=== PATIENT | male | born 1945 | race Caucasian/White ===

== ENCOUNTER 2017-08-26 17:26 | Inpatient (IN) | payer OTHER, MEDICAID ==
[2017-08-26] MEDS ORDERED: NS 1,000 ML IV ONE (18:09)
--- NOTE | 2017-08-26 18:13 | EDPHY ---
H & P Time Seen by Provider: 08/26/17 17:31 HPI/ROS: HPI M1, gravely disabled. 71-year-old male with [place] police on an M1 hold. Police responded to a welfare check to this patient's residence. They found him out plane on the street. He was talking nonsensically and mumbling incoherently. Neighbors report that he has not been taking care of himself. 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 He was sane he was in "waiting on the [place] her of the [employer] for Smartphones and" and he was in "born 2000 years ago" filthy living environment according to officer with hoarding. Spoke with behavioral health provider from [facility]. She spoke with the patient's home health care nurse. The patient is in a chronic hypo manic state. He is usually on Paxil 40 mg daily lorazepam 1 mg 3 times daily. She reports that the patient has lost a lot of weight recently. She reports primary care is through [facility] Dr. Whittaker. ROS: Unable to obtain. Past medical history: Unknown. Social history: As above. He lives alone. Unknown if he has any relatives nearby. Physical Exam: General Appearance: Alert, no distress. Disheveled in appearance. Intermittently mumbles. Answers questions nonsensically. This patient generally appears well-hydrated and well-nourished. Eyes: Pupils equal and round no pallor or injection. No lid edema, erythema or injection. ENT, Mouth: Poor dentition. Mucous membranes are moist. The pharyngeal tissues are unremarkable. No edema or swelling. No asymmetry suggestive of abscess. No erythema or exudates. Respiratory: There are no retractions, lungs are clear to auscultation with good air movement bilaterally. Cardiovascular: Regular rate and rhythm. No murmur appreciated. Gastrointestinal: Abdomen is soft and nontender, no masses, bowel sounds normal. No focal tenderness at McBurney's point. No Bear sign. Rectal exam: No gross blood. Brown stool. Normal tone. Neurological: Motor sensory function is grossly intact. Cranial nerves are normal. Skin: Warm and dry, no rashes. Musculoskeletal: Neck is supple and nontender. Extremities are symmetrical. All joints range without pain or impingement. Psychiatric: No agitation. No depression. Database: EKG: EKG time is 6:25 p.m.; EKG shows a narrow complex normal sinus rhythm with a ventricular rate of 91. Multiple premature complexes noted. Nonspecific intraventricular conduction delay. The TX, QRS, QT intervals are within normal limits. There are no ST-T wave changes indicative of ischemic or injury pattern. No evidence of right heart strain. Interpreted by me. Imaging: Chest x-ray AP portable; cardiomegaly with tortuous aorta. No evidence of infiltrate or pneumothorax. No acute cardiopulmonary disease process noted. Interpreted by me. CT scan of head without contrast: Procedures: Emergency department course: 6:20 p.m., the patient is on an M1 hold. Standard behavioral health workup ordered. I will also obtain CT imaging of the patient's brain. [facility] notified. 6:45 p.m., initial blood work reviewed. Patient noted to be severely anemic with a hemoglobin of 7.3. He has been typed and screened. MCV of 73.8 noted. He has 2 IVs. 7:35 p.m., spoke with on-call hospitalist Dr. John Matamoros. Discussed concern about being able to place this patient at a psychiatric institution given his significant anemia. Anemia likely chronic secondary to iron deficiency. I then spoke with [facility] provider Analia. She will see if admission to [facility] is an option in of the feel comfortable addressing the patient's anemia. [facility] has spoken with on-call psychiatrist Dr. Wylie. The patient will not be accepted to [facility]. He requests the patient be admitted to our hospitalist service. [facility] will not be able to find an outside psychiatric facility to accept this patient given his anemia. 8:50 p.m., I spoke with Dr. Jane Matamoros. Case reviewed again with her. She accepts the patient for admission under these unusual circumstances. I have canceled the patient's M1 hold. The patient will be placed on a detainer so he can be admitted to a medical floor instead of the ICU. The patient's remaining emergency department course under my care has been uneventful. Patient was admitted to the hospitalist service in stable condition. Differential Diagnosis: The differential diagnosis on this patient includes but is not limited to advanced dementia, toxic metabolic problem, acute psychosis. This represents a partial list of diagnoses considered. These considerations are based on history , physical exam, past history, reassessment and diagnostic testing. Smoking Status: Unknown if ever smoked Constitutional: Initial Vital Signs Temperature (C) 36.6 C 08/26/17 17:50 Heart Rate 94 08/26/17 17:50 Respiratory Rate 16 08/26/17 17:50 Blood Pressure 184/98 H 08/26/17 17:50 O2 Sat (%) 97 08/26/17 17:50 O2 Delivery Mode Room Air Allergies/Adverse Reactions: Unable to Assess Allergy (Unverified 08/26/17 17:50) Home Medications: Medication Instructions Recorded LORazepam [Ativan (*)] 1 mg PO TID 08/26/17 PARoxetine HCL [Paxil 20mg (*)] 20 mg PO DAILY 08/26/17 Ferrous Sulfate [Iron] 325 mg PO TID #30 tablet 08/27/17 Medical Decision Making - Data Points Laboratory Results: Laboratory Results 08/26/17 18:04 08/26/17 17:27 Medications Given: Discontinued Medications Haloperidol Lactate (Haldol Injection) 1 - 2 mg IVP Q4H PRN; Protocol PRN Reason: Agitation or psychosis Stop: 02/22/18 22:06 Last Admin: 08/27/17 00:11 Dose: 1 mg Sodium Chloride (Ns) 1,000 mls @ 0 mls/hr IV ONCE ONE; Wide Open PRN Reason: Protocol Stop: 08/26/17 18:10 Last Admin: 08/26/17 18:31 Dose: 1,000 mls Ferric Sodium Gluconate Complex 125 mg/ Sodium Chloride 110 mls @ 110 mls/hr IV DAILY EULOGIO Stop: 08/27/17 21:59 Last Admin: 08/27/17 08:21 Dose: 110 mls Departure - Departure Disposition: [facility] Inpatient Acute Clinical Impression: Altered mental status, Anemia, Psychosis, Gravely disabled
[2017-08-26 18:14] LABS: PLATELET COUNT 264 10^3/uL (150-400)
--- NOTE | 2017-08-26 18:27 | CPEKG ---
Heart Rate: 91 RR Interval: 659 P-R Interval: 212 QRSD Interval: 178 QT Interval: 384 QTC Interval: 473 P Tony: 81 QRS Tony: -88 T Wave Tony: 91 EKG Severity - ABNORMAL ECG - EKG Impression: SINUS RHYTHM EKG Impression: NONSPECIFIC IVCD WITH LAD EKG Impression: LVH WITH SECONDARY REPOLARIZATION ABNORMALITY Electronically Signed By: Kevyn Arias 26-Aug-2017 19:58:42
[2017-08-26 18:52] LABS: INR 1.11 (0.83-1.16); PROTIME(PATIENT) 14.5 SEC (12.0-15.0)
[2017-08-26] MEDS ORDERED: ACETAMINOPHEN 325 MG TAB PO PRN (21:54)
[2017-08-26] MEDS ORDERED: ONDANSETRON 4 MG/2 ML VIAL IVP PRN (21:54)
[2017-08-26] MEDS ORDERED: ONDANSETRON DISINTEGRATING 4 MG TAB PO PRN (21:54)
[2017-08-26] MEDS ORDERED: HALOPERIDOL LACT 5 MG/ML INJ IVP PRN (22:07)
--- NOTE | 2017-08-26 22:16 | PDGENHP ---
History and Physical - Chief Complaint found in a confused state by neighbors - History of Present Illness 71 yo male with unknown past medical history was brought to the ED by police on a M1 hold after being found by his neighbor wandering around on the [place] in a confused manner. He speech was tangential, confabulatory and non-sensical. Per his PCP records, he has a history of hypomanic state and has been treated with Paxil and Lorazepam. It's unclear if he has been taking these medications. He is delusional in the ED. Consideration was given to inpatient psychiatric hospitalization, but due to a low hemoglobin of 7.3, no inpatient psych unit will take him and he is admitted for further evaluation. He is unable to provide an accurate history. In the ED, a hemoccult was negative. There is not obvious evidence of active GI bleeding. He is hypertensive, a bit tachycardic. Review of outpatient records notes a history of weight loss. He is admitted for further evaluation. History Information - Allergies/Home Medication List Allergies/Adverse Reactions: Unable to Assess Allergy (Unverified 08/26/17 17:50) Home Medications: LORazepam [Ativan (*)] 1 mg PO TID 08/26/17 [Last Taken Unknown] PARoxetine HCL [Paxil 20mg (*)] 20 mg PO DAILY 08/26/17 [Last Taken Unknown] I have personally reviewed and updated: family history, medical history, social history, surgical history - Past Medical History Additional medical history: Unobtainable - Surgical History Reports: no pertinent surgical hx - Family History Positive for: non-pertinent - Social History Smoking Status: Unknown if ever smoked Additional social history: Lives independently. Apparently he is a hoarder. Review of Systems Review of Systems: ROS: 10pt was reviewed & negative except for what was stated in HPI & below Physical Exam Physical Exam: Temp Pulse Resp BP Pulse Ox 37.4 C 100 18 159/83 H 95 08/26/17 22:03 08/26/17 22:03 08/26/17 22:03 08/26/17 22:03 08/26/17 22:03 Constitutional: chronically ill appearing Eyes: PERRL Ears, Nose, Mouth, Throat: moist mucous membranes Cardiovascular: regular rate and rhythym Respiratory: no respiratory distress, clear to auscultation Gastrointestinal: normoactive bowel sounds, soft, non-tender abdomen Skin: warm Musculoskeletal: full muscle strength Psychiatric: poor insight, other (delusional, confabulatory, manic) Lab Data & Imaging Review 08/26/17 18:04 08/26/17 17:27 WBC 5.82 10^3/uL (3.80-9.50) 08/26/17 18:04 RBC 3.44 10^6/uL (4.40-6.38) L 08/26/17 18:04 Hgb 7.3 g/dL (13.7-17.5) L 08/26/17 18:04 Hct 25.4 % (40.0-51.0) L 08/26/17 18:04 MCV 73.8 fL (81.5-99.8) L 08/26/17 18:04 MCH 21.2 pg (27.9-34.1) L 08/26/17 18:04 MCHC 28.7 g/dL (32.4-36.7) L 08/26/17 18:04 RDW 16.9 % (11.5-15.2) H 08/26/17 18:04 Plt Count 264 10^3/uL (150-400) 08/26/17 18:04 MPV 8.3 fL (8.7-11.7) L 08/26/17 18:04 Neut % (Auto) 82.3 % (39.3-74.2) H 08/26/17 18:04 Lymph % (Auto) 8.6 % (15.0-45.0) L 08/26/17 18:04 [place] % (Auto) 8.6 % (4.5-13.0) 08/26/17 18:04 Eos % (Auto) 0.0 % (0.6-7.6) L 08/26/17 18:04 Baso % (Auto) 0.2 % (0.3-1.7) L 08/26/17 18:04 Nucleat RBC Rel Count 0.0 % (0.0-0.2) 08/26/17 18:04 Absolute Neuts (auto) 4.79 10^3/uL (1.70-6.50) 08/26/17 18:04 Absolute Lymphs (auto) 0.50 10^3/uL (1.00-3.00) L 08/26/17 18:04 Absolute Monos (auto) 0.50 10^3/uL (0.30-0.80) 08/26/17 18:04 Absolute Eos (auto) 0.00 10^3/uL (0.03-0.40) L 08/26/17 18:04 Absolute Basos (auto) 0.01 10^3/uL (0.02-0.10) L 08/26/17 18:04 Absolute Nucleated RBC 0.00 10^3/uL (0-0.01) 08/26/17 18:04 Immature Gran % 0.3 % (0.0-1.1) 08/26/17 18:04 Immature Gran # 0.02 10^3/uL (0.00-0.10) 08/26/17 18:04 RBC/WBC/PLT Morphology TNP 08/26/17 18:04 Platelet Estimate ADEQUATE (ADEQ) 08/26/17 18:04 Microcytic Cells 2+ H 08/26/17 18:04 PT 14.5 SEC (12.0-15.0) 08/26/17 17:27 INR 1.11 (0.83-1.16) 08/26/17 17:27 APTT 26.3 SEC (23.0-38.0) 08/26/17 17:27 Sodium 144 mEq/L (135-145) 08/26/17 17:27 Potassium 3.7 mEq/L (3.3-5.0) 08/26/17 17:27 Chloride 104 mEq/L (97-110) 08/26/17 17:27 Carbon Dioxide 24 mEq/l (22-31) 08/26/17 17:27 Anion Gap 16 mEq/L (8-16) 08/26/17 17:27 BUN 32 mg/dL (7-23) H 08/26/17 17:27 Creatinine 1.0 mg/dL (0.7-1.3) 08/26/17 17:27 Estimated GFR > 60 08/26/17 17:27 Glucose 111 mg/dL (70-100) H 08/26/17 17:27 Calcium 9.4 mg/dL (8.5-10.4) 08/26/17 17:27 Iron 18.0 mcg/dL (49.0-199.0) L 08/26/17 17:27 TIBC 461 ug/dL (260-490) 08/26/17 17:27 Iron Saturation 4 % (20-55) L 08/26/17 17:27 Ferritin 7.3 ng/mL (17.9-464.0) L 08/26/17 17:27 Total Bilirubin 0.6 mg/dL (0.1-1.4) 08/26/17 17:27 Conjugated Bilirubin 0.5 mg/dL (0.0-0.5) 08/26/17 17:27 Unconjugated Bilirubin 0.1 mg/dL (0.0-1.1) 08/26/17 17:27 AST 22 IU/L (17-59) 08/26/17 17:27 ALT 28 IU/L (21-72) 08/26/17 17:27 Alkaline Phosphatase 69 IU/L (38-126) 08/26/17 17:27 Ammonia 12.0 uMOL/L (9.0-30.0) 08/26/17 20:05 Total Protein 6.9 g/dL (6.3-8.2) 08/26/17 17:27 Albumin 4.2 g/dL (3.5-5.0) 08/26/17 17:27 Lipase 87 IU/L (23-300) 08/26/17 17:27 Urine Color YELLOW 08/26/17 08:00 Urine Appearance CLEAR 08/26/17 08:00 Urine pH 7.0 (5.0-7.5) 08/26/17 08:00 Ur Specific [place] 1.021 (1.002-1.030) 08/26/17 08:00 Urine Protein NEGATIVE (NEGATIVE) 08/26/17 08:00 Urine Ketones 1+ (NEGATIVE) H 08/26/17 08:00 Urine Blood NEGATIVE (NEGATIVE) 08/26/17 08:00 Urine Nitrate NEGATIVE (NEGATIVE) 08/26/17 08:00 Urine Bilirubin NEGATIVE (NEGATIVE) 08/26/17 08:00 Urine Urobilinogen 4.0 EU (0.2-1.0) H 08/26/17 08:00 Ur Leukocyte Esterase NEGATIVE (NEGATIVE) 08/26/17 08:00 Urine RBC 5-10 /hpf (0-3) H 08/26/17 08:00 Urine WBC 1-3 /hpf (0-3) 08/26/17 08:00 Ur Epithelial Cells TRACE /lpf (NONE-1+) 08/26/17 08:00 Urine Mucus TRACE /lpf (NONE-1+) 08/26/17 08:00 Urine Glucose NEGATIVE (NEGATIVE) 08/26/17 08:00 Stool Occult Bld Scrn NEGATIVE (NEGATIVE) 08/26/17 19:00 Salicylates < 1.0 mg/dL (2.0-20.0) L 08/26/17 17:27 Urine Opiates Screen NEGATIVE (NEGATIVE) 08/26/17 08:00 Acetaminophen < 10 mcg/mL (10-30) L 08/26/17 17:27 Urine Barbiturates NEGATIVE (NEGATIVE) 08/26/17 08:00 Ur Phencyclidine Scrn NEGATIVE (NEGATIVE) 08/26/17 08:00 Ur Amphetamine Screen NEGATIVE (NEGATIVE) 08/26/17 08:00 U Benzodiazepines Scrn NEGATIVE (NEGATIVE) 08/26/17 08:00 Urine Cocaine Screen NEGATIVE (NEGATIVE) 08/26/17 08:00 U Marijuana (THC) Screen NEGATIVE (NEGATIVE) 08/26/17 08:00 Ethyl Alcohol < 10 mg/dL (0-10) 08/26/17 17:27 Patient ABO/Rh O POSITIVE 08/26/17 18:45 Antibody Screen NEGATIVE 08/26/17 18:45 Crossmatch IS Only See Detail 08/26/17 18:45 Visualized and Interpreted Chest x-ray results: Yes Chest X-Ray results: no infiltrate Visualized and Interpreted EKG results: Yes EKG Interpretation: Positive for: normal sinsus rhythm Assessment & Plan 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 CT head negative. Has h/o hypomanic state, recently started on Paxil and Lorazepam. It's possible the SSRI hastened his julienne. Would avoid Lorazepam as could also contribute to increased confusion. -admit to med/surg -recommend inpt psychiatry eval if he is not transferred to inpt psych tomorrow -stop paxil and ativan as it sounds like he hasn't been taking them anyway and these may not be optimal choice for his current condition -prn haldol for agitation or psychosis tonight Iron deficiency anemia - suspect this is chronic as pt is hemodynamically stable without evidence of active GI bleeding. No h&h prior data to compare. Wt loss hx concerning. -will transfuse 1 u prbc's -IV iron planned -should have outpatient GI evaluation, but this is better pursued when he is not in a decompensated mental health state -repeat h&h in am, if improved, would medically clear for inpt psych transfer Azotemia - query pre-renal with low hgb. No e/o active GI bleeding -recheck in am after volume repletion with 1 u prbcs Full code by default. Pt unable to make medical decisions. DVT PPLX - defer lovenox with low hgb Dispo - obs. If hgb improved in am, can be medically cleared for inpt psych transfer and will need outpt f/u for GI evaluation
[2017-08-27] MEDS: SODIUM FERRIC GLUCONAT/SUCROSE 125 MG in NS 100 ML IV SCH ×2 (00:12→08:21)
--- NOTE | 2017-08-27 15:33 | HOSPPROG ---
Hospitalist Progress Note Assessment/Plan: 71y male with confusion. First encounter, chart reviewed. #Psychosis - -suspect julienne induced. -CT head negative. -Has h/o hypomanic state, recently started on Paxil and Lorazepam. -It's possible the SSRI hastened his julienne. -Would avoid Lorazepam as could also contribute to increased confusion. -admit to med/surg -recommend inpt psychiatry eval if he is not transferred to inpt psych tomorrow -stop paxil and ativan as it sounds like he hasn't been taking them anyway and these may not be optimal choice for his current condition -prn haldol for agitation or psychosis tonight #Iron deficiency anemia - -chronic as pt is hemodynamically stable -without evidence of active GI bleeding. No h&h prior data to compare. Wt loss hx concerning. -IV iron planned -should have outpatient GI evaluation, but this is better pursued when he is not in a decompensated mental health state -h&h stable, medically clear for inpt psych transfer #Azotemia - query pre-renal with low hgb. No e/o active GI bleeding Full code by default. Pt unable to make medical decisions. DVT PPLX - defer lovenox with low hgb Dispo - obs. medically cleared for inpt psych transfer and will need outpt f/u for GI evaluation D/W CM and RN Subjective: Confused. Tired. No pain. Objective: Vital Signs Temp Pulse Resp BP Pulse Ox 36.7 C 84 16 132/90 H 90 L 08/27/17 12:00 08/27/17 12:00 08/27/17 12:00 08/27/17 12:00 08/27/17 12:00 Laboratory Results 08/27/17 04:15 08/27/17 04:15 08/26/17 08/27/17 08/28/17 05:59 05:59 05:59 Intake Total 1498 Output Total 450 Balance 1048 PT 14.5 SEC (12.0-15.0) 08/26/17 17:27 INR 1.11 (0.83-1.16) 08/26/17 17:27 - Physical Exam Constitutional: no apparent distress, appears nourished, not in pain Eyes: PERRL, anicteric sclera, EOMI Ears, Nose, Mouth, Throat: moist mucous membranes, hearing normal, ears appear normal Cardiovascular: No JVD, No tachycardia, No edema Respiratory: no respiratory distress, no rales or rhonchi, clear to auscultation Gastrointestinal: normoactive bowel sounds, No tenderness, No ascites Skin: warm, normal color, No mottled Musculoskeletal: no joint effusions, generalized weakness Neurologic: No AAOx3 Psychiatric: not anxious, poor insight, poor judgement, poor memory, No thought process linear ICD10 Worksheet Patient Problems: Problems Problem Status Onset Altered mental status Acute Anemia Acute Psychosis Acute
--- NOTE | 2017-08-27 16:44 | ASMTCMCOM ---
CM Note CM Note Notes: Pt came to [facility] on M1 hold after neighbors called a welfare check, M1 hold since canceled. Pt was under consideration for inpatient psych admit but was deemed medically unstable due to anemia. Pt anemia is chronic and Hospitalist Lupe'fermin today determines pt would be medically stable for inpatient psych transfer. Analia Bueno with [facility] assessing pt today. Two attempts made to reach pt girlfriend Shayy: the number in demo [phone] is no good, [facility] note indicates her number is [phone]. Chart review indicates Pt PCP is Anna Whittaker at [facility] and pt not open with [facility]. No therapies ordered. CM to follow. Date Signed: 08/27/2017 04:44 PM Electronically Signed By:MARLY Toro
[2017-08-27 20:34] VITALS: BP 142/84
--- NOTE | 2017-08-28 10:05 | PDMN ---
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
== END 2017-08-27 22:21 | DRG 812 ==
LOC: EDBD → EDUNIT# → UNDOADMOB 20:54 → F3N 22:00 → INTOOBSV 22:11 → OBSVTOIN 22:11 → F3N 08-27 15:40 → UNDODISOB 08-27 22:21
PROVIDERS: ADMIT Hospitalist; ATTEND Family Medicine
DX: D50.9 Iron deficiency anemia, unspecified (principal); F30.8 Other manic episodes; R63.4 Abnormal weight loss
CPT/HCPCS: 80305; G0378; G0480; J1630; J2916

== ENCOUNTER 2018-01-31 01:58 | Inpatient (IN) | payer OTHER ==
[2018-01-31] MEDS ORDERED: OLANZapine DISINTEGR 5 MG TAB PO ONE (02:14)
--- NOTE | 2018-01-31 02:16 | EDPHY ---
H & P Stated Complaint: ALOC, DRIVING ON NO WHEEL ON CAR Source: Patient, EMS - Personal History Current Tetanus/Diphtheria Vaccine: No Current Tetanus Diphtheria and Acellular Pertussis (TDAP): No - Medical/Surgical History Hx Asthma: No Hx Chronic Respiratory Disease: No Hx Diabetes: No Hx Cardiac Disease: No Hx Renal Disease: No Hx Cirrhosis: No Hx Alcoholism: No Hx HIV/AIDS: No Hx Splenectomy or Spleen Trauma: No Other PMH: unknown - Social History Smoking Status: Never smoked Time Seen by Provider: 01/31/18 02:15 HPI/ROS: HPI CHIEF COMPLAINT: Acute psychosis. HISTORY OF PRESENT ILLNESS: 72-year-old male, presents emergency room by EMS after he was driving his car around town for the past 4 hrs with no tire on one of the wheels. The rim of the wheel was on the pavement. The patient was going excessively slow in a [address] Cars were Honking at him and yelling at him. This was causing a disturbance. Police got involved and called EMS as the patient appeared tangental, rapid speech, and appeared psychotic. The patient arrives to the emergency room he has tangental, he has pressured speech, rapid speech, and really does not make much sense. Appears to be acutely psychotic. Past Medical History: History of psychosis. Patient's history of anemia. Dehydration. Past Surgical History: Denies recent surgery Social History: Lives in [place]. Denies drugs alcohol tobacco. Family History: Nontoxic ROS REVIEW OF SYSTEMS: 10 Systems were reviewed and negative with the exception of the elements mentioned in the history of present illness. Exam Constitutional triage nursing summary reviewed, vital signs reviewed, awake/ alert. Eyes normal conjunctivae and sclera, EOMI, PERRLA. HENT normal inspection, atraumatic, moist mucus membranes, no epistaxis, neck supple/ no meningismus, no raccoon eyes. Respiratory clear to auscultation bilaterally, normal breath sounds, no respiratory distress, no wheezing. Cardiovascular rate normal, regular rhythm, no murmur, no edema, distal pulses normal. Gastrointestinal soft, non-tender, no rebound, no guarding, normal bowel sounds, no distension, no pulsatile mass. Genitourinary no CVA tenderness. Musculoskeletal no midline vertebral tenderness, full range of motion, no calf swelling, no tenderness of extremities, no meningismus, good pulses, neurovascularly intact. Skin pink, warm, & dry, no rash, skin atraumatic. Neurologic awake, alert and oriented x 3, AAOx3, moves all 4 extremities equally, motor intact, sensory intact, CN II-XII intact, normal cerebellar, normal vision, normal speech. Psychiatric acutely psychotic. Pressured speech. Tangiental Heme/Lymph/Immune no lymphadenopathy. Differential Diagnosis: Includes but is not limited to in a particular order acute psychosis underlying mental illness, schizophrenia, mood disorder, bipolar disorder with julienne, drug intoxication. Medical Decision Making: Plan for this patient IV establishment with blood draw , obtain blood work, placed on M1 hold for acute psychosis. Zyprexa for acute psychosis. Re-evaluation: 0219AM: Patient placed on M1 hold. 0557AM: Signed over to Dr. Wadsworth at 7am. No events overnight. Patient given zyprexa, needs MH eval. (Glenn eBar) Constitutional: Initial Vital Signs Temperature (C) 36.7 C 01/31/18 02:02 Heart Rate 74 01/31/18 02:02 Respiratory Rate 16 01/31/18 02:02 Blood Pressure 123/91 H 01/31/18 02:02 O2 Sat (%) 100 01/31/18 02:02 O2 Delivery Mode Room Air Allergies/Adverse Reactions: No Known Allergies Allergy (Unverified 01/31/18 02:05) Home Medications: Medication Instructions Recorded LORazepam [Ativan (*)] 1 mg PO TID 08/26/17 PARoxetine HCL [Paxil 20mg (*)] 20 mg PO DAILY 08/26/17 Ferrous Sulfate [Iron] 325 mg PO TID #30 tablet 08/27/17 Medical Decision Making Other Provider: I assumed care of the patient care 07. 11:30 a.m.: The patient has been accepted for involuntary psychiatric hospitalization at [facility]'s inpatient unit. I have filled out the EMTALA transfer form. (Daniel Wadsworth) - Data Points Laboratory Results: Laboratory Results 01/31/18 02:40 01/31/18 02:40 01/31/18 01/31/18 01/31/18 03:20 02:40 02:40 WBC 6.76 10^3/uL 10^3/uL (3.80-9.50) RBC 3.94 10^6/uL L 10^6/uL (4.40-6.38) Hgb 12.1 g/dL L g/dL (13.7-17.5) Hct 34.1 % L % (40.0-51.0) MCV 86.5 fL fL (81.5-99.8) MCH 30.7 pg pg (27.9-34.1) MCHC 35.5 g/dL g/dL (32.4-36.7) RDW 17.8 % H % (11.5-15.2) Plt Count 360 10^3/uL 10^3/uL (150-400) MPV 7.9 fL L fL (8.7-11.7) Neut % (Auto) 74.4 % H % (39.3-74.2) Lymph % (Auto) 14.3 % L % (15.0-45.0) [place] % (Auto) 9.0 % % (4.5-13.0) Eos % (Auto) 1.6 % % (0.6-7.6) Baso % (Auto) 0.4 % % (0.3-1.7) Nucleat RBC Rel Count 0.0 % % (0.0-0.2) Absolute Neuts (auto) 5.02 10^3/uL 10^3/uL (1.70-6.50) Absolute Lymphs (auto) 0.97 10^3/uL L 10^3/uL (1.00-3.00) Absolute Monos (auto) 0.61 10^3/uL 10^3/uL (0.30-0.80) Absolute Eos (auto) 0.11 10^3/uL 10^3/uL (0.03-0.40) Absolute Basos (auto) 0.03 10^3/uL 10^3/uL (0.02-0.10) Absolute Nucleated RBC 0.00 10^3/uL 10^3/uL (0-0.01) Immature Gran % 0.3 % % (0.0-1.1) Immature Gran # 0.02 10^3/uL 10^3/uL (0.00-0.10) Sodium 131 mEq/L L mEq/L (135-145) Potassium 3.3 mEq/L mEq/L (3.3-5.0) Chloride 93 mEq/L L mEq/L (97-110) Carbon Dioxide 27 mEq/l mEq/l (22-31) Anion Gap 11 mEq/L mEq/L (6-14) BUN 13 mg/dL mg/dL (7-23) Creatinine 0.7 mg/dL mg/dL (0.7-1.3) Estimated GFR > 60 Glucose 80 mg/dL mg/dL (70-100) Calcium 9.7 mg/dL mg/dL (8.5-10.4) Urine Opiates Screen NEGATIVE (NEGATIVE) Urine Barbiturates NEGATIVE (NEGATIVE) Ur Phencyclidine Scrn NEGATIVE (NEGATIVE) Ur Amphetamine Screen NEGATIVE (NEGATIVE) U Benzodiazepines Scrn NEGATIVE (NEGATIVE) Urine Cocaine Screen NEGATIVE (NEGATIVE) U Marijuana (THC) Screen NEGATIVE (NEGATIVE) Ethyl Alcohol < 10 mg/dL mg/dL (0-10) Medications Given: Discontinued Medications Olanzapine (Zyprexa Zydis) 5 mg PO EDNOW ONE Stop: 01/31/18 02:15 Last Admin: 01/31/18 02:48 Dose: 5 mg Departure - Departure Disposition: [facility] IP Clinical Impression: Psychosis Qualifiers: Psychosis type: other Qualified Code(s): F28 - Other psychotic disorder not due to a substance or known physiological condition Condition: Fair Referrals: Patient,NotPresent [Primary Care Provider] - As per Instructions
[2018-01-31 02:56] LABS: PLATELET COUNT 360 10^3/uL (150-400)
--- NOTE | 2018-01-31 11:22 | ASMTTCLDSP ---
TLC Discharge Disposition Disposition: Answers: Admit Disposition Notes: Notes: In consultation with [facility] ED Physician, Kp Wadsworth and on-call [employer], Abner Redman both concurred that pt appears to meet 27-65 criteria requiring psychiatric hospitalization as pt appears to be at risk of harm to gravely disability due to a mental illness condition. Pt was given the 3N prohibited belongings list while in the ED. Discharge Concerns/Recommendations: Notes: Pt admitted to for inpt. mental health treatment. Was patient given the Answers: Yes Inpatient Behavioral Health Prohibited Belongings List while in the ED? For inpatient Abner Redman APN admission, the following psychiatrist agreed to accept patient for admission to Behavioral Health ([facility]): Type of Hold: Answers: M1/72-hour Hold Hold initiated by: Answers: Police Date Signed: 01/31/2018 11:21 AM Electronically Signed By:Stephania Valencia
--- NOTE | 2018-01-31 12:18 | ASMTTLCEVL ---
TLC Evaluation - Basic Information Evaluation Start Date and 01/31/2018 09:50 AM Time Hospital Status Answers: M1 Hold 72-hr M1 Hold Start Date 01/31/2018 02:20 AM and Time Patient statement Notes: I had a flat tire on my car. I went to buy something. Pt appeared to have no sense of inappropriateness of driving around with a flat tire with no intention of stopping. Narrative Notes: Pt is a 72 year old, single, brought in on a M1 hold with symptoms of acute psychosis with tangential and pressured speech. Pt was observed driving his car around town for the past 4 hours with no tire on one of the wheels. The rim of the wheel was on the pavement. Pt patient was noted to be going excessively slow about 45 miles per hour. Cars were honking and yelling at him. Due to the disturbance this was causing police were notified. Due to pt.s noted presentation of appearance, tangential, rapid speech pt was placed on a M1 hold due to grave disability and brought to the [facility] ED on a M1 hold. Per ED report pt when arriving to the ED presented as tangential, pressured and rapid speech, and incoherent. Pt presented as acutely psychotic. Pts utox was negative for all substances. TLC called local [facility] and was informed pt is not an open client of [facility]. Per records reviewed pt is followed by [facility] and prescribed psychotropic medications. Pts utox was negative for all substances. Pt was given 5 mg of Zyprexa upon presenting to the ED. He was calm and attempted to cooperate for TLC report but extremely fatigued Per pt.s TLC evaluation when he was on the medical floor 08/27/17: Pt is a 71 year old male who had presented to [facility] ED on 08/27/17 on a M1 hold written by police after they had responded to a welfare check to the patients residence. When police had arrived to pt.s residence they found him sitting in the middle of the street, talking nonsensically and mumbling incoherently. Neighbors had reported that he has not been talking care of himself. Police officers noted that pt was dirty and disheveled. According to police officers it was noted pt was living in a filthy environment. During his TLC evaluation on 08/27/17 it was noted pt had denied SI or HI, plan or intent. Pt had presented as rambling and tangential but as calm and cooperative. Pts utox was negative for all substances. Diagnosis History Notes: Per pt.s concreter pt has a hx of hypomania. It was reported in past evaluation that pt.s baseline is hypomanic and pt has a hx of noncompliance with mood stabilizers. Pt has a hx of focusing on the past and will derail a lot but can be redirected. Pt previously was taking 40 mg of Paxil but had tapered to 20 mg of Paxil. Pt has been followed by [facility], Yoselin Ziegler for the past 6 years. In previous evaluation pt was described by his neighbors as a person who was always eccentric Prior suicide attempts Notes: In past pt had denied any past suicide attempts. Prior hospitalizations Notes: Pt was admitted to [facility] under the care of Dr. Cory Robins on 08/27/17 Treatment Responses Notes: Unknown, information is not available. History of violence Notes: Pt has no known hx of violence towards others or a victim of violence. Psychiatrist: Yoselin Ziegler NP at [facility]. Medications (name, dosage, route, freq uency) Notes: Pts home medications were Ativan 1 mg PO TID, Paxil 20 mg and Iron tablet 325 mg PO TID. Allergies/Reaction Notes: No known allergies. Sleep Notes: Pt described his sleep as good. Appetite Notes: Pt reported his appetite as good. Medical/Surgical history Notes: Per hx pt has a hx of chronic anemia. Substance use history (frequency, intensity, his tory, duration) Notes: Pt had reported in previous evaluation that he stopped using everything when he turned 50 which includes alcohol and coffee. 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 Family composition Notes: Pt had reported in past that his parents but time frame is unknown. Pt is the oldest of 7. He does not speak to a few of his siblings. Pts parents are both . Need for family Answers: No participation in patient's care Family psychiatric/substance abuse history Notes: Pt denied any family hx of family mental health or substance abuse problems however pt does not appear to be a reliable informant. Developmental history Notes: Pt per hx grew up in [place], [place]. Pt had reported in past that he spent most of his life traveling around the world. Pt had denied any past dx of ADD/ADHD diagnosis. Pt also previously had denied any past hx of childhood abuse. Abuse concerns Answers: None Marital status/children Notes: Per previous records pt never . Living situation Notes: Pt per previous reports lived all over the [place] during his adult life. Pt lives in [place] where he has apparently resided for many years. Sexual history/orientation Notes: Unknown Peer support/family strengths Notes: Pt previously had reported he has a lot of friends in [place]. It appears per previous records pt has concerned neighbors. Education level/history Notes: Pt has an apparent history of attending some college but never finished. 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 Notes: Pt did state he was not in the and he had avoided the draft. Legal Notes: Pt not known to have any legal problems. Cheondoism/Spiritual Notes: Pt has reported he is Church. Leisure Notes: In the past pt had reported he enjoys fishing and reading. Collateral Notes: Collateral inform was provided from previous reports. Patient's strengths Answers: Intelligent (Please select at least TWO strengths): TLC Evaluation - Mental Status Exam Appearance: Answers: Unkempt Disheveled Eye Contact: Answers: Absent Mood: Answers: Irritable Affect: Answers: Agitated Angry Anxious Apathetic Guarded Indifferent Irritable Suspicious Behavior: Answers: Uncooperative Belligerent Erratic Fatigued Fearful Guarded Impulsive Restless Shouting Speech: Answers: Mumbling Nonsensical Threatening Thought Process: Answers: Disorganized Distracted Insight: Answers: Poor Judgement: Answers: Poor Manic Signs/Symptoms Answers: Distractibility Grandiosity Impulsivity Irritability Depression Answers: Psychomotor Agitation Signs/Symptoms: Anxiety Signs/Symptoms Answers: Generalized Anxiety Delusions: Answers: Paranoid Ideation Current Stage of Change Answers: Relapse Pt reported to have Answers: No suicidal/self-injuring ideation/behavior? Pt reported to be making Answers: No suicidal/self-injuring threats? Pt reported to have Answers: No aggression/assault ideation/behavior? Pt reported to be making Answers: No aggression/assault threats? Pt exhibits inability to Answers: Yes care for self/grave disability? TLC Evaluation - Suicide/Homicide Risk Suicide Risk Factors: Answers: Agitation Bipolar Disorder Impulsivity Psychotic Disorder None Current Suicidal Answers: No Ideation? Suicide Internal Answers: Other Notes: Pt denying SI Protective Factors: Suicide External Answers: Other Notes: Pt denying SI Protective Factors: Ranking of patient's Answers: Low suicidal risk: Ranking of patient's Answers: Low homicidal risk: TLC Evaluation - Wrap-up AXIS I Diagnosis (include DSM-V and ICD-10 codes), must also be entered in [employer], which is the source of truth. Notes: R/O Bipolar I Disorder, with Psychotic Features 296.44 (F31.2) Evaluation End Date and 01/31/2018 12:15 PM Time (HH:MM): Date Signed: 01/31/2018 12:17 PM Electronically Signed By:Stephania Valencia
--- NOTE | 2018-01-31 12:22 | ASMTLCPROG ---
Notes Note: Notes: Following consultation with treatment team TLC met with pt to read him rights and inform of decision to admit to [facility]. Pt became beligerant and refused to sign rights, 3[facility] belongings restrictions and complete BDI and BSS. Date Signed: 01/31/2018 12:21 PM Electronically Signed By:Stephania Valencia
[2018-01-31] MEDS ORDERED: ACETAMINOPHEN 325 MG TAB PO PRN (19:12)
[2018-01-31] MEDS ORDERED: OLANZapine DISINTEGR 10 MG TAB PO PRN (19:12)
[2018-01-31] MEDS ORDERED: MAGNESIUM HYDROXIDE 30 ML UDCUP PO PRN (19:12)
[2018-01-31] MEDS ORDERED: NICOTINE POLACRILEX 2 MG GUM B PRN (19:12)
--- NOTE | 2018-02-01 08:25 | PDGENHP ---
History and Physical - Chief Complaint driving with no wheel on car - History of Present Illness 72yo M with a history of acute psychosis was brought to the ED by police after driving his car around town for roughly 4 hours with no tire on one of his wheels. The rim was on the pavement. He was apparently going excessively slow in a 45mph road and cars were yelling at him. Police were alerted and when they confronted him he appeared tangential, had rapid speech, and appeared psychotic. He was acutely psychotic in the ED so is being admitted to [address] [place] [address]. On my interview with the patient, he is frustrated that he hasn 't gotten his lisinopril. Otherwise he feels well without chest pain, sob, cough , fevers/chills, abdominal pain, n/v/d, urinary symptoms, leg swelling. History Information - Allergies/Home Medication List Allergies/Adverse Reactions: No Known Allergies Allergy (Unverified 01/31/18 02:05) Home Medications: PARoxetine HCL [Paxil 20mg (*)] 20 mg PO DAILY 08/26/17 [Last Taken Unknown] Divalproex ER [Depakote ER 500 MG (*)] 500 mg PO BID 01/31/18 [Last Taken Unknown] Doxazosin Mesylate [Cardura 4 MG (*)] 4 mg PO DAILY 01/31/18 [Last Taken Unknown ] Finasteride [Proscar 5 MG (*)] 5 mg PO DAILY 01/31/18 [Last Taken Unknown] Lisinopril 30 mg PO DAILY 01/31/18 [Last Taken Unknown] I have personally reviewed and updated: family history, medical history, social history, surgical history - Past Medical History Additional medical history: acute psychosis/julienne, iron deficiency anemia - Surgical History Reports: no pertinent surgical hx - Family History Positive for: non-pertinent - Social History Smoking Status: Never smoked Alcohol Use: None Drug Use: None Additional social history: Lives independently. Apparently he is a hoarder. Review of Systems Review of Systems: ROS: 10pt was reviewed & negative except for what was stated in HPI & below Physical Exam Physical Exam: Temp Pulse Resp BP Pulse Ox 37.3 C 88 14 119/66 94 02/01/18 06:00 02/01/18 06:00 02/01/18 06:00 02/01/18 06:00 02/01/18 06:00 Constitutional: no apparent distress, appears nourished, not in pain, other ( disheveled, thin) Eyes: PERRL, anicteric sclera, EOMI Ears, Nose, Mouth, Throat: moist mucous membranes, hearing normal, ears appear normal, no oral mucosal ulcers, other (poor dentition) Cardiovascular: regular rate and rhythym, no murmur, rub, or gallop, No edema Respiratory: no respiratory distress, no rales or rhonchi, clear to auscultation Gastrointestinal: normoactive bowel sounds, soft, non-tender abdomen, no palpable masses Genitourinary: no bladder fullness, no bladder tenderness Skin: warm, normal color, no fluctuance, no induration, other (numerous abrasions), No mottled Musculoskeletal: full muscle strength, no muscle tenderness, normal joint ROM, no joint effusions Neurologic: AAOx3 Psychiatric: interacting appropriately, not anxious, not encephalopathic Lab Data & Imaging Review 01/31/18 02:40 01/31/18 02:40 WBC 6.76 10^3/uL (3.80-9.50) 01/31/18 02:40 RBC 3.94 10^6/uL (4.40-6.38) L 01/31/18 02:40 Hgb 12.1 g/dL (13.7-17.5) L 01/31/18 02:40 Hct 34.1 % (40.0-51.0) L 01/31/18 02:40 MCV 86.5 fL (81.5-99.8) 01/31/18 02:40 MCH 30.7 pg (27.9-34.1) 01/31/18 02:40 MCHC 35.5 g/dL (32.4-36.7) 01/31/18 02:40 RDW 17.8 % (11.5-15.2) H 01/31/18 02:40 Plt Count 360 10^3/uL (150-400) 01/31/18 02:40 MPV 7.9 fL (8.7-11.7) L 01/31/18 02:40 Neut % (Auto) 74.4 % (39.3-74.2) H 01/31/18 02:40 Lymph % (Auto) 14.3 % (15.0-45.0) L 01/31/18 02:40 [place] % (Auto) 9.0 % (4.5-13.0) 01/31/18 02:40 Eos % (Auto) 1.6 % (0.6-7.6) 01/31/18 02:40 Baso % (Auto) 0.4 % (0.3-1.7) 01/31/18 02:40 Nucleat RBC Rel Count 0.0 % (0.0-0.2) 01/31/18 02:40 Absolute Neuts (auto) 5.02 10^3/uL (1.70-6.50) 01/31/18 02:40 Absolute Lymphs (auto) 0.97 10^3/uL (1.00-3.00) L 01/31/18 02:40 Absolute Monos (auto) 0.61 10^3/uL (0.30-0.80) 01/31/18 02:40 Absolute Eos (auto) 0.11 10^3/uL (0.03-0.40) 01/31/18 02:40 Absolute Basos (auto) 0.03 10^3/uL (0.02-0.10) 01/31/18 02:40 Absolute Nucleated RBC 0.00 10^3/uL (0-0.01) 01/31/18 02:40 Immature Gran % 0.3 % (0.0-1.1) 01/31/18 02:40 Immature Gran # 0.02 10^3/uL (0.00-0.10) 01/31/18 02:40 Sodium 131 mEq/L (135-145) L 01/31/18 02:40 Potassium 3.3 mEq/L (3.3-5.0) 01/31/18 02:40 Chloride 93 mEq/L (97-110) L 01/31/18 02:40 Carbon Dioxide 27 mEq/l (22-31) 01/31/18 02:40 Anion Gap 11 mEq/L (6-14) 01/31/18 02:40 BUN 13 mg/dL (7-23) 01/31/18 02:40 Creatinine 0.7 mg/dL (0.7-1.3) 01/31/18 02:40 Estimated GFR > 60 01/31/18 02:40 Glucose 80 mg/dL (70-100) 01/31/18 02:40 Hemoglobin A1c 5.0 % (4.0-6.0) 01/31/18 02:40 Estim Average Glucose 97 mg/dL (68-126) 01/31/18 02:40 Calcium 9.7 mg/dL (8.5-10.4) 01/31/18 02:40 Total Bilirubin 0.9 mg/dL (0.1-1.4) 01/31/18 02:40 Conjugated Bilirubin 0.4 mg/dL (0.0-0.5) 01/31/18 02:40 Unconjugated Bilirubin 0.5 mg/dL (0.0-1.1) 01/31/18 02:40 AST 97 IU/L (17-59) H 01/31/18 02:40 ALT 67 IU/L (21-72) 01/31/18 02:40 Alkaline Phosphatase 67 IU/L (38-126) 01/31/18 02:40 Total Protein 6.8 g/dL (6.3-8.2) 01/31/18 02:40 Albumin 4.0 g/dL (3.5-5.0) 01/31/18 02:40 Triglycerides 64 mg/dL (40-150) 01/31/18 02:40 Cholesterol 163 mg/dL (140-220) 01/31/18 02:40 Cholesterol Risk Factr 0.4 (0.2-1.0) 01/31/18 02:40 LDL Cholesterol, Calc 82 mg/dL (80-100) 01/31/18 02:40 LDL Risk Factor 0.6 (0.2-1.0) 01/31/18 02:40 VLDL Cholesterol 13 mg/dL (8-25) 01/31/18 02:40 Non-HDL Cholesterol 95 mg/dL (90-129) 01/31/18 02:40 HDL Cholesterol 68 mg/dL (40-65) H 01/31/18 02:40 LDL/HDL Ratio 1.21 RATIO (1.00-3.64) 01/31/18 02:40 Cholesterol/HDL Ratio 2.40 RATIO (1.00-4.97) 11/02/18 02:40 Urine Opiates Screen NEGATIVE (NEGATIVE) 01/31/18 03:20 Urine Barbiturates NEGATIVE (NEGATIVE) 01/31/18 03:20 Ur Phencyclidine Scrn NEGATIVE (NEGATIVE) 01/31/18 03:20 Ur Amphetamine Screen NEGATIVE (NEGATIVE) 01/31/18 03:20 U Benzodiazepines Scrn NEGATIVE (NEGATIVE) 01/31/18 03:20 Urine Cocaine Screen NEGATIVE (NEGATIVE) 01/31/18 03:20 U Marijuana (THC) Screen NEGATIVE (NEGATIVE) 01/31/18 03:20 Ethyl Alcohol < 10 mg/dL (0-10) 01/31/18 02:40 Assessment & Plan Assessment: 72yo M with a history of acute psychosis was brought to the ED by police after driving his car around town for roughly 4 hours with no tire on one of his wheels. He was noted to be acutely psychotic in the ED. Plan: #Acute psychosis - has a history of this in the past, previously on depakote and paxil - M1 hold, admitted to at [facility] #Anemia - he carries a history of iron deficiency but actually his h/h is much better than in the past and he no longer has a microcytosis. - recommend rechecking iron studies and cbc as an outpatient #Hyponatremia - I suspect this is hypovolemic in nature related to poor PO in setting of psychosis. - recommend monitoring his PO intake, if poor would consider 1L normal saline infusion - if not improving with above, would strongly consider SIADH as alternate etiology and consider fluid restriction/salt tablets #Hypokalemia - mild - encourage PO intake #Isolated elevated AST - unclear etiology - he has never been screened for hep B/C in our system, recommend doing this as an outpatient VTE ppx: ambulation
[2018-02-01] MEDS: LORazepam 0.5 MG TAB PO PRN (09:07)
--- NOTE | 2018-02-01 11:12 | PDMN ---
Medical Necessity Medical necessity: Pt meets IP criteria per RUG HOOKER & MCG B-004-IP; est los >2 mn for eval/tx of bipolar 1 disorder w/psychotic features; pt gravely disabled & on M1 hold; admit for further monitoring, safety, crisis stabilization & med management; per CM assessment & order 01/31/18
--- NOTE | 2018-02-01 16:20 | BAPA ---
DATE OF SERVICE: 02/01/2018 CHIEF COMPLAINT: "I had a flat tire on my car. I went to buy something." HISTORY OF PRESENT ILLNESS: The patient is a 72-year-old single man brought in on an M1 ho ld with symptoms of acute psychosis. The patient was observed driving his car [facility] hours with a flat tire on one of the wheels. The rim of the wheel was on the pavement. The pat ient was going slower than the speed limit. Cars were honking and yelling at him. Due to this distu rbance, the police were called. When the motorcycle police officer interacted with the patient, they reported t hat he was disheveled, unkempt, that he was talking rapidly and not making a whole lot of sense. He was brought to the [facility] Department on an M1 hold. When patient arrived in the ED, he presented as acutely psychotic, disorganized, loose, pressured and rapid speech, incoh erent at times. The patient's U-tox was negative for all substances. He was given 5 mg of Zyprexa i n the ED which seemed to help calm him down. When this MD met with the patient on the inpatient [facility] Unit, he was just getti ng up after sleeping through lunch. He had previously been very irritable and belligerent, refusing to do anything that was requested of him by the staff. He became angry this morning according to the staff and knocked his juice off his tray and spilled it on the floor. He demanded that the RN place the pills in his mouth rather than having him swallow them himself, even though he was perfectly cap able of swallowing. He had calmed down somewhat by the time this MD saw him, but he was still very i rritable and complaining and making demands. The patient denied experiencing auditory or visual gray ucinations. He denied ideas of reference, any bizarre thoughts, or delusions. He denied any thought s, plans, or intents to hurt himself or anyone else. PAST PSYCHIATRIC HISTORY: The patient is not a very reliable historian. He is not able to give an a ccurate timeline of events. However, according to the information obtained by the [facility] metal technician who saw the patient in the emergency department, the patient has previously been followed by a nurse Marita christianson Xochilt, who sees the patient at the [facility]. Marita has been prescribing Paxi l, Depakote, Cardura, Proscar, and lisinopril for the patient, but it is unclear when the last time t he patient took any of his medications was or when the last time he saw his nurse practitioner was. Records indicate that the patient has a history of noncompliance with medications in the past. He robles s denied ever having a suicide attempt. He has never been admitted to [address] in the past, [facility] the patient was admitted to [facility] o n August 27, 2017, from the [facility] from [facility]. He was seen o n 08/27/2017, brought in by police on an M1 hold for grave disability after they responded to a welfa re check at the patient's residence. They found him sitting in the middle of the street, "talking no nsensically and mumbling incoherently." Supposedly neighbors had reported to the police that he had not been taking care of himself. The police found that he was dirty and disheveled. They also found that he had been hoarding things and not cleaning his apartment. They stated that he was living in "a filthy environment." At that time, the patient denied any SI or HI. He had no plan or intent to hurt himself or anyone else. He was calm and cooperative with the police and with the staff in the e mergency department, although he continued to exhibit disorganized thought process, rambling in nonse nsical speech. It is unclear what treatment he received at [facility] or what medications he was ult imately placed on. After his discharge, he was supposed to follow up with Marita Lemon at the [facility], but it is not clear when the most recent time was that he was seen. ALLERGIES: The patient has no known drug allergies. MEDICATIONS: Current medications are unknown. In the past, the patient has been on Depakote ER 500 mg p.o. twice daily, Cardura 4 mg p.o. daily, Proscar 5 mg p.o. daily, lisinopril 30 mg p.o. daily, a nd Paxil 20 mg p.o. daily. Last dose taken is unknown for all those medications. PAST MEDICAL HISTORY: The patient's medical history was reviewed by Cory Dobbins, the hospitalist, who stated that the patient has a prior medical history significant for iron-deficiency anemia. Dr. Dobbins noted that the patient's hemoglobin and hematocrit is "much better than in the past and he no longer has microcytosis." Dr. Dobbins's recommended "rechecking iron studies with the next blood draw. This can be done as an outpatient if he has followup." Upon admission, the patient also had hyponatremia. Dr. Dobbins said that he suspected this was due to hypovolemia related to poor p.o. i ntake. The patient was also noted to have hypokalemia which was mild and Dr. Dobbins recommended re pleting with 40 mEq of KCl. The patient also had an isolated elevated AST; it was 95 on admission. The patient has never been tested for hepatitis B or C. Dr. Dobbins noted that the elevated AST is of unclear etiology, but can follow up with a repeat CBC and LFT at the [facility] where he gets his primary care. SOCIAL HISTORY: According to records, the patient grew up in [place]. He states that he spent most of his life traveling around the world. He said that his parents got , but he does not dona mber when. He is the oldest of 7 children. He says that he does not know where all of his family me mbers are living. He does not speak to all of his siblings. Parents are both . The patient says he has lived in many places all over the world, but has been residing in [place] for "many year s." He has never been , has no children. He says that he has lots of friends in [place]; how ever, medical records indicate that the patient's neighbors are the ones who called the police in July 2017 because they felt like the patient was not taking care of himself and appeared to be acting biz arrely. The patient states that he attended some college, but never finished. 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 He has never been in the . FAMILY HISTORY: The patient denies any family history of substance abuse or mental illness. LEGAL HISTORY: The patient denies any current legal issues. MENTAL STATUS EXAMINATION: The patient is a tall, thin, disheveled, unkempt, man sitting o n a chair, eating his lunch on a tray, wearing a hospital gown. He is alert and oriented x3. His af fect is irritable. His demeanor is argumentative. He does make good eye contact. His speech rate i s rapid and his volume is loud. His intellectual function appears to be average based upon his vocab ulary, fund of knowledge, and educational history. He denies feeling sad, helpless, hopeless, worthl ess, or anxious. He denies experiencing auditory or visual hallucinations. He denies paranoid delus ions or bizarre thoughts. There are no signs or symptoms of julienne. He does not complain of increase in goal-directed activity or decreased need for sleep. He slept 8 hours last night, ate 100% of his meals. He has pressured speech, but it is mostly due to irritability and arguing with the staff. Surjit dean does not endorse grandiose delusions or racing thoughts. His thought process is goal-directed, botello gential. His insight and judgment are both impaired as evidenced by his assumed nonadherence and non compliance with medications and with outpatient treatment, and also the level of disarray of his home and the level of dishevelment that he exhibits. IMPRESSION: 1. Psychotic disorder, not otherwise specified. 2. Rule out schizoaffective versus bipolar with psychotic features. The patient does not endorse sy mptoms of julienne. There is some report that his outpatient nurse practitioner says that he is "hypoma natali at baseline." There are no acute symptoms of julienne at the current time. 3. Hoarding disorder by history. 4. Lack of social support, difficulty in interpersonal relationships, nonadherence, noncompliance wi outpatient treatment, unemployed, not sure what the patient's current financial situation is, if surjit dean is getting some type of supplemental support either through Social Security and/or Disability. PLAN: 1. We will admit to the inpatient Behavioral Health Services Unit on [address] on an M1 hold. We will continue to monitor closely for safety. The patient is currently not exhibiting any unsafe behavior s. He denies any thoughts, plans, or intents to hurt himself or anyone else. 2. We will continue to monitor and observe him. The patient still does show some symptoms of disorg anized thought process and some mood instability, although no tyler symptoms of psychosis or julienne. He is not currently endorsing paranoid delusions, does not have grandiose delusions. He is denying a uditory and visual hallucinations. He does have increased irritability and at times appears to be co vering up for some possible confusion or limited awareness of his current situation. He has not been very forthcoming with details about what circumstances led up to the incident with driving his car w ith a flat tire, so he is somewhat guarded and defensive about talking about specific details of his recent behavior. It is possible that there is more psychotic thought process going on than the patie nt is willing to disclose. It is not immediately obvious from observation of the patient, but we warner l continue to gather information as we monitor him during the duration of his mental health hold. 3. The patient has been explained the risks, benefits, and side effects of taking atypical antipsych otic medications. He has Zyprexa ordered, but has so far not agreed to take any olanzapine. The MD did talk to him about the benefits for mood lability and for thought process. The patient has been o n Paxil and Depakote in the past. At the current time, MD is holding those medications because he is not exhibiting any symptoms of depression and he is experiencing increased mood lability and some im paired thinking, but no tyler symptoms of julienne and he does not endorse any symptoms of depression. It is likely that taking an SSRI at this point would complicate the ability to differentiate between bipolar, julienne, and possible schizoaffective disorder, and so we will reserve prescribing those medic ations until the patient's clinical diagnosis is confirmed. 4. Estimated length of stay is 3-5 days. The patient is currently on a mental health hold. 5. Records indicate that the patient is not currently an open client with [facility], th at he [facility]. We will attempt to obtain records, any collateral information from the [facility] and from his outpatient prescriber, Marita Lemon, in order to understand better the patient's symptomatology and his response to past trials of medications, try to understand whether or not Depakote or other m ood stabilizers have been effective for the patient in the past, and if the patient has ever been on a trial of any type of antipsychotic medications. Based upon the description of the patient's behavi or, both when the police did a welfare check on him in July 2017 and then the most recent time that [facility] police had contact with the patient, he clearly seems to be presenting in those interactions as hav ing lost touch with reality and having some psychotic thought processes, as well as difficulty soundi ng coherent and making sense. These symptoms seem much more consistent with a psychotic disorder leroy n with a mood disorder. Hopefully, more collateral information and medical records will help differe ntiate these diagnoses. /[id number]/MODL
[2018-02-01] MEDS ORDERED: PNEUMOC 13-VAL CONJ-DIP CRM/PF 0.5 ML SYR (PREVNAR 13) IM ONE (17:55)
[2018-02-01] MEDS: OLANZapine DISINTEGR 5 MG TAB PO SCH (20:02)
[2018-02-02] MEDS: LORazepam 0.5 MG TAB PO PRN ×2 (00:30→22:12)
[2018-02-02] MEDS: LISINOPRIL 20 MG TAB PO SCH (09:09)
[2018-02-02] MEDS: FINASTERIDE 5 MG TAB PO SCH (09:09)
[2018-02-02] MEDS: DOXAZOSIN MESYLATE 4 MG TAB PO SCH (09:09)
--- NOTE | 2018-02-02 11:27 | ASMTBHMTP ---
Master Treatment Plan Master Treatment Plan Answers: Impaired Reality for: Date: 02/02/2018 Diagnosis on Admission: R/O Bipolar I Disorder, with Psychotic Features 296.44 Expected length of stay: 3-5 Days Reason for admission: Notes: Per [facility] Evaluation - Pt. is a 72 year old, single, brought in on a M1 hold with symptoms of acute psychosis with tangential and pressured speech. Pt. was observed driving his car around town for the past 4 hours with no tire on one of the wheels. The rim of the wheel was on the pavement. Pt. was noted to be going excessively slow, about 45 miles per hour. Care were honking and yelling at him. Due to the disturbance this was causing, police were notified. Due to pt's noted presentation of appearance, tangential, rapid speech pt was placed on a M1 hold due to grave disability and brought to the [facility] ED on a M1 hold. Per ED report pt when arriving to the ED presented as tangential, pressure and rapid speech and incoherent. Pt. presented as acutely psychotic. Pt's utox was negative for all substances. Patient's stated presenting problems: Notes: Was driving around on a flat tire when going to the store. Patient's goals for treatment: Notes: "Like to be aware", "tell me the truth". 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 Initial disposition plan/considerations: Notes: Return home Master Treatment Plan Required Signatures Psychiatrist signature: Answers: Gustabo López MD: RN on-shift signature: Answers: RN: Patient signature: Answers: Patient: Date Signed: 02/02/2018 11:26 AM Electronically Signed By:Roberta Moore
[2018-02-02] MEDS ORDERED: PNEUMOC 13-VAL CONJ-DIP CRM/PF 0.5 ML SYR (PREVNAR 13) IM ONE (16:15)
--- NOTE | 2018-02-02 17:18 | SOAPPROG ---
SOAP Progress Note Assessment/Plan: Assessment: 72 yo single man placed on M1 by police who found him driving care with flat tire for 4 hrs. He presented confused, disorganized, nonsensical and with impaired judgment. Plan: 02/02/18 17:18 1. Patient is less hostile, but still irritable with staff and demanding. 2. Patient refuses to shower or wash clothes. He has Band-aids on fingers he says d/t "rug yoon" but won't allow RN to treat and replace dressings. 3. Patient is compliant with medications. 4. Change legal status to [facility] Subjective: Staff attempted to change Band-aids on patient's fingers this AM. He says he got "rug yoon" from bending down to lemon picker items at homes and scraping his fingertips against the carpet. Patient refused to let RN evaluate and treat. Patient talks almost non-stop about traveling the world and meeting famous people. MD doesn't know if any of patient's stories are true or not. Patient was in hospital at [place] in 06/2017 under similar circumstances. Haven't obtained records yet from [facility] to determine whether he has received any treatment since his last IP admission. Objective: Vital Signs Temp Pulse Resp BP Pulse Ox 36.4 C 88 15 140/80 H 99 02/02/18 06:00 02/02/18 06:00 02/02/18 06:00 02/02/18 09:09 02/02/18 06:00 MSE: Affect: Elevated Mood: "Great" TP: Rambling, tangential, loose TC: Denies SI/HI Insight/Judgment: Impaired - Time Spent With Patient Time Spent With Patient: 15" - Pending Discharge Pending Discharge Within 24 Hours: No Pending Discharge Within 48 Hours: No ICD10 Worksheet Patient Problems: Problems Problem Status Onset Psychosis Acute Altered mental status Acute Anemia Acute
[2018-02-02] MEDS: OLANZapine DISINTEGR 5 MG TAB PO SCH (20:47)
[2018-02-02] MEDS: OLANZapine DISINTEGR 5 MG TAB PO PRN (23:48)
[2018-02-03] MEDS: FINASTERIDE 5 MG TAB PO SCH (08:35)
[2018-02-03] MEDS: DOXAZOSIN MESYLATE 4 MG TAB PO SCH (08:35)
[2018-02-03] MEDS: LISINOPRIL 20 MG TAB PO SCH (08:35)
[2018-02-03] MEDS: DIVALPROEX NA 500 MG TAB PO SCH ×2 (13:37→20:52)
--- NOTE | 2018-02-03 15:11 | SOAPPROG ---
SOAP Progress Note Assessment/Plan: Assessment: Plan: 02/03/18 15:13 Mood: Pt appears manic to me. Will restart VPA, monitor. Continue Zyprexa. Hold Paxil. Subjective: Pt seen, discussed with staff, chart reviewed. He is a 72 y/o CM who was BIB PD due to erratic behaviors in the community and appearing manic. There is a mixed hx of previous juleinne vs. "always being a hypomanic tanvir." He himself states, "I"m not Bipolar, I'm just a colorful character." He gives me the names of his outpatient therapist, Marita Lemon, and PCP, Anna Whittaker. He gives me the number of his SO Shayy Remy, but it is not a valid number. We talked for >35" and he voices some rather grandiose thoughts. 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 None of this is too fantastical, but could represent grandiosity. Pt has had no further behavioral outbursts. His mood is more stable and his is less impulse and irritable. I discussed the meds with him and he states he was taking VPA recently. Agreeable to restarting this. On STC. Objective: Vital Signs Temp Pulse Resp BP Pulse Ox 36.6 C 89 15 125/67 H 96 02/03/18 06:00 02/03/18 06:00 02/03/18 06:00 02/03/18 06:00 02/03/18 06:00 MSE: Poorly groomed, animated, interactive, friendly. Speech is moderately pressured. Affect is elevated. Mood is "really good, normal." TP is linear at times, but tangential at others. TC reveals some possible grandiosity. Denies SI/HI/. - Time Spent With Patient Time Spent With Patient: 35" ICD10 Worksheet Patient Problems: Problems Problem Status Onset Psychosis Acute Altered mental status Acute Anemia Acute
--- NOTE | 2018-02-03 15:41 | ASMTCMCOM ---
CM Note CM Note Notes: Brief check in with patient as he was enroute to lunch and did no want to talk no complaints, had altercation per staff last night with another patient in lunch observed pt today interacting appropriately. Date Signed: 02/03/2018 03:34 PM Electronically Signed By:Maria L Gallegos
[2018-02-03] MEDS: MAG HYDROX/AL HYDROX/SIMETH 30 ML UDCUP PO PRN (18:33)
[2018-02-03] MEDS: OLANZapine DISINTEGR 5 MG TAB PO SCH (20:53)
[2018-02-03] MEDS: LORazepam 0.5 MG TAB PO PRN (20:54)
[2018-02-04] MEDS: DIVALPROEX NA 500 MG TAB PO SCH ×2 (08:46→19:38)
[2018-02-04] MEDS: LISINOPRIL 20 MG TAB PO SCH (08:46)
[2018-02-04] MEDS: DOXAZOSIN MESYLATE 4 MG TAB PO SCH (08:47)
[2018-02-04] MEDS: FINASTERIDE 5 MG TAB PO SCH (08:47)
--- NOTE | 2018-02-04 15:11 | SOAPPROG ---
SOAP Progress Note Assessment/Plan: Assessment: Bipolar Disorder, unspecified. No improvement noted. (see subjective/objective note). Patient is not safe to discharge at this time as patient continues to exhibit signs and symptoms of mood instability. Patient requires continued inpatient care because of current psychosis, and requires inpatient level of care to stabilize to no longer be gravely disabled due to mental illness. Patient could benefit from continued inpatient hospitalization for crisis stabilization, safety, and medication evaluation. Plan: (1) Psychotropic medications: After reviewing options, risks, and benefits patient agrees to continue current medications. No medication changes at this time as more time is needed to determine ongoing tolerability and efficacy. Plan is to continue to observe patient for response and side effects from medications, and ongoing monitoring and evaluation. (2) Review with patient informed consent and recommendations for psychotropic medication treatment listed below (3) Labs: no additional labs at this time (4) Therapy: continue milieu and group therapy (5) Further investigation including gathering information from patients relatives and review of past case records to inform treatment plan. (6) Safety/Wellness plan and follow-up outpatient appointments to be established prior to discharge. Next steps are for patient to meet with field care coordinator to plan a safe discharge plan and establish outpatient services for ongoing treatment. (7) Confer with inpatient treatment team regarding treatment plan. (8) Legal status: [facility] (9) Consider discharge next week if patient is in stable condition, safe, and has a safe discharge plan. PSYCHOTROPIC MEDICATION TREATMENT INFORMED CONSENT and RECOMMENDATIONS: Review nature of condition, diagnosis, and prognosis. Review nature and purpose of psychotropic medication treatment. Review type of psychotropic medications being ordered. Review risk and benefits of psychotropic medication treatment. Review probable length of time patient will need to take medications. Review risk and benefits of not undergoing psychotropic medication treatment. Review alternative treatments to psychotropic medications. Review psychotropic medications contraindications, drug-drug interactions, side effects, and importance of reporting any side effects to a psychiatric provider or nurse during inpatient hospitalization, and upon discharge to patients psychiatric outpatient provider, primary care provider, or other health home day care provider. Review importance of asking a nurse, psychiatric provider, or primary care provider any questions or problems concerning the psychotropic medications. Verify patient understands the information that has been provided, and understands, accepts, and agrees to psychotropic medications. Review patients safety plan and importance of patient to report to staff while hospitalized if patient is ever a danger to self/others, or unable to care for self, and upon discharge, the importance for patient to contact [facility] or [facility], or go to the nearest emergency room, if patient is ever a danger to self/others, or unable to care for self. Recommend that upon discharge patient establish medication management treatment with a psychiatric provider, establishes routine therapy appointments, and follow-up with primary care provider. Verify patient understands and agrees to these recommendations. 02/04/18 15:11 Subjective: Following up with patient for evaluation of psychosis, julienne, and safety. Patient reports, "Doing okay. Just living here, and you're working here. Hahaha. Making all kinds of connections. Did you know that the women that works here, about 75 years old, climbed the [facility] [employer], and so did I. Do you remember that black man that was here? Same birthday as her ( pointing to another patient). I had a ball in art class today. Didn't I have a ball in art class today (pointing to art therapist)?" Patient expresses the following psychiatric symptoms none. Patient reports taking medications as prescribed, and describes response to medications as okay. Patient does not report undesirable side effects from the medications, and agrees to continue current medications. Patient reports appetite as good, and reports eating all meals. Patient describes getting 8 hours of sleep. Objective: Vital Signs Temp Pulse Resp BP Pulse Ox 36.6 C 89 15 125/67 H 96 02/03/18 06:00 02/03/18 06:00 02/03/18 06:00 02/03/18 06:00 02/03/18 06:00 NURSING REPORT: Consulted with nursing for update on patients progress in treatment. Nurses report patient is engaged in treatment, is attending groups, slept 8 hours, expresses the following psychiatric symptoms: mild anxiety, exhibits the following psychiatric symptoms: disorganized, tangential; is eating all meals, is agreeable to medications and taking as prescribed with no report of side effects, with no s/s of EPS/akathisia, and denies SI/HI, denies A /V hallucinations, and denies delusions. Patient defected all over his room this morning including in waste basket. Patient then came to dining room to eat breakfast without washing. Patient was directed to shower before returning for breakfast due to being covered in feces. EDGE [facility]YER UPDATE: setting up follow-up appointments at [facility] [[email or web address]] for patient to continue medication management and therapy after discharge. MSE: The patient is a well-nourished male looking stated chronological age. Attire is inappropriate and dress hospital garb that is soiled; appears to be food from lunch. Grooming status is inappropriate and disheveled. Ambulation is independent. Gait is normal and coordinated. Posture is normal and relaxed. Eye contact is appropriate. Motor activity is appropriate with purposeful, organized, coordinated movements; with no involuntary movements. Attitude is cooperative. Patient appears distractible, anxious, and does not relate well to this interviewer. Language production is spontaneous. Rate is pressured. Articulation is clear. Patient reports mood as okay with incongruent and expansive affect. Patients thought process is disorganized, non -linear, illogical, with loose associations, tangential thought. Patient does not report suicidal/homicidal thoughts, ideas, or plans. Patient denies auditory, visual hallucinations. Patient denies delusions. Patient does not appear to be attending to internal stimuli. Patients attention and concentration are poor. Patient is oriented to person, place, time. Patients insight is poor. Patients judgment is poor. No evidence of gross cognitive dysfunction at any point during the interview. No evidence of apparent dysfunction in recent or remote memory. - Time Spent With Patient Time Spent With Patient: 15 minutes, met with patient individually. - Pending Discharge Pending Discharge Within 24 Hours: No Pending Discharge Within 48 Hours: No ICD10 Worksheet Patient Problems: Problems Problem Status Onset Altered mental status Acute Anemia Acute Psychosis Acute
--- NOTE | 2018-02-04 15:20 | ASMTCMCOM ---
CM Note CM Note Notes: CC spoke to client's girlfriend (Shayy) at [phone], who noted that she would have no issues having him back in the home (as they live together). Additionally, she notes that "I wish he would return soon." GF then suggested that client has been doing ok with his current provider Yoselin Christie ; "since his last hospitalization in [facility] about a year ago, I was on vacation then. He was there for about two weeks." CC suggested that once client is ready to discharge CC will try to contact her to let her know. CC will contact provider and request follow up appts as well as inform provider of additional information, etc. Date Signed: 02/04/2018 03:19 PM Electronically Signed By:Thiago Lewis
[2018-02-04] MEDS: OLANZapine DISINTEGR 5 MG TAB PO SCH (19:38)
[2018-02-04] MEDS: LORazepam 0.5 MG TAB PO PRN (19:54)
[2018-02-04] MEDS: OLANZapine DISINTEGR 5 MG TAB PO PRN (21:58)
[2018-02-05] MEDS: LORazepam 0.5 MG TAB PO PRN ×2 (01:56→19:04)
[2018-02-05] MEDS: LISINOPRIL 20 MG TAB PO SCH (08:21)
[2018-02-05] MEDS: DIVALPROEX NA 500 MG TAB PO SCH ×2 (08:21→19:03)
[2018-02-05] MEDS: FINASTERIDE 5 MG TAB PO SCH (08:21)
[2018-02-05] MEDS: DOXAZOSIN MESYLATE 4 MG TAB PO SCH (08:21)
--- NOTE | 2018-02-05 11:04 | ASMTCMCOM ---
CM Note CM Note Notes: CC was able to contact Yoselin RiojasZa (client's current provider) at [phone]; she noted that "given the description of his behaviors there, he is still very manic and I would not like to see him released." CC provided all necessary information regarding doc notes, medications, etc. Provider suggested that she was very "glad to see him taking his meds, and the Zyprex." Provider noted, that client was last hospitalized last year for roughly "two weeks due to 'non compliance' with his medication, which led to a highly charged manic episode; however, when he was released he was at his baseline (quirky, likeable, but not malicious or mean), he was himself and I was very happy to see him like that." Provider noted, that client's girlfriend is a person that does not really leave the house, so the possibility of any family meeting would be mute. She noted, that she would like client to stay in the hospital for additional days after CC provided her with recent clinical information, etc. CC asked if overseeing doctor could contact her she noted yes, and would like that. CC then provided her with Doctor's phone number, etc.* Date Signed: 02/05/2018 11:03 AM Electronically Signed By:Thiago Lewis
--- NOTE | 2018-02-05 15:14 | SOAPPROG ---
SOAP Progress Note Assessment/Plan: Assessment: Plan: 02/03/18 15:13 Mood: Pt appears manic to me. Will restart VPA, monitor. Continue Zyprexa. Hold Paxil. 02/05/18 15:16 Mood: Unchanged. Remains manic. Clearly unable to d/c at this point. Will CCM, VPA level in am. Proceed with setting court date. Subjective: Pt seen, discussed with staff. Remains disorganized, disheveled. I approached him this morning at approximately 1030 and he is at the table in the day room with what appears to be his breakfast tray in front of him. He is literally dripping cereal, milk, water, juice and oatmeal from his face, chest, arms and hands. There is similar materials spread over the entire table, chairs, carpet , and wall. When asked what happened, he states, "Don't be so mad. I'm just an old man. Everyone spills sometimes." When I offer that this is obviously an extreme amount of spilling, he becomes angry and states, "You just don't understand. I'm anemic. I need to be taken care of. I need to get out of here. You have to release me. I discussed with him that it was my original plan to allow him to leave today but due to his ongoing level of disorganization , as evidenced by the mess, I don't think he is safe to be at home. 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 He is angered by this as well. Approximately an hour later, pt is back out in the milieu, cleaned up, wearing clean scrubs. He is calm and interactive and states he was only upset "because I was told I would be talking to you about discharge and was anxious about it." I informed him that he needed to demonstrate improved organization of thoughts and sleep >6 hours per night prior to discharge. I also informed pt and RN that he should not wear occlusive dressings inc: bandaids any more due to his very poor hygiene and likelihood for increased infection risk. Wound care notified for recs. Objective: Vital Signs Temp Pulse Resp BP Pulse Ox 36.4 C 91 16 117/70 96 02/05/18 06:00 02/05/18 06:00 02/05/18 06:00 02/05/18 06:00 02/05/18 06:00 MSE: Disheveled, covered in food and drink. Affect is expansive, irritable. Mood is "bad." TP is linear at times, tangential at others. TC reveals somatic preoccupation, very poor reality testing. - Time Spent With Patient Time Spent With Patient: 25" ICD10 Worksheet Patient Problems: Problems Problem Status Onset Psychosis Acute Altered mental status Acute Anemia Acute
[2018-02-05] MEDS: OLANZapine DISINTEGR 5 MG TAB PO SCH (19:03)
[2018-02-05] MEDS: OLANZapine DISINTEGR 5 MG TAB PO PRN (21:02)
[2018-02-06] MEDS: FINASTERIDE 5 MG TAB PO SCH ×2 (09:16→09:57)
[2018-02-06] MEDS: DIVALPROEX NA 500 MG TAB PO SCH ×3 (09:16→19:34)
[2018-02-06] MEDS: DOXAZOSIN MESYLATE 4 MG TAB PO SCH ×2 (09:17→09:57)
[2018-02-06] MEDS: LISINOPRIL 20 MG TAB PO SCH ×2 (09:17→09:57)
--- NOTE | 2018-02-06 09:17 | ASMTBHDC ---
Notes Note: Notes: CC was able to confirm [facility] appts (tentative). Per conversation with current provider, she would like to see client transition to [facility], etc. Follow up with: Dr. Yoselin Christie [facility] [address] Fax: Next Appt: SaturdayFebruary 12 (02/12/18) at 10:00am Additional Resources: [facility] [address] [place] [address], [facility] Intake Appt: SaturdayFebruary 17 (02/17/18) at 2:30pm, with Wendy on the 2nd Floor of the [facility] (above address). Date Signed: 02/06/2018 09:17 AM Electronically Signed By:Thiago Lewis
[2018-02-06] MEDS: LORazepam 0.5 MG TAB PO PRN (18:16)
[2018-02-06] MEDS: OLANZapine DISINTEGR 5 MG TAB PO SCH (19:34)
[2018-02-06] MEDS: OLANZapine DISINTEGR 5 MG TAB PO PRN (21:47)
[2018-02-06] MEDS: MAG HYDROX/AL HYDROX/SIMETH 30 ML UDCUP PO PRN (21:47)
[2018-02-07] MEDS: FINASTERIDE 5 MG TAB PO SCH (09:12)
[2018-02-07] MEDS: DIVALPROEX NA 500 MG TAB PO SCH ×2 (09:12→20:21)
[2018-02-07] MEDS: LISINOPRIL 20 MG TAB PO SCH (09:13)
[2018-02-07] MEDS: DOXAZOSIN MESYLATE 4 MG TAB PO SCH (09:13)
--- NOTE | 2018-02-07 11:57 | SOAPPROG ---
SOAP Progress Note Assessment/Plan: Assessment: Plan: 02/03/18 15:13 Mood: Pt appears manic to me. Will restart VPA, monitor. Continue Zyprexa. Hold Paxil. 02/05/18 15:16 Mood: Unchanged. Remains manic. Clearly unable to d/c at this point. Will CCM, VPA level in am. Proceed with setting court date. 02/07/18 11:58 Mood: Largely the same, sleeping a bit better. Continues to demonstrate clearly that he cannot care for himself. Subjective: LATE ENTRY FOR 02/06/18. Pt seen, discussed with staff. Slept 5.5 hours last night, more appropriate today. Had more issues with failure to contain his bowel movements last night. He cannot explain this except to say repeatedly, "I'm 73 goddamn years old. What do you expect?" Remains focused on having "SAD". Denies concept of Bipolar. Compliant with meds. Objective: Vital Signs Temp Pulse Resp BP Pulse Ox 37.4 C 94 20 113/67 95 02/07/18 06:00 02/07/18 06:00 02/07/18 06:00 02/07/18 06:00 02/07/18 06:00 MSE: Animated, talkative, pressured. Affect is expansive. Mood is "great." TP tangential. TC reveals no psychosis, though continued poor reality testing. No SI/HI/. - Time Spent With Patient Time Spent With Patient: 25" ICD10 Worksheet Patient Problems: Problems Problem Status Onset Psychosis Acute Altered mental status Acute Anemia Acute
[2018-02-07] MEDS ORDERED: DIVALPROEX NA 250 MG TAB PO ONE (12:00)
--- NOTE | 2018-02-07 12:04 | SOAPPROG ---
SOAP Progress Note Assessment/Plan: Assessment: Plan: 02/03/18 15:13 Mood: Pt appears manic to me. Will restart VPA, monitor. Continue Zyprexa. Hold Paxil. 02/05/18 15:16 Mood: Unchanged. Remains manic. Clearly unable to d/c at this point. Will CCM, VPA level in am. Proceed with setting court date. 02/07/18 11:58 Mood: Largely the same, sleeping a bit better. Continues to demonstrate clearly that he cannot care for himself. 02/07/18 12:02 Mood: Overall calmer today. Remains expansive, but more redirectable. Will increase VPA to 1500mg, Zyprexa to 10mg, monitor. Subjective: Pt seen, discussed with staff. Seen with vice president education. Pt recites familiar history to resident inc: his childhood experiences, being a local in [place], living in a house valued at $2.5M, having SAD as his primary problem. Slept 5.5 hours last night, no bowel issues today. Fingers are improving. Objective: Vital Signs Temp Pulse Resp BP Pulse Ox 37.4 C 94 20 113/67 95 02/07/18 06:00 02/07/18 06:00 02/07/18 06:00 02/07/18 06:00 02/07/18 06:00 MSE: Poorly groomed, malodorous. Affect is expansive. Mood is "great." TP tangential. TC reveals possible grandiose thoughts. VPA=36.8 - Time Spent With Patient Time Spent With Patient: 25" ICD10 Worksheet Patient Problems: Problems Problem Status Onset Psychosis Acute Altered mental status Acute Anemia Acute
--- NOTE | 2018-02-07 15:21 | ASMTCMCOM ---
CM Note CM Note Notes: The patient had a Depakote level drawn today. He is required to return his tray during meal times after one hour of use. He is completing 100% of his meals. The patient continues to present as disorganized; he is not completing his activities of daily living. He is cheerful, talkative, and tangential with peers and staff. Date Signed: 02/07/2018 03:08 PM Electronically Signed By:Sabina Bates
[2018-02-07] MEDS: OLANZapine DISINTEGR 5 MG TAB PO SCH (20:22)
[2018-02-07] MEDS: MAG HYDROX/AL HYDROX/SIMETH 30 ML UDCUP PO PRN (22:09)
[2018-02-08] MEDS: LORazepam 0.5 MG TAB PO PRN ×2 (00:13→20:43)
[2018-02-08] MEDS: DIVALPROEX NA 500 MG TAB PO SCH ×2 (08:57→20:39)
[2018-02-08] MEDS: FINASTERIDE 5 MG TAB PO SCH (08:57)
[2018-02-08] MEDS: DOXAZOSIN MESYLATE 4 MG TAB PO SCH (08:57)
[2018-02-08] MEDS: LISINOPRIL 20 MG TAB PO SCH (08:57)
--- NOTE | 2018-02-08 17:39 | SOAPPROG ---
SOAP Progress Note Assessment/Plan: Assessment: 72 yo single man placed on M1 by police who found him driving care with flat tire for 4 hrs. He presented confused, disorganized, nonsensical and with impaired judgment. Per Dr. Garcia's note: 02/03/18 15:13 Mood: Pt appears manic to me. Will restart VPA, monitor. Continue Zyprexa. Hold Paxil. 02/05/18 15:16 Mood: Unchanged. Remains manic. Clearly unable to d/c at this point. Will CCM, VPA level in am. Proceed with setting court date. 02/07/18 11:58 Mood: Largely the same, sleeping a bit better. Continues to demonstrate clearly that he cannot care for himself. 02/07/18 12:02 Mood: Overall calmer today. Remains expansive, but more redirectable. Will increase VPA to 1500mg, Zyprexa to 10mg, monitor. Subjective: Pt seen, discussed with staff. Seen with pharmacy picking technician. Pt recites familiar history to resident inc: his childhood experiences, being a local in [place], living in a house valued at $2.5M, having SAD as his primary problem. Slept 5.5 hours last night, no bowel issues today. Fingers are improving. Current Plan: 02/08/18 17:36 1. Patient calmer and less irritable than last weekend. Still has grandiose delusions about past accomplishments and wealth. 2. Patient only slept 4 hrs last night. 3. VPA recently increased to 750mg BID. Will need level rechecked prior to d/c. 4. Follow up appts with [facility] and PCP next week. 5. CCM Subjective: Patient less irritable than last weekend. He also has less pressured speech and racing thoughts. He is still quite grandiose, talking about how much money he has and all the famous people he knows. Still has decreased sleep. Objective: Vital Signs Temp Pulse Resp BP Pulse Ox 37 C 87 16 110/63 94 02/08/18 06:00 02/08/18 06:00 02/08/18 06:00 02/08/18 08:57 02/08/18 06:00 Laboratory Results 02/07/18 11:14 MSE: Affect: Elevated, less irritable Mood: "OK" TP: Tangential TC: Denies SI /HI, grandiose delusions Insight/Judgment: Poor - Time Spent With Patient Time Spent With Patient: 15" - Pending Discharge Pending Discharge Within 24 Hours: No Pending Discharge Within 48 Hours: No ICD10 Worksheet Patient Problems: Problems Problem Status Onset Psychosis Acute Altered mental status Acute Anemia Acute
[2018-02-08] MEDS: OLANZapine DISINTEGR 5 MG TAB PO SCH (20:39)
[2018-02-08] MEDS: MAG HYDROX/AL HYDROX/SIMETH 30 ML UDCUP PO PRN (21:42)
[2018-02-08] MEDS: OLANZapine DISINTEGR 5 MG TAB PO PRN (23:30)
[2018-02-09] MEDS: LORazepam 0.5 MG TAB PO PRN ×2 (02:54→18:44)
[2018-02-09] MEDS: LISINOPRIL 20 MG TAB PO SCH (09:59)
[2018-02-09] MEDS: FINASTERIDE 5 MG TAB PO SCH (09:59)
[2018-02-09] MEDS: DOXAZOSIN MESYLATE 4 MG TAB PO SCH (10:00)
[2018-02-09] MEDS: DIVALPROEX NA 500 MG TAB PO SCH ×2 (10:00→18:45)
--- NOTE | 2018-02-09 15:11 | ASMTCMCOM ---
CM Note CM Note Notes: CC attempted to meet with pt. Pt. stated he was feeling "alright". Pt. stated he is "not a big fan of snow". Pt. then stopped talking with CC and walked away. Staff report pt. sleeping 4 hours, being medication compliant, and struggling to control his bowels. Date Signed: 02/09/2018 03:11 PM Electronically Signed By:Roberta Moore
--- NOTE | 2018-02-09 18:08 | SOAPPROG ---
SOAP Progress Note Assessment/Plan: Assessment: 72 yo single man placed on M1 by police who found him driving care with flat tire for 4 hrs. He presented confused, disorganized, nonsensical and with impaired judgment. Per Dr. Garcia's note: 02/03/18 15:13 Mood: Pt appears manic to me. Will restart VPA, monitor. Continue Zyprexa. Hold Paxil. 02/05/18 15:16 Mood: Unchanged. Remains manic. Clearly unable to d/c at this point. Will CCM, VPA level in am. Proceed with setting court date. 02/07/18 11:58 Mood: Largely the same, sleeping a bit better. Continues to demonstrate clearly that he cannot care for himself. 02/07/18 12:02 Mood: Overall calmer today. Remains expansive, but more redirectable. Will increase VPA to 1500mg, Zyprexa to 10mg, monitor. Subjective: Pt seen, discussed with staff. Seen with pharmacy tech. Pt recites familiar history to resident inc: his childhood experiences, being a local in [place], living in a house valued at $2.5M, having SAD as his primary problem. Slept 5.5 hours last night, no bowel issues today. Fingers are improving. Current Plan: 02/08/18 17:36 1. Patient calmer and less irritable than last weekend. Still has grandiose delusions about past accomplishments and wealth. 2. Patient only slept 4 hrs last night. 3. VPA recently increased to 750mg BID. Will need level rechecked prior to d/c. 4. Follow up appts with [facility] and PCP next week. 5. CCM 02/09/18 18:03 1. Patient continues to have diarrhea. Will order Loperamide PRN. 2. Recommend SLUMS to assess for cognitive impairment. If indicated, would recommend patient receive more complete w/u for cognitive impairment through his PCP or at [facility]. 3. Patient has f/u appts with PCP and [facility] next week. 4. [facility] Subjective: Patient walks up and down gray using walker. He does not show any signs of gait instability with assistive device. Patient continues to have diarrhea. Despite clothes being stained with feces, patient shows no disgust or concern about presence of contamination on his clothes or around his living area. In fact, patient tells staff that the brown stains are "dirt" and argues with them that it's not fecal matter. This disregard/disavowal may be feature of his psychosis , but just as likely, it may represent cognitive impairment associated with dementia or age-related decline. Will assess with SLUMS and recommend f/u with PCP and/or [facility] providers. Objective: Vital Signs Temp Pulse Resp BP Pulse Ox 36.8 C 90 16 117/55 L 94 02/09/18 06:00 02/09/18 06:00 02/09/18 06:00 02/09/18 09:59 02/09/18 06:00 Laboratory Results 02/07/18 11:14 MSE: Affect: Labile Mood: "OK" TP: Goal-directed at times, disorganized and illogical at times (denying feces stains) TC: Denies any SI/HI Insight/ Judgment: Poor - Time Spent With Patient Time Spent With Patient: 15" - Pending Discharge Pending Discharge Within 24 Hours: No Pending Discharge Within 48 Hours: Yes Pending Discharge Date: 02/11/18 (Possible d/c early this week) Pending Discharge Time: 11:00 ICD10 Worksheet Patient Problems: Problems Problem Status Onset Psychosis Acute Altered mental status Acute Anemia Acute
[2018-02-09] MEDS: OLANZapine DISINTEGR 5 MG TAB PO SCH (18:44)
[2018-02-09] MEDS: LOPERAMIDE HCL 2 MG CAP PO PRN (18:56)
[2018-02-09] MEDS: OLANZapine DISINTEGR 5 MG TAB PO PRN (22:47)
[2018-02-10] MEDS: LOPERAMIDE HCL 2 MG CAP PO PRN ×2 (06:04→23:52)
[2018-02-10] MEDS: LISINOPRIL 20 MG TAB PO SCH (08:10)
[2018-02-10] MEDS: DOXAZOSIN MESYLATE 4 MG TAB PO SCH (08:11)
[2018-02-10] MEDS: FINASTERIDE 5 MG TAB PO SCH (08:11)
[2018-02-10] MEDS: DIVALPROEX NA 500 MG TAB PO SCH ×2 (12:04→17:59)
[2018-02-10] MEDS: BISMUTH SUBSALICYLATE 524 MG/30 ML UDL PO PRN (13:03)
--- NOTE | 2018-02-10 16:34 | SOAPPROG ---
SOAP Progress Note Assessment/Plan: Assessment: Plan: 02/03/18 15:13 Mood: Pt appears manic to me. Will restart VPA, monitor. Continue Zyprexa. Hold Paxil. 02/05/18 15:16 Mood: Unchanged. Remains manic. Clearly unable to d/c at this point. Will CCM, VPA level in am. Proceed with setting court date. 02/07/18 11:58 Mood: Largely the same, sleeping a bit better. Continues to demonstrate clearly that he cannot care for himself. 02/07/18 12:02 Mood: Overall calmer today. Remains expansive, but more redirectable. Will increase VPA to 1500mg, Zyprexa to 10mg, monitor. 02/10/18 16:35 Mood: Notably calmer today. Will CCM. VPA level in a.m. Will likely d/c to home tomorrow if he remains stable. Bowel issues and sleep will likely normalize in his familiar environment. Subjective: Pt seen, discussed with staff, chart reviewed. He remains calm and interactive with others, attending all groups appropriately. Main issue remains diarrhea. He continues to experience periodic explosive diarrhea. C. Diff. cx negative this morning. He has limited insight into the affect of this on others. Continues to insist on discharge. Compliant with all meds. Sleep +/-, only two hours last night. Objective: Vital Signs Temp Pulse Resp BP Pulse Ox 36.7 C 94 20 125/67 H 96 02/10/18 06:00 02/10/18 06:00 02/10/18 06:00 02/10/18 06:00 02/10/18 06:00 Laboratory Results 02/07/18 11:14 MSE: Calm, coop, adequately groomed. Affect is euthymic, stable, approp. Mood is "good." TP is generally linear. TC reveals no mention of grandiose themes today. No SI/HI/. - Time Spent With Patient Time Spent With Patient: 15" ICD10 Worksheet Patient Problems: Problems Problem Status Onset Psychosis Acute Altered mental status Acute Anemia Acute
[2018-02-10] MEDS: OLANZapine DISINTEGR 5 MG TAB PO SCH (19:00)
[2018-02-10] MEDS: MAG HYDROX/AL HYDROX/SIMETH 30 ML UDCUP PO PRN (21:35)
[2018-02-10] MEDS: LORazepam 0.5 MG TAB PO PRN (21:35)
[2018-02-10] MEDS: OLANZapine DISINTEGR 5 MG TAB PO PRN (23:52)
[2018-02-11 07:06] VITALS: BP 123/56
[2018-02-11] MEDS: LISINOPRIL 20 MG TAB PO SCH (08:42)
[2018-02-11] MEDS: DOXAZOSIN MESYLATE 4 MG TAB PO SCH (08:42)
[2018-02-11] MEDS: BISMUTH SUBSALICYLATE 524 MG/30 ML UDL PO PRN (08:42)
[2018-02-11] MEDS: FINASTERIDE 5 MG TAB PO SCH (08:42)
[2018-02-11] MEDS: DIVALPROEX NA 500 MG TAB PO SCH (08:42)
== END 2018-02-11 13:58 | disposition home or self-care (01) | DRG 885 ==
LOC: EDUNIT# → BBEH 16:27
PROVIDERS: ADMIT Registered Nurse; ATTEND Registered Nurse
DX: F30.2 Manic episode, severe with psychotic symptoms (principal); R19.7 Diarrhea, unspecified; F42.3 Hoarding disorder; D50.9 Iron deficiency anemia, unspecified; E87.1 Hypo-osmolality and hyponatremia; E87.6 Hypokalemia; I10 Essential (primary) hypertension
CPT/HCPCS: 80305; G0009; G0480

== ENCOUNTER 2018-02-15 11:35 | Inpatient (IN) | payer OTHER ==
[~2018-02-15 11:35] MED LIST: MEROPENEM 500 MG in NS 100 ML IV SCH
[2018-02-15] MEDS ORDERED: NS 1,000 ML IV ONE (11:51)
[2018-02-15] MEDS ORDERED: fentaNYL 100 MCG/2 ML INJ ONE ×2 (12:18→19:17)
[2018-02-15] MEDS ORDERED: ONDANSETRON 4 MG/2 ML VIAL ONE ×2 (12:19→21:16)
[2018-02-15] MEDS ORDERED: ONDANSETRON 4 MG/2 ML VIAL IVP ONE (12:20)
[2018-02-15] MEDS ORDERED: fentaNYL 100 MCG/2 ML INJ IVP ONE (12:20)
[2018-02-15] MEDS ORDERED: NOREPINEPHRINE BITARTRATE 4 MG in NS 500 ML IV ONE ×2 (12:28→13:02)
--- NOTE | 2018-02-15 12:50 | EDPHY ---
H & P Time Seen by Provider: 02/15/18 11:46 HPI/ROS: HPI Right hand infection, low blood pressure. 72-year-old male by ambulance from home. Residence described by EMS as very cluttered, hoarding, messy, patient has a vague history of a right hand wound with a retained piece of glass. His called EMS because she has noticed over the last few days he has been becoming progressively more confused, fatigued and less responsive. Fall she also states that over the last few days his right arm has become significantly swollen and discolored. On EMS arrival and evaluation the patient refused transport initially. I spoke to EMS who were on scene at the time. The patient is a very poor historian. Initial blood pressure 76/52. Temperature 37.5 degrees. ROS: Constitutional: No fever, no chills. As above. Eyes: No discharge. No changes in vision. ENT: No sore throat. No nasal congestion or rhinorrhea. Respiratory: No cough. No shortness of breath. Cardiac: No chest pain, no palpitations. Gastrointestinal: No abdominal pain, no vomiting, no diarrhea. Genitourinary: No hematuria. No dysuria or increased frequency with urination. Musculoskeletal: No back pain. No neck pain. No myalgias or arthralgias. He complains of right upper extremity pain and swelling. Skin: No rashes. Neurological: No headache. No focal weakness or altered sensation. Past medical history: Psychosis, bipolar, depression, anemia. Social history: Horder. Denies street drugs, alcohol and smoking. His significant other did come to the hospital with him. Physical Exam: General Appearance: Alert, he is not in distress. Thin/Cachectic. This patient is responding to questions in full sentences but has a clear lack of awareness of the seriousness of his condition. He has vague memory of his right hand injury but can't give specific. This patient appears pale. Eyes: Pupils equal and round at 3-2 mm bilaterally no pallor or injection. No lid edema, erythema or injection. ENT, Mouth: Mucous membranes are dry. The pharyngeal tissues are unremarkable. No edema or swelling. No asymmetry suggestive of abscess. No erythema or exudates. Respiratory: There are no retractions, lungs are clear to auscultation anteriorly with good air movement bilaterally. Cardiovascular: Regular rate and rhythm. No murmur appreciated. Gastrointestinal: Abdomen is soft and nontender, no masses, bowel sounds normal. No focal tenderness at McBurney's point. No Bear sign. Neurological: Motor sensory function is grossly intact. Cranial nerves are normal. Skin: Warm and dry, no rashes. He has patches of ecchymosis left distal foot. Right upper extremity from elbow through the hand is markedly edematous, ecchymotic/cyanotic with blister formation. He does have sensation in all 5 digits distally. Delayed capillary refill in finger tips all digits. I am not able to palpate a radial or ulnar pulse distally. Musculoskeletal: Neck is supple and nontender. As above. Extremities are symmetrical except noted. All joints range without pain or impingement except noted. Psychiatric: No agitation. No depression. Database: EKG: EKG time is 11:49 a.m.; EKG shows a narrow complex normal sinus rhythm with a ventricular rate of 91. Atrial premature complexes noted. The WI, QRS, QT intervals are within normal limits. There are no ST-T wave changes indicative of ischemic or injury pattern. No evidence of right heart strain. Interpreted by me. Imaging: Chest x-ray AP poor; the cardiac mediastinal silhouette is unremarkable. Borderline cardiomegaly. No evidence of infiltrate or pneumothorax. Suspected airway disease. No acute cardiopulmonary disease process noted. Interpreted by me. Right upper extremity x-ray series; negative for osseous abnormality or subcutaneous air. Interpreted by me. Procedures: Procedure: Ultrasound guidance: Using the linear probe covered in a sterile sheath, a short axis of the vein was obtained. The vein was completely compressible and was identified as separate from the adjacent non-compressible arterial structure. Under real-time guidance, the introducer needle was observed up to the vein, and then punctured it. These images were saved on the database. Central line placement: The indication for the procedure was septic shock. After verbal informed consent from patient; the risks were explained including bleeding, infection, and collapsed lung. Maximal sterile barrier technique was uses including cap, gown, sterile gloves, large sheet, hand washing and chlorhexidine prep. The area anesthetized with 1% lidocaine. The right internal jugular vein was punctured with a 19 gauge finder needle, then a wire introducer was placed, a triple-lumen central line was placed using Seldinger technique. There were no complications. Blood return low pressure, dark blood. The patient tolerated procedure well. CXR results: Excellent positioning of right internal jugular central line, no pneumothorax, as interpreted by myself. Radiologist interpretation is pending. The procedure was performed by myself. Emergency department course: Initial triage vital signs as noted above, patient came in with a left 20 gauge antecubital IV. Shortly after my initial assessment central line was placed as above. Sepsis through septic shock protocols initiated on this patient immediately after central line placed. He was started on a 1 L normal saline bolus on initial arrival. After central line placement he was started on a 30 cc/kilogram lactated Ringer's bolus. He was started on Levophed drip initially at 4 micrograms/minute with orders to titrate to map of 85. Secondary to concern for necrotizing fasciitis involving the right upper extremity he was started on IV clindamycin, meropenem and vancomycin. Dr. Sree Lim of general surgery was paged shortly after the patient's arrival to consult. He was already in the emergency department and saw this patient shortly after placement of central line. I spoke with Dr. Madrid of the hospitalist service regarding this patient. Case discussed in detail with him. He evaluated the patient shortly after central line placement as well. He will admit this patient to the ICU with Dr. Lim to consult. All appropriate cultures sent. Hypoglycemia treated with 1 amp D50 initially followed by D10 drip at 120 cc/ hour. CT angiogram of right upper extremity considered, but based on his elevated creatinine as well as likely diagnosis of necrotizing fasciitis and need for surgical intervention this was postponed. Plan at time of admission is for correction of his coagulopathy, continued sepsis resuscitation per protocols and Dr. Lim will take him to the OR for surgical management of his right upper extremity. After discussion with Dr. Lim and Dr. Madrid, IV vitamin K and PCC ordered. On admission to the ICU, Levophed drip was at 8 micrograms/minute with a MAP of 67. The patient's mental status did not change throughout his emergency department course. His was at the patient's bedside and notified of the management plan. All of her questions were answered. Differential Diagnosis: The differential diagnosis on this patient includes but is not limited to necrotizing fasciitis of the right upper extremity, septic shock, acute kidney injury with renal failure, hypocalcemia, hypoglycemia, DIC. This represents a partial list of diagnoses considered. These considerations are based on history , physical exam, past history, reassessment and diagnostic testing. Smoking Status: Never smoked Constitutional: Initial Vital Signs Temperature (C) 35.7 C L 02/15/18 11:35 Heart Rate 91 02/15/18 11:35 Respiratory Rate 16 02/15/18 11:35 Blood Pressure 76/52 L 02/15/18 11:35 O2 Delivery Mode Nasal Cannula O2 (L/minute) 2 Allergies/Adverse Reactions: No Known Allergies Allergy (Unverified 01/31/18 02:05) Home Medications: Medication Instructions Recorded Doxazosin Mesylate [Cardura 4 MG 4 mg PO HS 01/31/18 (*)] Finasteride [Proscar 5 MG (*)] 5 mg PO HS 01/31/18 Lisinopril 30 mg PO HS 01/31/18 Divalproex ER [Depakote ER 500 MG 750 mg PO BID 02/15/18 (*)] Herbals/Supplements -Info Only 1 ea PO DAILY 02/15/18 Ibuprofen [Motrin (*)] 400 mg PO DAILY PRN 02/15/18 PARoxetine HCL [Paxil 20mg (*)] 20 mg PO HS 02/15/18 Medical Decision Making Critical Care Time: I spent a total of 72 minutes of critical care time in obtaining history, performing a physical exam, bedside monitoring of interventions, collecting and interpreting tests and discussion with consultants but not including time spent performing procedures. - Data Points Laboratory Results: Laboratory Results 02/15/18 12:45 02/15/18 12:45 Medications Given: Acetaminophen (Tylenol) 1,000 mg PO Q8HRS [facility] Stop: 08/15/18 13:59 Last Admin: 02/23/18 22:26 Dose: 1,000 mg Amiodarone HCl (Amiodarone Hcl) 200 mg PO DAILY [facility] Stop: 08/20/18 11:29 Last Admin: 02/23/18 08:17 Dose: 200 mg Dextrose (Dextrose 50% Syringe) 25 gm IVP Q15M PRN PRN Reason: Blood glucose<70 Stop: 08/15/18 02:59 Last Admin: 02/16/18 14:02 Dose: 25 gm Divalproex Sodium (Depakote Er) 750 mg PO BID [facility] Stop: 08/15/18 13:59 Last Admin: 02/23/18 22:26 Dose: 750 mg Enoxaparin Sodium (Lovenox) 40 mg SC DAILY [facility] Stop: 08/22/18 08:59 Last Admin: 02/23/18 10:08 Dose: 40 mg Famotidine (Pepcid) 20 mg PO DAILY [facility] Stop: 08/20/18 08:59 Last Admin: 02/23/18 08:16 Dose: 20 mg Finasteride (Proscar) 5 mg PO HS [facility] Stop: 08/14/18 20:59 Last Admin: 02/23/18 22:27 Dose: 5 mg Gabapentin (Neurontin) 300 mg PO BID [facility] Stop: 08/22/18 20:59 Last Admin: 02/23/18 22:28 Dose: 300 mg Dextrose/Sodium Chloride (D5w Ns) 1,000 mls @ 25 mls/hr IV CONT [facility] Stop: 08/16/18 08:59 Last Admin: 02/20/18 15:31 Dose: 1,000 mls Penicillin G Potassium 4,000, (000 unit/ Dextrose) 108 mls @ 108 mls/hr IV Q4 [facility] Stop: 03/22/18 13:59 Last Admin: 02/24/18 05:37 Dose: 108 mls Metoprolol Tartrate (Lopressor) 25 mg PO BID [facility] Stop: 08/18/18 14:44 Last Admin: 02/23/18 22:28 Dose: 25 mg Oxycodone HCl (Oxycodone Ir) 5 - 10 mg PO Q4HRS PRN PRN Reason: Pain, Severe Able to Take PO Stop: 03/05/18 00:41 Last Admin: 02/23/18 22:27 Dose: 10 mg Paroxetine HCl (Paxil) 20 mg PO HS [facility] Stop: 08/15/18 20:59 Last Admin: 02/23/18 22:26 Dose: 20 mg Discontinued Medications Acetaminophen (Tylenol) 1,000 mg PO Q8HRS [facility] Stop: 08/14/18 21:59 Last Admin: 02/16/18 05:02 Dose: Not Given Acetaminophen (Tylenol 650/20.3ml Oral Liquid) 1,000 mg TUBE Q8HRS [facility] Stop: 08/15/18 13:59 Last Admin: 02/17/18 16:06 Dose: Not Given Calcium Chloride (Calcium Chloride) 1 gm IVP ONCE ONE Stop: 02/16/18 07:01 Last Admin: 02/16/18 07:55 Dose: 1 gm Dextrose (Dextrose 50% Syringe) 25 gm IVP EDNOW ONE Stop: 02/15/18 13:19 Last Admin: 02/15/18 13:20 Dose: 25 gm Dextrose (Dextrose 50% Syringe) 25 gm IVP ONCE ONE Stop: 02/15/18 19:46 Last Admin: 02/15/18 19:45 Dose: 25 gm Dextrose (Dextrose 50% Syringe) 25 gm IVP ONCE ONE Stop: 02/15/18 23:46 Last Admin: 02/16/18 00:05 Dose: 25 gm Dextrose (Dextrose 50% Syringe) 25 gm IVP ONCE ONE Stop: 02/16/18 02:16 Last Admin: 02/16/18 02:26 Dose: 25 gm Diphtheria/Tetanus/Acell Pertussis (Boostrix) 0.5 ml IM .ONCE ONE Stop: 02/15/18 15:34 Last Admin: 02/15/18 22:06 Dose: 0.5 ml Divalproex Sodium (Depakote Er) 750 mg PO BID [facility] Stop: 08/14/18 20:59 Last Admin: 02/16/18 14:52 Dose: Not Given Fentanyl (Sublimaze) 50 mcg IVP EDNOW ONE Stop: 02/15/18 12:21 Last Admin: 02/15/18 12:21 Dose: 50 mcg Fentanyl (Sublimaze) 25 - 100 mcg IVP Q5M PRN PRN Reason: PACU, IMMEDIATE Pain control Stop: 02/16/18 17:34 Last Admin: 02/16/18 17:32 Dose: 50 mcg Fentanyl (Sublimaze) 0 mcg IVP ONCALL PRN PRN Reason: Per provider during procedure Stop: 02/18/18 12:35 Last Admin: 02/18/18 12:35 Dose: 100 mcg Fentanyl (Sublimaze) 25 - 100 mcg IVP Q5M PRN PRN Reason: PACU, IMMEDIATE Pain control Stop: 02/19/18 12:40 Last Admin: 02/19/18 12:53 Dose: 50 mcg Furosemide (Lasix Injection) 20 mg IVP ONCE ONE Stop: 02/23/18 13:48 Last Admin: 02/23/18 14:45 Dose: 20 mg Gabapentin (Neurontin) 100 mg PO ONCE ONE Stop: 02/22/18 10:08 Last Admin: 02/22/18 10:33 Dose: 100 mg Gabapentin (Neurontin) 300 mg PO HS [facility] Stop: 08/21/18 20:59 Last Admin: 02/22/18 19:11 Dose: 300 mg Heparin Sodium (Porcine) (Heparin Sc Injection) 5,000 unit SC Q8 [facility] Stop: 08/14/18 21:59 Last Admin: 02/16/18 05:44 Dose: Not Given Heparin Sodium (Porcine) (Heparin Sc Injection) 5,000 unit SC Q8HRS [facility] Stop: 08/16/18 13:59 Last Admin: 02/22/18 05:04 Dose: 5,000 unit Hydrocortisone (Solucortef) 100 mg IVP Q8HRS [facility] Stop: 08/14/18 21:59 Last Admin: 02/18/18 05:11 Dose: 100 mg Hydrocortisone (Solucortef) 100 mg IVP Q12H [facility] Stop: 08/17/18 08:59 Last Admin: 02/20/18 09:48 Dose: 100 mg Hydrocortisone (Solucortef) 50 mg IVP Q12H [facility] Stop: 02/21/18 10:00 Last Admin: 02/20/18 20:57 Dose: 50 mg Hydromorphone HCl (Dilaudid) 0.4 mg IVP Q4HRS PRN PRN Reason: Pain, Severe Unable to Take PO Stop: 02/25/18 16:43 Last Admin: 02/16/18 01:57 Dose: 0.4 mg Hydromorphone HCl (Dilaudid) 0.4 mg IVP Q1H PRN PRN Reason: Pain, Severe Unable to Take PO Stop: 02/25/18 16:43 Last Admin: 02/22/18 04:18 Dose: 0.4 mg Hydromorphone HCl (Dilaudid) 0.1 - 0.4 mg IVP Q10M PRN PRN Reason: PACU, PAIN Stop: 02/19/18 12:40 Last Admin: 02/19/18 12:56 Dose: 0.2 mg Sodium Chloride (Ns) 1,000 mls @ 0 mls/hr IV ONCE ONE; Wide Open PRN Reason: Protocol Stop: 02/15/18 11:52 Last Admin: 02/15/18 12:12 Dose: 1,000 mls Norepinephrine 4 mg/ Sodium (Chloride) 504 mls @ 0 mls/hr IV EDNOW ONE; Per Protocol PRN Reason: Protocol Stop: 02/15/18 12:29 Last Admin: 02/15/18 13:05 Dose: 504 mls Lactated Ringer's (Lr) 2,100 mls @ 4,200 mls/hr 30 ml/kg infuse over 30 min ( 2100 ml) IV EDNOW ONE Stop: 02/15/18 13:24 Last Admin: 02/15/18 12:57 Dose: 2,100 mls Clindamycin Phosphate/Dextrose (Cleocin 900 Mg (Premix)) 50 mls @ 100 mls/hr IV EDNOW ONE PRN Reason: Protocol Stop: 02/15/18 13:38 Last Admin: 02/15/18 13:29 Dose: 50 mls Meropenem 1 gm/ Sodium (Chloride) 120 mls @ 120 mls/hr IV EDNOW ONE PRN Reason: Protocol Stop: 02/15/18 14:09 Last Admin: 02/15/18 13:50 Dose: 120 mls Norepinephrine 4 mg/ Sodium (Chloride) 504 mls @ 0 mls/hr IV EDNOW ONE; Titrate PRN Reason: Protocol Stop: 02/15/18 13:03 Last Admin: 02/15/18 13:32 Dose: Not Given Sodium Chloride (Ns) 2,100 mls @ 4,200 mls/hr 30 ml/kg infuse over 30 min ( 2100 ml) IV EDNOW ONE PRN Reason: Protocol Stop: 02/15/18 13:31 Last Admin: 02/15/18 13:32 Dose: Not Given Vancomycin HCl 1.25 gm/ (Dextrose) 250 mls @ 166.67 mls/hr IV EDNOW ONE PRN Reason: Protocol Stop: 02/15/18 14:39 Last Admin: 02/15/18 13:49 Dose: 250 mls Dextrose (D10w) 1,000 mls @ 125 mls/hr IV CONT [facility] Stop: 08/14/18 13:29 Last Admin: 02/15/18 13:27 Dose: 1,000 mls Phytonadione 10 mg/ Sodium (Chloride) 51 mls @ 102 mls/hr IV ONCE ONE Stop: 02/15/18 14:07 Last Admin: 02/15/18 15:04 Dose: 51 mls Clindamycin 600 mg/ Dextrose 54 mls @ 108 mls/hr IV Q8H [facility] Stop: 03/17/18 21:29 Last Admin: 02/16/18 05:43 Dose: 54 mls Norepinephrine 4 mg/ Sodium (Chloride) 504 mls @ 0 mls/hr IV CONT [facility]; Per Protocol PRN Reason: Protocol Stop: 08/14/18 15:29 Last Admin: 02/17/18 01:16 Dose: 504 mls Vasopressin 25 unit/ Sodium (Chloride) 251.25 mls @ 24 mls/hr IV CONT [facility] Stop: 08/14/18 15:14 Last Admin: 02/16/18 02:40 Dose: 251.25 mls Famotidine/Sodium Chloride (Pepcid 20 Mg (Premix)) 50 mls @ 200 mls/hr IV DAILY [facility] Stop: 08/14/18 15:29 Last Admin: 02/17/18 09:07 Dose: 50 mls Ascorbic Acid 1,500 mg/ (Dextrose) 103 mls @ 206 mls/hr IV Q6H [facility] Stop: 02/19/18 09:59 Last Admin: 02/18/18 13:08 Dose: Not Given Thiamine HCl 200 mg/ Sodium (Chloride) 102 mls @ 204 mls/hr IV Q12H [facility] Last Admin: 02/18/18 05:10 Dose: 102 mls Meropenem 500 mg/ Sodium (Chloride) 100 mls @ 100 mls/hr IV Q12H [facility] Stop: 03/18/18 00:00 Last Admin: 02/16/18 01:28 Dose: 100 mls Propofol (Diprivan 10 Mg/Ml (Premix)) 100 mls @ 0 mls/hr IV CONT [facility]; Per Protocol PRN Reason: Protocol Stop: 08/14/18 23:32 Last Admin: 02/16/18 18:40 Dose: 100 mls Clindamycin Phosphate/Dextrose (Cleocin 900 Mg (Premix)) 50 mls @ 100 mls/hr IV Q8HRS [facility] Stop: 03/18/18 13:59 Last Admin: 02/18/18 13:36 Dose: 50 mls Penicillin G Potassium 4,000, (000 unit/ Dextrose) 108 mls @ 108 mls/hr IV ONCE ONE Stop: 02/16/18 09:59 Last Admin: 02/16/18 09:06 Dose: 108 mls Penicillin G Potassium 3,000, (000 unit/ Dextrose) 106 mls @ 106 mls/hr IV Q4 [facility] Stop: 03/18/18 13:59 Last Admin: 02/18/18 09:08 Dose: 106 mls Sodium Bicarbonate 150 meq/ (Dextrose) 1,150 mls @ 100 mls/hr IV CONT [facility] Stop: 08/15/18 09:59 Last Admin: 02/16/18 20:59 Dose: 1,150 mls Calcium Gluconate (Calcium Gluconate 1 Gm (Premix)) 50 mls @ 100 mls/hr IV ONCE ONE Stop: 02/16/18 13:29 Last Admin: 02/16/18 13:12 Dose: 50 mls Calcium Gluconate 3 gm/ (Dextrose) 80 mls @ 160 mls/hr IV ONCE ONE Stop: 02/17/18 11:29 Last Admin: 02/17/18 11:45 Dose: 80 mls Calcium Gluconate 3 gm/ (Dextrose) 80 mls @ 160 mls/hr IV ONCE ONE Stop: 02/17/18 13:59 Last Admin: 02/17/18 14:23 Dose: 80 mls Calcium Gluconate (Calcium Gluconate 1 Gm (Premix)) 50 mls @ 100 mls/hr IV ONCE ONE Stop: 02/17/18 17:59 Last Admin: 02/17/18 17:48 Dose: 50 mls Calcium Gluconate (Calcium Gluconate 1 Gm (Premix)) 50 mls @ 100 mls/hr IV ONCE ONE Stop: 02/17/18 23:59 Last Admin: 02/18/18 00:27 Dose: 50 mls Calcium Gluconate (Calcium Gluconate 1 Gm (Premix)) 50 mls @ 100 mls/hr IV ONCE ONE Stop: 02/18/18 00:59 Last Admin: 02/18/18 00:27 Dose: Not Given Calcium Gluconate 3 gm/ (Dextrose) 80 mls @ 140 mls/hr IV ONCE ONE Stop: 02/18/18 09:02 Last Admin: 02/18/18 09:08 Dose: 80 mls Penicillin G Potassium 2,000, (000 unit/ Dextrose) 104 mls @ 104 mls/hr IV Q6H [facility] Stop: 03/18/18 13:59 Last Admin: 02/20/18 10:34 Dose: 104 mls Sodium Chloride (Ns) 1,000 mls @ 30 mls/hr IV CONT [facility] Stop: 08/17/18 11:44 Last Admin: 02/18/18 12:36 Dose: 300 mls Calcium Gluconate (Calcium Gluconate 1 Gm (Premix)) 50 mls @ 100 mls/hr IV ONCE ONE Stop: 02/19/18 08:42 Last Admin: 02/19/18 09:01 Dose: 50 mls Amiodarone HCl (Amiodarone Hcl) 100 mls @ 600 mls/hr IV ONCE ONE Stop: 02/19/18 14:51 Last Admin: 02/19/18 15:45 Dose: 100 mls Calcium Gluconate 2 gm/ Sodium (Chloride) 70 mls @ 140 mls/hr IV ONCE ONE Stop: 02/20/18 09:23 Last Admin: 02/20/18 09:49 Dose: 70 mls Famotidine/Sodium Chloride (Pepcid 20 Mg (Premix)) 50 mls @ 200 mls/hr IV Q12HRS [facility] Stop: 08/19/18 09:44 Last Admin: 02/20/18 12:25 Dose: Not Given Penicillin G Potassium 3,000, (000 unit/ Dextrose) 106 mls @ 106 mls/hr IV Q4 [facility] Stop: 03/22/18 13:59 Last Admin: 02/22/18 09:58 Dose: 106 mls Potassium Chloride (Potassium Cl 10 Meq (Premix)) 50 mls @ 50 mls/hr IV Q1H [facility] Stop: 02/21/18 05:44 Last Admin: 02/21/18 04:47 Dose: 50 mls Calcium Gluconate (Calcium Gluconate 1 Gm (Premix)) 50 mls @ 100 mls/hr IV ONCE ONE Stop: 02/21/18 11:23 Last Admin: 02/21/18 12:22 Dose: 50 mls Potassium Chloride (Potassium Cl 20 Meq (Premix)) 50 mls @ 25 mls/hr IV ONCE ONE Stop: 02/21/18 12:53 Last Admin: 02/21/18 12:23 Dose: 50 mls Amiodarone HCl (Amiodarone Hcl) 100 mls @ 600 mls/hr IV ONCE ONE Stop: 02/21/18 11:29 Last Admin: 02/21/18 12:23 Dose: 100 mls Potassium Chloride (Potassium Cl 20 Meq (Premix)) 50 mls @ 25 mls/hr IV ONCE ONE Stop: 02/21/18 22:41 Last Admin: 02/21/18 20:51 Dose: 50 mls Magnesium Sulfate/Dextrose (Magnesium Sulf 1 Gm (Premix)) 100 mls @ 100 mls/hr IV ONCE ONE Stop: 02/23/18 09:42 Last Admin: 02/23/18 08:57 Dose: 100 mls Lorazepam (Ativan Injection) 0.5 - 1 mg IVP Q6 PRN PRN Reason: Anxiety, Unable to Take PO Stop: 08/17/18 20:19 Last Admin: 02/21/18 02:11 Dose: 1 mg Metoprolol Tartrate (Lopressor Injection) 5 mg IVP ONCE ONE Stop: 02/18/18 13:21 Last Admin: 02/18/18 13:36 Dose: 5 mg Microfibrillar Collagen Hemostat (Avitene Powder) Confirm Administered Dose 1 gm TP .STK-MED ONE Stop: 02/18/18 12:29 Last Admin: 02/18/18 13:08 Dose: Not Given Midazolam HCl (Versed) 2 mg IVP ONCE ONE Stop: 02/15/18 23:46 Last Admin: 02/16/18 00:04 Dose: 2 mg Ondansetron HCl (Zofran) 4 mg IVP EDNOW ONE Stop: 02/15/18 12:21 Last Admin: 02/15/18 12:21 Dose: 4 mg Paroxetine HCl (Paxil) 20 mg PO HS [facility] Stop: 08/14/18 20:59 Last Admin: 02/15/18 22:09 Dose: Not Given Paroxetine HCl (Paxil Oral Liquid) 20 mg TUBE HS [facility] Stop: 08/15/18 20:59 Last Admin: 02/16/18 20:43 Dose: 20 mg Potassium Chloride (Klor-Con) 10 - 40 meq PO ONCE ONE PRN Reason: Protocol Stop: 02/20/18 11:16 Last Admin: 02/20/18 12:25 Dose: 40 meq Potassium Chloride (Klor-Con) 30 meq PO ONCE ONE PRN Reason: Protocol Stop: 02/20/18 21:31 Last Admin: 02/20/18 21:30 Dose: Not Given Potassium Chloride (Klor-Con) 10 - 40 meq PO ONCE ONE PRN Reason: Protocol Stop: 02/22/18 07:26 Last Admin: 02/22/18 08:32 Dose: 10 meq Sodium Bicarbonate (Sodium Bicarbonate) 50 meq IV ONCE ONE Stop: 02/15/18 23:46 Last Admin: 02/16/18 00:39 Dose: 50 meq Sodium Bicarbonate (Sodium Bicarbonate) 150 meq IVP ONCE ONE Stop: 02/16/18 08:01 Last Admin: 02/16/18 08:02 Dose: 150 meq Valproic Acid (Depakene Oral Liquid) 500 mg TUBE Q8 [facility] Stop: 08/15/18 13:59 Last Admin: 02/17/18 16:06 Dose: Not Given Departure - Departure Disposition: [facility] Inpatient Acute Clinical Impression: Septic shock, Necrotizing fasciitis of hand, DIC (disseminated intravascular coagulation), Hypoglycemia, Hypocalcemia, Dehydration, Acute kidney injury
[2018-02-15] MEDS ORDERED: LACTATED RINGERS IV ONE (12:55)
[2018-02-15] MEDS ORDERED: NS 2,100 ML IV ONE (13:02)
[2018-02-15 13:03] LABS: PLATELET COUNT 178 10^3/uL (150-400)
[2018-02-15] MEDS ORDERED: CLINDAMYCIN 900 MG/DEXTROSE 50 ML IV ONE (13:09)
[2018-02-15 13:10] LABS: INR 3.09 (0.83-1.16); PROTIME(PATIENT) 31.7 SEC (12.0-15.0)
[2018-02-15] MEDS ORDERED: VANCOMYCIN 1.25 GM in D5W 250 ML IV ONE (13:10)
[2018-02-15] MEDS ORDERED: MEROPENEM 1 GM in NS 100 ML IV ONE (13:10)
[2018-02-15] MEDS ORDERED: D50W 25 GM/50 ML SYR IVP ONE ×6 (13:17→23:45)
[2018-02-15] MEDS ORDERED: D10W 1,000 ML IV SCH (13:30)
[2018-02-15] MEDS ORDERED: PHYTONADIONE 10 MG in NS 50 ML IV ONE (13:38)
[2018-02-15] MEDS ORDERED: HUMAN PROTHROMBIN COMPLX(PCC) 500 UNIT/20 ML VIAL IV ONE (13:38)
[2018-02-15] MEDS ORDERED: HUMAN PROTHROMBIN COMPLX(PCC) 1,500 UNIT/60 ML VIAL IV ONE (13:38)
[2018-02-15] MEDS ORDERED: TDAP ADULT 0.5 ML INJ (BOOSTRIX) IM ONE (15:33)
--- NOTE | 2018-02-15 15:39 | CPEKG ---
Test Reason : OPEN Blood Pressure : / mmHG Vent. Rate : 091 BPM Atrial Rate : 090 BPM P-R Int : 190 ms QRS Dur : 110 ms QT Int : 412 ms P-R-T Axes : -75 -81 077 degrees QTc Int : 508 ms Sinus or ectopic atrial rhythm Atrial premature complex Incomplete RBBB and LAFB Anterior infarct, old Prolonged QT interval Confirmed by Kevyn Arias ([id number]) on 02/15/2018 3:38:43 PM Referred By: Confirmed By:Kevyn Arias
--- NOTE | 2018-02-15 15:59 | PDGENHP ---
History and Physical History and Physical: CC: Paramedics were called by the patient's girlfriend because of confusion and increasing swelling in his right hand and forearm with fever HISTORY: This patient with a history of mental health illness reports that he broken glass pass held in his right hand several days ago. He thinks he may have some retained small pieces of glass in his fingertips but can't elaborate any more specifically than that. He has not noticed pain in the hand or arm specifically but his girlfriend has noticed that his arm and hand have become discolored and swollen and weeping fluid and he has been having fever and been getting confused. She therefore called paramedics. She tried to convince the patient previously to coming to the ER for evaluation but he declined. In the ER he comes in with severe hypotension and a severe infection in his right lower arm and hand and fingers. He has been started on septic shock protocol in the ER. 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 I have reviewed the list and ordered appropriate medicines. 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 Lim at the bedside in the ER today Examination: General: alert, disoriented but cooperative, nothing that looks like withdrawal Skin: warm, dry, good color, no rash HEENT: normal Neck: no mass or jvd Resps: relaxed Lungs: clear breath sounds Heart: regular, no murmur Abdomen: soft, nondistended, nontender, +BS, no mass Upper Extremities: Right upper arm unremarkable, right forearm severely edematous discolored with several areas of blistering with slightly blood tinged fluid in the blisters, open wounds from blistering around the wrist, the entire hand and fingers all 5 are severely edematous and discolored particularly the thumb which has appearance of likely devitalizing tissue. He does however have sensation to touch in the fingers. The edema is severe enough that he has limited range of motion just from the edema. There does not appear by exam to be any abscess, crepitus or free air, or joint effusions though joint effusions could easily be hidden by the other edema. I do not see any obvious evidence of any foreign bodies by examination Lower Extremities: no edema, warm No Bleeding or bruising Neurologic: normal speech/language, normal scow captain, no focal weakness IV site: looks normal LABORATORY DATA: INR 3.5 with pro thrombin time pending On chemistry creatinine is 3.0 having been 0.8 earlier this month CO2 is at 19 and lactic acid is remarkably elevated Slightly low sodium Transaminases are elevated at 340/240, with normal bilirubin C reactive protein 390 Initial blood sugar was measured at 39 but on recheck was 95 Initial white blood cell count on CBC for with hemoglobin 9 and normal platelets RADIOLOGY STUDIES: I reviewed x-rays of his hand wrist and forearm. There is obvious soft tissue edema but I do not see any evidence of fractures, osteomyelitis, joint effusions , or foreign bodies and I do not see any soft tissue air I reviewed single-view chest x-ray done in the ER and on the image I can see his central line is in good position without pneumothorax, no other specific abnormalities 12 LEAD EKG: I reviewed the ER EKG tracing which shows sinus tachycardia with right bundle branch block no acute ischemic changes ASSESSMENT: * profound sepsis with shock and organ failure * severe infection of right forearm hand and fingers all 5, with suspicion for significant deep tissue infection including possible necrotizing fasciitis and/ or myositis * acute renal failure creatinine 3 from 0.5 earlier this month with no history of renal failure, due to above* * acute shock liver * suspected DIC as cause of coagulopathy * likely bipolar disorder with recent severe julienne/psychosis requiring inpatient mental health care and treated with Zyprexa while on Behavioral Health Unit but apparently this medicine was not prescribed at discharge ( discharge 4 days ago) * recently identified iron deficiency anemia PLANS: * Admission to intensive care unit * Continue aggressive resuscitation with IV fluids and pressors per sepsis protocols and as indicated by his clinical condition including hemodynamics and central pressures * Continue IV antibiotics which were started in the ER after blood cultures and include vancomycin, meropenem, clindamycin * Due to renal failure we have not ordered continuing dosing of vancomycin but I have ordered a vancomycin level for tomorrow morning * Plans are to take the patient to the operating room tonight after Dr. Lim finished his his current surgery, elevate arm in the meantime * Carter catheter to monitor urine output with his renal failure * FFP is ordered to be on hold go to the OR due to DIC with coagulopathy * Will order DVT prophylaxis measures for after surgery * Cultures of blood were done in the ER and follow those; a culture of wound from his arm has now been done as well * I have asked doctors Maria L Rios and Bryant Gastelum to see the patient and they have seen the patient at the bedside now * Ulcer prophylaxis with Pepcid * CVP monitoring is in place Patient in critical condition with high risk for severe injury to or loss of right arm, life-threatening illness, acute renal failure with potential for permanent loss of renal function I have reviewed the patient's case in detail with Nirav Heard, Hugo, Maria L Rios I have reviewed the patient's past medical records as part of this assessment, including hospital admission records here from July 2017 and January 2018
[2018-02-15] MEDS: VASOPRESSIN 25 UNIT in NS 250 ML IV SCH (16:00)
--- NOTE | 2018-02-15 16:35 | GCON ---
INFECTIOUS DISEASE CONSULT DATE OF CONSULTATION: 02/15/2018 REFERRING PHYSICIAN: Eric Gastelum MD REASON FOR CONSULTATION: To assist in the management of this 72-year-old male with probable necrotizing fasciitis/gas gangrene of his right upper extremity. Please note history was obtained from the patient and chart. HISTORY OF PRESENT ILLNESS: The patient is a 72-year-old male, whose previous medical history is notable for the followin. Depression with a history of acute psychosis and julienne. 2. History of iron-deficiency anemia. 3. Hypertension. 4. History of colon polyp: The patient states he had a screening colonoscopy at age 50 that showed a polyp. He has had screening colonoscopies subsequently , with his last in 2013, that he reports as negative. He states that his next colonoscopy is supposed to be in 2019. I am not able to corroborate this. Regarding his present issues, the patient was recently hospitalized at [facility] on February 01 after being placed on an M1 hold with symptoms of acute psychosis. The patient was observed driving his car around town with a flat tire on one of the wheels. The patient was found, at that time , to be disheveled, unkempt, and was speaking rapidly. He was treated with Zyprexa. It appears that he was discharged on February 09 or and started on valproic acid, which was titrated up. He was discharged with followup appointments at [facility] and with his PCP at [facility]. Insofar as his present issues are concerned, the patient tells me that approximately 2 weeks ago (please note this is not the correct time frame, as the patient has recently been hospitalized for a mental health hold, so his timing cannot be correct), he reports that he broke a vase in his room and kneeled down to lemon picker all the glass, cutting his arms and hands on the glass fragments. Three quarters of the way through my exam, the patient's girlfriend walked in the room and told me that over the past few days, his arm has been looking "very bad." She states that it has been red, with blisters, puffy, and the patient has been looking unwell. She called 911 today, as his arm continued to look bad, and he would not get in a taxi to come here. The patient was brought to the emergency room where his temperature was 35.7, blood pressure was in the 60s, and his arm looked swollen, red, with obvious blisters. He was given a dose of clindamycin, and meropenem and vancomycin were started. He was immediately taken to the intensive care unit, where Levophed and vasopressin have been started. I am now asked to assist in his management. The patient denied any tingling or numbness in his arm. He is denying significant pain. REVIEW OF SYSTEMS: Difficult to obtain. PREVIOUS MEDICAL HISTORY: As outlined above. ALLERGIES: No known drug allergies. MEDICATIONS: Per the patient include Paxil and lisinopril, although medications prior to discharge from [facility] include valproic acid and Zyprexa. Paxil was on hold. SOCIAL HISTORY: The patient states that he lives in [facility] with his long -term female partner for the past 14 years. No recent travel within or outside the [facility]. He has no pets. No other unusual exposures. No ingestion of shellfish or undercooked foods. No tobacco, and he denies illicit substances. No water exposure other than his shower. He denies any exposure to dogs, cats or other animals. He cannot recall his last tetanus booster. FAMILY HISTORY: Unobtainable. PHYSICAL EXAM: VITAL SIGNS: T current 36.4, T-max 36.8, heart rate 94, blood pressure 87/57 on 2 pressors, 97% on 2 L. GENERAL: Disheveled and cachectic male in bed. In spite of his arm looking terrible, the patient does not look toxic. HEENT: Temporal wasting bilaterally. Otherwise, atraumatic, normocephalic. Pupils are equal, round, and reactive. Possible cataract in the left eye. Extraocular movements are intact. No discharge from the nares. No spinous process tenderness. Dentition in poor repair. No oral lesions noted. No posterior oropharyngeal exudate or erythema. NECK: Trachea is midline. No supraclavicular adenopathy. CARDIOVASCULAR: S1, S2 tachycardic. Cannot appreciate any rubs, gallops, or murmurs, although multiple adventitious sounds. LUNGS: Clear to auscultation anterolaterally with no rales, rhonchi, or wheeze. No increased respiratory effort. ABDOMEN: Soft. No tenderness to palpation. EXTREMITIES: No muscle tenderness in his lower extremities or left upper extremity. He does have some pitting edema of his lower extremities. Right upper extremity is notable for significant swelling with some purpura and purplish discoloration and bullae throughout, some of which have popped and are now flaccid. There is significant swelling of his hand with some cuts on his fingertips. There is no purulence expressed. His hand is doughy and tender, and his right upper extremity also has a doughy feel to it but no crepitus. There is some erythematous streaking under the inner aspect of his arm that goes to the axillae. No axillary adenopathy. There is no hypoesthesia. SKIN: Notable for findings in the right upper extremity as per the above. He also has some purpuric lesions on the dorsum of his left foot around his toes. The patient has some skin maceration under his scrotum with no evidence of Alona gangrene. No scrotal edema. MICROBIOLOGIC DATA: Blood cultures x2 are pending. White blood cell count of 4 , hematocrit 26, platelet count of 178, 51% neutrophils, 46% bands. BUN and creatinine 58/3, up from the patient's baseline creatinine of 0.8. Glucose was 39 on presentation. AST 340, up from 97 on January 31. ALT of 240, up from 67 on January 31. CRP of 391. Albumin of 2.1. Lactate of 5.2. Valproic acid level on February 11 was 58.9. RADIOGRAPHIC DATA: The wrist is negative for evidence of air. Hand x-ray is also negative for air or foreign body. Elbow and forearm also lack any obvious evidence of foreign body or air. IMPRESSION: 72-year-old male with microcytic anemia of unknown etiology and significant mental health issues, who now presents with severe right upper extremity cellulitis and possible necrotizing fasciitis with sepsis. This is most likely polymicrobial in nature, including staphylococci, streptococci, and potentially anaerobes such as clostridium. Spontaneous gas gangrene with Clostridium septicum from an occult malignancy, such as colon cancer is possible but given his history, infection has likely been introduced from prior cuts from glass. PLAN: 1. Agree with antibiotics in the form of vancomycin, meropenem, and clindamycin. At this time, prefer clindamycin over linezolid as an antitoxin antibiotic given the patient's significant mental health issues and presence of Paxil, which can cause serotonin syndrome with concomitant linezolid. 2. Blood cultures are pending. 3. Gram stain and culture from the fluid from a blister was obtained by me. 4. Surgery has been consulted, and the patient will likely go to the operating room this afternoon. He is not considered stable enough for further imaging with an MRI. 5. The patient also has elevated liver function tests, which could be due to his recent initiation of valproic acid versus ischemic hepatopathy versus other. Obtain hepatitis A, B, and C serologies. 6. Last Tdap unknown, will need prior to discharge. 7. Obtain HIV antibody test. Thank you very much for consulting Infectious Diseases. We will continue to follow this patient with you. /[id number]/MODL MTDJose
--- NOTE | 2018-02-15 16:40 | GCON ---
DATE OF CONSULTATION: 02/15/2018 ADMITTING DIAGNOSIS: Infection, right forearm, with sepsis and possible necrotizing fasciitis. HISTORY: The patient is a 72-year-old who suffers from psychiatric illness. He was most recently admitted to the [facility] on the 31 of January. He has been out of the hospital for approximately 4 days. He is known to have bipolar depression. He may have injured his right hand on glass and possibly thought to have a retained foreign body (glass? not seen on xray). Two days ago , he became more confused and had onset of right arm pain. Swelling of the arm and hand started yesterday and has become progressively worse. Apparently, there was a welfare check where EMS came by. The patient refused transfer for hospital but per MD request, that was accomplished. He was seen by Dr. Britton in the ER. He was felt to be in septic shock at the time. His initial vital signs were 76/52, heart rate of 91, temperature 37.5 but that was axillary. With fluid boluses, his blood pressures came up to 85/52. Note is made he is also on Levophed, we are trying to push his BP to a higher level. His saturations are 100% on 2 L of nasal cannula. A right IJ has been placed. I was asked to come share in the patient's care. MEDICATIONS: From his last admission, his medications included Paxil 20 mg daily, Depakote ER 500 mg twice a day, Cardura 4 mg daily, Proscar 5 mg daily, and lisinopril 30 mg daily. PAST MEDICAL HISTORY: I have been unable to glean any further historical data points from him at this point beyond his history of acute psychosis. He does have a history of an iron deficiency anemia in the past. He has been hyponatremic, hypokalemic in the past, and has had elevation of his AST in the past. PHYSICAL EXAMINATION: GENERAL: He is pleasant and conversant, but confused. EXTREMITIES: His right forearm has normal sensation. He is able to move his fingers. There is extensive edema and bullae formation in the forearm. The forearm is approximately twice its normal diameter. This appears to stop at the level of the elbow. There is an abrasion over his bursa at the elbow. LYMPHATICS: There is no axillary lymphadenopathy on the right. There is no cervical, supraclavicular, left axial, or inguinal lymphadenopathy either. LUNGS: Clear to auscultation. CARDIAC: Exam shows S1, S2 to be normal. LABORATORY DATA: Laboratories reveal an INR of 3.09, a lactate of 3.5, a creatinine of 3.0, a BUN of 58, and a sodium of 133. A C-reactive protein is > 350. His LRINEC score is 10 which is indicative of a 75% chance of necrotizing fasciitis. At this point, he is being transported to the ICU for preoperative optimization. He is on D10. He is on Levophed at 5 mcg per minute to keep his mean arterial pressure at 85. He has received normal saline at bolus of 30 cc/ kg. He has received clindamycin, meropenem, and vancomycin. X-rays of his forearm did not show any gas, nor did they show any foreign body to my evaluation. I am awaiting Radiology interpretation. /[id number]/MODL MTDD
[2018-02-15] MEDS: ASCORBIC ACID 1,500 MG in D5W 100 ML IV SCH ×2 (16:41→22:29)
[2018-02-15] MEDS: THIAMINE HCL 200 MG in NS 100 ML IV SCH (16:41)
[2018-02-15] MEDS: HYDROmorphONE/DILAUDID 2 MG/ML INJ IVP PRN (16:59)
[2018-02-15] MEDS: FAMOTIDINE 20 MG/NACL 50 ML IV SCH (18:31)
[2018-02-15 18:44] LABS: INR 2.17 (0.83-1.16); PROTIME(PATIENT) 24.2 SEC (12.0-15.0)
--- NOTE | 2018-02-15 19:03 | PDANEPAE ---
ANE History of Present Illness right arm nec fasc, septic shock ANE Past Medical History - Cardiovascular History Hx Hypertension: Yes Hx Arrhythmias: No Hx Chest Pain: No Hx Coronary Artery / Peripheral Vascular Disease: No Hx CHF / Valvular Disease: No Hx Palpitations: No - Pulmonary History Hx COPD: No Hx Asthma/Reactive Airway Disease: No Hx Recent Upper Respiratory Infection: No Hx Oxygen in Use at Home: No Hx Sleep Apnea: No Sleep Apnea Screening Result - Last Documented: Positive - Endocrine History Hx Diabetes: No Hypothyroid: No Hyperthyroid: No Obesity: no - Chronic Pain History Chronic Pain: No ANE Review of Systems Review of systems is: negative Review of Systems: - Exercise capacity Exercise capacity: unable to assess ANE Patient History - Allergies Allergies/Adverse Reactions: No Known Allergies Allergy (Unverified 01/31/18 02:05) - Home Medications Home medications: home medication list seen and reviewed Home Medications: Doxazosin Mesylate [Cardura 4 MG (*)] 4 mg PO HS 01/31/18 [Last Taken 02/14/18 21:00] Finasteride [Proscar 5 MG (*)] 5 mg PO HS 01/31/18 [Last Taken 02/14/18 21:00] Lisinopril 30 mg PO HS 01/31/18 [Last Taken 02/14/18 21:00] Divalproex ER [Depakote ER 500 MG (*)] 750 mg PO BID 02/15/18 [Last Taken 21:00] Herbals/Supplements -Info Only 1 ea PO DAILY 02/15/18 [Last Taken 02/14/18 21:00 ] Ibuprofen [Motrin (*)] 400 mg PO DAILY PRN 02/15/18 [Last Taken 02/14/18] PARoxetine HCL [Paxil 20mg (*)] 20 mg PO HS 02/15/18 [Last Taken 02/14/18 21:00] - NPO status NPO Since - Liquids (Date): 02/14/18 NPO Since - Liquids (Time): 19:00 NPO Since - Solids (Date): 02/14/18 NPO Since - Solids (Time): 19:00 - Anes Hx Anes Hx: no prior problems - Smoking Hx Smoking Status: Never smoked ANE Labs/Vital Signs - Labs Result Diagrams: 02/15/18 18:00 02/15/18 18:00 - Vital Signs Blood Pressure: 106/69 Heart Rate: 104 Respiratory Rate: 21 O2 Sat (%): 98 Height: 182.88 cm Weight: 70.307 kg ANE Physical Exam - Airway Neck exam: FROM Mallampati Score: Class 2 Mouth exam: poor dentition - Pulmonary Pulmonary: no respiratory distress - Cardiovascular Cardiovascular: regular rate and rhythym - ASA Status ASA Status: IV, E ANE Anesthesia Plan Anesthesia Plan: GA w LMA Lines/Monitors: arterial line Urgent/Emergent Case: Jaylyn ayoub completed preop but documented later for safe timely pt care
[2018-02-15] MEDS ORDERED: ETOMIDATE 20 MG/10 ML VIAL ONE (19:17)
[2018-02-15] MEDS ORDERED: MIDAZOLAM 2 MG/2 ML VIAL ONE (19:17)
[2018-02-15] MEDS ORDERED: LIDOCAINE 2% 5 ML SDV ONE (19:19)
[2018-02-15] MEDS ORDERED: CALCIUM CHLORIDE 1 GM/10 ML INJ ONE (19:23)
--- NOTE | 2018-02-15 20:29 | PDMN ---
Medical Necessity [place] [facility] [place] Sepsis: 72 yo presents w/ septic shock and organ failure (renal fx and acute shock liver, suspected DIC) secondary severe infection R forearm hand and all fingers w/ suspicion for sig deep tissue infection including possible necrotizing fasciitis and/or myositis. Remains significantly hypotensive despite IV fluid resuscitation and high-dose Levophed infusion, with CVP at 5 after 3.5 L saline rapid infusion, respiratory rate mildly elevated, initially hypothermic 35.7, heart rate in 90s. Cont aggressive resuscitation w/ IVF, pressors, IV antibx, emergent surgery to address RUE infection. IP status ICU.
[2018-02-15] MEDS ORDERED: VASOPRESSIN 20 UNIT/ML VIAL ONE (20:39)
[2018-02-15] MEDS ORDERED: PARoxetine HCL 20 MG TAB PO SCH (21:00)
--- NOTE | 2018-02-15 21:01 | POSTANESTH ---
Post Anesthetic Evaluation Cardiovascular Status: Normal, Stable Respiratory Status: Requires Airway Assist Level of Consciousness/Mental Status: Moderately Sleepy Pain Control: Adequate, Prn Tx Ordered Nausea/Vomiting Control: Adequate, Prn Tx Ordered Complications Possibly Related to Anesthesia: None Noted
[2018-02-15] MEDS: NOREPINEPHRINE BITARTRATE 4 MG in NS 500 ML IV SCH (22:00)
[2018-02-15] MEDS ORDERED: MEROPENEM 1 GM in NS 100 ML IV SCH (22:00)
[2018-02-15] MEDS: DIVALPROEX ER 500 MG TAB PO SCH (22:08)
[2018-02-15] MEDS: FINASTERIDE 5 MG TAB PO SCH (22:09)
--- NOTE | 2018-02-15 22:11 | POSTOPPROG ---
Post Op Note Date of Operation: 02/15/18 Surgeon: Salvador Lim Anesthesia: LMA Pre-op Diagnosis: Sepsis due to Nec Fasc right upper extermity Post-op Diagnosis: Sepsis due to Nec Fasc right upper extermity Indication: Sepsis due to Nec Fasc right upper extermity Procedure: Right arm exploration with guillotine amputation at mid humerus Wound Vac Findings: muscle, edema, no arterial bleeding Inf/Abcess present in the surg proc area at time of surgery?: Yes Depth: Deep Incisional (Fascial) EBL: 50-100 Total fluids administered: 600 Complications: none Specimen(s): cultures from subcutaneous spase right forearm
[2018-02-15] MEDS ORDERED: NS 1,000 ML IV SCH (22:15)
[2018-02-15] MEDS: CLINDAMYCIN 600 MG in D5W 50 ML IV SCH (22:18)
[2018-02-15] MEDS ORDERED: SODIUM BICARBONATE 50 MEQ/50 ML SYR ONE (22:33)
[2018-02-15] MEDS: HYDROCORTISONE 100 MG/2 ML VIAL IVP SCH (22:45)
[2018-02-15 22:47] LABS: INR 1.97 (0.83-1.16); PROTIME(PATIENT) 22.5 SEC (12.0-15.0)
[2018-02-15 22:53] LABS: PLATELET COUNT 187 10^3/uL (150-400)
[2018-02-15] MEDS ORDERED: MIDAZOLAM 2 MG/2 ML VIAL IVP ONE (23:45)
[2018-02-15] MEDS ORDERED: NA BICARBONATE 50 MEQ/50 ML VIAL IV ONE (23:45)
[2018-02-15] MEDS ORDERED: SODIUM BICARBONATE 50 MEQ/50 ML SYR IV ONE (23:45)
[2018-02-16] MEDS ORDERED: MEROPENEM 500 MG in NS 100 ML IV SCH
[2018-02-16] MEDS: HEPARIN 5,000 UNIT/0.5 ML INJ SC SCH ×2 (00:42→05:44)
[2018-02-16] MEDS: PROPOFOL/EMULSION 100 ML IV SCH ×2 (01:27→18:40)
[2018-02-16] MEDS: HYDROmorphONE/DILAUDID 2 MG/ML INJ IVP PRN ×2 (01:57→17:59)
[2018-02-16] MEDS ORDERED: D50W 25 GM/50 ML SYR IVP ONE ×2 (01:59→02:15)
[2018-02-16] MEDS: VASOPRESSIN 25 UNIT in NS 250 ML IV SCH (02:40)
[2018-02-16] MEDS ORDERED: D50W 25 GM/50 ML SYR IVP SCH (03:00)
[2018-02-16] MEDS: THIAMINE HCL 200 MG in NS 100 ML IV SCH ×2 (03:44→17:03)
[2018-02-16] MEDS: NOREPINEPHRINE BITARTRATE 4 MG in NS 500 ML IV SCH (03:45)
[2018-02-16] MEDS: D50W 25 GM/50 ML SYR IVP PRN ×3 (03:57→14:02)
[2018-02-16] MEDS: ASCORBIC ACID 1,500 MG in D5W 100 ML IV SCH ×4 (04:16→20:43)
[2018-02-16 04:46] LABS: PLATELET COUNT 177 10^3/uL (150-400)
[2018-02-16 04:47] LABS: INR 2.09 (0.83-1.16); PROTIME(PATIENT) 23.5 SEC (12.0-15.0)
[2018-02-16 04:49] LABS: PLATELET COUNT 177 10^3/uL (150-400)
[2018-02-16] MEDS: ACETAMINOPHEN 500 MG TAB PO SCH ×2 (05:02)
--- NOTE | 2018-02-16 05:33 | GOP ---
DATE OF OPERATION: 02/15/2018 SURGEON: Salvador Lim MD PREOPERATIVE DIAGNOSIS: Arterial line failure, left radius in critically ill patient. POSTOPERATIVE DIAGNOSIS: Arterial line failure, left radius in critically ill patient. PROCEDURE PERFORMED: Placement of right femoral arterial line. FINDINGS: Arterial line failure, left radius in critically ill patient. INDICATIONS: Arterial line failure, left radius in critically ill patient. DESCRIPTION OF PROCEDURE: Sterile field was developed. The patient is still quite sedated. Arterial puncture is obtained and good back flow is noted. Guidewire was passed. The needle was removed over the guidewire. The arterial line was carefully threaded over the guidewire and secured in place with a suture. The guidewire was removed. Good flow was identified. It was connected to a pressure monitoring system. A sterile dressing was placed using a Tegaderm. /[id number]/MODL MTDD
[2018-02-16] MEDS: HYDROCORTISONE 100 MG/2 ML VIAL IVP SCH ×3 (05:43→21:00)
[2018-02-16] MEDS: CLINDAMYCIN 600 MG in D5W 50 ML IV SCH (05:43)
--- NOTE | 2018-02-16 05:47 | GOP ---
DATE OF OPERATION: 02/15/2018 SURGEON: Salvador Lim MD PREOPERATIVE DIAGNOSIS: POSTOPERATIVE DIAGNOSIS: PROCEDURE PERFORMED: FINDINGS: INDICATIONS: This patient is hypoventilating, is manifested by pCO2 of 71. He has recently returned from surgery where an LMA was used and removed as he initially was breathing well on his own. He is still obtunded from surgery at this point. DESCRIPTION OF PROCEDURE: He was placed in a supine position. A pillow was placed behind his head. The GlideScope was not available. A curved blade was used first, but then it was switched to a straight blade. He had received 2 mg of Versed, which was more than insufficient at that point. I am able to intubate the trachea with a 7.5Fr ET tube. There was good condensation seen in the tube. With auscultation, good breath sounds were present in both chests. The colorimetric change was identified. A chest x-ray showed the tube to be in good position. /[id number]/MODL MTDD
--- NOTE | 2018-02-16 06:03 | GOP ---
DATE OF OPERATION: 02/15/2018 SURGEON: Salvador Lim MD ANESTHESIA: Laryngeal mask. ANESTHESIOLOGIST: Ricky Cardozo. PREOPERATIVE DIAGNOSIS: Sepsis due to necrotizing fasciitis, right upper extremity. POSTOPERATIVE DIAGNOSIS: Sepsis due to necrotizing fasciitis, right upper extremity. PROCEDURE PERFORMED: Right forearm exploration with guillotine amputation at mid humerus level and wound VAC placement. Cultures were obtained because of the presumption of infection. FINDINGS: muscle, edema, and no arterial bleeding in right forearm. SPECIMENS: Cultures from the subcutaneous space of the right forearm. ESTIMATED BLOOD LOSS: 50-100 cc. INDICATIONS: Sepsis due to necrotizing fasciitis, right upper extremity. DESCRIPTION OF PROCEDURE: The patient was placed on the operating table in supine position. He was on Levophed and vasopressin. He was treated for glucose of 45 days just prior to the surgery. He was coagulopathic with his INR at 2 after 6 units of FFP. This was presumably due to a DIC phenomenon. He was placed on the operating table. A left radial arterial line was placed. He was placed under general anesthesia by laryngeal mask. A tourniquet was placed around the very proximal portion of the right upper arm in case it became necessary. The right arm was carefully prepped and draped from the proximal one-third of the humerus up to and including the hand. A surgical time-out was carried out. This was agreed to by all members of the operative team. The arm involved was the right arm. A pair of linear forearm incisions were made with cautery. There was a great deal of edema, but no bleeding in the subcutaneous tissue. Muscle was incised. It did not bleed either. As this appeared to be rapidly spreading infection, I opt to convert the procedure from a debridement with wound VAC placement to a mid humeral amputation. This had been discussed with the patient preoperatively and was on the consent. The skin was incised at approximately midportion of the humerus. The subcutaneous tissue was divided with Bovie electrocautery. Attention was first directed to the brachial artery, vein, and nerve in the mid humeral bundle. These were separately identified, doubly clamped, divided, and tied with a suture ligature of 2-0 silk on the patient end. Once this was done , the biceps was carefully divided with Bovie electrocautery. The muscle at this level did bleed and would contract with cautery stimulation. The basilic vein was identified; it was doubly clamped and ligated. Muscle division was completed. The bone was carefully transected using a Gigli saw. The posterior skin flap was now transected as well. Wound was irrigated. Stasis was confirmed. A wound VAC sponge was carefully trimmed to become a campo approximately 3 inches diameter. The skin was closed over the sponge, leaving the area open enough for wound VAC attachment. The stump was carefully cleaned. Mastisol was used. Strips of the wound VAC plastic were used to provide an occlusive dressing. The wound VAC vacuum connector was attached. Good seal had been obtained. The patient was transferred back to the ICU in stable condition. He still remains on pressors. Note is made he did receive an amp of calcium chloride at the beginning of the case because of his low calcium level. Repeat laboratories will be obtained in the ICU and further critical care will be carried out. TOTAL FLUIDS ADMINISTERED: 600. COMPLICATIONS: None. /[id number]/MODL MTDD
[2018-02-16] MEDS ORDERED: CALCIUM CHLORIDE 1 GM/10 ML INJ IVP ONE (07:00)
[2018-02-16] MEDS ORDERED: SODIUM BICARBONATE 50 MEQ/50 ML SYR ONE (08:00)
[2018-02-16] MEDS ORDERED: SODIUM BICARBONATE 50 MEQ/50 ML SYR IVP ONE (08:00)
[2018-02-16] MEDS: FAMOTIDINE 20 MG/NACL 50 ML IV SCH (08:08)
--- NOTE | 2018-02-16 08:56 | PCMIDPN ---
Assessment/Plan: 1. 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 Prognosis is still quite guarded. Appearance of stump is worrisome to me; he may require disarticulation of the arm. Will discuss with Dr. Lim. Contact isolation has been initiated. Do not feel that he requires droplet isolation given that he is intubated. Will discontinue vancomycin and meropenem, and start penicillin G, dose adjusted for acute renal failure. Continue clindamycin. As per yesterday, am not using linezolid given concerns for serotonin syndrome in the setting of concomitant Paxil. Group a strep susceptibilities are pending, and should be available tomorrow afternoon. Also of note, data with IVIG are inconclusive and not recommended for group a strep toxic shock syndrome as per IDSA guidelines. Repeat blood cultures have been ordered. 2. Elevated liver function tests: Secondary to toxic shock syndrome from above. Hepatitis serologies are pending , as is HIV testing. Over 25 min spent with this patient today. Subjective: Events of last night noted. Patient is status post guillotine amputation at the mid humerus. Blood cultures are now growing group a strep, and arm Gram stain shows gram-positive cocci in pairs, consistent with group a strep. Still on 2 pressors, although nurse is trying to wean down 1 of them. Making urine. Patient was intubated last night for hypoventilation post surgery. Art line placed in right groin, right IJ also placed. Patient is awake and alert, and rolling his eyes at me when I told him what was going on. Also explained situation to his partner. Told the patient that he would likely need his arm removed entirely today. Objective: Vancomycin 1 g IV Q 48 hr day 1 Meropenem 500 mg IV q.12 hours day 1 Clindamycin 600 mg IV q.8 hours day 1 T-max 38.2 degrees Vasopressin/Levophed Vital Signs Temp Pulse Resp BP Pulse Ox 37.2 C 92 10 L 130/70 H 100 02/16/18 08:00 02/16/18 08:31 02/16/18 08:31 02/16/18 08:31 02/16/18 08:31 Microbiology 02/15/18 20:26 Gram Stain - Final Arm - Eswab 02/15/18 15:20 Gram Stain - Final Wrist - Swab Laboratory Results 02/16/18 04:30 02/16/18 04:30 02/15/18 02/16/18 02/17/18 05:59 05:59 05:59 Intake Total 94761.4 Output Total 600 Balance 48973.4 C-Reactive Protein 391.1 mg/L (<10.0) H 02/15/18 12:45 Blood cultures February 15 are growing group a strep Arm Gram stain 1+ Gram-positive cocci in pairs Wound Gram strain with 3+ g cocci - Physical Exam General Appearance: other (Intubated, but awake. Following simple commands.) Respiratory: lungs clear Cardiac/Chest: tachycardia Extremities: other (Right arm status post amputation mid humerus with wound VAC in place. Stump with dusky erythema, grayish discoloration, and tenderness. Erythema under the axilla has improved. The patient winces when I squeeze his arm. No crepitus. No bullae.) Abdomen: non-tender, soft Male Genitalia: other (Patient has a arterial line in the right groin, skin maceration under scrotal area. No evidence of for knee is gangrene) Skin: other (Patient has a faint, scarlatiniform rash on his lower extremities, and scattered purpuric lesions, left upper extremity, and left foot) ICD10 Worksheet Patient Problems: Problems Problem Status Onset Acute kidney injury Acute DIC (disseminated intravascular coagulation) Acute Dehydration Acute Hypocalcemia Acute Hypoglycemia Acute Necrotizing fasciitis of hand Acute Septic shock Acute Altered mental status Acute Anemia Acute Psychosis Acute
[2018-02-16] MEDS ORDERED: PENICILLIN G POTASSIUM 4,000,000 UNIT in D5W 100 ML IV ONE (09:00)
--- NOTE | 2018-02-16 09:45 | SOAPPROG ---
SOAP Progress Note Assessment/Plan: 02/16/18 09:24 POD#1 Assessment: Complicated toxic shock due to strep A - Penicillin G started - may need arm disarticulation for sepsis control as the proximal humerus is more swollen and ecchymotic. - required re-intubation last night. - vasopressin now off, levo down to 3 mcg/min - Renal function BUN 59 CR 3.1 - making urine ( 475 last shift) - Hepatic dysfunction AST 1561 ALT 1153 Alk phos 89 Bilirubin 0.8 - Ca++ low at (6.0 supplemented) repeat pending ( ionized) - MG++ level pending - Weight up 7 kg from yesterday - BNP 60,000 - INR still elevated 2.09 in spite of FFP ( 10 Units) - BE = -4.7 , PCO2 36, PO2 98 ( on vent) Plan: Continue stabilization and supportive procedures. Strongly consider return to OR today for proximal revision of amputation Subjective: intubated but appears to be alert Objective: Vital Signs Temp Pulse Resp BP Pulse Ox 37.3 C 90 9 L 125/69 H 100 02/16/18 09:00 02/16/18 09:00 02/16/18 09:00 02/16/18 09:00 02/16/18 09:00 Microbiology 02/15/18 20:26 Gram Stain - Final Arm - Eswab 02/15/18 15:20 Gram Stain - Final Wrist - Swab Laboratory Results 02/16/18 04:30 02/16/18 04:30 02/15/18 02/16/18 02/17/18 05:59 05:59 05:59 Intake Total 42738.4 Output Total 600 Balance 29387.4 PT 23.5 SEC (12.0-15.0) H 02/16/18 04:30 INR 2.09 (0.83-1.16) H 02/16/18 04:30 - Time Spent With Patient Time Spent With Patient: 35 - Pending Discharge Pending Discharge Within 24 Hours: No Pending Discharge Within 48 Hours: No Physical Exam - Physical Exam General Appearance: alert Respiratory: lungs clear, normal breath sounds Cardiac/Chest: regular rate, rhythm, other (no run , mumur or gallop) Abdomen: normal bowel sounds, non-tender, soft, distended Male Genitalia: deferred Rectal: deferred Back: Normal inspection Skin: normal color, warm/dry Extremities: other (right proximal humerus amputation site has a wound vac ( 125 cc out post op), ecchymosis and swelling noted.) ICD10 Worksheet Patient Problems: Problems Problem Status Onset Acute kidney injury Acute DIC (disseminated intravascular coagulation) Acute Dehydration Acute Hypocalcemia Acute Hypoglycemia Acute Necrotizing fasciitis of hand Acute Septic shock Acute Altered mental status Acute Anemia Acute Psychosis Acute
[2018-02-16] MEDS: SODIUM BICARBONATE 150 MEQ in D5W 1,000 ML IV SCH ×2 (10:55→20:59)
--- NOTE | 2018-02-16 11:39 | ASMTCMCOM ---
CM Note CM Note Notes: 72yo male admitted to [facility] after his girlfriend noticed increasing confusion, and R hand and arm swelling. Patient has a Hx of hypomania-has been to [facility] x2-possibly Bipolar. Presently on the vent, hypotension, renal failure, R arm amputated, septic shock. 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 Very critical to go back to IR again today. CM to follow. Date Signed: 02/16/2018 11:38 AM Electronically Signed By:Ave Hernandez LCSW
[2018-02-16 11:51] LABS: CREATINE KINASE 4401 IU/L (0-224)
--- NOTE | 2018-02-16 12:00 | GCON ---
RENAL CONSULTATION NOTE DATE OF CONSULTATION: 02/16/2018 REQUESTING PHYSICIAN: Dr. Tony Madrid. REASON FOR CONSULT: Acute kidney injury. HISTORY OF PRESENT ILLNESS: The patient is a 72-year-old man with a history of mental health disorde rs, iron deficiency anemia, who was admitted yesterday several days after he had apparently had some glass break in his hand, with retained fragments. He was brought to the ER after his girlfriend note d increasing infectious appearance of the arm and confusion of the patient. He was found to be in sh ock on arrival with a severely infectious appearance of the right arm, taken to the OR, and had guill otine amputation at the midhumerus level for necrotizing fasciitis. Wound culture was positive for g roup A strep. The patient currently is vented, and the history is obtained from discussion with ot r doctors as well as review of the chart. The admission creatinine was 3.0, with previous baseline c reatinine of 0.8 to 1.0. He was started on sepsis protocol with various IV fluids. Today, the creat inine is 3.1, and the patient is oliguric. He is on pressors, including vasopressin and Levophed, cu rrently being weaned. There is consideration of repeat operation for further debridement of necrotic or infected tissue. PAST MEDICAL HISTORY: 1. Mental health disorder, hypomania. 2. Iron deficiency anemia. HOME MEDICATIONS: Depakote 750 mg b.i.d., doxazosin 4 mg q.h.s., finasteride 5 mg q.h.s., ibuprofen 200 mg p.r.n., lisinopril 30 mg q.h.s., paroxetine 20 mg q.h.s. ALLERGIES: No known drug allergies. 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 FAMILY HISTORY: Noncontributory. REVIEW OF SYSTEMS: Unable to obtain at this time. PHYSICAL EXAMINATION: VITAL SIGNS: Temperature 37.4, pulse 93, respirations 13, blood pressure 122/ 66, oxygenation 100% on a ventilator, 40% FiO2 and 5 of PEEP. Ins and outs accumulative since arriva l yesterday: in, 600 out, with 475 of that as urine output and 125 wound VAC output. GEN ERAL: Awake. Does not appear to be in any acute distress. HEENT: ET tube in place. NECK: Neck v eins flat. PULMONARY: Clear to auscultation bilaterally. CV: Regular rate and rhythm. No murmurs , rubs, or gallops. ABDOMEN: Soft, nontender. EXTREMITIES: No edema. Wound VAC in place in the r ight proximal arm. NEURO: Moving all 4 extremities. LABS: Sodium 134, potassium 5.4, chloride 103, bicarb 18, BUN 59, creatinine 3.1, glucose 114. Calc ium 6.0, albumin 2.2. BNP 60,200. AST 1561, ALT 1153. Magnesium 2.1. Ionized calcium 0.96. White count 6.3, hemoglobin 8.9, platelets 177. Blood gas 7.36/98/. Urinalysis 1+ protein, 2+ blood , 3-5 RBCs, 1-5 hyaline casts; pH 5.0, specific gravity 1.020. IMAGING: Chest x-ray from 02/15: Shows ET tube placement with improvement in aeration with diminish ed atelectasis and opacification at the left lung base. Mild discoid atelectasis. Mild interstitial prominence. ASSESSMENT AND PLAN: 1. Acute kidney injury. The patient presents with a creatinine of 3, with a baseline creatinine of 0.8 to 1.0. Likely this is due to sepsis, acute tubular necrosis, with toxic shock syndrome. Curren tly, he is oliguric and has a Carter in place. Can check renal ultrasound. Continue pressors and wea n as tolerated. Currently, he is on vasopressin and Levophed, and the Levophed is being titrated briana n. We will check CK; presumably, there is some muscle tissue with intracellular release of valarie globin, and IV hydration is appropriate to prevent further renal damage. He has received several lit ers of normal saline, and at this time we will convert to bicarbonate IV fluids. Renally adjust anti biotics. He was initially on vancomycin, now on penicillin and clindamycin. Appreciate Infectious D lay assistance. His creatinine is stable since admission, and hemodialysis is not needed at this time, although it is definitely possible that he may have further deterioration, and this would be ne eded. 2. Hyperkalemia in setting of acute kidney injury, and he was on lisinopril as an outpatient. This is now on hold. He is being supported for acute kidney injury, as above. Given bicarbonate fluids s hould help to mitigate the hyperkalemia. 3. Metabolic acidosis. The patient presented with a lactic acidosis likely due to the infection and tissue necrosis. There may also be some element from the acute kidney injury. This will be support ed as above. The bicarbonate should help us treat the acidosis. He may need adjustment of the vent, follow ABG to help monitor. 4. Necrotizing fasciitis, status post guillotine amputation of the right arm. He may go back to the operating room tonight. He is on antibiotics. 5. Transaminitis, likely from shock liver, although may be some muscular release. This will be foll owed. Supportive care as above. Thank you very much for the consult. We will follow closely with you. /[id number]/MODL
[2018-02-16] MEDS ORDERED: CALCIUM GLUCONATE 50 ML IV ONE (13:00)
[2018-02-16 13:23] LABS: PLATELET COUNT 194 10^3/uL (150-400)
--- NOTE | 2018-02-16 13:31 | PDINTPN ---
Microbiology Soil Scientist Progress Note Assessment/Plan: Assessment: Toxic Shock Syndrome: Group A Strep sepsis due to RUE cellulitis/fasciitis. Now s/p RUE amputation at humerus, likely will need further tissue removal. Severe Sepsis: Due to TSS. Hypotension improved with Coagulopathy: Likely due to shock liver with reduced production, as well as some consumption. No signs of DIC, with normal fibrinogen EDDA: Likely due to ATN, with pre renal state initially. There is a component of mild-moderate rhabdomyolysis that could contribute as well. Has fairly good urine output. Hyperkalemia, but no acute indication for dialysis at this time. Plan: Return to the OR for further debridement/amputation. Keep intubated until after surgery. Continue penicillin/clinda per ID Nephrology consultation Follow INR Careful fluid management 35 min critical care time managing multiple metabolic abnormalities and assisting ventilator needs, sepsis. 02/16/18 13:57 Subjective: Intubated. Feels OK post-op, pain controlled. Objective: Vital Signs Temp Pulse Resp BP Pulse Ox 37.0 C 97 13 92/51 L 100 02/16/18 12:37 02/16/18 12:37 02/16/18 12:37 02/16/18 12:37 02/16/18 12:37 Microbiology 02/15/18 20:26 Gram Stain - Final Arm - Eswab 02/15/18 15:20 Gram Stain - Final Wrist - Swab Laboratory Results 02/16/18 13:05 02/15/18 02/16/18 02/17/18 05:59 05:59 05:59 Intake Total 02151.4 96.1 Output Total 600 185 Balance 14566.4 -88.9 PT 23.5 SEC (12.0-15.0) H 02/16/18 04:30 INR 2.09 (0.83-1.16) H 02/16/18 04:30 Laboratory Tests 02/16/18 02/16/18 03:56 04:30 INR 2.09 H POC ABG pH 7.33 L POC ABG pCO2 33 L POC ABG pO2 114 H POC ABG Total CO2 18 L Microbiology 02/15/18 12:45 Blood Blood Panel (PCR) - Final Strep Pyogenes Group A 02/15/18 12:45 Blood Blood Culture - Preliminary 02/15/18 12:45 Blood Gram Positive Cocci Chains Laboratory Tests 02/16/18 02/16/18 04:30 11:00 Fibrinogen 462 H D-Dimer 8.19 H Creatine Kinase 4401 H Physical Exam - Physical Exam General Appearance: alert, no apparent distress EENT: normal ENT inspection Neck: normal inspection Respiratory: lungs clear, normal breath sounds Cardiac/Chest: regular rate, rhythm, No edema Abdomen: normal bowel sounds, non-tender, soft Skin: normal color, warm/dry Extremities: other (RU amputation studmp with some pallor/cyanosis medially.) Neuro/Psych: alert, normal mood/affect, oriented x 3 ICD10 Worksheet Patient Problems: Problems Problem Status Onset Acute kidney injury Acute DIC (disseminated intravascular coagulation) Acute Dehydration Acute Hypocalcemia Acute Hypoglycemia Acute Necrotizing fasciitis of hand Acute Septic shock Acute Altered mental status Acute Anemia Acute Psychosis Acute
[2018-02-16] MEDS: VALPROIC ACID 250 MG/5 ML UDCUP TUBE SCH ×2 (13:35→20:44)
[2018-02-16] MEDS: ACETAMINOPHEN 650 MG/20.3 ML UDCUP TUBE SCH ×2 (13:35→21:00)
[2018-02-16] MEDS: CLINDAMYCIN 900 MG/DEXTROSE 50 ML IV SCH ×2 (13:51→21:00)
--- NOTE | 2018-02-16 13:51 | GCON ---
A PULMONARY/CRITICAL CARE CONSULTATION. DATE OF CONSULTATION: 02/15/2018 REFERRING PHYSICIAN: Azar Madrid MD REASON FOR CONSULTATION: Evaluation and management of sepsis. HISTORY OF PRESENT ILLNESS: The patient is a 72-year-old male with a history of bipolar disorder who was recently hospitalized in [facility] for acute psychosis. He was discharged about a week ago on valproic acid as well as Zyprexa, and was to follow up with his PCP. The patient states that a few weeks ago (likely less than that given his recent hospitalization) the patient broke some glass and cut his hand on some glass fragments. His girlfriend reports that his hand had been getting worse, but the patient had refused medical treatment. Because his hand looked so bad, she called 911 and brought to the hospital. In the emergency department, he was found to be hypotensive and had multiple laboratory abnormalities, so he was started on the sepsis protocol and brought to the ICU. He reports that he has some pain/discomfort in his hand and is thirsty. PAST MEDICAL HISTORY: 1. Bipolar disorder. 2. Anemia. 3. Hypertension. MEDICATIONS: At the time of admission include valproic acid and Zyprexa, as well as Paxil recently. ALLERGIES: None. SOCIAL HISTORY: The patient lives in [facility]. 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 He does not smoke. FAMILY HISTORY: Unremarkable. REVIEW OF SYSTEMS: A 10-point review of systems adds nothing to the history of present illness. PHYSICAL EXAMINATION: GENERAL: The patient is awake and alert. He is somewhat disheveled. Blood pressure is 98/53 with a heart rate of 101, temperature is 36.2. Oxygen saturations are 100% on 1 L of oxygen. HEENT: Normocephalic and atraumatic. No icterus. NECK: No JVD. Trachea is midline. CHEST: Clear to auscultation. CARDIAC: Regular rate and rhythm without murmur. ABDOMEN: Soft, nontender. Bowel sounds are present. EXTREMITIES: Patient has marked edema and some erythema/cyanosis of his upper right extremity from the elbow extending distally. There are some small blisters with some minimal drainage. There is some streaking up his medial arm toward the axilla. He has mild tenderness of the forearm. He has some weakness of the muscles of the arm. He has some discoloration/purpuric lesions on the 1st 3 toes of his left foot. NEURO: Awake, alert. Weakness distal RUE, otherwise intact. LABORATORY: White blood count is 4.1 with 46% bands, hemoglobin is 9.0, platelet count is 178. Chemistry group shows a bicarbonate of 20, with an anion gap of 15. A creatinine is 2.8 with a BUN of 57. Calcium is 5.9. An ALT is 1009 AE. Albumin is 2.3. INR is 3.1. A venous blood gas shows a pH of 7.28 with a pCO2 of 36, and a bicarbonate of 17. Lactate is 4.7. A chest x- ray shows bronchial thickening. Images reviewed by me. ASSESSMENT: 1. Severe right upper extremity cellulitis with possible necrotizing fasciitis and sepsis. The patient has been seen by Infectious Disease and has been started on vancomycin, meropenem and clindamycin. 2. Sepsis. This is likely due to his upper right upper extremity skin/soft tissue infection. He has received 3 L of fluids, but is still hypotensive. I think further fluid resuscitation is warranted. 4. Coagulopathy. The patient has an elevated INR, likely due to impaired synthetic function related to his sepsis. PLAN: 1. Continue sepsis protocol. I'll order additional fluids. 2. Add vitamin C, thiamine and steroids. 3. FFP for elevated INR. 4. The patient will be taken to the operating room by Dr. Lim for surgical exploration/debridement. /[id number]/MODL MTDD
[2018-02-16] MEDS ORDERED: CLINDAMYCIN 600 MG/DEXTROSE 50 ML IV SCH (14:00)
[2018-02-16] MEDS: D5W IV SCH ×3 (14:30→21:32)
[2018-02-16] MEDS: PENICILLIN POTASSIUM IV SCH ×3 (14:30→21:32)
[2018-02-16] MEDS ORDERED: fentaNYL 250 MCG/5 ML INJ ONE (14:39)
[2018-02-16] MEDS ORDERED: PROPOFOL 200 MG/20 ML VIAL ONE (14:39)
[2018-02-16] MEDS ORDERED: ROCURONIUM 50 MG/5 ML VIAL ONE (14:39)
[2018-02-16] MEDS ORDERED: DEXAMETHASONE 4 MG/ML VIAL ONE (14:39)
[2018-02-16] MEDS ORDERED: MIDAZOLAM 2 MG/2 ML VIAL ONE (14:52)
[2018-02-16] MEDS: DIVALPROEX ER 500 MG TAB PO SCH (14:52)
[2018-02-16 15:04] LABS: INR 1.91 (0.83-1.16)
--- NOTE | 2018-02-16 15:16 | GCON ---
REFERRING PHYSICIAN: Salvador Lim MD HISTORY OF PRESENT ILLNESS: The patient is a 72-year-old gentleman with a psychiatric history, who was noted to have right upper extremity infection and underwent a prior transhumeral amputation for infection. He is currently intubated. On my physical examination, there is some mottling on the medial surface of the proximal forearm at the site of the amputation. Wound VAC is in place and currently functional. The patient is grossly neurologically intact about the shoulder. IMPRESSION: Recalcitrant infection of the right humerus. PLAN: Dr. Lim and I have been in discussion and feel that this patient would benefit from a revision articulation. I will be present and serve as a co -surgeon to assist in the orthopedic aspect of this amputation. As best we could, we explained the risks, benefits, and alternatives to the patient as well as his family member. /[id number]/MODL MTDD
[2018-02-16] MEDS ORDERED: ONDANSETRON 4 MG/2 ML VIAL ONE (16:21)
[2018-02-16] MEDS ORDERED: fentaNYL 100 MCG/2 ML INJ IVP PRN (16:34)
[2018-02-16] MEDS ORDERED: NALOXONE HCL 0.4 MG/ML INJ IVP PRN (16:34)
--- NOTE | 2018-02-16 16:34 | PDANEPAE ---
ANE History of Present Illness revision of r humeral amputation ANE Past Medical History - Cardiovascular History Hx Hypertension: Yes Hx Arrhythmias: No Hx Chest Pain: No Hx Coronary Artery / Peripheral Vascular Disease: No Hx CHF / Valvular Disease: No Hx Palpitations: No - Pulmonary History Hx COPD: No Hx Asthma/Reactive Airway Disease: No Hx Recent Upper Respiratory Infection: No Hx Oxygen in Use at Home: No Hx Sleep Apnea: No Sleep Apnea Screening Result - Last Documented: Positive Pulmonary History Comment: Intubated - Neurologic History Hx Cerebrovascular Accident: No Hx Seizures: No Hx Dementia: No Neurologic History Comment: Responsive on vent. - Endocrine History Hx Diabetes: No Hypothyroid: No Hyperthyroid: No Obesity: no - Renal History Hx Renal Disorders: Yes Renal History Comment: acute RF - Neurological & Psychiatric Hx Hx Neurological and Psychiatric Disorders: Yes Neurological / Psychiatric History Comment: hx of hypomania - Other Health History Other Health History: anemia,sepsis requiring pressor support,sepsis protocol - Chronic Pain History Chronic Pain: No - Surgical History Prior Surgeries: s/p R upper arm amputation on 02/14 ANE Review of Systems Review of Systems: - Exercise capacity METS (RN): 4 METS ANE Patient History - Allergies Allergies/Adverse Reactions: No Known Allergies Allergy (Unverified 01/31/18 02:05) - Home Medications Home Medications: Doxazosin Mesylate [Cardura 4 MG (*)] 4 mg PO HS 01/31/18 [Last Taken 02/14/18 21:00] Finasteride [Proscar 5 MG (*)] 5 mg PO HS 01/31/18 [Last Taken 02/14/18 21:00] Lisinopril 30 mg PO HS 01/31/18 [Last Taken 02/14/18 21:00] Divalproex ER [Depakote ER 500 MG (*)] 750 mg PO BID 02/15/18 [Last Taken 21:00] Herbals/Supplements -Info Only 1 ea PO DAILY 02/15/18 [Last Taken 02/14/18 21:00 ] Ibuprofen [Motrin (*)] 400 mg PO DAILY PRN 02/15/18 [Last Taken 02/14/18] PARoxetine HCL [Paxil 20mg (*)] 20 mg PO HS 02/15/18 [Last Taken 02/14/18 21:00] - NPO status NPO Since - Liquids (Date): 02/14/18 NPO Since - Liquids (Time): 19:00 NPO Since - Solids (Date): 02/14/18 NPO Since - Solids (Time): 19:00 - Smoking Hx Smoking Status: Never smoked ANE Labs/Vital Signs - Labs Result Diagrams: 02/16/18 13:05 02/16/18 13:05 - Vital Signs Blood Pressure: 107/58 Heart Rate: 95 Respiratory Rate: 14 O2 Sat (%): 100 Height: 182.88 cm Weight: 77.6 kg ANE Physical Exam - Airway Neck exam: FROM (ETT in place) - Pulmonary Pulmonary: clear to auscultation - Cardiovascular Cardiovascular: regular rate and rhythym - ASA Status ASA Status: IV ANE Anesthesia Plan Anesthesia Plan: general endotracheal anesthesia (A-line (in situ) monitoring)
--- NOTE | 2018-02-16 17:09 | POSTANESTH ---
Post Anesthetic Evaluation Cardiovascular Status: Similar to Pre-Op Cond Respiratory Status: Similar to Pre-op Cond. Level of Consciousness/Mental Status: Moderately Sleepy Complications Possibly Related to Anesthesia: None Noted, Other, See Comments ( patient on vent, on CPAP, remains on low dose Levophed, HCO3 IV drip)
--- NOTE | 2018-02-16 17:29 | POSTOPPROG ---
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
[2018-02-16] MEDS ORDERED: fentaNYL 100 MCG/2 ML INJ ONE (17:50)
--- NOTE | 2018-02-16 18:02 | GOP ---
DATE OF OPERATION: 02/16/2018 SURGEONS: Salvador Lim MD, Cullen Sanford MD. ANESTHESIA: General endotracheal. ANESTHESIOLOGIST: Librado Mcallister MD. PREOPERATIVE DIAGNOSIS: Toxic shock syndrome with ischemic right upper extremity, status post guillotine amputation at mid-humerus. POSTOPERATIVE DIAGNOSIS: Toxic shock syndrome with ischemic right upper extremity, status post guillotine amputation at mid-humerus. PROCEDURE PERFORMED: Revision of amputation with resection of skin, muscle, bone and wound VAC placement. Infection is present and that would be skin level to deep fascial. FINDINGS: Medial anterior right upper extremity hypo viable muscle and skin. SPECIMENS: Skin, muscle, and bone from right upper extremity. INDICATIONS: Toxic shock syndrome with ischemic right upper extremity, status post guillotine amputation at mid-humerus. DESCRIPTION OF PROCEDURE: The patient was brought to the operating room. He had already been intubated. He was placed under general anesthesia. He was then rolled onto his left side on a washington bag with a Gelfoam pad. An axillary gel pad was then placed. His left upper extremity was placed on an arm board which was carefully padded. His left leg was straightened. His right leg was carefully flexed. Care was taken to protect the left leg's peroneal nerve with a gel pad. Two pillows were placed between the legs. SCDs were in place. A 2- inch tape was used to secure the hips. A surgical belt was in place. The washington bag was carefully deflated to provide support. A 10 x 10 drape was used to protect the IJ central line. The chest was now carefully prepped and draped. The prior wound VAC had been removed prior to prepping and draping. At this point, a surgical time-out was carried out and agreed to by the operative team. The sutures of the bolster were carefully trimmed and the wound VAC was released. Careful dissection on the inferior medial aspect of the right upper extremity was carried out. Hypo viable skin had been outlined and resected with Bovie electrocautery. Subjacent to it, muscle was marginal and that was resected. Good viable muscle remains. The wound was irrigated. The bone was carefully cleared for a distance of approximately a centimeter and a half and transected to obtain a fresh surface. Hemostasis achieved with Bovie electrocautery. The skin was closed as an elipse. At the superior end of the elipse and the inferior end the edges were approximated. Vertical mattress sutures of 3-0 silk were used. A wound VAC bolster was made using the sponge and holding it in place with interrupted sutures of #2-0 silk. The wound VAC plastic drape was carefully applied. A good seal appeared to have been obtained. This was carefully incised and the suction connectors attached. There was no air leak. The patient tolerated the procedure well and was carefully placed on a gurney for return to the ICU. TOTAL FLUIDS ADMINISTERED: 800 cc. COMPLICATIONS: None. /[id number]/MODL MTDD
--- NOTE | 2018-02-16 19:17 | HOSPPROG ---
Hospitalist Progress Note Assessment/Plan: DIAGNOSES: * profound sepsis with shock and multisystem organ failure * group a strep bacteremia and same organism growing from his arm cultures * severe infection of right forearm hand and fingers all 5, with extensive deep tissue necrosis; status post guillotine amputation mid humerus on the day of admission, now with progression of deep tissue infection to the proximal arm and shoulder area and status post revision with disarticulation and removal of the rest of humerus and surrounding tissue * acute renal failure creatinine 3 from 0.5 earlier this month with no history of renal failure, due to above* * acute shock liver * rhabdomyolysis from acute infectious and ischemic myopathy * coagulopathy, question DIC * 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 Specific diagnosis not detailed in psychiatry notes from that hospital stay * recently identified iron deficiency anemia prior to this admission * Is not clear to me whether any specific evaluation for this was undertaken Since yesterday the patient has had amputation of his arm. He remains this morning on 2 pressors though has much more stable blood pressure. He is awake and interactive. He is on mechanical ventilator. His kidney function is unchanged, liver enzymes have increased significantly, remains coagulopathic and has moderate elevation of CPK. I reviewed patient's condition and treatment plans in detail today with doctors Maria L Rios, Salvador Lim, Brynat Gastelum, and Sadi Huizar Seen by me today on ICU rounds and hospitalist rounds I spent extensive time with the patient's girlfriend and that at the bedside today reviewing the patient's condition, complications, and our treatment plan and answering her questions PLANS: * Continue aggressive supportive care with mechanical ventilator, fluids * Will need pressors but hopefully can wean those off over the next day or 2 * He will return to the OR today for more extensive exploration and resection of nonviable tissue, infected tissue * Antibiotics changed by Infectious Disease to treat his strep infection * I have asked for nephrology consult Dr. Huizar is seen the patient * Ongoing intensive care unit for this critically ill patient SUBJECTIVE: The patient answers questions by nodding and shaking his head, denies much pain denies shortness of breath OBJECTIVE Vitals reviewed: Blood pressure is stable supported by 2 pressors and ongoing IV fluids; hypothermia resolved, pulse and respirations stable Building Estimator, my review: Sinus Exam: alert responding to questions with head shakes, follow some commands others not as accurately skin with some pallor and some livedo type pattern on his thighs resps per ventilator lungs clear BSs heart regular abd soft nondistended nontender, bowel sounds present No ischemic changes on legs though his toes remain cool and a bit cyanotic Right upper extremity status post guillotine amputation mid humerus, now with some extensive inflammatory erythema this change and swelling in the medial aspect of the upper arm into the axilla On the left arm over the medial epicondyle there is also a patch of significant erythema without swelling or tenderness, uncertain what this is from but all need to be watched closely Chest x-ray done today I reviewed the images this one-view study which shows some mild elevation left hemidiaphragm, some mild atelectasis, ET tube in place and orogastric tube in place both in good position Lab data all reviewed in detail by me today Liver enzymes now up to 1300, creatinine unchanged 3, CPK 4400 CBC reasonably stable white count is notably elevated today after being low yesterday Coagulopathy remains Microbiology: Group A Streptococcus pyogenes knees growing in blood cultures and wound cultures Objective: Vital Signs Temp Pulse Resp BP Pulse Ox 36.7 C 105 H 19 109/66 99 02/16/18 18:00 02/16/18 18:00 02/16/18 18:00 02/16/18 18:00 02/16/18 18:00 Microbiology 02/15/18 20:26 Gram Stain - Final Arm - Eswab 02/15/18 15:20 Gram Stain - Final Wrist - Swab Laboratory Results 02/16/18 13:05 02/16/18 13:05 02/15/18 02/16/18 02/17/18 06:59 06:59 06:59 Intake Total 93040.4 2894.5 Output Total 600 375 Balance 19063.4 2519.5 PT 22.0 SEC (12.0-15.0) H 02/16/18 14:35 INR 1.91 (0.83-1.16) H 02/16/18 14:35 ICD10 Worksheet Patient Problems: Problems Problem Status Onset Acute kidney injury Acute DIC (disseminated intravascular coagulation) Acute Dehydration Acute Hypocalcemia Acute Hypoglycemia Acute Necrotizing fasciitis of hand Acute Septic shock Acute Altered mental status Acute Anemia Acute Psychosis Acute
[2018-02-16] MEDS ORDERED: PARoxetine HCL 10 MG/5 ML UDL TUBE SCH (21:00)
--- NOTE | 2018-02-17 00:30 | GOP ---
DATE OF OPERATION: SURGEON: Cullen Sanford MD PREOPERATIVE DIAGNOSIS: POSTOPERATIVE DIAGNOSIS: PROCEDURE PERFORMED: The patient underwent a revision of a transhumeral amputation of the right arm for infection. For most details regarding this patient's operation, please see Dr. Lim's operative report. FINDINGS: INDICATIONS: I was asked to be present for neurovascular evaluation as well as bony debridement for this patient. DESCRIPTION OF PROCEDURE: In standard fashion, the sponge was taken down. Muscle and neurovascular structures were inspected. At this point, we debrided skin and muscle. Of note, the edges of the remi ne were noted to be exposed to the drain sponge and were thought to have had been contaminated at thi s point. Approximately 1.5 cm of bone was removed using a sagittal saw. The remainder of the debrid ement was carried out in standard fashion. I was present for the entirety of the procedure with Dr. Lim Again, for additional details please see Dr. Lim's operative report. CO-SURGEON: Salvador Lim MD. /[id number]/MODL
[2018-02-17] MEDS: PENICILLIN POTASSIUM IV SCH ×6 (01:16→21:44)
[2018-02-17] MEDS: D5W IV SCH ×6 (01:16→21:44)
[2018-02-17] MEDS: NOREPINEPHRINE BITARTRATE 4 MG in NS 500 ML IV SCH (01:16)
[2018-02-17] MEDS: HYDROmorphONE/DILAUDID 2 MG/ML INJ IVP PRN (01:49)
[2018-02-17] MEDS: ASCORBIC ACID 1,500 MG in D5W 100 ML IV SCH ×4 (03:36→21:26)
[2018-02-17] MEDS: THIAMINE HCL 200 MG in NS 100 ML IV SCH ×2 (03:36→15:05)
[2018-02-17 04:35] LABS: PLATELET COUNT 180 10^3/uL (150-400)
[2018-02-17 04:43] LABS: INR 1.69 (0.83-1.16)
[2018-02-17] MEDS: HYDROCORTISONE 100 MG/2 ML VIAL IVP SCH ×3 (05:01→21:39)
[2018-02-17] MEDS: ACETAMINOPHEN 650 MG/20.3 ML UDCUP TUBE SCH ×2 (05:01→16:06)
[2018-02-17] MEDS: CLINDAMYCIN 900 MG/DEXTROSE 50 ML IV SCH ×3 (05:02→21:44)
[2018-02-17] MEDS: VALPROIC ACID 250 MG/5 ML UDCUP TUBE SCH ×2 (05:02→16:06)
[2018-02-17 06:00] LABS: HEPATITIS A ANTIBODY TOTAL NEGATIVE (NEGATIVE); HEPATITIS B CORE AB IGM NEGATIVE (NEGATIVE); HEPATITIS B CORE AB TOTAL NEGATIVE (NEGATIVE); HEPATITIS B SURFACE ANTIGEN NEGATIVE (NEGATIVE); HEPATITIS C ANTIBODY TOTAL NEGATIVE (NEGATIVE); HIV TYPE 1 AND 2 NEGATIVE (NEGATIVE)
[2018-02-17] MEDS: SODIUM BICARBONATE 150 MEQ in D5W 1,000 ML IV SCH (08:07)
--- NOTE | 2018-02-17 08:26 | SOAPPROG ---
SOAP Progress Note Assessment/Plan: Assessment: EDDA- ATN in setting of septic shock -good UOP, Cr hopefully starting to plateau-- no acute CRRT needs but remains at risk -will change IVF from bicarb gtt to D5NS @ 100 cc/hr -follow labs q12 hours -check iCA given bicarb gtt-- anticipate need for replacement Sepsis- nec fasc RUE s/p amputation, Group A Strep in cultures -remains on low dose levophed/vasopressin -on clinda and penicillin Met acidosis -improved, bicarb up to 24-- stop bicarb gtt and follow labs HypoCA -low serum alb but check iCA now as anticipate will be low with bicarb gtt Hypoglycemia -checking blood sugars frequently, has Dextrose in IVF Shock liver -sepsis related, follow LFT trend I discussed with SSRS REPORT DEVELOPER Francheska Jorgensen MD [facility] pager [phone] 02/17/18 08:51 Subjective: Good UOP. Remains on levophed @4, FIO2 40%, wakes up and follows commands. Blood sugars improved. Objective: Vital Signs Temp Pulse Resp BP Pulse Ox 37.2 C 88 18 96/51 L 99 02/17/18 06:00 02/17/18 06:00 02/17/18 06:00 02/17/18 06:00 02/17/18 06:00 Microbiology 02/15/18 20:26 Gram Stain - Final Arm - Eswab 02/15/18 15:20 Gram Stain - Final Wrist - Swab Laboratory Results 02/17/18 04:15 02/17/18 04:15 02/16/18 02/17/18 02/18/18 05:59 05:59 05:59 Intake Total 74978.4 5306.5 Output Total 600 1055 Balance 68445.4 4251.5 PT 20.0 SEC (12.0-15.0) H 02/17/18 04:15 INR 1.69 (0.83-1.16) H 02/17/18 04:15 Physical Exam - Physical Exam General Appearance: other (intubated, sedated, 40% FIO2, levophed @ 4, vasopressin) EENT: ET tube Respiratory: other (coarse bs on vent bilat) Cardiac/Chest: regular rate, rhythm, other (no rub) Abdomen: normal bowel sounds, soft Skin: mottled (toes on L) Extremities: other (mottling of toes, trace LE edema, RUE amputation site c/d/i) Neuro/Psych: other (sedated but follows commands when awake per RN) ICD10 Worksheet Patient Problems: Problems Problem Status Onset Acute kidney injury Acute DIC (disseminated intravascular coagulation) Acute Dehydration Acute Hypocalcemia Acute Hypoglycemia Acute Necrotizing fasciitis of hand Acute Septic shock Acute Altered mental status Acute Anemia Acute Psychosis Acute
[2018-02-17] MEDS: FAMOTIDINE 20 MG/NACL 50 ML IV SCH (09:07)
[2018-02-17] MEDS: D5W NS 1,000 ML IV SCH (09:07)
[2018-02-17] MEDS ORDERED: CALCIUM GLUCONATE IV ONE ×2 (11:00→13:30)
[2018-02-17] MEDS ORDERED: D5W IV ONE ×2 (11:00→13:30)
--- NOTE | 2018-02-17 11:22 | PCMIDPN ---
Assessment/Plan: Assessment: Group a strep toxic shock syndrome. Patient is bacteremic. Patient also had primary right arm involvement that necessitated a guillotine amputation trans humerally. Patient is clinically looking better this morning. He remains on IV penicillin and clindamycin. Weaning to extubation currently. He is awake and communicative. Plan: 1. Continue both IV penicillin and IV clindamycin at present doses. 2. Follow up on repeat blood culture from 02/16/2018. 3. Follow his clinical recovery. 02/17/18 11:19 02/17/18 11:20 Subjective: Patient is resting in his ICU bed. He is intubated but no longer sedated. He is attempting to communicate around his endotracheal tube. Objective: IV penicillin G3 million units q.4 hours. # 1 IV clindamycin 900 mg IV q.8 hours # 1 Vital Signs Temp Pulse Resp BP Pulse Ox 37.1 C 84 18 93/54 L 100 02/17/18 08:00 02/17/18 09:23 02/17/18 09:23 02/17/18 08:00 02/17/18 09:23 Microbiology 02/15/18 20:26 Gram Stain - Final Arm - Eswab 02/15/18 15:20 Gram Stain - Final Wrist - Swab Laboratory Results 02/17/18 04:15 02/17/18 04:15 02/16/18 02/17/18 02/18/18 05:59 05:59 05:59 Intake Total 42319.4 5306.5 Output Total 600 1055 Balance 11662.4 4251.5 C-Reactive Protein 391.1 mg/L (<10.0) H 02/15/18 12:45 - Physical Exam General Appearance: WD/WN, alert, no apparent distress, toxic (Mildly) EENT: ET Tube Respiratory: lungs clear, normal breath sounds, No respiratory distress Cardiac/Chest: regular rate, rhythm, No tachycardia Extremities: erythema (Mild right upper extremity), No normal inspection ( Status post right upper extremity trans humeral amputation), No necrosis Skin: normal color, warm/dry, rash (Sporadic patchy areas of erythema left upper extremity and left lower extremity at toes.) Neuro/Psych: alert, oriented x 3 ICD10 Worksheet Patient Problems: Problems Problem Status Onset Acute kidney injury Acute DIC (disseminated intravascular coagulation) Acute Dehydration Acute Hypocalcemia Acute Hypoglycemia Acute Necrotizing fasciitis of hand Acute Septic shock Acute Altered mental status Acute Anemia Acute Psychosis Acute
--- NOTE | 2018-02-17 11:51 | WOCRNPDOC ---
SAMANTA Advanced Assessment Note - Skin Integrity Problem, Advanced Assess Left Lower Leg Unknown Dressing Type: Open to Air Exudate Amount: None Ariana Wound Tissue: Blanching, Intact Wound Bed Color: Yellow Wound Bed Constitution: Adhered Slough (100%) Wound Edges: Attached, Well Defined Site Measurement - Head-to-Toe Length X Width X Depth (cm): 1x1.7xslough Skin Integrity Problem Comment: Patient seen with ANNE Ruiz and Dr. Lim. SCD removed in order to see wound. Small, slough filled wound present on medial aspect of left lower leg. Unknown etiology. Will order for honey to see if we can loosen slough and wound care will evaluate later in the week. Left Sacrum Pressure Injury Dressing Type: Allevyn Life Dressing Description: Clean/Dry, Intact Closure Description: Not Approximated Exudate Amount: Scant Exudate Color: Reddish/Yellow Exudate Characteristic(s): Serosanguinous Integumentary Issue Intervention: Visualized Under Dressing Ariana Wound Tissue: Intact Wound Bed Color: Yellow Wound Bed Constitution: Adhered Slough Wound Edges: Attached, Well Defined Site Measurement - Head-to-Toe Length X Width X Depth (cm): 2 distint wounds present -. proximal:1.4v1fgtbwpa. distal: 0.4x0.4xslough Pressure Injury Stage: Unstageable Pressure Injury Present on Admit: Yes Skin Integrity Problem Comment: Patient rolled to his left side with assist from ANNE Ruiz. Allevyn pulled back to reveal two slough filled wounds along the left sacrum. Patient is unable to confirm etiology but given location, I suspect these wounds are pressure related. At this point, because they are completely slough filled they are categorized as unsteageable wounds. Will order honey to assist in debriding the wounds. Wound care will round again later this week. Right Ischial Tuberosity Pressure Injury Dressing Type: Allevyn Life Dressing Description: Intact Exudate Amount: Scant Exudate Color: Reddish/Yellow Exudate Characteristic(s): Serosanguinous Integumentary Issue Intervention: Visualized Under Dressing Ariana Wound Tissue: Intact Wound Bed Color: Yellow Wound Bed Constitution: Adhered Slough Wound Edges: Attached, Well Defined Site Measurement - Head-to-Toe Length X Width X Depth (cm): 2.9x2ipeogpr Pressure Injury Stage: Unstageable Pressure Injury Present on Admit: Yes Skin Integrity Problem Comment: Wound bed completely slough filled. Will start honey application to help debride. Plan reviewed with ANNE Ruiz who has no questions at this time. Honey gel delivered to room. Wound care will round again later this week.
[2018-02-17] MEDS ORDERED: VANCOMYCIN HCL/NORMAL SALINE 250 ML IV SCH (14:00)
[2018-02-17] MEDS: HEPARIN 5,000 UNIT/0.5 ML INJ SC SCH ×2 (14:09→21:41)
--- NOTE | 2018-02-17 14:59 | PDINTPN ---
Sock [employer] Progress Note Assessment/Plan: Assessment: 72-year-old admitted 02/15 with right upper extremity cellulitis. Found to have severe necrotizing fasciitis requiring amputation. Toxic Shock Syndrome: Group A Strep sepsis due to RUE cellulitis/fasciitis. Now s/p RUE amputation at humerus. He was re-explored yesterday but did not need further amputation, only some muscle debridement. Surgery following. Severe Sepsis: Due to TSS. Hypotension improved with Levophed. Weaning the latter as blood pressure permits. Acute respiratory failure. On ventilator since surgery. Doing well on CPAP this a.m. Weaning parameters good. Will extubate. Volume overload: Input greater than output secondary to fluid resuscitation was sepsis. Now with increasing bilateral pleural effusions. Unable to aggressively diurese at this point secondary to acute renal failure. Coagulopathy: Likely due to shock liver with reduced production, as well as some consumption. No signs of DIC, with normal fibrinogen. EDDA: Likely due to ATN, with pre renal state initially. There is a component of mild-moderate rhabdomyolysis that could contribute as well. Has fairly good urine output. Metabolic: Hyperkalemia, secondary to acute renal failure. History of bipolar disease? Plan: Extubate today. Continue antibiotics per Infectious Disease. Wean norepinephrine as blood pressure tolerates, keeping mm AP approximately 65 or greater. Follow renal function, laboratory, x-ray and clinical status. Decrease IV fluids as much as possible. Diuresis when possible. 55 min critical care time managing respiratory failure in status, extubation, hypotension, fluid status etc. Discussed with surgery, nursing, patient's girlfriend, and the ICU multi disciplinary team. Subjective: Intubated, on the ventilator, on CPAP. Appears comfortable. Responsive Objective: Vital Signs Temp Pulse Resp BP Pulse Ox 37.1 C 86 18 93/54 L 99 02/17/18 08:00 02/17/18 11:16 02/17/18 11:16 02/17/18 08:00 02/17/18 12:00 Microbiology 02/15/18 20:26 Gram Stain - Final Arm - Eswab 02/15/18 15:20 Gram Stain - Final Wrist - Swab Laboratory Results 02/17/18 04:15 02/17/18 11:50 02/16/18 02/17/18 02/18/18 05:59 05:59 05:59 Intake Total 87771.4 5306.5 Output Total 600 1055 Balance 00223.4 4251.5 PT 20.0 SEC (12.0-15.0) H 02/17/18 04:15 INR 1.69 (0.83-1.16) H 02/17/18 04:15 Laboratory Tests 02/17/18 04:15 pCO2 39 H pO2 122 H ABG pH 7.40 ABG O2 Saturation 98 H O2 Concentration % 40 Laboratory Tests 02/17/18 02/17/18 11:50 12:40 Calcium 6.0 L Ionized Calcium 0.87 L Phosphorus 8.1 H CXR: Lines and tubes in good position. CHF. Increasing bilateral posterior layering pleural effusions with bibasilar atelectasis ICD10 Worksheet Patient Problems: Problems Problem Status Onset Altered mental status Acute Anemia Acute Psychosis Acute Septic shock Acute Necrotizing fasciitis of hand Acute DIC (disseminated intravascular coagulation) Acute Hypoglycemia Acute Hypocalcemia Acute Dehydration Acute Acute kidney injury Acute
--- NOTE | 2018-02-17 15:46 | HOSPPROG ---
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 Patient was successfully extubated this afternoon and I saw him after extubation he seemed to be doing reasonably well. He asked me if I thought he did the right thing by having his right arm removed in I told him I thought he did. I told him that if he had not had remove he likely would have from the infection. He seemed to be reassured by this in seem to be in reasonably good spirits at the time of my conversation with him. Objective Vitals as detailed below Exam General-awake alert conversant no acute distress Heart-regular rate and rhythm no murmurs Lungs-Clear to auscultation with normal respiratory effort Abdomen-soft nontender nondistended normal bowel sounds -Carter catheter in place with clear yellow urine Extremities-no significant pitting edema or calf pain with palpation Skin-no concerning skin rashes noted, wound VAC in right upper extremity Labs as detailed below Assessment and plan Severe sepsis-secondary to streptococcal bacteremia. Patient appears to be improving with current penicillin and clindamycin. Appreciate Infectious disease's recommendations. Bacteremia-streptococcal. Repeat cultures obtained. Status post right upper extremity amputation-secondary to streptococcal infection. Acute hypoxic respiratory failure-possibly resolved as extubated today and doing reasonably well afterwards. Acute kidney injury-creatinine elevated to 3.8 today. Continue IV fluids and recommendations per Nephrology. Rhabdomyolysis-will recheck a CPK value tomorrow morning. Transaminitis-suspecting shock liver. Improving with AST trending from 1327- 770 and ALT trending from 1092-786. Anemia-likely as expected from surgery and infection. No obvious clinical bleeding. Continue to trend. Hypomania-history of. Patient is currently on valproic acid. DVT prophylaxis-heparin added today. Disposition-continue work with PT and OT and will need to see how he does to determine safe place for discharge. Objective: Vital Signs Temp Pulse Resp BP Pulse Ox 37.1 C 86 18 93/54 L 99 02/17/18 08:00 02/17/18 11:16 02/17/18 11:16 02/17/18 08:00 02/17/18 12:00 Microbiology 02/15/18 20:26 Gram Stain - Final Arm - Eswab 02/15/18 15:20 Gram Stain - Final Wrist - Swab Laboratory Results 02/17/18 04:15 02/17/18 11:50 02/16/18 02/17/18 02/18/18 05:59 05:59 05:59 Intake Total 42683.4 5306.5 Output Total 600 1055 Balance 88640.4 4251.5 PT 20.0 SEC (12.0-15.0) H 02/17/18 04:15 INR 1.69 (0.83-1.16) H 02/17/18 04:15 ICD10 Worksheet Patient Problems: Problems Problem Status Onset Acute kidney injury Acute DIC (disseminated intravascular coagulation) Acute Dehydration Acute Hypocalcemia Acute Hypoglycemia Acute Necrotizing fasciitis of hand Acute Septic shock Acute Altered mental status Acute Anemia Acute Psychosis Acute
[2018-02-17] MEDS ORDERED: CALCIUM GLUCONATE 50 ML IV ONE ×2 (17:30→23:30)
[2018-02-17] MEDS: PARoxetine HCL 20 MG TAB PO SCH (21:24)
[2018-02-17] MEDS: DIVALPROEX ER 250 MG TAB PO SCH (21:24)
[2018-02-17] MEDS: FINASTERIDE 5 MG TAB PO SCH (21:26)
[2018-02-17] MEDS: ACETAMINOPHEN 500 MG TAB PO SCH (21:38)
--- NOTE | 2018-02-17 23:34 | SOAPPROG ---
SOAP Progress Note Assessment/Plan: 02/16/18 09:24 POD#1 Assessment: Complicated toxic shock due to strep A - Penicillin G started - may need arm disarticulation for sepsis control as the proximal humerus is more swollen and ecchymotic. - required re-intubation last night. - vasopressin now off, levo down to 3 mcg/min - Renal function BUN 59 CR 3.1 - making urine ( 475 last shift) - Hepatic dysfunction AST 1561 ALT 1153 Alk phos 89 Bilirubin 0.8 - Ca++ low at (6.0 supplemented) repeat pending ( ionized) - MG++ level pending - Weight up 7 kg from yesterday - BNP 60,000 - INR still elevated 2.09 in spite of FFP ( 10 Units) - BE = -4.7 , PCO2 36, PO2 98 ( on vent) Plan: Continue stabilization and supportive procedures. Strongly consider return to OR today for proximal revision of amputation 02/17/18 23:24 POD#2 Assessment: On PCN G Dramatic improvement! Patient extubated successfully today and is up and awake, talking 97/66 @ 88, afebrile Renal- Cr still elevated at 3.7 and BUN 74 and PHOS up to 8.1, Bicarb drip off and Ca++ still being supplemented but lactate now normal and urine output increasing Hepatic- transaminases decreasing, INR down to 1.69 Wound vac with low output and amputation site looks good, Other sites Left foot toes and left arm stable Plan: Continue supportive care, Hope renal function recovers, Hepatic function recovering, Hope to close amputation site Saturday Subjective: I feel pretty OK Objective: Vital Signs Temp Pulse Resp BP Pulse Ox 36.9 C 88 16 97/66 L 96 02/17/18 19:00 02/17/18 20:00 02/17/18 20:00 02/17/18 20:00 02/17/18 20:00 Microbiology 02/15/18 15:20 Gram Stain - Final Wrist - Swab Wound Culture - Final Streptococcus Pyogenes Grp A 02/15/18 20:26 Gram Stain - Final Arm - Eswab Laboratory Results 02/17/18 04:15 02/17/18 22:30 02/16/18 02/17/18 02/18/18 05:59 05:59 05:59 Intake Total 53917.4 5306.5 1440 Output Total 600 1055 700 Balance 92765.4 4251.5 740 PT 20.0 SEC (12.0-15.0) H 02/17/18 04:15 INR 1.69 (0.83-1.16) H 02/17/18 04:15 - Time Spent With Patient Time Spent With Patient: 25 - Pending Discharge Pending Discharge Within 24 Hours: No Pending Discharge Within 48 Hours: No Physical Exam - Physical Exam General Appearance: WD/WN, alert, no apparent distress Respiratory: lungs clear, normal breath sounds Cardiac/Chest: regular rate, rhythm Abdomen: normal bowel sounds, non-tender, soft Male Genitalia: deferred Rectal: deferred Back: Normal inspection Skin: normal color, warm/dry Extremities: normal range of motion, non-tender, normal inspection, other ( amputation site looks good) Neuro/Psych: no motor/sensory deficits, alert, normal mood/affect, oriented x 3 ICD10 Worksheet Patient Problems: Problems Problem Status Onset Acute kidney injury Acute DIC (disseminated intravascular coagulation) Acute Dehydration Acute Hypocalcemia Acute Hypoglycemia Acute Necrotizing fasciitis of hand Acute Septic shock Acute Altered mental status Acute Anemia Acute Psychosis Acute
[2018-02-18] MEDS ORDERED: CALCIUM GLUCONATE 50 ML IV ONE (00:30)
[2018-02-18] MEDS: PENICILLIN POTASSIUM IV SCH ×5 (03:16→20:36)
[2018-02-18] MEDS: D5W IV SCH ×5 (03:16→20:36)
[2018-02-18] MEDS: HYDROmorphONE/DILAUDID 2 MG/ML INJ IVP PRN (03:30)
[2018-02-18] MEDS: ASCORBIC ACID 1,500 MG in D5W 100 ML IV SCH ×2 (04:16→13:08)
[2018-02-18] MEDS: THIAMINE HCL 200 MG in NS 100 ML IV SCH (05:10)
[2018-02-18] MEDS: HYDROCORTISONE 100 MG/2 ML VIAL IVP SCH ×3 (05:11→20:36)
[2018-02-18] MEDS: HEPARIN 5,000 UNIT/0.5 ML INJ SC SCH (05:11)
[2018-02-18] MEDS: D5W NS 1,000 ML IV SCH (05:11)
[2018-02-18] MEDS: ACETAMINOPHEN 500 MG TAB PO SCH ×4 (05:12→20:36)
[2018-02-18] MEDS: CLINDAMYCIN 900 MG/DEXTROSE 50 ML IV SCH ×2 (05:41→13:36)
[2018-02-18 06:11] LABS: CREATINE KINASE 1273 IU/L (0-224)
[2018-02-18 06:24] LABS: PLATELET COUNT 161 10^3/uL (150-400)
[2018-02-18] MEDS ORDERED: D5W IV ONE (08:28)
[2018-02-18] MEDS ORDERED: CALCIUM GLUCONATE IV ONE (08:28)
--- NOTE | 2018-02-18 08:36 | SOAPPROG ---
SOAP Progress Note Assessment/Plan: Assessment: EDDA, better today, not oliguric, creat down a bit from last night nec fasciitis s/p amputation of arm cellulitis hypocalcemia, supps underway sepsis: PCN-G and Clindamycin hypotension, communicative Plan: back to OR today for wound debridement etc continue ABX supp calcium and follow levels no urgent HD needs at this point, follow lytes vol and renal function 02/18/18 08:32 Subjective: sitting up in bed some confusion, but is conversant pain managed no cp sob nausea or vomiting NPO for now, going to OR later today Objective: Vital Signs Temp Pulse Resp BP Pulse Ox 36.8 C 96 10 L 96/56 L 92 02/17/18 21:00 02/18/18 06:00 02/18/18 06:00 02/18/18 06:00 02/18/18 06:00 Microbiology 02/15/18 15:20 Gram Stain - Final Wrist - Swab Wound Culture - Final Streptococcus Pyogenes Grp A 02/15/18 20:26 Gram Stain - Final Arm - Eswab Laboratory Results 02/18/18 05:15 02/18/18 05:15 02/17/18 02/18/18 02/19/18 05:59 05:59 05:59 Intake Total 5306.5 3370 Output Total 1055 1275 Balance 4251.5 2095 PT 20.0 SEC (12.0-15.0) H 02/17/18 04:15 INR 1.69 (0.83-1.16) H 02/17/18 04:15 Physical Exam - Physical Exam General Appearance: alert Neck: normal inspection Respiratory: No rhonchi, No wheezing Cardiac/Chest: regular rate, rhythm Abdomen: normal bowel sounds, non-tender, soft Extremities: other (R upper extremity amputated mid-humerus) Neuro/Psych: alert, normal mood/affect ICD10 Worksheet Patient Problems: Problems Problem Status Onset Acute kidney injury Acute DIC (disseminated intravascular coagulation) Acute Dehydration Acute Hypocalcemia Acute Hypoglycemia Acute Necrotizing fasciitis of hand Acute Septic shock Acute Altered mental status Acute Anemia Acute Psychosis Acute
[2018-02-18] MEDS: DIVALPROEX ER 250 MG TAB PO SCH ×2 (09:07→20:36)
--- NOTE | 2018-02-18 09:11 | PCMIDPN ---
Assessment/Plan: # GAS toxic shock syndrome emanating from RUE necrotizing fasciitis, still with erythema on adjacent chest wall and axilla. Marked increase in WBC today likely reflects evolution of more appropriate response to severe infection. CK trending down. Cr remains elevated. LFT basically stable. Patient on dual therapy with PCN and clindamycin for the cocopah effect but today GAS shown to be Clindamycin R. Surgery just changed dressing right prior to my exam and showed + serous fluid under vac dressing and muscle dusky. --dc clindamycin due to resistance, although may have still provide some effect --adjust PCN for renal insufficiency --likely back to OR to debridement RUE, may need disarticulation, discussed with Dr. Piedra --risk of starting linezolid and or newer agent Tedizolid probably not worth risk of serotonin syndrome in this patient who is generally improving from TSS --tunneled PICC line in subclavian position due to arm amputation # Renal insufficiency: CrCl 20s: adjust PCN to 2gm q4hrs # Elevated LFTs: Hep serologies negative Subjective: Pt states that he is feeling groggy today. Originally from [place], [place]. denies pain RUE (surprisingly!) Extubated, off pressors Objective: Medications: penicillin G 3MU IV q.4 hours. #2 clindamycin 900 mg IV q.8 hours # 2 Microbiology: 02/15 Arm cx grew, Grp A Strep and Veillonella. 02/15 Blood cx 2/2 sets grew, Grp A Strep. PCN BELEM <0.15631 02/16 blood cx (1) NGTD Vital Signs Temp Pulse Resp BP Pulse Ox 36.8 C 96 10 L 96/56 L 92 02/17/18 21:00 02/18/18 06:00 02/18/18 06:00 02/18/18 06:00 02/18/18 06:00 Microbiology 02/15/18 15:20 Gram Stain - Final Wrist - Swab Wound Culture - Final Streptococcus Pyogenes Grp A 02/15/18 20:26 Gram Stain - Final Arm - Eswab Laboratory Results 02/18/18 05:15 02/18/18 05:15 02/17/18 02/18/18 02/19/18 05:59 05:59 05:59 Intake Total 5306.5 3370 Output Total 1055 1275 Balance 4251.5 2095 C-Reactive Protein 391.1 mg/L (<10.0) H 02/15/18 12:45 Scribe attestation: IPamela, am scribing for, and in the presence of, Heidy Marino MD. Heidy Cheng MD, personally performed the services described in this documentation, as scribed by Pamela Gamboa in my presence, and it is both accurate and complete - Physical Exam General Appearance: alert, no apparent distress, other (Visual hallucinations but oriented to time and place) EENT: pale conjunctiva, dry mucous membranes, other (Bad dentition ) Respiratory: lungs clear Neck: supple Cardiac/Chest: tachycardia (with semi-irregularity ), other (Mild tenderness to palpation of right upper chest. Redness in the anterior axillary and upper chest wall. Wound vac was taken off this morning. ) Extremities: other (LUE: ecchymosis on anterior forearm, mild edema. RUE: amputation with short humeral stump. BLE: Mild edema left greater than right. LLE: Purpura over 1st, 2nd, and 3rd L-toes.) Peripheral Pulses: 2+: dorsalis-pedis (R), dorsalis-pedis (L) Abdomen: non-tender, soft, other (Abdomen is protuberant ) Skin: pallor, rash (Maculopapular eruption over his knees bilaterally ), embolic lesions, No signs of IVDA Neuro/Psych: oriented x 3, other (Visual hallucinations present) - Time Spent With Patient Time Spent with Patient: greater than 35 minutes (Care coordinated with nursing , pharmacy and Critical Care;) Time Spent with Patient: Greater than 35 minutes spent on this patients care, greater than 50% of time spent counseling, educating, and coordinating care regarding the above mentioned plan. ICD10 Worksheet Patient Problems: Problems Problem Status Onset Acute kidney injury Acute DIC (disseminated intravascular coagulation) Acute Dehydration Acute Hypocalcemia Acute Hypoglycemia Acute Necrotizing fasciitis of hand Acute Septic shock Acute Altered mental status Acute Anemia Acute Psychosis Acute
[2018-02-18] MEDS ORDERED: ALTEPLASE 2 MG VIAL IVP PRN (09:15)
--- NOTE | 2018-02-18 10:06 | SOAPPROG ---
SOAP Progress Note Assessment/Plan: Assessment/Plan: Complicated toxic shock s/p RUE amputation. Shoulder joint intact. Seen and examined with Dr. Piedra. Concern regarding erythema over shoulder and chest. Marked the erythema. Removed the wound vac. +serous fluid under vac dressing. Muscle dusky. May need further debridement. Will make NPO. Hold Heparin. Monitor. Wet to dry dressings BID for now. Off vent. Continue stabilization and support. Continue Pen G and clinda-- appreciate ID input. Appreciate insurance marketing rep input and care. S: Episode of confusion and anxiety overnight. O: alert, conversive, some perseverating no wob ext: see above. RUE c some ecchymosis and swelling. Toes with some areas of ecchymosis vs erythema. no fluctuance. 02/18/18 09:54 Objective: Vital Signs Temp Pulse Resp BP Pulse Ox 36.8 C 96 10 L 96/56 L 92 02/17/18 21:00 02/18/18 06:00 02/18/18 06:00 02/18/18 06:00 02/18/18 06:00 Microbiology 02/15/18 15:20 Gram Stain - Final Wrist - Swab Wound Culture - Final Streptococcus Pyogenes Grp A 02/15/18 20:26 Gram Stain - Final Arm - Eswab Laboratory Results 02/18/18 05:15 02/18/18 05:15 02/17/18 02/18/18 02/19/18 05:59 05:59 05:59 Intake Total 5306.5 3370 Output Total 1055 1275 Balance 4251.5 2095 PT 20.0 SEC (12.0-15.0) H 02/17/18 04:15 INR 1.69 (0.83-1.16) H 02/17/18 04:15 ICD10 Worksheet Patient Problems: Problems Problem Status Onset Acute kidney injury Acute DIC (disseminated intravascular coagulation) Acute Dehydration Acute Hypocalcemia Acute Hypoglycemia Acute Necrotizing fasciitis of hand Acute Septic shock Acute Altered mental status Acute Anemia Acute Psychosis Acute
[2018-02-18] MEDS ORDERED: NALOXONE HCL 0.4 MG/ML INJ IVP PRN (11:35)
[2018-02-18] MEDS ORDERED: fentaNYL 100 MCG/2 ML INJ IVP PRN (11:35)
[2018-02-18] MEDS ORDERED: fentaNYL 100 MCG/2 ML INJ ONE (11:43)
[2018-02-18] MEDS ORDERED: NS 1,000 ML IV SCH (11:45)
[2018-02-18] MEDS ORDERED: LIDOCAINE 1% 300 MG/30 ML SDV ONE (12:18)
[2018-02-18] MEDS ORDERED: IOPAMIDOL (ISOVUE-300) 100 ML BTL ONE (12:18)
[2018-02-18] MEDS ORDERED: AVITENE POWDER 1 GM JAR TP ONE (12:28)
--- NOTE | 2018-02-18 12:33 | PDHPUP ---
History & Physical Update H&P update statement: This history and physical update is based on an assessment of the patient which was completed after admission or registration (within 24 hours), but prior to the surgery/procedure. Tunneled PICC for termination clerk IV access. This IJ Tunneled catheter functions the same as a peripheral PICC with decreased rate of infection, and is a vein- preserving alternative with no risk of arm vein thrombosis. The Tunneled noncuffed catheter may be removed at any time the same as any peripheral PICC with hemostasis achieved via manual compression followed by a sterile, occlusive dressing. H&P update: H&P reviewed & patient examined, no change in patient's condition since H&P completed
--- NOTE | 2018-02-18 12:34 | PDRADPN ---
Radiology Procedure Note Date of Procedure: 02/18/18 Radiologist: Eric Crowley Anesthesia: Local (Specify) (Lidocaine) Pre-op Diagnosis: Bacteremia Post-op Diagnosis: Bacteremia Indication: Bacteremia Procedure: Tunneled small bore CVC Finding(s): Patent right IJ. PLAN: This IJ Tunneled catheter functions the same as a peripheral PICC with decreased rate of infection, and is a vein- preserving alternative with no risk of arm vein thrombosis. The Tunneled noncuffed catheter may be removed at any time the same as any peripheral PICC with hemostasis achieved via manual compression followed by a sterile, occlusive dressing. Inf/Abcess present in the surg proc area at time of surgery?: No
[2018-02-18] MEDS ORDERED: METOPROLOL TARTRATE 5 MG/5 ML INJ IVP ONE (13:20)
--- NOTE | 2018-02-18 13:25 | PDINTPN ---
[employer] [employer] Progress Note Assessment/Plan: Assessment: 72-year-old admitted 02/15 with right upper extremity cellulitis. Found to have severe necrotizing fasciitis requiring amputation. Toxic Shock Syndrome: Group A Strep sepsis due to RUE cellulitis/fasciitis. S/p RUE amputation at humerus. Re-explored 02/16 but did not need further amputation, only some muscle debridement. To go back to OR this afternoon or tomorrow. Severe Sepsis: Due to TSS. Hypotension improved. Off Levophed but blood pressures somewhat marginal at times. Acute respiratory failure. Resolved. Has done well since extubation. On oxygen at 2 L. Volume overload: Input greater than output secondary to fluid resuscitation/ sepsis. CXR with bilateral pleural effusions and atelectasis. Unable to aggressively diurese at this point secondary to acute renal failure. Coagulopathy: Likely due to shock liver with reduced production, as well as some consumption. No signs of DIC, with normal fibrinogen. DEDA: Likely due to ATN, with pre renal state initially. Rhabdomyolysis may have contributed. Has fairly good urine output now but creatinine remains elevated. Metabolic: Na 133. History of bipolar disease? Plan: Continue supportive care. NPO for now as he likely will go back to the operating room tonight or tomorrow Antibiotics per Infectious Disease. Follow blood pressure. No indication for norepinephrine at this time. Will try low- dose metoprolol for tachycardia. Follow renal function, laboratory, x-ray and clinical status. Decrease IV fluids as much as possible. Diuresis when possible. 50 min critical care time managing respiratory and fluid status, hypertension, delirium, etc. Discussed with surgery, nursing, ID, patient's girlfriend, and the ICU multi disciplinary team. Subjective: Doing okay. Denies pain, shortness of breath. Confused at times, hallucinating at times but orients and is appropriate Objective: Vital Signs Temp Pulse Resp BP Pulse Ox 36.6 C 127 H 19 93/63 L 96 02/18/18 07:00 02/18/18 13:00 02/18/18 13:00 02/18/18 13:00 02/18/18 13:00 Microbiology 02/15/18 20:26 Gram Stain - Final Arm - Eswab 02/15/18 15:20 Gram Stain - Final Wrist - Swab Wound Culture - Final Streptococcus Pyogenes Grp A Laboratory Results 02/18/18 05:15 02/18/18 05:15 02/17/18 02/18/18 02/19/18 05:59 05:59 05:59 Intake Total 5306.5 3370 Output Total 1055 1275 Balance 4251.5 2095 PT 20.0 SEC (12.0-15.0) H 02/17/18 04:15 INR 1.69 (0.83-1.16) H 02/17/18 04:15 Laboratory Tests 02/18/18 02/18/18 05:15 05:15 Calcium 6.0 L Phosphorus 8.1 H Total Bilirubin 0.6 AST 260 H ALT 551 H Creatine Kinase 1273 H Albumin 2.2 L CXR: By a basilar pleural effusions probably posterior layering with associated atelectasis. Improved compared to yesterday. Physical Exam - Physical Exam General Appearance: alert, no apparent distress EENT: PERRL/EOMI, other (Nasal cannula in place at 2 L: 96%) Neck: normal inspection (No JVD) Respiratory: lungs clear (Anteriorly), decreased breath sounds (At bases), rales (Few basilar rales), No rhonchi, No wheezing Cardiac/Chest: tachycardia (Sinus tachycardia present, low 100s), No gallop Abdomen: non-tender, soft, No normal bowel sounds (Decreased, present) Male Genitalia: other (Carter catheter now in place. Urine is a little bloody: Question traumatic on insertion.) Skin: warm/dry, pallor Extremities: pedal edema (Trace), other (Right upper extremity stump with some mild erythema.) Neuro/Psych: no motor/sensory deficits, cognition abnormalities (Confused at times, hallucinating at times but oriented x3.) ICD10 Worksheet Patient Problems: Problems Problem Status Onset Altered mental status Acute Anemia Acute Psychosis Acute Septic shock Acute Necrotizing fasciitis of hand Acute DIC (disseminated intravascular coagulation) Acute Hypoglycemia Acute Hypocalcemia Acute Dehydration Acute Acute kidney injury Acute
--- NOTE | 2018-02-18 15:54 | HOSPPROG ---
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 Overnight no acute events. Patient remains stable from respiratory standpoint after activation yesterday. Today he has had some hallucinations according to his nurse but he was alert and oriented x3 at the time of my evaluation. He states his pain is well controlled and he is not having any pain complaints. Patient's nurse did report that she saw bright red blood in his Carter bag earlier in the day but this has cleared. No complaints of chest pain or difficulty breathing. Objective Vitals as detailed below Exam General-awake alert conversant no acute distress Heart-regular rate and rhythm no murmurs Lungs-Clear to auscultation with normal respiratory effort Abdomen-soft nontender nondistended normal bowel sounds -Carter catheter in place with dark cola colored urine Extremities-no significant pitting edema or calf pain with palpation, mild erythema around the surgical site in the right upper extremity. Skin-wound VAC in right upper extremity Labs as detailed below Assessment and plan Severe sepsis-secondary to streptococcal bacteremia. Patient appears to be improving with current penicillin and clindamycin. Appreciate Infectious disease's recommendations. Bacteremia-streptococcal. Repeat cultures obtained and awaiting final results.. Status post right upper extremity amputation-secondary to necrotizing fasciitis and toxic shock syndrome. Patient may be taken back to the operating room for further debridement. Tachycardia-on his monitor it looks like sinus tachycardia but there are episodes at look irregular. Obtain 12 lead EKG. Acute hypoxic respiratory failure-patient remains on a small dose of supplemental oxygen. Wean as able. Acute kidney injury-I appreciate Nephrology input. Creatinine has improved over the past 24 hr to 3.3 today. He has good urine output without any severe electrolyte abnormalities. Rhabdomyolysis-CPK trending down. He was previously in the 4000 range and now at 1273. Transaminitis-suspecting shock liver but there may also be a component of muscle injury. Continued downward trend. Anemia-expected blood loss is from surgery. Stable at 9 today. Hypomania-history of. Patient is currently on valproic acid. DVT prophylaxis-heparin. Disposition-continue work with PT and OT and will need to see how he does to determine safe place for discharge. Objective: Vital Signs Temp Pulse Resp BP Pulse Ox 36.6 C 127 H 19 93/63 L 96 02/18/18 07:00 02/18/18 13:00 02/18/18 13:00 02/18/18 13:00 02/18/18 13:00 Microbiology 02/15/18 20:26 Gram Stain - Final Arm - Eswab 02/15/18 15:20 Gram Stain - Final Wrist - Swab Wound Culture - Final Streptococcus Pyogenes Grp A Laboratory Results 02/18/18 05:15 02/18/18 05:15 02/17/18 02/18/18 02/19/18 05:59 05:59 05:59 Intake Total 5306.5 3370 Output Total 1055 1275 Balance 4251.5 2095 PT 20.0 SEC (12.0-15.0) H 02/17/18 04:15 INR 1.69 (0.83-1.16) H 02/17/18 04:15 ICD10 Worksheet Patient Problems: Problems Problem Status Onset Acute kidney injury Acute DIC (disseminated intravascular coagulation) Acute Dehydration Acute Hypocalcemia Acute Hypoglycemia Acute Necrotizing fasciitis of hand Acute Septic shock Acute Altered mental status Acute Anemia Acute Psychosis Acute
--- NOTE | 2018-02-18 18:33 | CPEKG ---
Test Reason : OPEN Blood Pressure : / mmHG Vent. Rate : 100 BPM Atrial Rate : 259 BPM P-R Int : 152 ms QRS Dur : 127 ms QT Int : 391 ms P-R-T Axes : 000 -82 073 degrees QTc Int : 505 ms Atrial flutter Right bundle branch block Inferior infarct, old Anterior infarct, old Confirmed by Lauren Kilpatrick ([id number] on 02/18/2018 6:32:39 PM Referred By: Confirmed By:Lauren Kilpatrick
[2018-02-18] MEDS: FINASTERIDE 5 MG TAB PO SCH (20:36)
[2018-02-18] MEDS: LORazepam 2 MG/ML INJ IVP PRN (20:36)
[2018-02-19] MEDS: D5W IV SCH ×4 (02:29→20:44)
[2018-02-19] MEDS: PENICILLIN POTASSIUM IV SCH ×4 (02:29→20:44)
[2018-02-19 05:30] LABS: PLATELET COUNT 162 10^3/uL (150-400)
[2018-02-19 05:38] LABS: INR 1.2 (0.83-1.16); PROTIME(PATIENT) 15.4 SEC (12.0-15.0)
[2018-02-19] MEDS: ACETAMINOPHEN 500 MG TAB PO SCH ×3 (05:43→20:44)
--- NOTE | 2018-02-19 08:08 | HOSPPROG ---
Hospitalist Progress Note Assessment/Plan: #GAS toxic shock syndrome/bacteremia: IV PCN, to OR today for debridement #RUE necrotizing fasciitis: s/p transhumeral amputation; last revision 02/16 #EDDA: good UOP, Cr down a little #Hypocalcemia: replacing #Shock liver #Bipolar d/o: recently admitted to [facility]. Depakote, Paxil #Atrial fib: low-dose BB #Diet: ADAT, if not eating much, may need enteral feeds next couple days #DVT ppx: SQH #Disp: inpatient admission for IV abx, surgical debridement. Case d/w Dr. Sanders Subjective: "need to have BM" Objective: Vital Signs Temp Pulse Resp BP Pulse Ox 36.7 C 98 13 102/61 95 02/19/18 07:09 02/19/18 07:09 02/19/18 07:09 02/19/18 07:09 02/19/18 07:09 Microbiology 02/15/18 20:26 Gram Stain - Final Arm - Eswab Laboratory Results 02/19/18 05:15 02/19/18 05:15 02/18/18 02/19/18 02/20/18 05:59 05:59 05:59 Intake Total 3370 2470 Output Total 1275 2950 Balance 2095 -480 PT 15.4 SEC (12.0-15.0) H 02/19/18 05:15 INR 1.20 (0.83-1.16) H 02/19/18 05:15 - Time Spent With Patient Time Spent with Patient: greater than 35 minutes Time Spent with Patient: Greater than 35 minutes spent on this patients care, greater than 50% of time spent counseling, educating, and coordinating care regarding the above mentioned plan. - Physical Exam Constitutional: chronically ill appearing Eyes: PERRL Ears, Nose, Mouth, Throat: moist mucous membranes Cardiovascular: regular rate and rhythym Respiratory: no respiratory distress Gastrointestinal: normoactive bowel sounds Genitourinary: garber in urethra Musculoskeletal: other (RUE amputated. Dressed with surrounding erythema) Neurologic: CN II-XII Intact Psychiatric: flat affect ICD10 Worksheet Patient Problems: Problems Problem Status Onset Acute kidney injury Acute DIC (disseminated intravascular coagulation) Acute Dehydration Acute Hypocalcemia Acute Hypoglycemia Acute Necrotizing fasciitis of hand Acute Septic shock Acute Altered mental status Acute Anemia Acute Psychosis Acute
[2018-02-19] MEDS ORDERED: PROTOCOL CALCIUM 1 DOSE IV PRN (08:13)
[2018-02-19] MEDS ORDERED: CALCIUM GLUCONATE 50 ML IV ONE (08:13)
[2018-02-19] MEDS: DIVALPROEX ER 250 MG TAB PO SCH ×2 (09:02→20:44)
[2018-02-19] MEDS: HYDROCORTISONE 100 MG/2 ML VIAL IVP SCH ×2 (09:02→20:43)
--- NOTE | 2018-02-19 09:32 | PDANEPAE ---
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 ANE Past Medical History - Cardiovascular History Hx Hypertension: Yes Hx Arrhythmias: No Hx Chest Pain: No Hx Coronary Artery / Peripheral Vascular Disease: No Hx CHF / Valvular Disease: No Hx Palpitations: No - Pulmonary History Hx COPD: No Hx Asthma/Reactive Airway Disease: No Hx Recent Upper Respiratory Infection: No Hx Oxygen in Use at Home: No Hx Sleep Apnea: No Sleep Apnea Screening Result - Last Documented: Positive Pulmonary History Comment: Respiratory failure requiring intubation, extubated 02/17. - Neurologic History Hx Cerebrovascular Accident: No Hx Seizures: No Hx Dementia: No Neurologic History Comment: Hypomania - Endocrine History Hx Diabetes: No Hypothyroid: No Hyperthyroid: No Obesity: no - Renal History Hx Renal Disorders: Yes Renal History Comment: acute RF - Liver History Hepatic History Comment: Elevated transaminases - Neurological & Psychiatric Hx Hx Neurological and Psychiatric Disorders: Yes Neurological / Psychiatric History Comment: hx of hypomania - Other Health History Other Health History: anemia,sepsis requiring pressor support,sepsis protocol - Chronic Pain History Chronic Pain: No - Surgical History Prior Surgeries: s/p R upper arm amputation on 02/14 ANE Review of Systems Review of Systems: - Exercise capacity METS (RN): 4 METS ANE Patient History - Allergies Allergies/Adverse Reactions: No Known Allergies Allergy (Unverified 01/31/18 02:05) - Home Medications Home medications: home medication list seen and reviewed Home Medications: Doxazosin Mesylate [Cardura 4 MG (*)] 4 mg PO HS 01/31/18 [Last Taken 02/14/18 21:00] Finasteride [Proscar 5 MG (*)] 5 mg PO HS 01/31/18 [Last Taken 02/14/18 21:00] Lisinopril 30 mg PO HS 01/31/18 [Last Taken 02/14/18 21:00] Divalproex ER [Depakote ER 500 MG (*)] 750 mg PO BID 02/15/18 [Last Taken 21:00] Herbals/Supplements -Info Only 1 ea PO DAILY 02/15/18 [Last Taken 02/14/18 21:00 ] Ibuprofen [Motrin (*)] 400 mg PO DAILY PRN 02/15/18 [Last Taken 02/14/18] PARoxetine HCL [Paxil 20mg (*)] 20 mg PO HS 02/15/18 [Last Taken 02/14/18 21:00] - NPO status NPO Since - Liquids (Date): 02/14/18 NPO Since - Liquids (Time): 19:00 NPO Since - Solids (Date): 02/14/18 NPO Since - Solids (Time): 19:00 - Smoking Hx Smoking Status: Never smoked ANE Labs/Vital Signs - Labs Result Diagrams: 02/19/18 05:15 02/19/18 05:15 - Vital Signs Blood Pressure: 102/61 Heart Rate: 98 Respiratory Rate: 13 O2 Sat (%): 95 Height: 182.88 cm Weight: 82.9 kg ANE Physical Exam - Airway Mallampati Score: Class 2 Mouth exam: poor dentition - Pulmonary Pulmonary: reduced air movement - Cardiovascular Cardiovascular: regular rate and rhythym - ASA Status ASA Status: IV ANE Anesthesia Plan Anesthesia Plan: general endotracheal anesthesia, GA w LMA
[2018-02-19] MEDS ORDERED: fentaNYL 100 MCG/2 ML INJ ONE ×2 (10:15→12:46)
[2018-02-19] MEDS ORDERED: PROPOFOL 200 MG/20 ML VIAL ONE (10:15)
[2018-02-19] MEDS ORDERED: PHENYLEPHRINE 10 MG/ML SDV ONE ×2 (10:28)
--- NOTE | 2018-02-19 10:53 | SOAPPROG ---
SOAP Progress Note Assessment/Plan: Assessment: 72 y/o M with with toxic shock s/p RUE transhumeral amputation 02/16 S: Still somewhat confused. O: Alert, conversive No increased WOB RUE: continued erythema over shoulder and chest. Dressing with serosang drainage. Plan: OR today for further I&D. Risks and options discussed and pt and wish to proceed. Possible higher amputation, but given slight improvement in erythema, this is unlikely. Want to preserve joint for prosthesis. Continue abx. 02/19/18 10:49 Objective: Vital Signs Temp Pulse Resp BP Pulse Ox 36.7 C 98 13 102/61 95 02/19/18 07:09 02/19/18 10:25 02/19/18 10:25 02/19/18 10:25 02/19/18 10:25 Microbiology 02/15/18 20:26 Gram Stain - Final Arm - Eswab Laboratory Results 02/19/18 05:15 02/19/18 05:15 02/18/18 02/19/18 02/20/18 05:59 05:59 05:59 Intake Total 3370 2470 Output Total 1275 2950 Balance 2095 -480 PT 15.4 SEC (12.0-15.0) H 02/19/18 05:15 INR 1.20 (0.83-1.16) H 02/19/18 05:15 ICD10 Worksheet Patient Problems: Problems Problem Status Onset Acute kidney injury Acute DIC (disseminated intravascular coagulation) Acute Dehydration Acute Hypocalcemia Acute Hypoglycemia Acute Necrotizing fasciitis of hand Acute Septic shock Acute Altered mental status Acute Anemia Acute Psychosis Acute
[2018-02-19] MEDS ORDERED: CISATRACURIUM BESYLATE 20 MG/10 ML VIAL IV ONE (11:04)
[2018-02-19] MEDS ORDERED: MEPERIDINE 25 MG/0.5 ML AMP IVP PRN (11:40)
[2018-02-19] MEDS ORDERED: PROMETHAZINE HCL 25 MG/ML INJ IVP PRN (11:40)
[2018-02-19] MEDS ORDERED: LR 500 ML IV PRN (11:40)
[2018-02-19] MEDS ORDERED: ONDANSETRON 4 MG/2 ML VIAL IVP PRN (11:40)
[2018-02-19] MEDS ORDERED: ALBUTEROL 3 ML DEYVIAL IH PRN (11:40)
[2018-02-19] MEDS ORDERED: NALOXONE HCL 0.4 MG/ML INJ IVP PRN (11:40)
[2018-02-19] MEDS ORDERED: METOCLOPRAMIDE 10 MG/2 ML VIAL IVP PRN (11:40)
[2018-02-19] MEDS ORDERED: PHENYLEPHRINE HCL 100 MCG/ML SYR IVP PRN (11:40)
[2018-02-19] MEDS ORDERED: HYDROmorphONE/DILAUDID 2 MG/ML INJ IVP PRN (11:40)
[2018-02-19] MEDS ORDERED: ONDANSETRON 4 MG/2 ML VIAL ONE (11:43)
[2018-02-19] MEDS ORDERED: NEOSTIGMINE METHYLSULFATE 5 MG/5 ML SYR ONE (11:51)
[2018-02-19] MEDS ORDERED: GLYCOPYRROLATE 0.2 MG/1 ML VIAL ONE ×2 (11:51)
--- NOTE | 2018-02-19 12:31 | POSTOPPROG ---
Post Op Note Date of Operation: 02/19/18 Surgeon: Perfecto Piedra Returned Goods Repairer: Zee Yanez Anesthesiologist: Estephania Olsen Anesthesia: GET(General Endotracheal) Pre-op Diagnosis: s/p RUE amputation, cellulitis Post-op Diagnosis: same Procedure: RUE amputation debridement Findings: pale muscle tissue debrided to bleeding tissue. no purulence. Inf/Abcess present in the surg proc area at time of surgery?: Yes Depth: Deep Incisional (Fascial) EBL: 50-100 Complications: none Specimen(s): debrided tissue to pathology
--- NOTE | 2018-02-19 12:34 | POSTANESTH ---
Post Anesthetic Evaluation Cardiovascular Status: Normal, Stable Respiratory Status: Normal, Stable Level of Consciousness/Mental Status: Can Participate in Eval Pain Control: Adequate, Prn Tx Ordered Nausea/Vomiting Control: Adequate, Prn Tx Ordered Complications Possibly Related to Anesthesia: None Noted
[2018-02-19] MEDS: fentaNYL 100 MCG/2 ML INJ IVP PRN ×2 (12:48→12:53)
[2018-02-19] MEDS ORDERED: HYDROmorphONE/DILAUDID 2 MG/ML INJ ONE (12:54)
--- NOTE | 2018-02-19 13:37 | SOAPPROG ---
SOAP Progress Note Assessment/Plan: Assessment: EDDA, better today, not oliguric, creat down a bit from last night nec fasciitis s/p amputation of arm cellulitis hypocalcemia, supps underway sepsis: PCN-G and Clindamycin hypotension, communicative Plan: back to OR today for wound debridement etc continue ABX supp calcium and follow levels no urgent HD needs at this point, follow lytes vol and renal function 02/18/18 08:32 Subjective: no cp sob nausea or vomiting denies pain spirits good hungry just back from OR Objective: Vital Signs Temp Pulse Resp BP Pulse Ox 36.8 C 87 10 L 149/85 H 94 02/19/18 12:31 02/19/18 12:54 02/19/18 13:11 02/19/18 13:11 02/19/18 13:11 Microbiology 02/15/18 20:26 Gram Stain - Final Arm - Eswab Laboratory Results 02/19/18 05:15 02/19/18 05:15 02/18/18 02/19/18 02/20/18 05:59 05:59 05:59 Intake Total 3370 2470 900 Output Total 1275 2950 520 Balance 2095 -480 380 PT 15.4 SEC (12.0-15.0) H 02/19/18 05:15 INR 1.20 (0.83-1.16) H 02/19/18 05:15 Physical Exam - Physical Exam General Appearance: alert, thin Neck: normal inspection Respiratory: No rhonchi, No wheezing Cardiac/Chest: edema, irregularly irregular Abdomen: normal bowel sounds, non-tender, soft Skin: other (cellulitis RUE) Extremities: swelling Neuro/Psych: alert, normal mood/affect, oriented x 3 ICD10 Worksheet Patient Problems: Problems Problem Status Onset Acute kidney injury Acute DIC (disseminated intravascular coagulation) Acute Dehydration Acute Hypocalcemia Acute Hypoglycemia Acute Necrotizing fasciitis of hand Acute Septic shock Acute Altered mental status Acute Anemia Acute Psychosis Acute
[2018-02-19] MEDS ORDERED: AMIODARONE HCL 100 ML IV ONE (14:42)
--- NOTE | 2018-02-19 14:46 | PDINTPN ---
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 Found to have severe necrotizing fasciitis requiring amputation. Toxic Shock Syndrome: Group A Strep sepsis due to RUE cellulitis/fasciitis. S/p RUE amputation at humerus. Re-explored 02/16 but did not need further amputation, only some muscle debridement. Status post further debridement today. Did not need further amputation. Wound VAC in place. Severe Sepsis: Due to TSS. Hypotension resolved. Acute respiratory failure. Resolved. Has done well since extubation. On oxygen at 2 L. Volume overload: Input greater than output secondary to fluid resuscitation/ sepsis. CXR with bilateral pleural effusions and atelectasis. Unable to aggressively diurese secondary to acute renal failure, but making good urine now. Coagulopathy: Likely due to shock. No signs of DIC, with normal fibrinogen. EDDA: Likely due to ATN, with pre renal state initially. Rhabdomyolysis may have contributed. Has good urine output now but creatinine remains elevated at 3. Metabolic: Na 136. Atrial fibrillation: Has been going in and out of this. Will give amiodarone, start metoprolol, and follow. History of bipolar disease? Plan: Continue supportive care, antibiotics. Follow blood pressure. Will bolus with amiodarone, start metoprolol and follow cardiac rhythms. Follow renal function, laboratory, x-ray and clinical status. Decrease IV fluids . Diuresis when possible. 35 min critical care time managing atrial fibrillation, fluid status, hypertension, delirium, etc. Discussed with surgery, nursing, ID, patient's girlfriend, and the ICU multi disciplinary team. Subjective: Confused at times, but orients. Objective: Vital Signs Temp Pulse Resp BP Pulse Ox 36.3 C 95 15 135/64 H 95 02/19/18 13:46 02/19/18 13:46 02/19/18 13:46 02/19/18 13:46 02/19/18 13:46 Microbiology 02/15/18 20:26 Gram Stain - Final Arm - Eswab Laboratory Results 02/19/18 05:15 02/19/18 05:15 02/18/18 02/19/18 02/20/18 05:59 05:59 05:59 Intake Total 3370 2470 900 Output Total 1275 2950 520 Balance 2095 -480 380 PT 15.4 SEC (12.0-15.0) H 02/19/18 05:15 INR 1.20 (0.83-1.16) H 02/19/18 05:15 Laboratory Tests 02/19/18 02/19/18 02/19/18 00:38 05:15 05:15 PT 15.4 H INR 1.20 H APTT 26.3 Calcium 6.0 L Ionized Calcium 0.89 L Magnesium 2.4 H AST 104 H ALT 368 H Albumin 2.1 L Physical Exam - Physical Exam General Appearance: thin, other (Somnolent, arouses) EENT: PERRL/EOMI, other (Nasal cannula in place at 2 L) Neck: normal inspection (No JVD) Respiratory: lungs clear, decreased breath sounds (At bases), rales (Few basilar rales), No rhonchi, No wheezing Cardiac/Chest: regular rate, rhythm, No gallop Abdomen: non-tender, soft, No normal bowel sounds (Decreased, present) Male Genitalia: other (Carter catheter in place, good urine output last 24 hr) Skin: warm/dry, pallor Extremities: pedal edema (Trace), other (Right upper extremity amputation, dressed) Neuro/Psych: no motor/sensory deficits, No cognition abnormalities ICD10 Worksheet Patient Problems: Problems Problem Status Onset Altered mental status Acute Anemia Acute Psychosis Acute Septic shock Acute Necrotizing fasciitis of hand Acute DIC (disseminated intravascular coagulation) Acute Hypoglycemia Acute Hypocalcemia Acute Dehydration Acute Acute kidney injury Acute
[2018-02-19] MEDS: D5W NS 1,000 ML IV SCH (15:52)
[2018-02-19] MEDS: METOPROLOL TARTRATE 25 MG TAB PO SCH ×2 (15:54→20:45)
--- NOTE | 2018-02-19 18:21 | PCMIDPN ---
Assessment/Plan: Assessment/Plan: * Group A Streptococcal toxic shock syndrome/right upper extremity necrotizing fasciitis status post amputation: Repeat assessment in OR performed today with pale muscle noted but no purulence. Debridement performed but did not require disarticulation. Erythema appears to be receding over soft tissues with no erythema present today over chest. Continue penicillin dose adjusted for renal insufficiency. Suspect additional benefit from either clindamycin or linezolid limited at this point in time given source control. Follow clinical exam over time. Continue to monitor renal function with dose adjustment of penicillin accordingly. * Increased LFTs: Likely associated with acute illness and toxic shock. Improving over time. 02/19/18 18:18 Subjective: Patient status post repeat debridement in OR today. Operative findings noted. Patient does not note any pain in the right upper extremity. Objective: Vital Signs Temp Pulse Resp BP Pulse Ox 36.5 C 90 16 126/79 H 96 02/19/18 15:40 02/19/18 15:54 02/19/18 15:40 02/19/18 15:54 02/19/18 15:40 Microbiology 02/15/18 20:26 Gram Stain - Final Arm - Eswab Laboratory Results 02/19/18 05:15 02/19/18 05:15 02/18/18 02/19/18 02/20/18 05:59 05:59 05:59 Intake Total 3370 2470 900 Output Total 1275 2950 1120 Balance 2095 -480 -220 C-Reactive Protein 391.1 mg/L (<10.0) H 02/15/18 12:45 Penicillin 2 million units IV q.4 hours # 3 Blood culture 02/16/2018 no growth Laboratory Tests 02/19/18 05:15 Total Bilirubin 0.5 AST 104 H ALT 368 H Alkaline Phosphatase 310 H Albumin 2.1 L - Physical Exam General Appearance: alert, no apparent distress EENT: No scleral icterus, No thrush, No conjunctival petechiae Respiratory: lungs clear, No respiratory distress Cardiac/Chest: regular rate, rhythm Extremities: inflammation (Right upper extremity wound with wound VAC in place; some erythema present over upper arm but does not extend onto chest wall or into axilla) Abdomen: non-tender, No distended Skin: No embolic lesions ICD10 Worksheet Patient Problems: Problems Problem Status Onset Acute kidney injury Acute DIC (disseminated intravascular coagulation) Acute Dehydration Acute Hypocalcemia Acute Hypoglycemia Acute Necrotizing fasciitis of hand Acute Septic shock Acute Altered mental status Acute Anemia Acute Psychosis Acute
[2018-02-19] MEDS: HYDROmorphONE/DILAUDID 2 MG/ML INJ IVP PRN (19:34)
[2018-02-19] MEDS: FINASTERIDE 5 MG TAB PO SCH (20:45)
[2018-02-20] MEDS: HYDROmorphONE/DILAUDID 2 MG/ML INJ IVP PRN
[2018-02-20] MEDS: PENICILLIN POTASSIUM IV SCH ×5 (04:10→20:56)
[2018-02-20] MEDS: D5W IV SCH ×5 (04:10→20:56)
[2018-02-20 06:49] LABS: PLATELET COUNT 154 10^3/uL (150-400)
[2018-02-20] MEDS: ACETAMINOPHEN 500 MG TAB PO SCH ×3 (06:54→20:55)
[2018-02-20] MEDS ORDERED: CALCIUM GLUCONATE 2 GM in NS 50 ML IV ONE (08:54)
[2018-02-20] MEDS ORDERED: PROTOCOL POTASSIUM 1 DOSE MISC PRN (09:39)
[2018-02-20] MEDS ORDERED: PROTOCOL MAGNESIUM 1 DOSE IV PRN (09:39)
--- NOTE | 2018-02-20 09:43 | HOSPPROG ---
Hospitalist Progress Note Assessment/Plan: #GAS toxic shock syndrome/bacteremia: IV PCN #RUE necrotizing fasciitis: s/p transhumeral amputation; last debridement 02/19 #EDDA: good UOP, Cr 3-->1.9 #Hypocalcemia/hypomagnesium/hypokalemia: electrolyte protocol #Transaminitis: due to shock liver #Bipolar d/o: recently admitted to [facility]. Toñito Meyer #Mild encephalopathy: from ICU/infection. Easily re-oriented #Atrial fib: low-dose BB #Diet: ADAT, if not eating much, may need enteral feeds next couple days #DVT ppx: SQH #Disp: inpatient admission for IV abx, surgical debridement. Case d/w Dr. Sanders Subjective: RUE more red last night; area outlined. Ectopy on telemetry Objective: Vital Signs Temp Pulse Resp BP Pulse Ox 36.6 C 70 14 117/64 96 02/20/18 08:00 02/20/18 08:00 02/20/18 08:20 02/20/18 08:00 02/20/18 08:20 Microbiology 02/15/18 20:26 Gram Stain - Final Arm - Eswab Laboratory Results 02/20/18 06:40 02/20/18 06:40 02/19/18 02/20/18 02/21/18 05:59 05:59 05:59 Intake Total 2470 4050 Output Total 2950 2670 Balance -480 1380 PT 15.4 SEC (12.0-15.0) H 02/19/18 05:15 INR 1.20 (0.83-1.16) H 02/19/18 05:15 - Time Spent With Patient Time Spent with Patient: greater than 35 minutes Time Spent with Patient: Greater than 35 minutes spent on this patients care, greater than 50% of time spent counseling, educating, and coordinating care regarding the above mentioned plan. - Physical Exam Constitutional: unkempt Ears, Nose, Mouth, Throat: poor dentition Cardiovascular: regular rate and rhythym (occasional extra beat) Respiratory: no respiratory distress Gastrointestinal: normoactive bowel sounds Genitourinary: no bladder fullness Musculoskeletal: other (RUE amputation site with wound vac, surrounding erythema inside marked outline) Neurologic: CN II-XII Intact, other (oriented to place, year, not month. Answers questions appropriately) ICD10 Worksheet Patient Problems: Problems Problem Status Onset Acute kidney injury Acute DIC (disseminated intravascular coagulation) Acute Dehydration Acute Hypocalcemia Acute Hypoglycemia Acute Necrotizing fasciitis of hand Acute Septic shock Acute Altered mental status Acute Anemia Acute Psychosis Acute
[2018-02-20] MEDS ORDERED: FAMOTIDINE 20 MG/NACL 50 ML IV SCH (09:45)
[2018-02-20] MEDS: HYDROCORTISONE 100 MG/2 ML VIAL IVP SCH ×3 (09:48→20:57)
[2018-02-20] MEDS: METOPROLOL TARTRATE 25 MG TAB PO SCH ×2 (09:48→20:56)
[2018-02-20] MEDS: DIVALPROEX ER 250 MG TAB PO SCH ×2 (09:49→20:56)
[2018-02-20] MEDS: LORazepam 2 MG/ML INJ IVP PRN ×2 (10:34→20:57)
--- NOTE | 2018-02-20 10:43 | SOAPPROG ---
SOAP Progress Note Assessment/Plan: Assessment: 72yo M s/p LUE amputation for NSTI - VSS, HDS, pain controlled - per report, in OR yesterday the tissue actually all looked very good. The arm is pink today which it was yesterday, this may be all recative given overall objective stability. Will monitor, may need more debridement but based on report from yestreday this is reassuring Plan: 02/20/18 10:42 Objective: Vital Signs Temp Pulse Resp BP Pulse Ox 36.6 C 75 14 116/62 96 02/20/18 08:00 02/20/18 09:48 02/20/18 08:20 02/20/18 09:48 02/20/18 08:20 Microbiology 02/15/18 20:26 Gram Stain - Final Arm - Eswab Laboratory Results 02/20/18 06:40 02/20/18 06:40 02/19/18 02/20/18 02/21/18 05:59 05:59 05:59 Intake Total 2470 4050 Output Total 2950 2670 Balance -480 1380 PT 15.4 SEC (12.0-15.0) H 02/19/18 05:15 INR 1.20 (0.83-1.16) H 02/19/18 05:15 ICD10 Worksheet Patient Problems: Problems Problem Status Onset Acute kidney injury Acute DIC (disseminated intravascular coagulation) Acute Dehydration Acute Hypocalcemia Acute Hypoglycemia Acute Necrotizing fasciitis of hand Acute Septic shock Acute Altered mental status Acute Anemia Acute Psychosis Acute
[2018-02-20] MEDS ORDERED: POTASSIUM CL 10 MEQ TAB PO ONE ×3 (11:15→21:30)
--- NOTE | 2018-02-20 12:13 | SOAPPROG ---
SOAP Progress Note Assessment/Plan: Assessment: EDDA, better today, creat down to 1.9, not oliguric, nec fasciitis/toxic shock syndrome s/p amputation of arm cellulitis ID following, wound vac in place hypocalcemia, supps underway sepsis: PCN-G and Clindamycin hypotension, bp better today, tired, but communicative Plan: back to OR yesterday for wound debridement etc continue ABX supp calcium and follow levels no urgent HD needs at this point, follow lytes vol and renal function, encouraged about his drop in creatinine 02/18/18 08:32 02/20/18 12:10 Subjective: tired sleeping in the chair arouses easily no new complaints Objective: Vital Signs Temp Pulse Resp BP Pulse Ox 36.6 C 75 14 116/62 96 02/20/18 08:00 02/20/18 09:48 02/20/18 08:20 02/20/18 09:48 02/20/18 08:20 Microbiology 02/15/18 20:26 Gram Stain - Final Arm - Eswab Laboratory Results 02/20/18 06:40 02/20/18 06:40 02/19/18 02/20/18 02/21/18 05:59 05:59 05:59 Intake Total 2470 4050 Output Total 2950 2670 Balance -480 1380 PT 15.4 SEC (12.0-15.0) H 02/19/18 05:15 INR 1.20 (0.83-1.16) H 02/19/18 05:15 Physical Exam - Physical Exam General Appearance: other (resting) Respiratory: rales, No rhonchi, No wheezing Cardiac/Chest: edema, systolic murmur, irregularly irregular Abdomen: non-tender, soft Skin: other (cellulitis RUE, wound vac in place) Extremities: swelling Neuro/Psych: other (resting, arouses easily, answers questions) ICD10 Worksheet Patient Problems: Problems Problem Status Onset Acute kidney injury Acute DIC (disseminated intravascular coagulation) Acute Dehydration Acute Hypocalcemia Acute Hypoglycemia Acute Necrotizing fasciitis of hand Acute Septic shock Acute Altered mental status Acute Anemia Acute Psychosis Acute
--- NOTE | 2018-02-20 12:59 | PDINTPN ---
Flooring Sales Manager Progress Note Assessment/Plan: Assessment: 72-year-old admitted 02/15 with right upper extremity cellulitis. Found to have severe necrotizing fasciitis requiring amputation. Toxic Shock Syndrome: Group A Strep sepsis due to RUE cellulitis/fasciitis. S/p RUE amputation at humerus. Re-explored 02/16 and 02/19 but did not need further amputation, only some muscle debridement. Arm/tissue looks stable at this point. Wound VAC in place. Severe Sepsis: Due to TSS. Hypotension resolved. Acute respiratory failure. Resolved. Has done well since extubation. On oxygen at 1-2 L. Volume overload: Input greater than output secondary to fluid resuscitation/ sepsis. CXR with bilateral pleural effusions and atelectasis. Unable to diurese secondary to acute renal failure which is improving. Making good urine at this point. Coagulopathy: Resolved. Likely due to shock. No signs of DIC, with normal fibrinogen. EDDA: Likely due to ATN, with pre renal state initially. Rhabdomyolysis may have contributed. Has good urine output. Creatinine improved: 1.9 today. Metabolic: Na 135, K 3.1, CA low. Atrial fibrillation: Has been going in and out of this. Better since single dose of amiodarone. He remains on metoprolol.. History of bipolar disease. On medications Plan: Continue supportive care, antibiotics. Wean and stop steroids. Continue to follow his arm closely. Surgery in id following as well. Follow renal function, laboratory, x-ray and clinical status. 30 min critical care time spent directly with the patient. Discussed with surgery, nursing, ID, and the ICU multi disciplinary team. Subjective: Tired, without complaints. Denies significant pain related to his arm/ amputation Objective: Vital Signs Temp Pulse Resp BP Pulse Ox 36.4 C 70 16 106/62 95 02/20/18 12:00 02/20/18 12:00 02/20/18 12:00 02/20/18 12:00 02/20/18 12:00 Microbiology 02/15/18 20:26 Gram Stain - Final Arm - Eswab Laboratory Results 02/20/18 06:40 02/20/18 06:40 02/19/18 02/20/18 02/21/18 05:59 05:59 05:59 Intake Total 2470 4050 Output Total 2950 2670 Balance -480 1380 PT 15.4 SEC (12.0-15.0) H 02/19/18 05:15 INR 1.20 (0.83-1.16) H 02/19/18 05:15 Laboratory Tests 02/20/18 02/20/18 02/20/18 06:40 06:40 06:40 Calcium 6.3 L Ionized Calcium 0.88 L Magnesium 2.4 H Total Bilirubin 0.5 AST 67 H ALT 273 H Physical Exam - Physical Exam General Appearance: no apparent distress, other (Somnolent, arouses, responds) EENT: PERRL/EOMI, other (Nasal cannula in place at 1-2 L) Neck: normal inspection (No JVD) Respiratory: lungs clear (Anteriorly), decreased breath sounds (At bases), No rhonchi Cardiac/Chest: regular rate, rhythm, No tachycardia Abdomen: normal bowel sounds, non-tender, soft Male Genitalia: other (Carter catheter in place, good urine output.) Skin: warm/dry, pallor Extremities: other (Right upper extremity stump with some red/purple discoloration but without significant change, dressed, wound VAC in place.) Neuro/Psych: no motor/sensory deficits, cognition abnormalities (Mild confusion at times) ICD10 Worksheet Patient Problems: Problems Problem Status Onset Altered mental status Acute Anemia Acute Psychosis Acute Septic shock Acute Necrotizing fasciitis of hand Acute DIC (disseminated intravascular coagulation) Acute Hypoglycemia Acute Hypocalcemia Acute Dehydration Acute Acute kidney injury Acute
--- NOTE | 2018-02-20 14:29 | PCMIDPN ---
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 No erythema over chest or axillary region. No interval change versus exam yesterday. Continue penicillin with adjustment of dose given improvement in renal function. Continue to follow clinical exam over time. * Increased LFTs: Likely associated with acute illness and toxic shock. Improving over time. Clinical findings and plan reviewed with Dr. Bo. 02/20/18 14:26 Subjective: Patient without specific complaints. Noted to have increased redness over upper arm earlier today. No pain over arm. Objective: Vital Signs Temp Pulse Resp BP Pulse Ox 36.4 C 70 16 106/62 95 02/20/18 12:00 02/20/18 12:00 02/20/18 12:00 02/20/18 12:00 02/20/18 12:00 Microbiology 02/15/18 20:26 Gram Stain - Final Arm - Eswab Laboratory Results 02/20/18 06:40 02/20/18 06:40 02/19/18 02/20/18 02/21/18 05:59 05:59 05:59 Intake Total 2470 4050 Output Total 2950 2670 Balance -480 1380 C-Reactive Protein 391.1 mg/L (<10.0) H 02/15/18 12:45 Penicillin 2 million units IV q.4 hours # 4 Blood cultures 02/16/2018 no growth Laboratory Tests 02/20/18 06:40 Total Bilirubin 0.5 AST 67 H ALT 273 H Alkaline Phosphatase 246 H - Physical Exam General Appearance: alert, no apparent distress, non-toxic EENT: No scleral icterus, No thrush Respiratory: lungs clear, No respiratory distress Cardiac/Chest: regular rate, rhythm Extremities: inflammation (Right upper extremity with wound VAC in place that amputation site; mild residual erythema which is unchanged versus exam yesterday ; no erythema over chest wall or into axilla or affecting shoulder) Abdomen: non-tender, No distended ICD10 Worksheet Patient Problems: Problems Problem Status Onset Acute kidney injury Acute DIC (disseminated intravascular coagulation) Acute Dehydration Acute Hypocalcemia Acute Hypoglycemia Acute Necrotizing fasciitis of hand Acute Septic shock Acute Altered mental status Acute Anemia Acute Psychosis Acute
[2018-02-20] MEDS: HEPARIN 5,000 UNIT/0.5 ML INJ SC SCH ×2 (15:25→20:56)
[2018-02-20] MEDS: D5W NS 1,000 ML IV SCH (15:31)
[2018-02-20] MEDS: FINASTERIDE 5 MG TAB PO SCH (20:56)
[2018-02-20] MEDS ORDERED: FAMOTIDINE 20 MG TAB PO SCH (21:00)
[2018-02-20] MEDS: PARoxetine HCL 20 MG TAB PO SCH ×2 (21:36→22:00)
[2018-02-21 01:35] LABS: PLATELET COUNT 196 10^3/uL (150-400)
[2018-02-21] MEDS: D5W IV SCH ×6 (01:57→21:05)
[2018-02-21] MEDS: PENICILLIN POTASSIUM IV SCH ×6 (01:57→21:05)
[2018-02-21] MEDS: LORazepam 2 MG/ML INJ IVP PRN (02:11)
[2018-02-21] MEDS: POTASSIUM Cl (KCl) 50 ML IV SCH ×3 (02:55→04:47)
[2018-02-21] MEDS: HYDROmorphONE/DILAUDID 2 MG/ML INJ IVP PRN ×2 (04:37→22:31)
[2018-02-21] MEDS: HEPARIN 5,000 UNIT/0.5 ML INJ SC SCH ×3 (06:01→20:55)
[2018-02-21 06:27] LABS: PLATELET COUNT 237 10^3/uL (150-400)
--- NOTE | 2018-02-21 08:21 | HOSPPROG ---
Hospitalist Progress Note Assessment/Plan: #GAS toxic shock syndrome/bacteremia: IV PCN #RUE necrotizing fasciitis: s/p transhumeral amputation; last debridement 02/19 #EDDA: good UOP, Cr 3-->1.9 #Hypocalcemia/hypomagnesium/hypokalemia: electrolyte protocol leukocytosis: steroids contributing #Transaminitis: due to shock liver #Bipolar d/o: recently admitted to [facility]. DepToñito gallegos #Metabolic encephalopathy: from ICU/infection. Easily re-oriented #Atrial fib: low-dose BB #Diet: ADAT, if not eating much, may need enteral feeds next couple days #DVT ppx: SQH #Disp: inpatient admission for IV abx, surgical debridement. Case d/w Dr. Sanders Subjective: tired Objective: Vital Signs Temp Pulse Resp BP Pulse Ox 36.9 C 105 H 9 L 128/77 H 95 02/20/18 20:00 02/21/18 08:00 02/21/18 08:00 02/21/18 08:00 02/21/18 08:00 Microbiology 02/15/18 20:26 Gram Stain - Final Arm - Eswab Laboratory Results 02/21/18 06:05 02/21/18 06:05 02/20/18 02/21/18 02/22/18 05:59 05:59 05:59 Intake Total 4050 3628 Output Total 2670 2340 Balance 1380 1288 PT 15.4 SEC (12.0-15.0) H 02/19/18 05:15 INR 1.20 (0.83-1.16) H 02/19/18 05:15 - Time Spent With Patient Time Spent with Patient: greater than 35 minutes Time Spent with Patient: Greater than 35 minutes spent on this patients care, greater than 50% of time spent counseling, educating, and coordinating care regarding the above mentioned plan. - Physical Exam Constitutional: no apparent distress Ears, Nose, Mouth, Throat: poor dentition Cardiovascular: regular rate and rhythym Respiratory: reduced air movement Gastrointestinal: normoactive bowel sounds Musculoskeletal: other (RUE amputation. Dressed with sanginous drainage) Psychiatric: interacting appropriately ICD10 Worksheet Patient Problems: Problems Problem Status Onset Acute kidney injury Acute DIC (disseminated intravascular coagulation) Acute Dehydration Acute Hypocalcemia Acute Hypoglycemia Acute Necrotizing fasciitis of hand Acute Septic shock Acute Altered mental status Acute Anemia Acute Psychosis Acute
[2018-02-21] MEDS: ACETAMINOPHEN 500 MG TAB PO SCH ×3 (08:50→20:55)
--- NOTE | 2018-02-21 09:35 | WOCRNPDOC ---
WOCRN Advanced Assessment Note - Skin Integrity Problem, Advanced Assess Left Sacrum Pressure Injury Dressing Type: Allevyn Life (x2) Dressing Description: Intact, Soiled (feces) Exudate Amount: Scant Exudate Characteristic(s): Serous Integumentary Issue Intervention: Dressing Removed Ariana Wound Tissue: Blanching, Erythema Wound Bed Color: Yellow Wound Bed Constitution: Adhered Slough (100%) Pressure Injury Stage: Unstageable (x2) Pressure Injury Present on Admit: Yes Skin Integrity Problem Comment: No change in wounds since previous assessment. Will amend orders. Wound care will follow. Right Ischial Tuberosity Pressure Injury Dressing Type: Allevyn Life Exudate Amount: None Ariana Wound Tissue: Blanching, Erythema Wound Bed Color: Black, Brown, Yellow Wound Bed Constitution: Mixed Loose & Adhered Slough/Eschar (100%) Wound Edges: Attached Pressure Injury Stage: Unstageable Pressure Injury Present on Admit: Yes Skin Integrity Problem Comment: No change in wounds since previous assessment. Will amend orders. Wound care will follow.
--- NOTE | 2018-02-21 09:52 | SOAPPROG ---
SOAP Progress Note Assessment/Plan: Assessment: 72yo M s/p LUE amputation for NSTI - VSS, HDS, pain controlled - took down VAC this AM, underlying tissue looks PRISTINE. No fluid or necrotic tissue, no new tracking appreciated - VAC changed, cont suction. cont abx. Nothing needs debridement at this time Plan: 02/20/18 10:42 02/21/18 09:51 Subjective: very sleepy Objective: Vital Signs Temp Pulse Resp BP Pulse Ox 36.9 C 105 H 9 L 128/77 H 95 02/20/18 20:00 02/21/18 08:00 02/21/18 08:00 02/21/18 08:00 02/21/18 08:00 Microbiology 02/15/18 20:26 Gram Stain - Final Arm - Eswab Laboratory Results 02/21/18 06:05 02/21/18 06:05 02/20/18 02/21/18 02/22/18 05:59 05:59 05:59 Intake Total 4050 3628 Output Total 2670 2340 Balance 1380 1288 PT 15.4 SEC (12.0-15.0) H 02/19/18 05:15 INR 1.20 (0.83-1.16) H 02/19/18 05:15 ICD10 Worksheet Patient Problems: Problems Problem Status Onset Acute kidney injury Acute DIC (disseminated intravascular coagulation) Acute Dehydration Acute Hypocalcemia Acute Hypoglycemia Acute Necrotizing fasciitis of hand Acute Septic shock Acute Altered mental status Acute Anemia Acute Psychosis Acute
--- NOTE | 2018-02-21 10:53 | HOSPPROG ---
Hospitalist Progress Note Assessment/Plan: #GAS toxic shock syndrome/bacteremia: IV PCN #Acute toxic encephalopathy: difficult to arouse. Dosed Dilaudid/Ativan this morning. NO Ativan #RUE necrotizing fasciitis: s/p transhumeral amputation; last debridement . Wound vac changed and tissue healing well #EDDA: resolved. Cr 1.3 #LE edema: stop fluids. May need small-dose lasix at some point #Hypocalcemia/hypomagnesium/hypokalemia: electrolyte protocol leukocytosis: steroids contributing #Transaminitis: due to shock liver #Bipolar d/o: recently admitted to [facility]. Toñito Meyer #Mild encephalopathy: from ICU/infection. Easily re-oriented #Atrial fib: low-dose BB #Diet: ADAT, if not eating much, may need enteral feeds next couple days #DVT ppx: SQH #Disp: inpatient admission for IV abx, surgical debridement. Case d/w Dr. Sanders Subjective: somnolent this morning Objective: Vital Signs Temp Pulse Resp BP Pulse Ox 36.9 C 105 H 9 L 128/77 H 95 02/20/18 20:00 02/21/18 08:00 02/21/18 08:00 02/21/18 08:00 02/21/18 08:00 Microbiology 02/15/18 20:26 Gram Stain - Final Arm - Eswab Laboratory Results 02/21/18 06:05 02/21/18 06:05 02/20/18 02/21/18 02/22/18 05:59 05:59 05:59 Intake Total 4050 3628 Output Total 2670 2340 Balance 1380 1288 PT 15.4 SEC (12.0-15.0) H 02/19/18 05:15 INR 1.20 (0.83-1.16) H 02/19/18 05:15 - Time Spent With Patient Time Spent with Patient: greater than 35 minutes Time Spent with Patient: Greater than 35 minutes spent on this patients care, greater than 50% of time spent counseling, educating, and coordinating care regarding the above mentioned plan. - Physical Exam Constitutional: no apparent distress Eyes: PERRL (small, but reactive) Ears, Nose, Mouth, Throat: moist mucous membranes Cardiovascular: regular rate and rhythym Respiratory: no respiratory distress, rhonchi Gastrointestinal: normoactive bowel sounds Genitourinary: garber in urethra Skin: warm Neurologic: other (withdrawals to sternal rub, not conversing) Psychiatric: encephalopathic ICD10 Worksheet Patient Problems: Problems Problem Status Onset Acute kidney injury Acute DIC (disseminated intravascular coagulation) Acute Dehydration Acute Hypocalcemia Acute Hypoglycemia Acute Necrotizing fasciitis of hand Acute Septic shock Acute Altered mental status Acute Anemia Acute Psychosis Acute
[2018-02-21] MEDS ORDERED: POTASSIUM Cl (KCl) 50 ML IV ONE ×2 (10:54→20:42)
[2018-02-21] MEDS ORDERED: CALCIUM GLUCONATE 50 ML IV ONE (10:54)
--- NOTE | 2018-02-21 11:02 | PDINTPN ---
Non Profit Financial Controller Progress Note Assessment/Plan: Assessment: 72-year-old admitted 02/15 with right upper extremity cellulitis. Found to have severe necrotizing fasciitis requiring amputation. Toxic Shock Syndrome: Group A Strep sepsis due to RUE cellulitis/fasciitis. S/p RUE amputation at humerus. Re-explored 02/16 and 02/19 but did not need further amputation, only some muscle debridement. Arm/tissue looks stable at this point. Wound VAC in place. On penicillin. Surgery and ID following. Severe Sepsis: Due to TSS. Hypotension resolved. Acute respiratory failure. Improved. Has been stable since extubation. On oxygen. Volume overload: Input greater than output secondary to fluid resuscitation/ sepsis. CXR with bilateral pleural effusions and atelectasis. Unable to diurese secondary to acute renal failure which is improving. Making good urine at this point. Coagulopathy: Resolved. Likely due to shock. No signs of DIC, with normal fibrinogen. EDDA: Likely due to ATN, with pre renal state initially. Rhabdomyolysis may have contributed. Has good urine output. Creatinine continues to improve: 1.3 today. Metabolic: Na 137, K 3.8, CA low. Atrial fibrillation: Has been going in and out of this. Better since single dose of amiodarone: Will repeat and start oral. On metoprolol. History of bipolar disease. On medications AMS: Somnolent this morning, multifactorial but mostly related to medications ( Dilaudid, Ativan) given overnight Plan: Continue supportive care, antibiotics. Wean and stop steroids. Continue to follow his arm closely. Surgery in id following as well. Follow renal function, laboratory, x-ray and clinical status. 40 min critical care time spent directly with the patient managing issues as above. Discussed with surgery, nursing, ID, and the ICU multi disciplinary team. Subjective: Somnolent this morning. Arouses, responds weakly. Objective: Vital Signs Temp Pulse Resp BP Pulse Ox 36.9 C 105 H 9 L 128/77 H 95 02/20/18 20:00 02/21/18 08:00 02/21/18 08:00 02/21/18 08:00 02/21/18 08:00 Microbiology 02/15/18 20:26 Gram Stain - Final Arm - Eswab Laboratory Results 02/21/18 06:05 02/21/18 06:05 11/02/21/18 02/22/18 05:59 05:59 05:59 Intake Total 4050 3628 Output Total 2670 2340 Balance 1380 1288 PT 15.4 SEC (12.0-15.0) H 02/19/18 05:15 INR 1.20 (0.83-1.16) H 02/19/18 05:15 Laboratory Tests 02/21/18 02/21/18 06:05 06:05 Calcium 7.2 L Ionized Calcium 1.05 L Phosphorus 4.8 H Magnesium 2.5 H CXR: Retrocardiac infiltrate persists with possible effusion on the left. Haziness on right also suggestive of a posterior layering effusion? Physical Exam - Physical Exam General Appearance: obtunded (Arouses), thin EENT: PERRL/EOMI, other (Nasal cannula in place at 4 L) Neck: normal inspection (No JVD) Respiratory: lungs clear (Anteriorly), decreased breath sounds (At bases), No rales, No rhonchi, No wheezing Cardiac/Chest: regular rate, rhythm (Sinus tachycardia at times) Abdomen: non-tender, soft, No normal bowel sounds (Decreased, present) Male Genitalia: other (Carter catheter in place, good urine output) Skin: normal color, warm/dry Extremities: pedal edema (Trace), other (Right upper extremity looks good. Wound VAC in place. Some erythema but certainly not worse.) Neuro/Psych: no motor/sensory deficits, cognition abnormalities (Somnolent this morning, likely secondary to sedating medications given) ICD10 Worksheet Patient Problems: Problems Problem Status Onset Altered mental status Acute Anemia Acute Psychosis Acute Septic shock Acute Necrotizing fasciitis of hand Acute DIC (disseminated intravascular coagulation) Acute Hypoglycemia Acute Hypocalcemia Acute Dehydration Acute Acute kidney injury Acute
[2018-02-21] MEDS: METOPROLOL TARTRATE 25 MG TAB PO SCH ×2 (11:09→20:55)
[2018-02-21] MEDS: DIVALPROEX ER 250 MG TAB PO SCH ×2 (11:09→20:54)
[2018-02-21] MEDS: FAMOTIDINE 20 MG TAB PO SCH (11:10)
[2018-02-21] MEDS ORDERED: AMIODARONE HCL 100 ML IV ONE (11:20)
--- NOTE | 2018-02-21 14:33 | SOAPPROG ---
SOAP Progress Note Assessment/Plan: Assessment: EDDA, better today, creat down to 1.3, not oliguric, nec fasciitis/toxic shock syndrome s/p amputation of arm cellulitis ID following, wound vac in place hypocalcemia better today, corrects to low normal sepsis: PCN-G and Clindamycin hypotension, bp better today, tired, but communicative, at bedside Plan: continue ABX supp calcium and follow levels as necessary no urgent HD needs at this point, follow lytes vol and renal function, encouraged about his drop in creatinine. Looks to be recovering, nothing more to add, renal signing off. 02/18/18 08:32 02/20/18 12:10 02/21/18 14:30 Subjective: spirits good slept better last night pain is manageable no cp sob nausea or vomiting Objective: Vital Signs Temp Pulse Resp BP Pulse Ox 37.1 C 105 H 11 L 123/79 H 94 02/21/18 11:50 02/21/18 11:50 02/21/18 11:50 02/21/18 11:50 02/21/18 11:50 Microbiology 02/16/18 09:10 Blood Culture - Final Blood 02/15/18 20:26 Gram Stain - Final Arm - Eswab Laboratory Results 02/21/18 06:05 02/21/18 06:05 02/20/18 02/21/18 02/22/18 05:59 05:59 05:59 Intake Total 4050 3628 Output Total 2670 2340 Balance 1380 1288 PT 15.4 SEC (12.0-15.0) H 02/19/18 05:15 INR 1.20 (0.83-1.16) H 02/19/18 05:15 Physical Exam - Physical Exam General Appearance: alert, thin Respiratory: rales, No rhonchi, No wheezing Cardiac/Chest: irregularly irregular, No edema, No friction rub Abdomen: normal bowel sounds, non-tender Skin: other (cellulitis looks better) Extremities: other (RUE amputated, wound vac in place) Neuro/Psych: alert, normal mood/affect, oriented x 3 ICD10 Worksheet Patient Problems: Problems Problem Status Onset Acute kidney injury Acute DIC (disseminated intravascular coagulation) Acute Dehydration Acute Hypocalcemia Acute Hypoglycemia Acute Necrotizing fasciitis of hand Acute Septic shock Acute Altered mental status Acute Anemia Acute Psychosis Acute
--- NOTE | 2018-02-21 16:35 | ASMTCMCOM ---
CM Note CM Note Notes: PT/OT have recommended inpatient rehab. Inpatient rehab states their eval is in progress as they think patient may need SNF level of care. They are going to continue to assess and review again on Saturday. D/C plan TBD. CM will follow. Date Signed: 02/21/2018 04:34 PM Electronically Signed By:Sofia Villarreal LCSW
[2018-02-21] MEDS: AMIODARONE HCL 200 MG TAB PO SCH (16:55)
--- NOTE | 2018-02-21 17:10 | PCMIDPN ---
Assessment/Plan: Assessment/Plan: * Group A Streptococcal toxic shock syndrome/right upper extremity necrotizing fasciitis status post amputation: Continues to improve clinically. No inflammatory changes present over right upper extremity. Wound appearance reviewed with Dr. Kirk noting that tissues appeared healthy at time of wound VAC change. Continue penicillin with plans to change to 4 million units IV q.4 hours tomorrow if creatinine continues to improve. * Increased LFTs: Likely associated with acute illness and toxic shock. Improving over time. * Leukocytosis: Likely some element related to hydrocortisone use (now discontinued) as well as some rebound after initial presentation with leukopenia. Clinical findings and plan reviewed with Dr. Bo. 02/21/18 17:00 Subjective: Patient without complaints. Wound VAC changed earlier today. Findings reviewed with Dr. Kirk noting viable tissues without evidence of residual necrosis. Objective: Vital Signs Temp Pulse Resp BP Pulse Ox 36.7 C 105 H 15 103/70 97 02/21/18 16:00 02/21/18 16:00 02/21/18 16:00 02/21/18 16:00 02/21/18 16:00 Microbiology 02/16/18 09:10 Blood Culture - Final Blood 02/15/18 20:26 Gram Stain - Final Arm - Eswab Laboratory Results 02/21/18 06:05 02/21/18 06:05 02/20/18 02/21/18 02/22/18 05:59 05:59 05:59 Intake Total 4050 3628 Output Total 2670 2340 Balance 1380 1288 C-Reactive Protein 391.1 mg/L (<10.0) H 02/15/18 12:45 Penicillin 3 million units IV q.4 hours # 5 Blood cultures 02/16/2018 no growth - Physical Exam General Appearance: alert, no apparent distress EENT: No scleral icterus Respiratory: lungs clear (Anterolaterally), No respiratory distress Cardiac/Chest: tachycardia Extremities: inflammation (Right upper extremity with wound VAC in place with blood present at base of dressing; minimal residual erythema over upper arm; no erythema over chest, shoulder, or axillary region, nontender to palpation) Abdomen: non-tender, No distended ICD10 Worksheet Patient Problems: Problems Problem Status Onset Acute kidney injury Acute DIC (disseminated intravascular coagulation) Acute Dehydration Acute Hypocalcemia Acute Hypoglycemia Acute Necrotizing fasciitis of hand Acute Septic shock Acute Altered mental status Acute Anemia Acute Psychosis Acute
[2018-02-21] MEDS: PARoxetine HCL 20 MG TAB PO SCH (20:55)
[2018-02-21] MEDS: FINASTERIDE 5 MG TAB PO SCH (20:55)
[2018-02-22] MEDS: D5W IV SCH ×3 (01:40→09:58)
[2018-02-22] MEDS: PENICILLIN POTASSIUM IV SCH ×3 (01:40→09:58)
[2018-02-22] MEDS: HYDROmorphONE/DILAUDID 2 MG/ML INJ IVP PRN (04:18)
[2018-02-22] MEDS: HEPARIN 5,000 UNIT/0.5 ML INJ SC SCH (05:04)
[2018-02-22] MEDS: ACETAMINOPHEN 500 MG TAB PO SCH ×3 (05:04→22:18)
[2018-02-22 05:11] LABS: PLATELET COUNT 199 10^3/uL (150-400)
[2018-02-22] MEDS ORDERED: POTASSIUM CL 10 MEQ TAB PO ONE (07:25)
--- NOTE | 2018-02-22 08:18 | HOSPPROG ---
Hospitalist Progress Note Assessment/Plan: #GAS toxic shock syndrome/bacteremia: IV PCN #Acute toxic encephalopathy: resoled. Due to Ativan/opioids. Caution with centrally-acting meds #RUE necrotizing fasciitis: s/p transhumeral amputation; last debridement . Wound vac changed and tissue healing well -Gabapentin for phantom pain #EDDA: resolved #LE edema: stop fluids. May need small-dose lasix at some point #Hypocalcemia/hypomagnesium/hypokalemia: electrolyte protocol #leukocytosis: 29-->17. Steroids likely contributed. #Transaminitis: due to shock liver #Bipolar d/o: recently admitted to [facility]. Depakote, Paxil #Atrial fib: BB #Diet: ADAT, if not eating much, may need enteral feeds next couple days #DVT ppx: SQH #Disp: inpatient admission for IV abx. Case d/w Dr. Sanders Subjective: phantom pain in right arm Objective: Vital Signs Temp Pulse Resp BP Pulse Ox 36.8 C 93 17 120/84 H 95 02/22/18 07:32 02/22/18 07:32 02/22/18 07:32 02/22/18 07:32 02/22/18 07:32 Microbiology 02/16/18 09:10 Blood Culture - Final Blood 02/15/18 20:26 Gram Stain - Final Arm - Eswab Laboratory Results 02/22/18 04:15 02/22/18 04:15 02/21/18 02/22/18 02/23/18 05:59 05:59 05:59 Intake Total 3628 2475 Output Total 2340 1100 Balance 1288 1375 PT 15.4 SEC (12.0-15.0) H 02/19/18 05:15 INR 1.20 (0.83-1.16) H 02/19/18 05:15 - Time Spent With Patient Time Spent with Patient: greater than 35 minutes Time Spent with Patient: Greater than 35 minutes spent on this patients care, greater than 50% of time spent counseling, educating, and coordinating care regarding the above mentioned plan. - Physical Exam Constitutional: unkempt Ears, Nose, Mouth, Throat: poor dentition Cardiovascular: regular rate and rhythym, edema (+2-3 leg edema) Respiratory: no respiratory distress Gastrointestinal: normoactive bowel sounds Genitourinary: No garber in urethra Musculoskeletal: other (RUE amputation site with less redness. Wound vac in place) Psychiatric: interacting appropriately, not encephalopathic ICD10 Worksheet Patient Problems: Problems Problem Status Onset Acute kidney injury Acute DIC (disseminated intravascular coagulation) Acute Dehydration Acute Hypocalcemia Acute Hypoglycemia Acute Necrotizing fasciitis of hand Acute Septic shock Acute Altered mental status Acute Anemia Acute Psychosis Acute
[2018-02-22] MEDS: DIVALPROEX ER 250 MG TAB PO SCH ×2 (08:32→19:14)
[2018-02-22] MEDS: FAMOTIDINE 20 MG TAB PO SCH (08:32)
[2018-02-22] MEDS: AMIODARONE HCL 200 MG TAB PO SCH (08:32)
[2018-02-22] MEDS: METOPROLOL TARTRATE 25 MG TAB PO SCH ×2 (08:32→19:11)
[2018-02-22] MEDS ORDERED: GABAPENTIN 100 MG CAP PO ONE (10:07)
[2018-02-22] MEDS ORDERED: HYDROCODONE/APAP 5/325 TAB PO PRN (10:08)
--- NOTE | 2018-02-22 12:12 | SOAPPROG ---
SOAP Progress Note Assessment/Plan: Assessment: 72yo M s/p LUE amputation for NSTI - VSS, HDS, pain controlled - WBC back down to 17, - arm pinkness is resolving. VAC has some blood in the dressing but was reinforced, continuing to hold suction - next VAC change Saturday Plan: 02/20/18 10:42 02/21/18 09:51 02/22/18 12:11 Subjective: delirious, aware that his arm is gone however Objective: Vital Signs Temp Pulse Resp BP Pulse Ox 36.6 C 91 20 102/66 90 L 02/22/18 11:47 02/22/18 11:47 02/22/18 11:47 02/22/18 11:47 02/22/18 11:47 Microbiology 02/16/18 09:10 Blood Culture - Final Blood 02/15/18 20:26 Gram Stain - Final Arm - Eswab Laboratory Results 02/22/18 04:15 02/22/18 04:15 02/21/18 02/22/18 02/23/18 05:59 05:59 05:59 Intake Total 3628 2475 Output Total 2340 1100 Balance 1288 1375 PT 15.4 SEC (12.0-15.0) H 02/19/18 05:15 INR 1.20 (0.83-1.16) H 02/19/18 05:15 ICD10 Worksheet Patient Problems: Problems Problem Status Onset Acute kidney injury Acute DIC (disseminated intravascular coagulation) Acute Dehydration Acute Hypocalcemia Acute Hypoglycemia Acute Necrotizing fasciitis of hand Acute Septic shock Acute Altered mental status Acute Anemia Acute Psychosis Acute
[2018-02-22] MEDS: PENICILLIN G POTASSIUM 4,000,000 UNIT in D5W 100 ML IV SCH ×3 (13:24→22:19)
--- NOTE | 2018-02-22 14:41 | PCMIDPN ---
Assessment/Plan: Assessment/Plan: * Group A Streptococcal toxic shock syndrome/right upper extremity necrotizing fasciitis status post amputation: No active findings of residual arm infection. Will increase penicillin 4 million units IV q.4 hours given normalization of creatinine. Anticipate 2 week course of therapy in the setting of bacteremia. * Increased LFTs: Likely associated with acute illness and toxic shock. Continue to follow over time. * Leukocytosis: Decreased today. Will continue to follow with anticipation will gradually normalize. 02/22/18 14:38 Subjective: Patient complains of feeling disoriented. No significant arm pain. Objective: Vital Signs Temp Pulse Resp BP Pulse Ox 36.6 C 91 20 102/66 90 L 02/22/18 11:47 02/22/18 11:47 02/22/18 11:47 02/22/18 11:47 02/22/18 11:47 Microbiology 02/15/18 20:26 Gram Stain - Final Arm - Eswab Anaerobic Culture - Final Streptococcus Pyogenes Grp A Veillonella Parvula Group 02/16/18 09:10 Blood Culture - Final Blood Laboratory Results 02/22/18 04:15 02/22/18 04:15 02/21/18 02/22/18 02/23/18 05:59 05:59 05:59 Intake Total 3628 2475 Output Total 2340 1100 Balance 1288 1375 C-Reactive Protein 391.1 mg/L (<10.0) H 02/15/18 12:45 Penicillin # 6 - Physical Exam General Appearance: alert, no apparent distress, non-toxic EENT: No scleral icterus, No thrush Respiratory: lungs clear, No respiratory distress Cardiac/Chest: regular rate, rhythm, No systolic murmur Extremities: pedal edema, other (Wound VAC in place over right upper extremity at amputation site with pool blood inferiorly; minimal residual erythema underlying Tegaderm which appears more irritant in etiology) Abdomen: non-tender, No distended ICD10 Worksheet Patient Problems: Problems Problem Status Onset Acute kidney injury Acute DIC (disseminated intravascular coagulation) Acute Dehydration Acute Hypocalcemia Acute Hypoglycemia Acute Necrotizing fasciitis of hand Acute Septic shock Acute Altered mental status Acute Anemia Acute Psychosis Acute
--- NOTE | 2018-02-22 17:30 | PDINTPN ---
Timber Deadener Progress Note Assessment/Plan: Assessment: 72-year-old admitted 02/15 with right upper extremity cellulitis. Found to have severe necrotizing fasciitis requiring amputation. Toxic Shock Syndrome: Group A Strep sepsis due to RUE cellulitis/fasciitis. S/p RUE amputation at humerus. Re-explored 02/16 and 02/19 but did not need further amputation, only some muscle debridement. Arm/tissue looks stable at this point. Wound VAC in place. On penicillin. Surgery and ID following. Severe Sepsis: Due to TSS. Hypotension resolved. Acute respiratory failure. Improved. Has been stable since extubation. Off oxygen. Volume overload: Input greater than output secondary to fluid resuscitation/ sepsis. CXR with bilateral pleural effusions and atelectasis. Unable to diurese secondary to acute renal failure which is improving. Making good urine at this point. Coagulopathy: Resolved. Likely due to shock. EDDA: Likely due to ATN, with pre renal state initially. Rhabdomyolysis may have contributed. Has good urine output. Creatinine continues to improve: <1 today. Metabolic: Na 136, K 3.7, CA low. Atrial fibrillation: Has been going in and out of this. Better with amiodarone. On metoprolol as well. History of bipolar disease. On medications Plan: Continue supportive care, antibiotics. Continue to follow arm closely. Surgery rene ID following as well. Follow renal function, laboratory, x-ray and clinical status. 25 min critical care time spent directly with the patient managing issues as above. Discussed with nursing, ID, and the ICU multi disciplinary team. Subjective: Much brighter today. Complains of phantom arm pain Objective: Vital Signs Temp Pulse Resp BP Pulse Ox 37.0 C 88 16 99/64 L 94 02/22/18 15:44 02/22/18 15:44 02/22/18 15:44 02/22/18 15:44 02/22/18 15:44 Microbiology 02/15/18 20:26 Gram Stain - Final Arm - Eswab Anaerobic Culture - Final Streptococcus Pyogenes Grp A [facility] 02/16/18 09:10 Blood Culture - Final Blood Laboratory Results 02/22/18 04:15 02/21/18 02/22/18 02/23/18 05:59 05:59 05:59 Intake Total 3628 2475 1705 Output Total 2340 1100 1000 Balance 1288 1375 705 PT 15.4 SEC (12.0-15.0) H 02/19/18 05:15 INR 1.20 (0.83-1.16) H 02/19/18 05:15 Physical Exam - Physical Exam General Appearance: alert, no apparent distress, thin EENT: other (On room air) Neck: normal inspection Respiratory: lungs clear (Anteriorly), decreased breath sounds (At bases) Cardiac/Chest: regular rate, rhythm, No gallop Abdomen: normal bowel sounds, non-tender, soft Male Genitalia: other (Carter catheter remains in place. Adequate urine output.) Skin: normal color, warm/dry Extremities: other (Right arm stump looks good. No increasing evidence of infection. Wound VAC in place.), No pedal edema Neuro/Psych: no motor/sensory deficits, No cognition abnormalities ICD10 Worksheet Patient Problems: Problems Problem Status Onset Altered mental status Acute Anemia Acute Psychosis Acute Septic shock Acute Necrotizing fasciitis of hand Acute DIC (disseminated intravascular coagulation) Acute Hypoglycemia Acute Hypocalcemia Acute Dehydration Acute Acute kidney injury Acute
[2018-02-22] MEDS: FINASTERIDE 5 MG TAB PO SCH (19:13)
[2018-02-22] MEDS: PARoxetine HCL 20 MG TAB PO SCH (19:14)
[2018-02-22] MEDS ORDERED: GABAPENTIN 300 MG CAP PO ONE (21:00)
[2018-02-22] MEDS ORDERED: GABAPENTIN 300 MG CAP PO SCH (21:00)
[2018-02-23] MEDS: oxyCODONE IR 5 MG TAB PO PRN ×4 (00:55→22:27)
[2018-02-23] MEDS: PENICILLIN G POTASSIUM 4,000,000 UNIT in D5W 100 ML IV SCH ×6 (03:00→22:34)
[2018-02-23] MEDS: ACETAMINOPHEN 500 MG TAB PO SCH ×3 (06:25→22:26)
[2018-02-23 07:15] LABS: PLATELET COUNT 267 10^3/uL (150-400)
[2018-02-23] MEDS: DIVALPROEX ER 250 MG TAB PO SCH ×2 (08:16→22:26)
[2018-02-23] MEDS: FAMOTIDINE 20 MG TAB PO SCH (08:16)
[2018-02-23] MEDS: METOPROLOL TARTRATE 25 MG TAB PO SCH ×2 (08:16→22:28)
[2018-02-23] MEDS: AMIODARONE HCL 200 MG TAB PO SCH (08:17)
[2018-02-23] MEDS ORDERED: MAGNESIUM SULF 1 GM/DEXTROSE 100 ML IV ONE (08:43)
--- NOTE | 2018-02-23 08:44 | SOAPPROG ---
SOAP Progress Note Assessment/Plan: Assessment: 72yo M s/p LUE amputation for NSTI - VSS, HDS, pain controlled - WBC up to 20 from 17 - arm looks great, the redness/pink border has essentially resolved. There is some clotted blood under a portion of the drape but it is otherwise holding suction - Plan for VAC chjange tomorrow. Will ultimately need graft once the area granulates which will likely take a few weeks. Will ultimately need placement prior to that and stable. Plan: 02/20/18 10:42 02/21/18 09:51 02/22/18 12:11 02/23/18 08:43 Subjective: wants to be home by [place] Objective: Vital Signs Temp Pulse Resp BP Pulse Ox 36.8 C 76 16 131/71 H 93 02/23/18 08:00 02/23/18 08:00 02/23/18 08:00 02/23/18 08:00 02/23/18 08:00 Microbiology 02/15/18 20:26 Gram Stain - Final Arm - Eswab Anaerobic Culture - Final Streptococcus Pyogenes Grp A [facility] Laboratory Results 02/23/18 06:35 02/23/18 06:35 02/22/18 02/23/18 02/24/18 05:59 05:59 05:59 Intake Total 2475 3655 Output Total 1100 2100 Balance 1375 1555 PT 15.4 SEC (12.0-15.0) H 02/19/18 05:15 INR 1.20 (0.83-1.16) H 02/19/18 05:15 ICD10 Worksheet Patient Problems: Problems Problem Status Onset Acute kidney injury Acute DIC (disseminated intravascular coagulation) Acute Dehydration Acute Hypocalcemia Acute Hypoglycemia Acute Necrotizing fasciitis of hand Acute Septic shock Acute Altered mental status Acute Anemia Acute Psychosis Acute
--- NOTE | 2018-02-23 09:57 | HOSPPROG ---
Hospitalist Progress Note Assessment/Plan: #GAS toxic shock syndrome/bacteremia: IV PCN #Acute toxic encephalopathy: resoled. Due to Ativan/opioids. Caution with centrally-acting meds #RUE necrotizing fasciitis: s/p transhumeral amputation; last debridement . -Tissue healing well. Clotted blood under drape. Wound vac change Saturday -Uptitrate Gabapentin for phantom pain #ABLA: H/H stable #EDDA: resolved #LE edema: no oxygen needs. Consider small-dose Lasix if Cr remains stable #Hypocalcemia/hypomagnesium/hypokalemia: electrolyte protocol #leukocytosis: 20. Steroids contributing #Transaminitis: due to shock liver, trending down #Bipolar d/o: recently admitted to [facility]. Depakote, Paxil #Atrial fib: BB #Diet: regular #DVT Lovenox #Disp: inpatient admission for IV abx. Case d/w Dr. Sanders Subjective: no acute events. Objective: Vital Signs Temp Pulse Resp BP Pulse Ox 36.8 C 76 16 131/71 H 93 02/23/18 08:00 02/23/18 08:00 02/23/18 08:00 02/23/18 08:00 02/23/18 08:00 Microbiology 02/15/18 20:26 Gram Stain - Final Arm - Eswab Anaerobic Culture - Final Streptococcus Pyogenes Grp A Veillonella [facility] Laboratory Results 02/23/18 08:35 02/23/18 06:35 02/22/18 02/23/18 02/24/18 05:59 05:59 05:59 Intake Total 2475 3655 Output Total 1100 2100 Balance 1375 1555 PT 15.4 SEC (12.0-15.0) H 02/19/18 05:15 INR 1.20 (0.83-1.16) H 02/19/18 05:15 - Time Spent With Patient Time Spent with Patient: greater than 35 minutes Time Spent with Patient: Greater than 35 minutes spent on this patients care, greater than 50% of time spent counseling, educating, and coordinating care regarding the above mentioned plan. - Physical Exam Constitutional: unkempt Ears, Nose, Mouth, Throat: poor dentition Cardiovascular: regular rate and rhythym, edema (+2 LE edema) Respiratory: no respiratory distress, reduced air movement Gastrointestinal: normoactive bowel sounds Genitourinary: garber in urethra Musculoskeletal: other (RUE amputation site with wound vac; blood collection under drape) Neurologic: AAOx3 ICD10 Worksheet Patient Problems: Problems Problem Status Onset Acute kidney injury Acute DIC (disseminated intravascular coagulation) Acute Dehydration Acute Hypocalcemia Acute Hypoglycemia Acute Necrotizing fasciitis of hand Acute Septic shock Acute Altered mental status Acute Anemia Acute Psychosis Acute
[2018-02-23] MEDS: ENOXAPARIN 40 MG/0.4 ML SYR SC SCH (10:08)
--- NOTE | 2018-02-23 11:08 | ASMTCMCOM ---
CM Note CM Note Notes: OT/PT/ST all recommending In-pt Rehab. Sounds as though he may be ready medically early next week. Has been needing wound vac changes 3x/wk. Date Signed: 02/23/2018 11:07 AM Electronically Signed By:Ave Hernandez LCSW
--- NOTE | 2018-02-23 13:44 | PDINTPN ---
Fuels Engineer Progress Note Assessment/Plan: Assessment: 72-year-old admitted 02/15 with right upper extremity cellulitis. Found to have severe necrotizing fasciitis requiring amputation. Toxic Shock Syndrome: Group A Strep sepsis due to RUE cellulitis/fasciitis. S/p RUE amputation at humerus. Re-explored 02/16 and 02/19 but did not need further amputation, only some muscle debridement. Arm/tissue looks stable at this point. Wound VAC in place. On penicillin. Surgery and ID following. Severe Sepsis: Due to TSS. Hypotension resolved. Acute respiratory failure. Improved. Has been stable since extubation. Off oxygen. Volume overload: Input greater than output secondary to fluid resuscitation/ sepsis. CXR with bilateral pleural effusions and atelectasis. Unable to diurese secondary to acute renal failure which is improving. Making good urine at this point. Coagulopathy: Resolved. Likely due to shock. EDDA: Likely due to ATN, with pre renal state initially. Rhabdomyolysis may have contributed. Has good urine output. Creatinine/BUN continue to improve: .10/26 today. Metabolic: Na 133 today. Atrial fibrillation: Has been going in and out of this. Better with amiodarone. On metoprolol as well. History of bipolar disease. On medications Plan: Continue supportive care, antibiotics. Continue to follow arm. Surgery and ID following as well. Continue amiodarone and metoprolol. 20 mg Lasix IV x1 today. Follow renal function, laboratory, x-ray and clinical status. Disposition: Inpatient rehab consultation placed. 25 min critical care time spent directly with the patient managing issues as above. Discussed with nursing, ID, and the ICU multi disciplinary team. Subjective: Doing well. In good spirits. Denies significant pain. Objective: Vital Signs Temp Pulse Resp BP Pulse Ox 36.8 C 72 12 129/67 H 94 02/23/18 08:00 02/23/18 12:05 02/23/18 12:05 02/23/18 12:05 02/23/18 12:05 Microbiology 02/15/18 20:26 Gram Stain - Final Arm - Eswab Anaerobic Culture - Final Streptococcus Pyogenes Grp A [facility] Laboratory Results 02/23/18 08:35 02/23/18 06:35 02/22/18 02/23/18 02/24/18 05:59 05:59 05:59 Intake Total 3901 3655 Output Total 1100 2100 Balance 1375 1555 PT 15.4 SEC (12.0-15.0) H 02/19/18 05:15 INR 1.20 (0.83-1.16) H 02/19/18 05:15 Laboratory Tests 02/23/18 02/23/18 06:35 06:35 Calcium 7.5 L Ionized Calcium 1.14 Phosphorus 2.3 L Magnesium 1.7 AST 36 ALT 140 H Albumin 1.9 L Physical Exam - Physical Exam General Appearance: alert, no apparent distress EENT: PERRL/EOMI, other (On room air) Neck: normal inspection Respiratory: lungs clear, decreased breath sounds (At bases), No rales, No rhonchi Cardiac/Chest: regular rate, rhythm Abdomen: normal bowel sounds, non-tender, soft Male Genitalia: other (Carter catheter in place, good urine output.) Skin: warm/dry, pallor Extremities: other (Right upper extremity looks good. Wound VAC in place.), No pedal edema Neuro/Psych: no motor/sensory deficits, No cognition abnormalities ICD10 Worksheet Patient Problems: Problems Problem Status Onset Altered mental status Acute Anemia Acute Psychosis Acute Septic shock Acute Necrotizing fasciitis of hand Acute DIC (disseminated intravascular coagulation) Acute Hypoglycemia Acute Hypocalcemia Acute Dehydration Acute Acute kidney injury Acute
[2018-02-23] MEDS ORDERED: FUROSEMIDE 20 MG/2 ML VIAL IVP ONE (13:47)
--- NOTE | 2018-02-23 15:04 | GOP ---
DATE OF OPERATION: 02/19/2018 SURGEON: Perfecto Piedra MD PREOPERATIVE DIAGNOSIS: Right arm necrotizing fasciitis, status post trans humeral amputation. POSTOPERATIVE DIAGNOSIS: SAME PROCEDURE PERFORMED: Right arm excisional debridement with wound vacuum- assisted closure placement. FINDINGS: The patient was found to have a relatively viable adequate blood flow to the muscle, subcu, and skin. There were no pockets of un drained infection and no evidence of any further necrotic tissue despite his mild erythema of the wound. DESCRIPTION OF PROCEDURE: He was taken to surgery where he received a satisfactory general endotracheal anesthesia. He was placed in the supine position, prepped and draped in the usual sterile fashion. The previous wound closure sutures were removed and the wound was opened up. Superficial necrotic tissue was debrided. The brachial artery was encountered, and this was re ligated with 2-0 silk ties and then covered with some muscular fascia which was quite viable. All other debris was removed. Some of the skin was excised because of question of ischemia. Hemostasis was assured. The wound was irrigated and then infiltrated with 0.5% Marcaine, and the wound VAC was placed over the open wound. He tolerated the procedure well. Blood loss negligible. No complications. He was taken to recovery room in good condition. /[id number]/MODL MTDD
--- NOTE | 2018-02-23 16:08 | PCMIDPN ---
Assessment/Plan: Assessment/Plan: * Group A Streptococcal toxic shock syndrome/right upper extremity necrotizing fasciitis status post amputation: Right upper extremity without signs of ongoing necrotizing fasciitis. Plan 2 weeks of penicillin therapy (day # 7/14) . Plans for wound VAC change tomorrow to reassess right upper extremity wound bed. * Increased LFTs: Continued improvement. * Leukocytosis: Continue to follow. May have some element of leukemoid reaction after initial leukopenia. 02/23/18 16:05 02/23/18 16:06 Subjective: Patient with mild right upper extremity pain. Objective: Vital Signs Temp Pulse Resp BP Pulse Ox 36.8 C 72 12 129/67 H 94 02/23/18 08:00 02/23/18 12:05 02/23/18 12:05 02/23/18 12:05 02/23/18 12:05 Microbiology 02/15/18 20:26 Gram Stain - Final Arm - Eswab Anaerobic Culture - Final Streptococcus Pyogenes Grp A [facility] Laboratory Results 02/23/18 08:35 02/23/18 06:35 02/22/18 02/23/18 02/24/18 05:59 05:59 05:59 Intake Total 2475 3655 Output Total 1100 2100 Balance 1375 1555 C-Reactive Protein 391.1 mg/L (<10.0) H 02/15/18 12:45 Penicillin # 7 Laboratory Tests 02/23/18 06:35 Total Bilirubin 0.3 AST 36 ALT 140 H Alkaline Phosphatase 210 H - Physical Exam General Appearance: alert, no apparent distress EENT: No scleral icterus, No thrush Respiratory: lungs clear, No respiratory distress Cardiac/Chest: regular rate, rhythm Extremities: inflammation (Right upper extremity with wound VAC in place at amputation site; no residual erythema present; mild tenderness) Abdomen: non-tender, No distended Skin: No rash - Line/s other Lines: other (Left subclavian triple-lumen catheter), No drainage, No erythema ICD10 Worksheet Patient Problems: Problems Problem Status Onset Acute kidney injury Acute DIC (disseminated intravascular coagulation) Acute Dehydration Acute Hypocalcemia Acute Hypoglycemia Acute Necrotizing fasciitis of hand Acute Septic shock Acute Altered mental status Acute Anemia Acute Psychosis Acute
[2018-02-23] MEDS: PARoxetine HCL 20 MG TAB PO SCH (22:26)
[2018-02-23] MEDS: FINASTERIDE 5 MG TAB PO SCH (22:27)
[2018-02-23] MEDS: GABAPENTIN 300 MG CAP PO SCH (22:28)
[2018-02-24] MEDS: PENICILLIN G POTASSIUM 4,000,000 UNIT in D5W 100 ML IV SCH ×6 (02:30→22:26)
[2018-02-24 05:54] LABS: PLATELET COUNT 268 10^3/uL (150-400)
[2018-02-24] MEDS: ACETAMINOPHEN 500 MG TAB PO SCH ×4 (07:00→22:25)
[2018-02-24] MEDS ORDERED: MAGNESIUM SULF 1 GM/DEXTROSE 100 ML IV ONE (07:25)
[2018-02-24] MEDS: METOPROLOL TARTRATE 25 MG TAB PO SCH ×2 (08:01→20:41)
[2018-02-24] MEDS: oxyCODONE IR 5 MG TAB PO PRN ×3 (08:01→20:43)
[2018-02-24] MEDS: GABAPENTIN 300 MG CAP PO SCH ×2 (08:01→20:43)
[2018-02-24] MEDS: AMIODARONE HCL 200 MG TAB PO SCH (08:01)
[2018-02-24] MEDS: FAMOTIDINE 20 MG TAB PO SCH (08:01)
[2018-02-24] MEDS: DIVALPROEX ER 250 MG TAB PO SCH ×2 (08:01→22:57)
[2018-02-24] MEDS ORDERED: HYDROmorphONE/DILAUDID 1 MG/ML INJ ONE (08:37)
[2018-02-24] MEDS ORDERED: HYDROmorphONE/DILAUDID 1 MG/ML INJ IVP ONE (09:00)
--- NOTE | 2018-02-24 09:14 | SOAPPROG ---
SOAP Progress Note Assessment/Plan: Assessment: 72 y/o M with with toxic shock s/p RUE transhumeral amputation 02/16 S/p multiple debridement/washouts S: No complaints. Pain well controlled. O: Alert, conversive Afebrile No increased WOB RUE: erythema much improved. Wound vac taken down to reveal healthy granulation tissue. One small area of dusky muscle, otherwise pink. Plan: Wound vac changed today. One area of dusky muscle sharply debrided. Continue wound care. 02/24/18 09:09 Objective: Vital Signs Temp Pulse Resp BP Pulse Ox 36.6 C 71 18 147/71 H 94 02/24/18 08:13 02/24/18 07:41 02/24/18 07:41 02/24/18 07:41 02/24/18 07:41 Laboratory Results 02/24/18 05:30 02/24/18 05:30 02/23/18 02/24/18 02/25/18 05:59 05:59 05:59 Intake Total 3655 3284 Output Total 2100 950 2400 Balance 1555 2334 -2400 PT 15.4 SEC (12.0-15.0) H 02/19/18 05:15 INR 1.20 (0.83-1.16) H 02/19/18 05:15 ICD10 Worksheet Patient Problems: Problems Problem Status Onset Acute kidney injury Acute DIC (disseminated intravascular coagulation) Acute Dehydration Acute Hypocalcemia Acute Hypoglycemia Acute Necrotizing fasciitis of hand Acute Septic shock Acute Altered mental status Acute Anemia Acute Psychosis Acute
--- NOTE | 2018-02-24 09:19 | PDINTPN ---
Field Crop Farming Supervisor Progress Note Assessment/Plan: Assessment: 72-year-old admitted 02/15 with right upper extremity cellulitis. Found to have severe necrotizing fasciitis requiring amputation. * Toxic Shock Syndrome: Group A Strep sepsis due to RUE cellulitis/fasciitis. S/ p RUE amputation at humerus. Re-explored 02/16 and 02/19 but did not need further amputation, only some muscle debridement. Arm/tissue looks stable at this point. Wound VAC in place. On penicillin. Surgery and ID following. * Severe Sepsis: Due to TSS. Hypotension resolved. * Status post right upper extremity amputation * Acute respiratory failure. Improved. Has been stable since extubation. Off oxygen. * Volume overload: Input greater than output secondary to fluid resuscitation/ sepsis. CXR with bilateral pleural effusions and atelectasis. Unable to diurese secondary to acute renal failure which is improving. Making good urine at this point. -check chest x-ray in the morning * Coagulopathy: Resolved. * EDDA: Likely due to ATN, with pre renal state initially. Rhabdomyolysis may have contributed. Has good urine output. Creatinine/BUN continue to improve * Metabolic: Na 133 today. * Atrial fibrillation: Has been going in and out of this. Better with amiodarone. On metoprolol as well. -follow * History of bipolar disease. On medications * VT prophylaxis * Stress ulcer prophylaxis * Nutrition-adequate Overall improved Subjective: Resting comfortably in bed. Talkative. No current complaints. Objective: Vital Signs Temp Pulse Resp BP Pulse Ox 36.6 C 71 18 147/71 H 94 02/24/18 08:13 02/24/18 07:41 02/24/18 07:41 02/24/18 07:41 02/24/18 07:41 Laboratory Results 02/24/18 05:30 02/24/18 05:30 02/23/18 02/24/18 02/25/18 05:59 05:59 05:59 Intake Total 3655 3284 Output Total 2100 950 2400 Balance 1555 2334 -2400 PT 15.4 SEC (12.0-15.0) H 02/19/18 05:15 INR 1.20 (0.83-1.16) H 02/19/18 05:15 Laboratory Results 02/24/18 05:30 02/24/18 05:30 02/24/18 05:30 Calcium 7.5 mg/dL L mg/dL (8.5 - 10.4) Phosphorus 3.0 mg/dL mg/dL (2.5 - 4.5) Magnesium 1.5 mg/dL L mg/dL (1.6 - 2.3) Albumin 1.9 g/dL L g/dL (3.5 - 5.0) 02/15/18 20:26 Gram Stain - Final Arm - Eswab Anaerobic Culture - Final Streptococcus Pyogenes Grp A Veillonella [facility] - Time Spent With Patient Time Spent With Patient: 35 min of time spent with patient, over 1/2 involved with coordination of care or counseling. Case discussed with nursing. Physical Exam - Physical Exam General Appearance: alert, no apparent distress EENT: PERRL/EOMI Neck: non-tender, full range of motion Respiratory: chest non-tender, lungs clear, normal breath sounds Cardiac/Chest: normal peripheral pulses, regular rate, rhythm, systolic murmur Peripheral Pulses: 2+: carotid (R), carotid (L), femoral (R), femoral (L), dorsalis-pedis (R), dorsalis-pedis (L) Abdomen: normal bowel sounds, non-tender, soft Male Genitalia: deferred Rectal: deferred Skin: warm/dry Extremities: other (Right upper extremity amputation) Neuro/Psych: alert, normal mood/affect, oriented x 3 ICD10 Worksheet Patient Problems: Problems Problem Status Onset Acute kidney injury Acute DIC (disseminated intravascular coagulation) Acute Dehydration Acute Hypocalcemia Acute Hypoglycemia Acute Necrotizing fasciitis of hand Acute Septic shock Acute Altered mental status Acute Anemia Acute Psychosis Acute
[2018-02-24] MEDS: ENOXAPARIN 40 MG/0.4 ML SYR SC SCH (09:24)
--- NOTE | 2018-02-24 10:15 | PCMIDPN ---
Assessment/Plan: Assessment: Group a strep toxic shock syndrome. Primary right arm involvement which was amputated earlier in his stay. Currently finishing a 2 week course of IV penicillin. Clinically he looks much improved. No changes in antibiotic management today. Plan: 1. Continue IV penicillin for total of 14 days. Today is day 8. 2. Follow his clinical recovery. Subjective: Patient is sitting up in a chair in his hospital room. His is in the room as well. He reports no new complaint. Denies fevers or chills. Denies significant increase in symptoms of his right upper extremity residual limb. Objective: Penicillin # 8 Vital Signs Temp Pulse Resp BP Pulse Ox 36.6 C 71 18 147/71 H 94 02/24/18 08:13 02/24/18 07:41 02/24/18 07:41 02/24/18 07:41 02/24/18 07:41 Laboratory Results 02/24/18 05:30 02/24/18 05:30 02/23/18 02/24/18 02/25/18 05:59 05:59 05:59 Intake Total 3655 3284 Output Total 2100 950 2400 Balance 1555 2334 -2400 C-Reactive Protein 391.1 mg/L (<10.0) H 02/15/18 12:45 - Physical Exam General Appearance: WD/WN, alert, no apparent distress, non-toxic Respiratory: lungs clear, normal breath sounds, No respiratory distress Cardiac/Chest: regular rate, rhythm, No tachycardia Extremities: non-tender, No normal inspection, No inflammation, No erythema Skin: normal color, warm/dry, No rash Neuro/Psych: alert, normal mood/affect, oriented x 3 ICD10 Worksheet Patient Problems: Problems Problem Status Onset Acute kidney injury Acute DIC (disseminated intravascular coagulation) Acute Dehydration Acute Hypocalcemia Acute Hypoglycemia Acute Necrotizing fasciitis of hand Acute Septic shock Acute Altered mental status Acute Anemia Acute Psychosis Acute
[2018-02-24] MEDS ORDERED: FUROSEMIDE 20 MG/2 ML VIAL IVP ONE (10:19)
--- NOTE | 2018-02-24 10:25 | HOSPPROG ---
Hospitalist Progress Note Assessment/Plan: #GAS toxic shock syndrome/bacteremia: thought 2/2 FB / glass. ID following, d/ w Dr. Ulrich -cont IV PCN #RUE necrotizing fasciitis: s/p transhumeral amputation 02/15 with revision ; last debridement 02/19. -Wound vac change today per surg -Uptitrated Gabapentin for phantom pain #Acute toxic encephalopathy: resolved. Due to Ativan/opioids. Caution with centrally-acting meds #ABLA: H/H stable #EDDA: resolved #LE edema / volume overload: no oxygen needs, wt up 8 kg -repeat IV Lasix today, follow I&O's, daily wts #Hypocalcemia/hypomagnesium/hypokalemia: electrolyte protocol #Transaminitis: due to shock liver, trending down #Bipolar d/o: [facility] -cont Depakote Paxil -will request RN behavioral health consult to assist with coping #Atrial fib: cont BB #Diet: regular #DVT Lovenox #Disp: inpatient admission for IV abx. Case d/w Dr. Christianson Subjective: Pt is up in chair. Says he wants to eat breakfast and be left alone. States "they cut off my arm". Pain is controlled. No fevers/chills, CP or SOB. Objective: Vital Signs Temp Pulse Resp BP Pulse Ox 36.6 C 71 18 147/71 H 94 02/24/18 08:13 02/24/18 07:41 02/24/18 07:41 02/24/18 07:41 02/24/18 07:41 Laboratory Results 02/24/18 05:30 02/24/18 05:30 02/23/18 02/24/18 02/25/18 05:59 05:59 05:59 Intake Total 3655 3284 Output Total 2100 950 2400 Balance 1555 2334 -2400 PT 15.4 SEC (12.0-15.0) H 02/19/18 05:15 INR 1.20 (0.83-1.16) H 02/19/18 05:15 - Physical Exam Constitutional: no apparent distress Eyes: PERRL Ears, Nose, Mouth, Throat: moist mucous membranes Cardiovascular: regular rate and rhythym Respiratory: no respiratory distress, clear to auscultation Gastrointestinal: normoactive bowel sounds, soft, non-tender abdomen Skin: warm Musculoskeletal: other (RUE amputation site clean, no erythema or purulence, wound vac functioning) Neurologic: AAOx3 Psychiatric: interacting appropriately ICD10 Worksheet Patient Problems: Problems Problem Status Onset Acute kidney injury Acute DIC (disseminated intravascular coagulation) Acute Dehydration Acute Hypocalcemia Acute Hypoglycemia Acute Necrotizing fasciitis of hand Acute Septic shock Acute Altered mental status Acute Anemia Acute Psychosis Acute
[2018-02-24] MEDS: FINASTERIDE 5 MG TAB PO SCH (20:41)
[2018-02-24] MEDS: PARoxetine HCL 20 MG TAB PO SCH (22:58)
--- NOTE | 2018-02-25 00:11 | SOAPPROG ---
SOAP Progress Note Assessment/Plan: Assessment: PT SEEN AND WOUND DEBRIDED THIS AM/ SEE NOTE BY MY [facility] [employer] [facility] Plan:WOUND VAC CHANGE SATURDAY/ [facility]SG SOON 02/25/18 00:09 Objective: Vital Signs Temp Pulse Resp BP Pulse Ox 37.5 C 69 16 128/72 H 90 L 02/24/18 23:13 02/24/18 23:13 02/24/18 23:13 02/24/18 23:13 02/24/18 23:13 Laboratory Results 02/24/18 05:30 02/24/18 05:30 02/23/18 02/24/18 02/25/18 05:59 05:59 05:59 Intake Total 3655 3284 500 Output Total 2100 950 5350 Balance 1555 2334 -4850 PT 15.4 SEC (12.0-15.0) H 02/19/18 05:15 INR 1.20 (0.83-1.16) H 02/19/18 05:15 ICD10 Worksheet Patient Problems: Problems Problem Status Onset Acute kidney injury Acute DIC (disseminated intravascular coagulation) Acute Dehydration Acute Hypocalcemia Acute Hypoglycemia Acute Necrotizing fasciitis of hand Acute Septic shock Acute Altered mental status Acute Anemia Acute Psychosis Acute
[2018-02-25] MEDS: PENICILLIN G POTASSIUM 4,000,000 UNIT in D5W 100 ML IV SCH ×6 (01:55→23:43)
[2018-02-25] MEDS ORDERED: MELATONIN 3 MG TAB PO ONE (02:08)
[2018-02-25] MEDS: ACETAMINOPHEN 500 MG TAB PO SCH ×3 (06:19→23:42)
[2018-02-25] MEDS: oxyCODONE IR 5 MG TAB PO PRN ×3 (06:20→23:43)
[2018-02-25] MEDS: D5W NS 1,000 ML IV SCH (08:03)
[2018-02-25 08:05] LABS: PLATELET COUNT 317 10^3/uL (150-400)
--- NOTE | 2018-02-25 09:48 | PCMIDPN ---
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 Normalization of renal function, liver function. Marked improvement in leukocytosis. Peripheral petechiae almost resolved. --planning 14 days of IV penicillin. Seems to be tolerating well --add on CRP to blood in lab # Renal insufficiency: Cr normalized, on standard high dose PCN # Elevated LFTs:continued improvement meds PCN 4MU IV s4uuler #12/13 Microbiology: 02/15 Arm cx grew, Grp A Strep and Veillonella. 02/15 Blood cx 2/2 sets grew, Grp A Strep. PCN BELEM <0.61867 02/16 blood cx (1) Neg Subjective: Difficult historian, focused on guessing peoples' ages. Objective: Vital Signs Temp Pulse Resp BP Pulse Ox 37.1 C 61 19 132/73 H 91 L 02/25/18 07:16 02/25/18 07:16 02/25/18 07:16 02/25/18 07:16 02/25/18 07:16 Laboratory Results 02/25/18 07:45 02/25/18 07:45 02/24/18 02/25/18 02/26/18 05:59 05:59 05:59 Intake Total 3284 1000 Output Total 950 6775 Balance 2334 -5775 C-Reactive Protein 391.1 mg/L (<10.0) H 02/15/18 12:45 General: Lying in bed HEENT: poor dentition RUE amputation w residual 1/3 humerus remaining, wound vac in place, erythema on arm and chest wall resolved CV: RRR, faint SM Chest: shallow inspiration, breathing easy L chest wall PICC c/d/i Carter: hematuria B LE edema disorganized thought - Time Spent With Patient Time Spent with Patient: greater than 35 minutes Time Spent with Patient: Greater than 35 minutes spent on this patients care, greater than 50% of time spent counseling, educating, and coordinating care regarding the above mentioned plan. ICD10 Worksheet Patient Problems: Problems Problem Status Onset Acute kidney injury Acute DIC (disseminated intravascular coagulation) Acute Dehydration Acute Hypocalcemia Acute Hypoglycemia Acute Necrotizing fasciitis of hand Acute Septic shock Acute Altered mental status Acute Anemia Acute Psychosis Acute
[2018-02-25] MEDS ORDERED: MAGNESIUM SULF 1 GM/DEXTROSE 100 ML IV ONE (10:20)
[2018-02-25] MEDS: METOPROLOL TARTRATE 25 MG TAB PO SCH ×2 (10:34→20:16)
[2018-02-25] MEDS: AMIODARONE HCL 200 MG TAB PO SCH (10:35)
[2018-02-25] MEDS: GABAPENTIN 300 MG CAP PO SCH ×2 (10:35→20:16)
[2018-02-25] MEDS: DIVALPROEX ER 250 MG TAB PO SCH ×2 (10:35→20:13)
[2018-02-25] MEDS: FAMOTIDINE 20 MG TAB PO SCH (10:35)
[2018-02-25] MEDS: ENOXAPARIN 40 MG/0.4 ML SYR SC SCH (10:38)
--- NOTE | 2018-02-25 11:07 | SOAPPROG ---
SOAP Progress Note Assessment/Plan: Assessment/Plan: Complicated toxic shock s/p RUE amputation, subsequent OR debridement and bedside debridement. Shoulder joint intact. Seen and examined with Dr. Piedra. Improving. Vac in place. Muscle viable yesterday at vac change. Plan for change tomorrow. Plan for eventual skin graft once appropriate. Leukocytosis improved. S: no complaints. O: alert, conversive, appropriate no wob vac in place, no erythema 02/25/18 10:58 Objective: Vital Signs Temp Pulse Resp BP Pulse Ox 37.1 C 61 19 132/73 H 91 L 02/25/18 07:16 02/25/18 10:34 02/25/18 07:16 02/25/18 10:34 02/25/18 07:16 Laboratory Results 02/25/18 07:45 02/25/18 07:45 02/24/18 02/25/18 02/26/18 05:59 05:59 05:59 Intake Total 3284 1000 Output Total 950 6775 Balance 2334 -5775 PT 15.4 SEC (12.0-15.0) H 02/19/18 05:15 INR 1.20 (0.83-1.16) H 02/19/18 05:15 ICD10 Worksheet Patient Problems: Problems Problem Status Onset Acute kidney injury Acute DIC (disseminated intravascular coagulation) Acute Dehydration Acute Hypocalcemia Acute Hypoglycemia Acute Necrotizing fasciitis of hand Acute Septic shock Acute Altered mental status Acute Anemia Acute Psychosis Acute
--- NOTE | 2018-02-25 11:32 | ASMTCMCOM ---
CM Note CM Note Notes: Spoke with Rox at [facility] - they have declined and are recommending SNF at this time. Met with patient to discuss above. At first, patient was agreeable to the idea of SNF but then became irritated at the options in [place]. Patient stated, "I would like my options written down on paper so I can think about it." CM provided a list of options and a Senior BB. He did express he wants to stay in [place] for rehab. Patient's partner was at the bedside, flat affect, did not engage in conversation. This could potentially be a difficult SNF placement d/t patient's Mental Health diagnosis. He was also recently admitted to our [facility]patient [facility] unit. Will hold off on SNF referrals at the moment until CM can revisit patient about his options. SW will work on PASRR and submit today. Bang with [facility] on site today and did meet with patient. Patient did decline their support/services at this time. Plan: SNF Date Signed: 02/25/2018 11:31 AM Electronically Signed By:Yris Almanzar RN
--- NOTE | 2018-02-25 13:37 | HOSPPROG ---
Hospitalist Progress Note Assessment/Plan: #GAS toxic shock syndrome/bacteremia: thought 2/2 FB / glass. ID following. -cont IV PCN #RUE necrotizing fasciitis: s/p transhumeral amputation 02/15 with revision ; last debridement 02/19. -Wound debrided this am, wound vac change Fri per surg -planning for skin graft eventually -uptitrated Gabapentin for phantom pain #Acute toxic encephalopathy: resolved. Due to Ativan/opioids. Caution with centrally-acting meds #ABLA: H/H trending down -transfuse for hgb <7 #EDDA: resolved #LE edema / volume overload: no oxygen needs, wt up 8 kg, diuresing effectively -repeat IV Lasix today, follow I&O's, daily wts #Hypocalcemia/hypomagnesium/hypokalemia: electrolyte protocol #Transaminitis: due to shock liver, trending down #Bipolar d/o: recently admitted to Behavioral Health. -cont Toñito Meyer -appreciate RN behavioral health consult, discussed with Sommer Tellez [place] [place] #Atrial fib: cont BB #Diet: regular #DVT Lovenox #Disp: cont inpt, CM involved in dispo planning, likely snf Subjective: Pt doing ok. He denies pain. He has refused therapy and refuses RN request to turn to evaluate and do wound care on pressure wound. No fevers/ chills. No CP or SOB. Eating well. Objective: Vital Signs Temp Pulse Resp BP Pulse Ox 37.1 C 61 19 132/73 H 91 L 02/25/18 07:16 02/25/18 10:34 02/25/18 07:16 02/25/18 10:34 02/25/18 07:16 Laboratory Results 02/25/18 07:45 02/25/18 07:45 02/24/18 02/25/18 02/26/18 05:59 05:59 05:59 Intake Total 3284 1000 Output Total 950 6775 Balance 2334 -5775 PT 15.4 SEC (12.0-15.0) H 02/19/18 05:15 INR 1.20 (0.83-1.16) H 02/19/18 05:15 - Physical Exam Constitutional: no apparent distress Eyes: PERRL Ears, Nose, Mouth, Throat: moist mucous membranes Cardiovascular: regular rate and rhythym Respiratory: no respiratory distress, clear to auscultation Gastrointestinal: normoactive bowel sounds, soft, non-tender abdomen Skin: warm Musculoskeletal: full muscle strength, other (RUE stump without erythema or purulence, wound vac functioning) Neurologic: AAOx3 Psychiatric: interacting appropriately ICD10 Worksheet Patient Problems: Problems Problem Status Onset Acute kidney injury Acute DIC (disseminated intravascular coagulation) Acute Dehydration Acute Hypocalcemia Acute Hypoglycemia Acute Necrotizing fasciitis of hand Acute Septic shock Acute Altered mental status Acute Anemia Acute Psychosis Acute
[2018-02-25] MEDS ORDERED: FUROSEMIDE 20 MG/2 ML VIAL IVP ONE (14:09)
--- NOTE | 2018-02-25 17:40 | ASMTCMCOM ---
CM Note JANICE Note Notes: TIRSO CAMACHO made an Adult Protection Report today. Patient's mental status is fragile given psych issues, cognitive awareness/decision making, inability to care for himself, and unwilliness to have others involved in his care/tx. In-pt Rehab unwilling to admit given above. Their recommendation is for SNF Rehab. He may refuse SNF. His Girlfriend has been staying at [facility] since his arrival. Has not gone home to clean up, change clothes or get rested. She will not be allowed to go with him to rehab. They both might need Guardianship and placement in LTC? Pasrr was completed and faxed to [facility] Coordinator. Date Signed: 02/25/2018 05:39 PM Electronically Signed By:Ave Hernandez LCSW
[2018-02-25] MEDS: FINASTERIDE 5 MG TAB PO SCH (20:15)
[2018-02-25] MEDS: MELATONIN 3 MG TAB PO SCH (20:16)
[2018-02-25] MEDS: PARoxetine HCL 20 MG TAB PO SCH (20:21)
[2018-02-26] MEDS: PENICILLIN G POTASSIUM 4,000,000 UNIT in D5W 100 ML IV SCH ×6 (01:39→22:56)
[2018-02-26 05:47] LABS: PLATELET COUNT 360 10^3/uL (150-400)
[2018-02-26] MEDS: ACETAMINOPHEN 500 MG TAB PO SCH ×3 (06:24→23:06)
[2018-02-26] MEDS ORDERED: MAGNESIUM SULF 1 GM/DEXTROSE 100 ML IV ONE (07:46)
--- NOTE | 2018-02-26 09:17 | SOAPPROG ---
SOAP Progress Note Assessment/Plan: Assessment: 72 y/o M with with toxic shock s/p RUE transhumeral amputation 02/16 S/p debridement/washouts S: No complaints. Pain well controlled. O: Alert Afebrile No increased WOB RUE: No erythema, wound vac to suction Plan: Wound vac change tomorrow. Will need skin graft at some point. 02/26/18 09:15 Objective: Vital Signs Temp Pulse Resp BP Pulse Ox 37.3 C 78 15 166/78 H 90 L 02/26/18 07:34 02/26/18 07:55 02/26/18 07:34 02/26/18 07:34 02/26/18 07:34 Laboratory Results 02/26/18 05:25 02/26/18 05:25 02/25/18 02/26/18 02/27/18 05:59 05:59 05:59 Intake Total 1000 970 Output Total 4480 1115 [facility] -[id number] -[id number] PT 15.4 SEC (12.0-15.0) H 02/19/18 05:15 INR 1.20 (0.83-1.16) H 02/19/18 05:15 ICD10 Worksheet Patient Problems: Problems Problem Status Onset Acute kidney injury Acute DIC (disseminated intravascular coagulation) Acute Dehydration Acute Hypocalcemia Acute Hypoglycemia Acute Necrotizing fasciitis of hand Acute Septic shock Acute Altered mental status Acute Anemia Acute Psychosis Acute
[2018-02-26] MEDS: DIVALPROEX ER 250 MG TAB PO SCH ×2 (10:08→22:47)
[2018-02-26] MEDS: FAMOTIDINE 20 MG TAB PO SCH (10:11)
[2018-02-26] MEDS: AMIODARONE HCL 200 MG TAB PO SCH (10:11)
[2018-02-26] MEDS: METOPROLOL TARTRATE 25 MG TAB PO SCH ×2 (10:11→22:47)
[2018-02-26] MEDS: ENOXAPARIN 40 MG/0.4 ML SYR SC SCH ×2 (10:11→17:55)
[2018-02-26] MEDS: GABAPENTIN 300 MG CAP PO SCH ×2 (10:11→22:49)
--- NOTE | 2018-02-26 10:42 | PCMIDPN ---
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 Normalization of renal function, liver function. Marked improvement in leukocytosis. Peripheral petechiae almost resolved.CRP trending down --planning 14 days of IV penicillin. Seems to be tolerating well. If gets transferred to SNF before stop date 03/01/18 could consider finishing Rx with ceftriaxone as PCN may not be very available to SNFs. # LUE swelling, R/o DVT meds PCN 4MU IV s1yuagh #01/12 Microbiology: 02/15 Arm cx grew, Grp A Strep and Veillonella. 02/15 Blood cx 2/2 sets grew, Grp A Strep. PCN BELEM <0.06357 02/16 blood cx (1) Neg Subjective: denies pain "When is Dr Messina coming by?" Objective: Vital Signs Temp Pulse Resp BP Pulse Ox 37.3 C 78 15 166/78 H 90 L 02/26/18 07:34 02/26/18 10:11 02/26/18 07:34 02/26/18 10:11 02/26/18 07:34 Laboratory Results 02/26/18 05:25 02/26/18 05:25 02/25/18 02/26/18 02/27/18 05:59 05:59 05:59 Intake Total 1000 970 Output Total 6734 2101 800 Balance -7635 -5811 -800 C-Reactive Protein 60.0 mg/L (<10.0) H 02/25/18 07:45 General: sitting up in chair HEENT: poor dentition, MMM no thrush CV: RRR, faint SM Chest: shallow inspiration, breathing easy L chest wall PICC c/d/i Carter: clear urine mild B LE edema; RUE amputation w residual 1/3 humerus remaining, wound vac in place, erythema on arm and chest wall resolved; LUE swelling disorganized thought ICD10 Worksheet Patient Problems: Problems Problem Status Onset Acute kidney injury Acute DIC (disseminated intravascular coagulation) Acute Dehydration Acute Hypocalcemia Acute Hypoglycemia Acute Necrotizing fasciitis of hand Acute Septic shock Acute Altered mental status Acute Anemia Acute Psychosis Acute
--- NOTE | 2018-02-26 10:43 | PDIAF ---
- Diagnosis Diagnosis: GAS toxic shock syndrome, RUE necrotizing fasciitis Code Status: Full Code - Medication Management Care Home Antibiotics: penicillin 2MU IV [id number] Mail Clerks Supervisor Antibiotic Stop Date: 03/01/18 Discharge Medications: electronically signed and located in the Home Medication List. PICC Care - Routine: Yes - Orders Diet Texture: Regular Texture Diet, Thin Liquids, Meds Whole w/Liquids Equipment: Wound vac care - Labs/Radiology Call or Fax Lab and Imaging Results to: Heidy Marino MD [phone]; no ID f/u needed - Follow Up Care Current Providers and Referrals: NONE *PRIMARY CARE P,. [Primary Care Provider] - As per Instructions
--- NOTE | 2018-02-26 11:17 | ASMTCMCOM ---
CM Note CM Note Notes: Pts case discussed w/ Dr. Marino and Toshia, RN. CM met w/ pt for dispo planning. Pt is agreeable to referrals being sent out for SNF placement. Pt would like to read about the facilities that accept him. Dr. Marino put in transfer of care for ivabx. CM spoke to Sal Wong, [facility]RA coordinator. Sal will not trigger a level 2 pasrr and will approve for 30 days. CM to follow. Plan: SNF Date Signed: 02/26/2018 11:16 AM Electronically Signed By:EFRAIN Espana
--- NOTE | 2018-02-26 11:45 | ASMTCMCOM ---
CM Note CM Note Notes: Several SNFs are interested. [facility] has accepted pt. CM informed pt of this. Pt is not interested in going to [place]. CM to follow. Plan: SNF Date Signed: 02/26/2018 11:45 AM Electronically Signed By:EFRAIN Espana
--- NOTE | 2018-02-26 17:29 | HOSPPROG ---
Hospitalist Progress Note Assessment/Plan: #GAS toxic shock syndrome/bacteremia: thought 2/ FB / glass. ID following. -cont IV PCN, stop date 03/01 #RUE necrotizing fasciitis: s/p transhumeral amputation 02/15 with revision ; last debridement 02/19. -Wound debrided yesterday, wound vac change Sat per surg -planning for skin graft eventually -uptitrated Gabapentin for phantom pain #Toxic encephalopathy: resolved. Due to Ativan/opioids. Caution with centrally- acting meds #ABLA: H/H trending down -transfuse for hgb <7 #EDDA: resolved #LE edema / volume overload: no oxygen needs, diuresed 13 L -cont prn lasix #Hypocalcemia/hypomagnesium/hypokalemia: electrolyte protocol #Transaminitis: due to shock liver, trending down #Bipolar d/o: recently admitted to Behavioral Health. -cont Toñito Meyer -jesús RN behavioral health consult, discussed with Sommer Tellez -cog eval requested #Atrial fib: cont BB #Diet: regular #DVT Lovenox #Disp: cont inpt, CM involved in dispo planning, likely snf when ready Subjective: Pt feels ok, denies pain. EAting well. No fevers/chills. No CP or SOB. Objective: Vital Signs Temp Pulse Resp BP Pulse Ox 37.5 C 61 16 141/71 H 94 02/26/18 16:00 02/26/18 16:00 02/26/18 16:00 02/26/18 16:00 02/26/18 16:00 Laboratory Results 02/26/18 05:25 02/26/18 05:25 02/25/18 02/26/18 02/27/18 05:59 05:59 05:59 Intake Total 1000 970 Output Total 5526 4674 1559 Balance -5775 -5880 -1550 PT 15.4 SEC (12.0-15.0) H 02/19/18 05:15 INR 1.20 (0.83-1.16) H 02/19/18 05:15 - Physical Exam Constitutional: no apparent distress Eyes: PERRL Ears, Nose, Mouth, Throat: moist mucous membranes Cardiovascular: regular rate and rhythym Respiratory: no respiratory distress, clear to auscultation Gastrointestinal: normoactive bowel sounds, soft, non-tender abdomen Skin: warm Musculoskeletal: full muscle strength Neurologic: AAOx3 Psychiatric: interacting appropriately ICD10 Worksheet Patient Problems: Problems Problem Status Onset Acute kidney injury Acute DIC (disseminated intravascular coagulation) Acute Dehydration Acute Hypocalcemia Acute Hypoglycemia Acute Necrotizing fasciitis of hand Acute Septic shock Acute Altered mental status Acute Anemia Acute Psychosis Acute
--- NOTE | 2018-02-26 17:49 | WOCRNPDOC ---
SAMANTA Advanced Assessment Note - Skin Integrity Problem, Advanced Assess Right Ischial Tuberosity Pressure Injury Dressing Type: Hydrocolloid Dressing Description: Clean/Dry, Intact Exudate Amount: None Integumentary Issue Intervention: Dressing Changed Tyler Wound Tissue: Blanching, Erythema Wound Bed Color: Black, Yellow Wound Bed Constitution: Mixed Loose & Adhered Slough/Eschar (100%) Site Measurement - Head-to-Toe Length X Width X Depth (cm): 1.5x1.5x0 Pressure Injury Stage: Unstageable Pressure Injury Present on Admit: Yes Skin Integrity Problem Comment: No change in wound. Cleaned with ns and gauze. Honey gel to wound bed. Covered with drape. Linnea RODRÍGUEZ in room for care. Wound care will follow. Left Sacrum Pressure Injury Dressing Type: Mepilex Border Exudate Amount: None Wound Bed Constitution: Adhered Slough (100%) Site Measurement - Head-to-Toe Length X Width X Depth (cm): 1x0.5x0.5 Pressure Injury Stage: Unstageable Pressure Injury Present on Admit: Yes Skin Integrity Problem Comment: Mixed etiology of pressure and incontinence associated dermatitis. No change in wound bed since previous assessment. Left Lower Leg Unknown Dressing Type: Allevyn Life Exudate Amount: Scant Exudate Characteristic(s): Serosanguinous Integumentary Issue Intervention: Visualized Under Dressing, Mechanical Debridement Tyler Wound Tissue: Blanching, Erythema (minimal tyler wound only) Tyler Wound Swelling: Mild Wound Bed Constitution: Granulation Tissue (50%), Adhered Slough (50%) Site Measurement - Head-to-Toe Length X Width X Depth (cm): 1x1.8x0.3 Medial Sacrum Pressure Injury Dressing Type: Mepilex Border Dressing Description: Clean/Dry, Intact Exudate Amount: None Wound Bed Color: [place] Wound Bed Constitution: Red/[place] - Non Granular Tissue Site Measurement - Head-to-Toe Length X Width X Depth (cm): 3x4 area of non blanching erythema with several small partial thickness openings in it. Pressure Injury Stage: Stage 2 Pressure Injury Present on Admit: No Skin Integrity Problem Comment: The erythematic area involves both the sacrum and the coccyx. The area of erythema also includes the previously noted left sacral unstagable pressure injury. Patient often refuses turns and prefers to lie on his back. He had removed the pillow that was offloading him before wound RN rounded. Wound care will follow up next week.
[2018-02-26] MEDS: oxyCODONE IR 5 MG TAB PO PRN ×2 (18:47→22:59)
[2018-02-26] MEDS: FINASTERIDE 5 MG TAB PO SCH (22:47)
[2018-02-26] MEDS: PARoxetine HCL 20 MG TAB PO SCH (22:47)
[2018-02-26] MEDS: MELATONIN 3 MG TAB PO SCH (22:49)
[2018-02-27] MEDS: PENICILLIN G POTASSIUM 4,000,000 UNIT in D5W 100 ML IV SCH ×6 (03:02→22:35)
[2018-02-27] MEDS: ACETAMINOPHEN 500 MG TAB PO SCH ×3 (05:44→22:26)
[2018-02-27] MEDS ORDERED: MAGNESIUM SULF 1 GM/DEXTROSE 100 ML IV ONE (07:15)
[2018-02-27] MEDS ORDERED: THROMBIN (BOVINE) 20,000 UNIT SPRAY TP ONE (07:56)
[2018-02-27] MEDS ORDERED: BUPIVACAINE/EPI 0.5% 30 ML SDV ONE (07:56)
[2018-02-27] MEDS ORDERED: MINERAL OIL 10 ML VIAL ONE (07:56)
--- NOTE | 2018-02-27 08:05 | PDANEPAE ---
ANE History of Present Illness S/P arm amputation for nec fasch and sepsis and now needing STSG ANE Past Medical History - Cardiovascular History Hx Hypertension: Yes Hx Arrhythmias: No Hx Chest Pain: No Hx Coronary Artery / Peripheral Vascular Disease: No Hx CHF / Valvular Disease: No Hx Palpitations: No - Pulmonary History Hx COPD: No Hx Asthma/Reactive Airway Disease: No Hx Recent Upper Respiratory Infection: No Hx Oxygen in Use at Home: No Hx Sleep Apnea: No Sleep Apnea Screening Result - Last Documented: Positive Pulmonary History Comment: Respiratory failure requiring intubation, extubated 02/17. - Neurologic History Hx Cerebrovascular Accident: No Hx Seizures: No Hx Dementia: No Neurologic History Comment: Hypomania - Endocrine History Hx Diabetes: No Hypothyroid: No Hyperthyroid: No Obesity: no - Renal History Hx Renal Disorders: Yes Renal History Comment: acute RF - Liver History Hepatic History Comment: Elevated transaminases - Neurological & Psychiatric Hx Hx Neurological and Psychiatric Disorders: Yes Neurological / Psychiatric History Comment: hx of hypomania - Other Health History Other Health History: anemia,sepsis requiring pressor support,sepsis protocol - Chronic Pain History Chronic Pain: No - Surgical History Prior Surgeries: s/p R upper arm amputation on 02/14 ANE Review of Systems Review of Systems: - Exercise capacity METS (RN): 4 METS ANE Patient History - Allergies Allergies/Adverse Reactions: No Known Allergies Allergy (Unverified 01/31/18 02:05) - Home Medications Home Medications: Doxazosin Mesylate [Cardura 4 MG (*)] 4 mg PO HS 01/31/18 [Last Taken 02/14/18 21:00] Finasteride [Proscar 5 MG (*)] 5 mg PO HS 01/31/18 [Last Taken 02/14/18 21:00] Lisinopril 30 mg PO HS 01/31/18 [Last Taken 02/14/18 21:00] Divalproex ER [Depakote ER 500 MG (*)] 750 mg PO BID 02/15/18 [Last Taken 21:00] Herbals/Supplements -Info Only 1 ea PO DAILY 02/15/18 [Last Taken 02/14/18 21:00 ] Ibuprofen [Motrin (*)] 400 mg PO DAILY PRN 02/15/18 [Last Taken 02/14/18] PARoxetine HCL [Paxil 20mg (*)] 20 mg PO HS 02/15/18 [Last Taken 02/14/18 21:00] - NPO status NPO Since - Liquids (Date): 02/14/18 NPO Since - Liquids (Time): 19:00 NPO Since - Solids (Date): 02/14/18 NPO Since - Solids (Time): 19:00 - Smoking Hx Smoking Status: Never smoked ANE Labs/Vital Signs - Labs Result Diagrams: 02/26/18 05:25 02/27/18 05:00 - Vital Signs Blood Pressure: 170/86 Heart Rate: 61 Respiratory Rate: 16 O2 Sat (%): 94 Height: 182.88 cm Weight: 86.7 kg ANE Physical Exam - Airway Neck exam: decreased ROM Mallampati Score: Class 2 Mouth exam: poor dentition - Pulmonary Pulmonary: no respiratory distress, reduced air movement - Cardiovascular Cardiovascular: regular rate and rhythym - ASA Status ASA Status: III ANE Anesthesia Plan Anesthesia Plan: general endotracheal anesthesia, GA w LMA
[2018-02-27] MEDS ORDERED: MIDAZOLAM 2 MG/2 ML VIAL IVP ONE (08:07)
--- NOTE | 2018-02-27 08:11 | SOAPPROG ---
SOAP Progress Note Assessment/Plan: Assessment: 72 y/o M with with toxic shock s/p RUE transhumeral amputation 02/16 S/p debridement/washouts S: No complaints. Pain well controlled. O: Alert Afebrile No increased WOB RUE: No erythema, wound vac taken down to reveal clean, granulating wound Plan: OR today for STSG. 02/27/18 08:11 Objective: Vital Signs Temp Pulse Resp BP Pulse Ox 36.6 C 66 16 132/74 H 92 02/27/18 08:08 02/27/18 08:08 02/27/18 08:08 02/27/18 08:08 02/27/18 08:08 Laboratory Results 02/26/18 05:25 02/27/18 05:00 02/26/18 02/27/18 02/28/18 05:59 05:59 05:59 Intake Total 970 1099 Output Total 6850 4250 Balance -5896 -6051 PT 15.4 SEC (12.0-15.0) H 02/19/18 05:15 INR 1.20 (0.83-1.16) H 02/19/18 05:15 ICD10 Worksheet Patient Problems: Problems Problem Status Onset Acute kidney injury Acute DIC (disseminated intravascular coagulation) Acute Dehydration Acute Hypocalcemia Acute Hypoglycemia Acute Necrotizing fasciitis of hand Acute Septic shock Acute Altered mental status Acute Anemia Acute Psychosis Acute
[2018-02-27] MEDS ORDERED: ONDANSETRON 4 MG/2 ML VIAL ONE (08:27)
[2018-02-27] MEDS ORDERED: PROPOFOL 200 MG/20 ML VIAL ONE (08:27)
[2018-02-27] MEDS ORDERED: DEXAMETHASONE 4 MG/ML VIAL ONE (08:27)
[2018-02-27] MEDS ORDERED: HYDROmorphONE/DILAUDID 2 MG/ML INJ ONE (08:27)
[2018-02-27] MEDS ORDERED: fentaNYL 100 MCG/2 ML INJ ONE (08:27)
[2018-02-27] MEDS ORDERED: LIDOCAINE 2% 5 ML SDV ONE (08:27)
--- NOTE | 2018-02-27 10:32 | POSTOPPROG ---
Post Op Note Date of Operation: 02/27/18 Surgeon: Perfecto Piedra Waste Removalist: Francisca Anesthesiologist: Archana Anesthesia: GET(General Endotracheal) Pre-op Diagnosis: Toxic shock syndrome Post-op Diagnosis: same Indication: same Procedure: STSG from R thigh to R arm wound Findings: Healthy, granulating arm wound Inf/Abcess present in the surg proc area at time of surgery?: No Depth: Deep Incisional (Fascial) EBL: Minimal Drains: Wound Vac
[2018-02-27] MEDS: FAMOTIDINE 20 MG TAB PO SCH (11:46)
[2018-02-27] MEDS: GABAPENTIN 300 MG CAP PO SCH ×2 (11:46→20:23)
[2018-02-27] MEDS: oxyCODONE IR 5 MG TAB PO PRN ×4 (11:46→22:33)
[2018-02-27] MEDS: AMIODARONE HCL 200 MG TAB PO SCH (11:47)
[2018-02-27] MEDS: METOPROLOL TARTRATE 25 MG TAB PO SCH ×2 (11:47→22:00)
[2018-02-27] MEDS: DIVALPROEX ER 250 MG TAB PO SCH ×2 (11:48→20:23)
[2018-02-27] MEDS: ENOXAPARIN 40 MG/0.4 ML SYR SC SCH (12:05)
[2018-02-27] MEDS ORDERED: NALOXONE HCL 0.4 MG/ML INJ IVP PRN (13:31)
--- NOTE | 2018-02-27 13:31 | POSTANESTH ---
Post Anesthetic Evaluation Cardiovascular Status: Normal, Stable, Similar to Pre-Op Cond Respiratory Status: Normal, Stable, Similar to Pre-op Cond. Level of Consciousness/Mental Status: Moderately Sleepy, Other, See Comment (At baseline, responsive, minimally and not cooperative) Pain Control: Adequate, Prn Tx Ordered Nausea/Vomiting Control: Adequate, Prn Tx Ordered Complications Possibly Related to Anesthesia: None Noted
--- NOTE | 2018-02-27 16:29 | ASMTCMCOM ---
CM Note CM Note Notes: 02/27/2018 Case Management Note Pt met w/Jeimy from [facility]. Phone call to Ethan Wong inquiring about PASRR status. Sal provided elsie limited approval for placement. Jeimy accepted pt to [facility]. Case Management d/c poc: [facility] re[facility] Case Management to follow. Date Signed: 02/27/2018 04:28 PM Electronically Signed By:Mishel Obrien RN
--- NOTE | 2018-02-27 16:32 | HOSPPROG ---
Hospitalist Progress Note Subjective: had skin graft today. no complaints Objective: Vital Signs Temp Pulse Resp BP Pulse Ox 36.6 C 53 L 16 128/79 H 100 02/27/18 12:31 02/27/18 12:31 02/27/18 12:31 02/27/18 12:31 02/27/18 12:31 Laboratory Results 02/26/18 05:25 02/27/18 05:00 02/26/18 02/27/18 02/28/18 05:59 05:59 05:59 Intake Total 970 1099 1350 Output Total 6850 4250 1850 Balance -5880 -3151 -500 PT 15.4 SEC (12.0-15.0) H 02/19/18 05:15 INR 1.20 (0.83-1.16) H 02/19/18 05:15 Physical Exam: GAS toxic shock syndrome/bacteremia: thought 2/2 FB / glass. ID following. 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 Wound debrided yesterday, wound vac change Sat per surg planning for skin graft eventually uptitrated Gabapentin for phantom pain Toxic encephalopathy: resolved. Due to Ativan/opioids. Caution with centrally- acting meds ABLA: H/H trending down transfuse for hgb <7 EDDA: resolved LE edema / volume overload: no oxygen needs, diuresed 13 L cont prn lasix Hypocalcemia/hypomagnesium/hypokalemia: electrolyte protocol Transaminitis: due to shock liver, trending down Bipolar d/o: recently admitted to Behavioral Health. Toñito Abraham RN behavioral health consult, discussed with Sommer cuevas eval requested Atrial fib: cont BB Diet: regular DVT Lovenox Disp: cont inpt, CM involved in dispo planning, likely snf when ready - Physical Exam Constitutional: no apparent distress, appears nourished Eyes: PERRL, anicteric sclera Ears, Nose, Mouth, Throat: moist mucous membranes, hearing normal Cardiovascular: regular rate and rhythym, no murmur, rub, or gallop Respiratory: no respiratory distress, no rales or rhonchi Gastrointestinal: normoactive bowel sounds, soft, non-tender abdomen Genitourinary: no bladder fullness, No garber in urethra Skin: warm, normal color Musculoskeletal: full muscle strength Neurologic: AAOx3 ICD10 Worksheet Patient Problems: Problems Problem Status Onset Acute kidney injury Acute DIC (disseminated intravascular coagulation) Acute Dehydration Acute Hypocalcemia Acute Hypoglycemia Acute Necrotizing fasciitis of hand Acute Septic shock Acute Altered mental status Acute Anemia Acute Psychosis Acute
--- NOTE | 2018-02-27 17:20 | ASMTCMCOM ---
CM Note CM Note Notes: 02/27/2018 Case Management Note Visit from Arsenio Torres with APS following up on report of self neglect. Arsenio unable to proceed with any interventions unless pt is deemed non decisional. Arsenio encourage placing a proxy before pursuing guardianship if pt were to require that level of supervision. Case Management d/c poc: [facility]. Case Management to follow. Date Signed: 02/27/2018 05:20 PM Electronically Signed By:Mishel Obrien RN
--- NOTE | 2018-02-27 19:27 | GOP ---
DATE OF OPERATION: 02/27/2018 SURGEON: Perfecto Piedra MD ACCOUNTING RECRUITER: Deanna Espinosa, nurse-practitioner. ANESTHESIOLOGIST: João Magaña DO PREOPERATIVE DIAGNOSIS: Status post necrotizing fasciitis, right arm with transhumeral amputation. POSTOPERATIVE DIAGNOSIS: Status post necrotizing fasciitis, right arm with transhumeral amputation. PROCEDURE PERFORMED: Split-thickness skin graft from the right thigh to the right arm. FINDINGS: Patient was found to have a good granulation bed in the arm stump. ESTIMATED BLOOD LOSS: Negligible. DESCRIPTION OF PROCEDURE: The patient was taken to the Operating Room where he received a satisfacto ry general endotracheal anesthesia by Dr. Magaña. He was placed in the slight left lateral decubitus position approximately 30 degrees. He was prepped and draped in the usual sterile fashion. The woun d bed was slightly debrided and hemostasis was obtained. There was minimal debridement required. A split-thickness skin graft of 18 micron was harvested from the anterior right thigh. It was meshed i n a 1.5 to 1 ratio and placed on the wound. It was anchored in place with skin marck and then was dressed with Xeroform gauze and a wound VAC which appeared to function well. The donor site was infi ltrated with 0.5% Marcaine and dressed with nonstick dressing and ABDs. He tolerated the procedure w ell. COMPLICATIONS: None. DISPOSITION: He was taken to the recovery room in good condition. /[id number]/MODL
[2018-02-27] MEDS: MELATONIN 3 MG TAB PO SCH (20:23)
[2018-02-27] MEDS: PARoxetine HCL 20 MG TAB PO SCH (20:24)
[2018-02-27] MEDS: FINASTERIDE 5 MG TAB PO SCH (20:24)
[2018-02-28] MEDS: PENICILLIN G POTASSIUM 4,000,000 UNIT in D5W 100 ML IV SCH ×6 (01:49→21:07)
[2018-02-28 05:00] LABS: PLATELET COUNT 453 10^3/uL (150-400)
[2018-02-28] MEDS: ACETAMINOPHEN 500 MG TAB PO SCH ×3 (05:56→23:03)
[2018-02-28] MEDS: oxyCODONE IR 5 MG TAB PO PRN ×2 (05:57→20:26)
[2018-02-28] MEDS ORDERED: MAGNESIUM SULF 1 GM/DEXTROSE 100 ML IV ONE (07:06)
[2018-02-28] MEDS: ENOXAPARIN 40 MG/0.4 ML SYR SC SCH (08:02)
[2018-02-28] MEDS: DIVALPROEX ER 250 MG TAB PO SCH ×2 (08:03→20:28)
[2018-02-28] MEDS: GABAPENTIN 300 MG CAP PO SCH ×2 (08:03→20:27)
[2018-02-28] MEDS: FAMOTIDINE 20 MG TAB PO SCH (08:03)
[2018-02-28] MEDS: AMIODARONE HCL 200 MG TAB PO SCH (08:26)
[2018-02-28] MEDS: METOPROLOL TARTRATE 25 MG TAB PO SCH ×2 (08:26→20:27)
[2018-02-28] MEDS ORDERED: SODIUM POLY SULF 15 GM/60 ML BOTTLE PO ONE (11:33)
[2018-02-28] MEDS ORDERED: NS 1,000 ML IV SCH (11:45)
--- NOTE | 2018-02-28 11:45 | HOSPPROG ---
Hospitalist Progress Note Assessment/Plan: 72 yo M w GAS toxic shock, necrosis of RUE hyperkalemia: likely pre renal follow on tele IVF kayex X 1 repeat at 2, in AM GAS toxic shock syndrome/bacteremia: thought 05/03 FB / glass. ID following. 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 Wound debrided yesterday, wound vac change Sat per surg planning for skin graft eventually uptitrated Gabapentin for phantom pain Toxic encephalopathy: resolved. Due to Ativan/opioids. Caution with centrally- acting meds ABLA: H/H trending down transfuse for hgb <7 EDDA: resolved LE edema / volume overload: no oxygen needs, diuresed 13 L cont prn lasix Hypocalcemia/hypomagnesium/hypokalemia: electrolyte protocol Transaminitis: due to shock liver, trending down Bipolar d/o: recently admitted to Behavioral Health. cont Toñito Meyer RN behavioral health consult, discussed with Sommer cuevas eval requested Atrial fib: cont BB Diet: regular DVT Lovenox Subjective: tele: no events (interp by me). surprisingly flat afect given sequence of events. denies pain Objective: Vital Signs Temp Pulse Resp BP Pulse Ox 36.6 C 49 L 14 112/66 99 02/28/18 07:34 02/28/18 09:24 02/28/18 07:34 02/28/18 09:24 02/28/18 07:34 Laboratory Results 02/28/18 04:33 02/28/18 04:33 02/27/18 02/28/18 03/01/18 05:59 05:59 05:59 Intake Total 1099 2172 Output Total 4250 2600 Balance -3151 -428 PT 15.4 SEC (12.0-15.0) H 02/19/18 05:15 INR 1.20 (0.83-1.16) H 02/19/18 05:15 - Physical Exam Constitutional: no apparent distress, appears nourished Eyes: PERRL, anicteric sclera Ears, Nose, Mouth, Throat: moist mucous membranes, hearing normal Cardiovascular: regular rate and rhythym, no murmur, rub, or gallop Respiratory: no respiratory distress, no rales or rhonchi Gastrointestinal: normoactive bowel sounds, soft, non-tender abdomen Genitourinary: no bladder fullness, no bladder tenderness Skin: warm Musculoskeletal: other (RUE amputation) Neurologic: AAOx3, sensation intact bilaterally Psychiatric: interacting appropriately ICD10 Worksheet Patient Problems: Problems Problem Status Onset Acute kidney injury Acute DIC (disseminated intravascular coagulation) Acute Dehydration Acute Hypocalcemia Acute Hypoglycemia Acute Necrotizing fasciitis of hand Acute Septic shock Acute Altered mental status Acute Anemia Acute Psychosis Acute
--- NOTE | 2018-02-28 12:35 | ASMTCMCOM ---
CM Note CM Note Notes: Updates sent to [facility] did not know pt has wound vac. WOund notes and orders sent and [facility] reports they can still accept. D/c plan of care: [facility] when medically stable Date Signed: 02/28/2018 12:34 PM Electronically Signed By:MARLY Toro
[2018-02-28] MEDS: MELATONIN 3 MG TAB PO SCH (20:27)
[2018-02-28] MEDS: FINASTERIDE 5 MG TAB PO SCH (20:28)
[2018-02-28] MEDS: PARoxetine HCL 20 MG TAB PO SCH (20:29)
[2018-03-01] MEDS: PENICILLIN G POTASSIUM 4,000,000 UNIT in D5W 100 ML IV SCH ×3 (02:20→10:01)
[2018-03-01] MEDS: ACETAMINOPHEN 500 MG TAB PO SCH ×2 (07:35→14:34)
[2018-03-01] MEDS: METOPROLOL TARTRATE 25 MG TAB PO SCH ×2 (08:28→20:32)
[2018-03-01] MEDS: FAMOTIDINE 20 MG TAB PO SCH (08:28)
[2018-03-01] MEDS: GABAPENTIN 300 MG CAP PO SCH ×2 (08:28→20:31)
[2018-03-01] MEDS: AMIODARONE HCL 200 MG TAB PO SCH (08:28)
[2018-03-01] MEDS: DIVALPROEX ER 250 MG TAB PO SCH ×2 (08:28→20:30)
[2018-03-01] MEDS: ENOXAPARIN 40 MG/0.4 ML SYR SC SCH (08:31)
--- NOTE | 2018-03-01 11:01 | SOAPPROG ---
SOAP Progress Note Assessment/Plan: Assessment: PT SEEN AND WOUND DEBRIDED THIS AM/ SEE NOTE BY MY SENIOR LINUX ADMINISTRATOR CONNER Plan:WOUND VAC CHANGE SATURDAY/ STSG SOON 02/25/18 00:09 03/01/18 11:00 AFEBRILE/COMFORTABLE/NO COMPLAINTS WOUND OKAY AND WOUND VAC FUNCTIONING WELL/THIGH DONOR SITE DOING WELL CHEST CLEAR AND SYMMETRIC/COR REGULAR RHYTHM/ABDOMEN SOFT/HEENT NONICTERIC WITHOUT ADENOPATHY PLAN: CONTINUES TO IMPROVE IN WILL LEAVE WOUND VAC IN PLACE FOR 5 DAYS OVER THE SKIN GRAFT Objective: Vital Signs Temp Pulse Resp BP Pulse Ox 36.8 C 65 18 164/88 H 94 03/01/18 07:31 03/01/18 07:31 03/01/18 07:31 03/01/18 07:31 03/01/18 04:00 Laboratory Results 02/28/18 04:33 03/01/18 04:30 02/28/18 03/01/18 03/02/18 05:59 05:59 05:59 Intake Total 2172 750 320 Output Total 2600 1850 Balance -428 -1100 320 PT 15.4 SEC (12.0-15.0) H 02/19/18 05:15 INR 1.20 (0.83-1.16) H 02/19/18 05:15 ICD10 Worksheet Patient Problems: Problems Problem Status Onset Acute kidney injury Acute DIC (disseminated intravascular coagulation) Acute Dehydration Acute Hypocalcemia Acute Hypoglycemia Acute Necrotizing fasciitis of hand Acute Septic shock Acute Altered mental status Acute Anemia Acute Psychosis Acute
--- NOTE | 2018-03-01 12:54 | HOSPPROG ---
Hospitalist Progress Note Assessment/Plan: 72 yo M w GAS toxic shock, necrosis of RUE hyperkalemia: likely pre renal follow on tele IVF kayex X 1 repeat at 2, in AM 03/02 resolved dc tele garber: dc in AM GAS toxic shock syndrome/bacteremia: thought 05/03 FB / glass. ID following. 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 Wound debrided yesterday, wound vac change Sat per surg planning for skin graft eventually uptitrated Gabapentin for phantom pain Toxic encephalopathy: resolved. Due to Ativan/opioids. Caution with centrally- acting meds ABLA: H/H trending down transfuse for hgb <7 EDDA: resolved LE edema / volume overload: no oxygen needs, diuresed 13 L cont prn lasix Hypocalcemia/hypomagnesium/hypokalemia: electrolyte protocol Transaminitis: due to shock liver, trending down Bipolar d/o: recently admitted to Behavioral Health. cont Toñito Meyer RN behavioral health consult, discussed with Sommer cuevas eval requested Atrial fib: cont BB Diet: regular DVT Lovenox Subjective: minimal complaints. states pain is OK. asks to have garber removed in AM Objective: Vital Signs Temp Pulse Resp BP Pulse Ox 36.8 C 66 20 158/68 H 92 03/01/18 12:00 03/01/18 12:00 03/01/18 12:00 03/01/18 12:00 03/01/18 12:00 Laboratory Results 02/28/18 04:33 03/01/18 04:30 02/28/18 03/01/18 03/02/18 05:59 05:59 05:59 Intake Total 2172 750 320 Output Total 2600 1850 Balance -428 -1100 320 PT 15.4 SEC (12.0-15.0) H 02/19/18 05:15 INR 1.20 (0.83-1.16) H 02/19/18 05:15 - Physical Exam Constitutional: no apparent distress, appears nourished Eyes: PERRL, anicteric sclera Ears, Nose, Mouth, Throat: moist mucous membranes, hearing normal Cardiovascular: regular rate and rhythym, no murmur, rub, or gallop Respiratory: no respiratory distress, no rales or rhonchi Gastrointestinal: normoactive bowel sounds, soft, non-tender abdomen Genitourinary: garber in urethra Skin: warm, normal color Musculoskeletal: other (RUE amputation), No full muscle strength Neurologic: AAOx3 ICD10 Worksheet Patient Problems: Problems Problem Status Onset Acute kidney injury Acute DIC (disseminated intravascular coagulation) Acute Dehydration Acute Hypocalcemia Acute Hypoglycemia Acute Necrotizing fasciitis of hand Acute Septic shock Acute Altered mental status Acute Anemia Acute Psychosis Acute
[2018-03-01] MEDS: PARoxetine HCL 20 MG TAB PO SCH (20:30)
[2018-03-01] MEDS: MELATONIN 3 MG TAB PO SCH (20:30)
[2018-03-01] MEDS: FINASTERIDE 5 MG TAB PO SCH (20:30)
[2018-03-01] MEDS: oxyCODONE IR 5 MG TAB PO PRN (22:59)
[2018-03-02] MEDS: ACETAMINOPHEN 500 MG TAB PO SCH ×4 (01:38→23:37)
[2018-03-02] MEDS: ENOXAPARIN 40 MG/0.4 ML SYR SC SCH (08:00)
[2018-03-02] MEDS: GABAPENTIN 300 MG CAP PO SCH ×2 (08:00→23:37)
[2018-03-02] MEDS: METOPROLOL TARTRATE 25 MG TAB PO SCH (08:00)
[2018-03-02] MEDS: FAMOTIDINE 20 MG TAB PO SCH (08:00)
[2018-03-02] MEDS: DIVALPROEX ER 250 MG TAB PO SCH ×2 (08:00→23:33)
[2018-03-02] MEDS: AMIODARONE HCL 200 MG TAB PO SCH (08:00)
--- NOTE | 2018-03-02 12:49 | HOSPPROG ---
Hospitalist Progress Note Assessment/Plan: 72 yo M w GAS toxic shock, necrosis of RUE hyperkalemia: likely pre renal follow on tele IVF kayex X 1 repeat at 2, in AM 03/02 resolved dc tele garber: dc in AM GAS toxic shock syndrome/bacteremia: thought 05/03 FB / glass. ID following. 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 Wound debrided yesterday, wound vac change Sat per surg \skin graft 02/28 uptitrated Gabapentin for phantom pain Toxic encephalopathy: resolved. Due to Ativan/opioids. Caution with centrally- acting meds ABLA: H/H trending down transfuse for hgb <7 EDDA: resolved LE edema / volume overload: no oxygen needs, diuresed 13 L cont prn lasix Hypocalcemia/hypomagnesium/hypokalemia: electrolyte protocol Transaminitis: due to shock liver, trending down Bipolar d/o: recently admitted to Behavioral Health. cont Toñito Meyer RN behavioral health consult, discussed with Sommer Tellez [facility] eval requested Atrial fib: cont BB Diet: regular DVT Lovenox Subjective: no complaints. eating. moving bowels Objective: Vital Signs Temp Pulse Resp BP Pulse Ox 36.7 C 62 17 138/76 H 95 03/02/18 07:33 03/02/18 07:33 03/02/18 07:33 03/02/18 10:53 03/02/18 07:33 Laboratory Results 02/28/18 04:33 03/01/18 04:30 03/01/18 03/02/18 03/03/18 05:59 05:59 05:59 Intake Total 750 1280 50 Output Total 1850 5350 650 Balance -1100 -4070 -600 PT 15.4 SEC (12.0-15.0) H 02/19/18 05:15 INR 1.20 (0.83-1.16) H 02/19/18 05:15 - Physical Exam Constitutional: no apparent distress, appears nourished Eyes: PERRL, anicteric sclera Ears, Nose, Mouth, Throat: moist mucous membranes, hearing normal Cardiovascular: regular rate and rhythym, no murmur, rub, or gallop Respiratory: no respiratory distress, no rales or rhonchi Gastrointestinal: normoactive bowel sounds, soft, non-tender abdomen Genitourinary: no bladder fullness Skin: warm Musculoskeletal: other (R arm stump in wound vac.) Neurologic: AAOx3, sensation intact bilaterally Psychiatric: interacting appropriately ICD10 Worksheet Patient Problems: Problems Problem Status Onset Acute kidney injury Acute DIC (disseminated intravascular coagulation) Acute Dehydration Acute Hypocalcemia Acute Hypoglycemia Acute Necrotizing fasciitis of hand Acute Septic shock Acute Altered mental status Acute Anemia Acute Psychosis Acute
[2018-03-02] MEDS: FINASTERIDE 5 MG TAB PO SCH (23:35)
[2018-03-02] MEDS: PARoxetine HCL 20 MG TAB PO SCH (23:36)
[2018-03-02] MEDS: MELATONIN 3 MG TAB PO SCH (23:36)
[2018-03-03] MEDS: ACETAMINOPHEN 500 MG TAB PO SCH ×3 (05:57→22:02)
[2018-03-03] MEDS: DIVALPROEX ER 250 MG TAB PO SCH ×2 (10:04→22:03)
[2018-03-03] MEDS: AMIODARONE HCL 200 MG TAB PO SCH (10:04)
[2018-03-03] MEDS: GABAPENTIN 300 MG CAP PO SCH ×2 (10:05→22:03)
[2018-03-03] MEDS: ENOXAPARIN 40 MG/0.4 ML SYR SC SCH (10:05)
--- NOTE | 2018-03-03 10:12 | SOAPPROG ---
SOAP Progress Note Assessment/Plan: Assessment: 72 y/o M with with toxic shock s/p RUE transhumeral amputation 02/16 S/p debridement/washouts S: No complaints. Pain well controlled. O: Alert Afebrile VSS No increased WOB RUE: No erythema, wound vac to suction RLE: donor site appears clean, no surrounding erythema, warmth or induration. Plan: Continue to avoid any trauma to R arm. Plan to take vac off tomorrow. Can likely discharge home soon thereafter. 03/03/18 10:10 Objective: Vital Signs Temp Pulse Resp BP Pulse Ox 37.0 C 66 14 149/82 H 95 03/03/18 07:48 03/03/18 07:48 03/03/18 07:48 03/03/18 07:48 03/03/18 07:48 Laboratory Results 03/03/18 03:30 03/03/18 03:30 03/02/18 03/03/18 03/04/18 05:59 05:59 05:59 Intake Total 1280 1500 100 Output Total 5350 2700 1300 Balance -4070 -1200 -1200 PT 15.4 SEC (12.0-15.0) H 02/19/18 05:15 INR 1.20 (0.83-1.16) H 02/19/18 05:15 ICD10 Worksheet Patient Problems: Problems Problem Status Onset Acute kidney injury Acute DIC (disseminated intravascular coagulation) Acute Dehydration Acute Hypocalcemia Acute Hypoglycemia Acute Necrotizing fasciitis of hand Acute Septic shock Acute Altered mental status Acute Anemia Acute Psychosis Acute
--- NOTE | 2018-03-03 11:45 | HOSPPROG ---
Hospitalist Progress Note Assessment/Plan: 72 yo M w GAS toxic shock, necrosis of RUE hyperkalemia: likely pre renal follow on tele IVF kayex X 1 repeat at 2, in AM 03/02 resolved dc tele garber: dc in AM hematuria: garber dc'd 2-3 days ago no pain, fullness follow ultimately needs hematuria workup GAS toxic shock syndrome/bacteremia: thought 05/03 FB / glass. ID following. 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 Wound debrided yesterday, wound vac change Sat per surg \skin graft 02/28 uptitrated Gabapentin for phantom pain Toxic encephalopathy: resolved. Due to Ativan/opioids. Caution with centrally- acting meds ABLA: H/H trending down transfuse for hgb <7 EDDA: resolved LE edema / volume overload: no oxygen needs, diuresed 13 L cont prn lasix Hypocalcemia/hypomagnesium/hypokalemia: electrolyte protocol Transaminitis: due to shock liver, trending down Bipolar d/o: recently admitted to Behavioral Health. cont Toñito Meyer RN behavioral health consult, discussed with Sommer Tellez c[facility] eval requested Atrial fib: cont BB Diet: regular DVT Lovenox Subjective: hematuria. denies pain, fever. never smoker Objective: Vital Signs Temp Pulse Resp BP Pulse Ox 37.2 C 67 18 138/81 H 93 03/03/18 11:05 03/03/18 11:05 03/03/18 11:05 03/03/18 11:05 03/03/18 11:05 Laboratory Results 03/03/18 03:30 03/03/18 03:30 03/02/18 03/03/18 03/04/18 05:59 05:59 05:59 Intake Total 1280 1500 600 Output Total 5350 2700 2100 Balance -4070 -1200 -1500 PT 15.4 SEC (12.0-15.0) H 02/19/18 05:15 INR 1.20 (0.83-1.16) H 02/19/18 05:15 - Physical Exam Constitutional: no apparent distress, appears nourished Eyes: PERRL, anicteric sclera Ears, Nose, Mouth, Throat: moist mucous membranes, hearing normal Cardiovascular: regular rate and rhythym, no murmur, rub, or gallop Respiratory: no respiratory distress, no rales or rhonchi Gastrointestinal: normoactive bowel sounds, soft, non-tender abdomen Genitourinary: other (light red urine in bag), No garber in urethra Musculoskeletal: full muscle strength, other (proximal RUE amp) Neurologic: AAOx3 ICD10 Worksheet Patient Problems: Problems Problem Status Onset Acute kidney injury Acute DIC (disseminated intravascular coagulation) Acute Dehydration Acute Hypocalcemia Acute Hypoglycemia Acute Necrotizing fasciitis of hand Acute Septic shock Acute Altered mental status Acute Anemia Acute Psychosis Acute
[2018-03-03] MEDS: MELATONIN 3 MG TAB PO SCH (22:03)
[2018-03-03] MEDS: FINASTERIDE 5 MG TAB PO SCH (22:04)
[2018-03-03] MEDS: PARoxetine HCL 20 MG TAB PO SCH (22:04)
[2018-03-04] MEDS: ACETAMINOPHEN 500 MG TAB PO SCH ×3 (06:40→21:22)
[2018-03-04] MEDS: oxyCODONE IR 5 MG TAB PO PRN ×2 (06:44→11:40)
[2018-03-04] MEDS: ENOXAPARIN 40 MG/0.4 ML SYR SC SCH (08:30)
[2018-03-04] MEDS: AMIODARONE HCL 200 MG TAB PO SCH (08:30)
[2018-03-04] MEDS: DIVALPROEX ER 250 MG TAB PO SCH ×2 (08:30→21:22)
[2018-03-04] MEDS: GABAPENTIN 300 MG CAP PO SCH ×2 (08:30→21:22)
--- NOTE | 2018-03-04 12:17 | ASMTCMCOM ---
CM Note CM Note Notes: CM spoke to ANNE Escobar and Dr. Mendez regarding d/c POC. Updates sent to [facility]. It is uncertain if pt will go w/ wound vac. CM to follow. Plan: [facility] Date Signed: 03/04/2018 12:16 PM Electronically Signed By:EFRAIN Espana
--- NOTE | 2018-03-04 12:48 | HOSPPROG ---
Hospitalist Progress Note Assessment/Plan: 72 yo M w GAS toxic shock, necrosis of RUE hyperkalemia: resolved garber: out hematuria: garber dc'd 2-3 days ago no pain, fullness follow ultimately needs hematuria workup GAS toxic shock syndrome/bacteremia: thought 2/ FB / glass. ID following. 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 Wound debrided yesterday, wound vac change Sat per surg \skin graft 02/28 uptitrated Gabapentin for phantom pain Toxic encephalopathy: resolved. Due to Ativan/opioids. Caution with centrally- acting meds ABLA: H/H trending down transfuse for hgb <7 EDDA: resolved LE edema / volume overload: no oxygen needs, diuresed 13 L cont prn lasix Hypocalcemia/hypomagnesium/hypokalemia: electrolyte protocol Transaminitis: due to shock liver, trending down Bipolar d/o: recently admitted to Behavioral Health. cont Toñito Meyer RN behavioral health consult, discussed with Sommer Tellez [facility] eval requested Atrial fib: cont BB Diet: regular DVT Lovenox Subjective: awaiting wound vac removal. case d/w dr sung Objective: Vital Signs Temp Pulse Resp BP Pulse Ox 36.7 C 67 18 176/84 H 92 03/04/18 07:25 03/04/18 07:25 03/04/18 07:25 03/04/18 07:25 03/04/18 07:25 Laboratory Results 03/03/18 03:30 03/03/18 03:30 03/03/18 03/04/18 03/05/18 05:59 05:59 05:59 Intake Total 1500 1000 Output Total 2700 3600 Balance -1200 -2600 PT 15.4 SEC (12.0-15.0) H 02/19/18 05:15 INR 1.20 (0.83-1.16) H 02/19/18 05:15 - Physical Exam Constitutional: no apparent distress, appears nourished Eyes: PERRL, anicteric sclera Ears, Nose, Mouth, Throat: moist mucous membranes, hearing normal Cardiovascular: regular rate and rhythym, no murmur, rub, or gallop Respiratory: no respiratory distress, no rales or rhonchi Gastrointestinal: normoactive bowel sounds, soft, non-tender abdomen Genitourinary: no bladder fullness, No garber in urethra Skin: warm Musculoskeletal: other (LUE proximal amp) Neurologic: AAOx3 Psychiatric: interacting appropriately ICD10 Worksheet Patient Problems: Problems Problem Status Onset Acute kidney injury Acute DIC (disseminated intravascular coagulation) Acute Dehydration Acute Hypocalcemia Acute Hypoglycemia Acute Necrotizing fasciitis of hand Acute Septic shock Acute Altered mental status Acute Anemia Acute Psychosis Acute
[2018-03-04] MEDS: FINASTERIDE 5 MG TAB PO SCH (21:23)
[2018-03-04] MEDS: PARoxetine HCL 20 MG TAB PO SCH (21:23)
[2018-03-04] MEDS ORDERED: ONDANSETRON 4 MG/2 ML VIAL IVP PRN (21:23)
[2018-03-04] MEDS: MELATONIN 3 MG TAB PO SCH (21:23)
[2018-03-04] MEDS ORDERED: ONDANSETRON DISINTEGRATING 4 MG TAB PO PRN (21:38)
[2018-03-04] MEDS: CALCIUM CARBONATE 500 MG CHEWABLE TAB PO PRN (23:05)
[2018-03-05] MEDS: ACETAMINOPHEN 500 MG TAB PO SCH ×3 (05:14→21:17)
[2018-03-05] MEDS: ENOXAPARIN 40 MG/0.4 ML SYR SC SCH (08:27)
[2018-03-05] MEDS: DIVALPROEX ER 250 MG TAB PO SCH ×2 (08:27→21:17)
[2018-03-05] MEDS: AMIODARONE HCL 200 MG TAB PO SCH (08:27)
[2018-03-05] MEDS: GABAPENTIN 300 MG CAP PO SCH ×2 (08:27→21:17)
--- NOTE | 2018-03-05 10:34 | SOAPPROG ---
SOAP Progress Note Assessment/Plan: Assessment/Plan: Complicated toxic shock s/p RUE amputation, subsequent OR debridement and bedside debridement. Shoulder joint intact. s/p STSG. Removed vac. Excellent graft take thus far. Donor site clean. Some concern for redness over distal suture line, but think this is more due to irritation form moisture under the vac dressing. Per Dr. Piedra, would like to observe for a few more days to ensure graft stability and no recurrent cellulitis. Graft looks great, but still fragile. S: no complaints. eating breakfast. pleased to know graft looks good. O: alert, conversive, appropriate no wob rrr abd soft ext 90% + graft take. distal suture line at stump with redness and moisture from being under vac dressing. no purulence or malodor. donor site clean, no erythema. min drainage. 03/05/18 10:31 Objective: Vital Signs Temp Pulse Resp BP Pulse Ox 36.7 C 75 18 116/73 92 03/05/18 07:19 03/05/18 07:19 03/05/18 07:19 03/05/18 07:19 03/05/18 07:19 Laboratory Results 03/03/18 03:30 03/03/18 03:30 03/04/18 03/05/18 03/06/18 05:59 05:59 05:59 Intake Total 1000 240 Output Total 3600 2600 Balance -2600 -2600 240 PT 15.4 SEC (12.0-15.0) H 02/19/18 05:15 INR 1.20 (0.83-1.16) H 02/19/18 05:15 ICD10 Worksheet Patient Problems: Problems Problem Status Onset Acute kidney injury Acute DIC (disseminated intravascular coagulation) Acute Dehydration Acute Hypocalcemia Acute Hypoglycemia Acute Necrotizing fasciitis of hand Acute Septic shock Acute Altered mental status Acute Anemia Acute Psychosis Acute
--- NOTE | 2018-03-05 11:13 | WOCRNPDOC ---
WOCRN Advanced Assessment Note - Skin Integrity Problem, Advanced Assess Left Sacrum Pressure Injury Dressing Type: Open to Air Exudate Amount: None Integumentary Issue Intervention: Dressing Applied, Silver Gel Applied Ariana Wound Tissue: Erythema, Raw, Swollen Ariana Wound Swelling: Mild Wound Bed Color: Red Wound Bed Constitution: Red/Plain View - Non Granular Tissue Site Measurement - Head-to-Toe Length X Width X Depth (cm): 0.3x0.3x0.1 Pressure Injury Stage: Stage 2 Skin Integrity Problem Comment: Patient able to roll over onto left side. Wound bed completely visible. No eschar or slough. Patient is to discharge to [facility]. Discussed wound with patient, and provided education on turning and offloading area for healing. Patient stated that he understood; however, according to ANNE Mendez patient had been refusing to be turned in bed. ANNE Mendez in room for care. Wound care will round again next week if still inpatient. Right Ischial Tuberosity Pressure Injury Dressing Type: Allevyn Life Dressing Description: Clean/Dry, Intact Exudate Amount: Minimal Exudate Color: Reddish/Yellow Exudate Characteristic(s): Serosanguinous Integumentary Issue Intervention: Dressing Changed, Silver Gel Applied Ariana Wound Tissue: Erythema, Swollen Ariana Wound Swelling: Mild Wound Bed Constitution: Red/Plain View - Non Granular Tissue (40%), Adhered Slough (60 %) Pressure Injury Stage: Unstageable Skin Integrity Problem Comment: Wound bed cleaned with normal saline and patted dry with gauze. Unable to visualize wound bed due to slough. Patient had incorrect dressing in place. According to ANNE Mendez who was new to the patient today, it was unclear why different dressing had been used. Patient was no longer having diarrhea. Provided education to patient regarding need to offload the area, nutrition, and use of chair cushion when patient is up.
--- NOTE | 2018-03-05 13:43 | HOSPPROG ---
Hospitalist Progress Note Assessment/Plan: 72 yo M w GAS toxic shock, necrosis of RUE hyperkalemia: resolved hematuria: garber dc'd no pain, fullness ultimately needs hematuria workup GAS toxic shock syndrome/bacteremia: thought / FB / glass. ID following. 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 Wound debrided , wound vac removed 03/05. \skin graft 02/28 uptitrated Gabapentin for phantom pain Toxic encephalopathy: resolved. Due to Ativan/opioids. Caution with centrally- acting meds ABLA: H/H trending down transfuse for hgb <7 EDDA: resolved LE edema / volume overload: no oxygen needs, diuresed 13 L cont prn lasix Hypocalcemia/hypomagnesium/hypokalemia: electrolyte protocol Transaminitis: due to shock liver, trending down Bipolar d/o: recently admitted to Behavioral Health. cont Toñito Meyer RN behavioral health consult, discussed with Sommer Tellez [facility] [place] Atrial fib: cont BB Diet: regular DVT Lovenox Plan: Wound vac removed today but per Surgery, will observe overnight as concern for graft and recurrent cellulitis. Will also repeat CBC in a.m. first encounter with this patient records reviewed Subjective: pain is well controlled. Wound vac removed today. no cp or sob Objective: Vital Signs Temp Pulse Resp BP Pulse Ox 36.7 C 75 18 116/73 92 03/05/18 07:19 03/05/18 07:19 03/05/18 07:19 03/05/18 07:19 03/05/18 07:19 Laboratory Results 03/03/18 03:30 03/03/18 03:30 03/04/18 03/05/18 03/06/18 05:59 05:59 05:59 Intake Total 1000 240 Output Total 3600 2600 Balance -2600 -2600 240 PT 15.4 SEC (12.0-15.0) H 02/19/18 05:15 INR 1.20 (0.83-1.16) H 02/19/18 05:15 - Physical Exam Constitutional: chronically ill appearing Eyes: PERRL, EOMI Ears, Nose, Mouth, Throat: moist mucous membranes, hearing normal Cardiovascular: regular rate and rhythym, No edema Respiratory: no respiratory distress, no rales or rhonchi, clear to auscultation Gastrointestinal: normoactive bowel sounds, soft, non-tender abdomen Skin: warm Neurologic: AAOx3 Psychiatric: interacting appropriately, not anxious, not encephalopathic Lymph, Heme, Immunologic: No petechiae ICD10 Worksheet Patient Problems: Problems Problem Status Onset Acute kidney injury Acute DIC (disseminated intravascular coagulation) Acute Dehydration Acute Hypocalcemia Acute Hypoglycemia Acute Necrotizing fasciitis of hand Acute Septic shock Acute Altered mental status Acute Anemia Acute Psychosis Acute
--- NOTE | 2018-03-05 14:03 | ASMTCMCOM ---
CM Note CM Note Notes: CM spoke to ANNE Mendez and Dr. Haley regarding d/c POC. Surgery removed wound vac today. Surgery would like to observe pt for a few days with wound vac off. CM to follow. Plan: Aga Stern [facility] Date Signed: 03/05/2018 02:02 PM Electronically Signed By:EFRAIN Espana
[2018-03-05] MEDS: MELATONIN 3 MG TAB PO SCH (21:17)
[2018-03-05] MEDS: PARoxetine HCL 20 MG TAB PO SCH (21:17)
[2018-03-05] MEDS: FINASTERIDE 5 MG TAB PO SCH (21:17)
[2018-03-06] MEDS: ACETAMINOPHEN 500 MG TAB PO SCH ×3 (05:08→21:47)
[2018-03-06] MEDS: DIVALPROEX ER 250 MG TAB PO SCH ×2 (08:43→21:47)
[2018-03-06] MEDS: ENOXAPARIN 40 MG/0.4 ML SYR SC SCH (08:44)
[2018-03-06] MEDS: AMIODARONE HCL 200 MG TAB PO SCH (08:44)
[2018-03-06] MEDS: GABAPENTIN 300 MG CAP PO SCH ×2 (08:44→21:47)
[2018-03-06 10:02] LABS: PLATELET COUNT 389 10^3/uL (150-400)
--- NOTE | 2018-03-06 12:14 | SOAPPROG ---
SOAP Progress Note Assessment/Plan: Assessment: 72 y/o M with with toxic shock s/p RUE transhumeral amputation 02/16 S/p debridement/washouts Now s/p STSG from R thigh to RUE S: No complaints. Pain well controlled. O: Alert Afebrile VSS WBC nl No increased WOB RUE: Graft with 80% take. Scant serous drainage. Surrounding redness stable, if not improved. RLE: donor site clean, no surrounding erythema or warmth. 03/06/18 12:09 Objective: Vital Signs Temp Pulse Resp BP Pulse Ox 36.9 C 67 16 127/76 H 93 03/06/18 07:32 03/06/18 07:32 03/06/18 07:32 03/06/18 07:32 03/06/18 07:32 Laboratory Results 03/06/18 08:55 03/03/18 03:30 03/05/18 03/06/18 03/07/18 05:59 05:59 05:59 Intake Total 662 Output Total 2600 1850 Balance -2600 -1188 PT 15.4 SEC (12.0-15.0) H 02/19/18 05:15 INR 1.20 (0.83-1.16) H 02/19/18 05:15 ICD10 Worksheet Patient Problems: Problems Problem Status Onset Acute kidney injury Acute DIC (disseminated intravascular coagulation) Acute Dehydration Acute Hypocalcemia Acute Hypoglycemia Acute Necrotizing fasciitis of hand Acute Septic shock Acute Altered mental status Acute Anemia Acute Psychosis Acute
--- NOTE | 2018-03-06 18:19 | HOSPPROG ---
Hospitalist Progress Note Assessment/Plan: 72 yo M w GAS toxic shock, necrosis of RUE hyperkalemia: resolved hematuria: garber dc'd no pain, fullness ultimately needs hematuria workup GAS toxic shock syndrome/bacteremia: thought / FB / glass. ID following. 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 Wound debrided , wound vac removed 03/05. \skin graft 02/28 uptitrated Gabapentin for phantom pain Toxic encephalopathy: resolved. Due to Ativan/opioids. Caution with centrally- acting meds ABLA: H/H trending down transfuse for hgb <7 EDDA: resolved LE edema / volume overload: no oxygen needs, diuresed 13 L cont prn lasix Hypocalcemia/hypomagnesium/hypokalemia: electrolyte protocol Transaminitis: due to shock liver, trending down Bipolar d/o: recently admitted to Behavioral Health. cont Toñito Meyer RN behavioral health consult, discussed with Sommer cuevas eval requested Atrial fib: cont BB Diet: regular DVT Lovenox Plan: Wound vac removed yesterday per Surgery, they are observing for concern for graft and recurrent cellulitis. Labs reviewed and essentially unchanged. Subjective: no cp or sob. no n/v Objective: Vital Signs Temp Pulse Resp BP Pulse Ox 36.8 C 86 16 118/75 95 03/06/18 16:31 03/06/18 16:31 03/06/18 16:31 03/06/18 16:31 03/06/18 16:31 Laboratory Results 03/06/18 08:55 03/03/18 03:30 03/05/18 03/06/18 03/07/18 05:59 05:59 05:59 Intake Total 662 Output Total 2600 1850 Balance -2600 -1188 PT 15.4 SEC (12.0-15.0) H 02/19/18 05:15 INR 1.20 (0.83-1.16) H 02/19/18 05:15 - Physical Exam Constitutional: no apparent distress Eyes: PERRL, EOMI Ears, Nose, Mouth, Throat: moist mucous membranes, hearing normal, ears appear normal Cardiovascular: regular rate and rhythym Respiratory: no respiratory distress, no rales or rhonchi, clear to auscultation Gastrointestinal: normoactive bowel sounds, soft, non-tender abdomen Genitourinary: no bladder fullness Skin: warm Neurologic: AAOx3 Psychiatric: interacting appropriately, not anxious, not encephalopathic ICD10 Worksheet Patient Problems: Problems Problem Status Onset Acute kidney injury Acute DIC (disseminated intravascular coagulation) Acute Dehydration Acute Hypocalcemia Acute Hypoglycemia Acute Necrotizing fasciitis of hand Acute Septic shock Acute Altered mental status Acute Anemia Acute Psychosis Acute
[2018-03-06] MEDS: PARoxetine HCL 20 MG TAB PO SCH (21:47)
[2018-03-06] MEDS: MELATONIN 3 MG TAB PO SCH (21:47)
[2018-03-06] MEDS: FINASTERIDE 5 MG TAB PO SCH (21:48)
[2018-03-07] MEDS: ACETAMINOPHEN 500 MG TAB PO SCH ×3 (05:12→21:05)
[2018-03-07] MEDS: GABAPENTIN 300 MG CAP PO SCH ×2 (08:52→21:04)
[2018-03-07] MEDS: DIVALPROEX ER 250 MG TAB PO SCH ×2 (08:53→21:04)
[2018-03-07] MEDS: AMIODARONE HCL 200 MG TAB PO SCH (08:53)
[2018-03-07] MEDS: ENOXAPARIN 40 MG/0.4 ML SYR SC SCH (08:55)
[2018-03-07 13:40] LABS: PLATELET COUNT 340 10^3/uL (150-400)
--- NOTE | 2018-03-07 16:03 | HOSPPROG ---
Hospitalist Progress Note Assessment/Plan: 72 yo M w GAS toxic shock, necrosis of RUE hyperkalemia: resolved hematuria: garber dc'd no pain, fullness ultimately needs hematuria workup GAS toxic shock syndrome/bacteremia: thought / FB / glass. ID following. 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 Wound debrided , wound vac removed 03/05. \skin graft 02/28 uptitrated Gabapentin for phantom pain stump concerning for cellulitis, surgery is evaluating Toxic encephalopathy: resolved. Due to Ativan/opioids. Caution with centrally- acting meds ABLA: H/H trending down transfuse for hgb <7 EDDA: resolved LE edema / volume overload: no oxygen needs, diuresed 13 L cont prn lasix Hypocalcemia/hypomagnesium/hypokalemia: electrolyte protocol Transaminitis: due to shock liver, trending down Bipolar d/o: recently admitted to Behavioral Health. cont Toñito Meyer RN behavioral health consult, discussed with Sommer Tellez [facility] [place] requested Atrial fib: cont BB Diet: regular DVT Lovenox Plan: Wound vac removed on 03/05. There is an area concerning for cellulitis. Afebrile. No leukocytosis. Will await surgery reccs. Repeat labs in a.m. Check procalcitonin Subjective: no cp or sob. afebrile Objective: Vital Signs Temp Pulse Resp BP Pulse Ox 36.6 C 76 20 132/79 H 94 03/07/18 15:16 03/07/18 15:16 03/07/18 15:16 03/07/18 15:16 03/07/18 15:16 Laboratory Results 03/07/18 12:52 03/03/18 03:30 03/06/18 03/07/18 03/08/18 05:59 05:59 05:59 Intake Total 662 300 360 Output Total 1850 1050 Balance -1188 -750 360 PT 15.4 SEC (12.0-15.0) H 02/19/18 05:15 INR 1.20 (0.83-1.16) H 02/19/18 05:15 - Physical Exam Constitutional: no apparent distress Eyes: PERRL Ears, Nose, Mouth, Throat: moist mucous membranes, hearing normal Cardiovascular: regular rate and rhythym, No edema Respiratory: no respiratory distress, no rales or rhonchi Gastrointestinal: normoactive bowel sounds, soft, non-tender abdomen Skin: warm Neurologic: AAOx3 Psychiatric: interacting appropriately, not anxious, not encephalopathic Lymph, Heme, Immunologic: No petechiae ICD10 Worksheet Patient Problems: Problems Problem Status Onset Acute kidney injury Acute DIC (disseminated intravascular coagulation) Acute Dehydration Acute Hypocalcemia Acute Hypoglycemia Acute Necrotizing fasciitis of hand Acute Septic shock Acute Altered mental status Acute Anemia Acute Psychosis Acute
--- NOTE | 2018-03-07 17:03 | SOAPPROG ---
SOAP Progress Note Assessment/Plan: Assessment: 72 y/o M with with toxic shock s/p RUE transhumeral amputation 02/16 S/p debridement/washouts Now s/p STSG from R thigh to RUE S: No complaints. Pain well controlled. O: Alert Afebrile VSS WBC nl No increased WOB RUE: Graft with 80% take. Scant serous drainage. Surrounding redness stable RLE: donor site clean, no surrounding erythema or warmth. Plan: inpt stay more night. Ok to go to SNF tomorrow. Follow up with Dr. Piedra in our office next week. 03/07/18 16:57 Objective: Vital Signs Temp Pulse Resp BP Pulse Ox 36.6 C 76 20 132/79 H 94 03/07/18 15:16 03/07/18 15:16 03/07/18 15:16 03/07/18 15:16 03/07/18 15:16 Laboratory Results 03/07/18 12:52 03/03/18 03:30 03/06/18 03/07/18 03/08/18 05:59 05:59 05:59 Intake Total 662 300 360 Output Total 1850 1050 Balance -1188 -750 360 PT 15.4 SEC (12.0-15.0) H 02/19/18 05:15 INR 1.20 (0.83-1.16) H 02/19/18 05:15 ICD10 Worksheet Patient Problems: Problems Problem Status Onset Acute kidney injury Acute DIC (disseminated intravascular coagulation) Acute Dehydration Acute Hypocalcemia Acute Hypoglycemia Acute Necrotizing fasciitis of hand Acute Septic shock Acute Altered mental status Acute Anemia Acute Psychosis Acute
[2018-03-07] MEDS: PARoxetine HCL 20 MG TAB PO SCH (21:04)
[2018-03-07] MEDS: MELATONIN 3 MG TAB PO SCH (21:05)
[2018-03-07] MEDS: FINASTERIDE 5 MG TAB PO SCH (21:05)
[2018-03-08] MEDS: ACETAMINOPHEN 500 MG TAB PO SCH ×2 (05:19→15:05)
[2018-03-08 05:50] LABS: PLATELET COUNT 312 10^3/uL (150-400)
--- NOTE | 2018-03-08 09:09 | SOAPPROG ---
SOAP Progress Note Assessment/Plan: Assessment/Plan: Complicated toxic shock s/p RUE amputation, subsequent OR debridement and bedside debridement. Shoulder joint intact. s/p STSG. Graft looks good, afebrile, normal WBC's. +redness--irritation vs cellulitis of distal stump around suture line. Think patient needs an oral antibiotic. Requested ID's input as they followed this patient earlier in his stay. If gets on abx, would be ok with d/c with early outpatient f/u c Dr. Piedra next week. Seen with Dr. Landa today. S: no complaints. eating breakfast. O: alert, conversive, appropriate no wob rrr abd soft ext 90% + graft take. distal suture line at stump with redness. no purulence or malodor. donor site clean, no erythema. min drainage. 03/08/18 09:07 Objective: Vital Signs Temp Pulse Resp BP Pulse Ox 36.4 C 84 18 130/66 H 94 03/07/18 22:54 03/07/18 22:54 03/07/18 22:54 03/07/18 22:54 03/07/18 22:54 Laboratory Results 03/08/18 05:25 03/03/18 03:30 03/07/18 03/08/18 03/09/18 05:59 05:59 05:59 Intake Total 300 822 Output Total 1050 650 Balance -750 172 PT 15.4 SEC (12.0-15.0) H 02/19/18 05:15 INR 1.20 (0.83-1.16) H 02/19/18 05:15 ICD10 Worksheet Patient Problems: Problems Problem Status Onset Acute kidney injury Acute DIC (disseminated intravascular coagulation) Acute Dehydration Acute Hypocalcemia Acute Hypoglycemia Acute Necrotizing fasciitis of hand Acute Septic shock Acute Altered mental status Acute Anemia Acute Psychosis Acute
[2018-03-08 09:50] VITALS: BP 118/72
[2018-03-08] MEDS: DIVALPROEX ER 250 MG TAB PO SCH (09:51)
[2018-03-08] MEDS: AMIODARONE HCL 200 MG TAB PO SCH (09:52)
[2018-03-08] MEDS: ENOXAPARIN 40 MG/0.4 ML SYR SC SCH (09:52)
[2018-03-08] MEDS: GABAPENTIN 300 MG CAP PO SCH (09:52)
[2018-03-08] MEDS ORDERED: AMOXICILLIN/CLAVULANATE POT 875/125 MG TAB PO SCH (11:00)
--- NOTE | 2018-03-08 11:01 | PCMIDPN ---
Assessment/Plan: # GAS toxic shock syndrome emanating from RUE necrotizing fasciitis s/p 14 days high dose IV antibiotics, mostly IV PCN. Multiorgan dysfunction has resolved. Skin graft 02/27/18 # Post op infection R arm: cellulitis distal R arm stump, pustule like area mid graft, cultured by me. WBC nl and AF goes against systemic illness --wound cx --start PO Augmentin 875mg PO BID x 10 days, if dc need f/u with ID or surgery in next week # LUE swelling, R/o DVT Microbiology: 02/15 Arm cx grew, Grp A Strep and Veillonella. 02/15 Blood cx 2/2 sets grew, Grp A Strep. PCN BELEM <[id number] 02/16 blood cx (1) Neg Subjective: C/o pain at tip of R arm which is different than my prior exam Objective: Vital Signs Temp Pulse Resp BP Pulse Ox 36.4 C 82 18 118/72 95 03/08/18 08:00 03/08/18 08:00 03/07/18 22:54 03/08/18 08:00 03/08/18 08:00 Laboratory Results 03/08/18 05:25 03/03/18 03:30 03/07/18 03/08/18 03/09/18 05:59 05:59 05:59 Intake Total 300 822 Output Total 1050 650 Balance -750 172 C-Reactive Protein 60.0 mg/L (<10.0) H 02/25/18 07:45 - Physical Exam General Appearance: alert, no apparent distress EENT: poor dentition Respiratory: lungs clear, No accessory muscle use Cardiac/Chest: regular rate, rhythm Extremities: erythema (bright erythema distal RUE stump surrounding incision, small pustule-looking area mid- skin graft. + tenderness to palpation) Skin: No rash Neuro/Psych: alert - Time Spent With Patient Time Spent with Patient: greater than 35 minutes (care coordinated w surgical team) Time Spent with Patient: Greater than 35 minutes spent on this patients care, greater than 50% of time spent counseling, educating, and coordinating care regarding the above mentioned plan. ICD10 Worksheet Patient Problems: Problems Problem Status Onset Acute kidney injury Acute DIC (disseminated intravascular coagulation) Acute Dehydration Acute Hypocalcemia Acute Hypoglycemia Acute Necrotizing fasciitis of hand Acute Septic shock Acute Altered mental status Acute Anemia Acute Psychosis Acute
[2018-03-08] MEDS: CALCIUM CARBONATE 500 MG CHEWABLE TAB PO PRN (12:18)
--- NOTE | 2018-03-08 13:02 | PDIAF ---
- Diagnosis Diagnosis: GAS toxic shock syndrome, RUE necrotizing fasciitis, weakness Code Status: Full Code - Medication Management [facility] Antibiotics: penicillin 2MU IV [id number] [facility] Antibiotic Stop Date: 03/01/18 Discharge Medications: electronically signed and located in the Home Medication List. PICC Care - Routine: Yes - Orders Diet Recommendation: no restrictions on diet Diet Texture: Regular Texture Diet, Thin Liquids, Meds Whole w/Liquids Equipment: Wound vac care Additional Instructions: Follow up 03/12/[address] Piedra office. Call for appt time - Labs/Radiology Call or Fax Lab and Imaging Results to: Heidy Marino MD [phone]; no ID f/u needed - Follow Up Care Current Providers and Referrals: Perfecto Piedra MD [Medical Doctor] - NONE *PRIMARY CARE P,. [Primary Care Provider] - As per Instructions
--- NOTE | 2018-03-08 13:27 | ASMTLACE ---
[facility] Length of stay for Answers: 14 days or more current admission Acuity / Level of Answers: Yes Care: Did the patient have an inpatient admission? Comorbidities - select Answers: Other Notes: cellulitis all that apply # of Emergency department Answers: 3-4 visits in the last 6 months Social determinants Answers: Mental health diagnosis (anxiety, depression, pers onality disorders, etc.) Score: 17 Date Signed: 03/08/2018 01:26 PM Electronically Signed By:Raven Mejia
--- NOTE | 2018-03-08 14:45 | ASDISCHSUM ---
Discharge Information Plan Status:SNF Medically Cleared to Leave:03/07/2018 Discharge Date:03/07/2018 CM D/C Disposition:Intermediate Facility ADT D/C Disposition:Intermediate Facility Projected Discharge Date:03/08/2018 11:00 AM Transportation at D/C:Wheelchair Van Discharge Delay Reason: Follow-Up Date:03/08/2018 11:00 AM Discharge Slot: Final Diagnosis:Septic shock, R arm infection Placement Information Referral Type:*Prison/SNF Referral ID:[facility]-[id number] Provider Name:Aga Og [place] Address 1:[address] Address 2: City:[place] Selection Factors: State:[place] Patient Contact Information Contact Name:MIAH Relationship:Other Address:[address] [place] [address] Work Phone: City:[place] Alternate Phone: State/Zip Code:[place] [address] Email: Financial Information Financial Class:Medicare Advantage Plans Primary Plan Desc:Hitmeister Primary Plan Number:[id number] Secondary Plan Desc:Yippy Secondary Plan Number:[id number] Assessment Information LACE LACE Length of stay for Answers: 14 days or more current admission Acuity / Level of Answers: Yes Care: Did the patient have an inpatient admission? Comorbidities - select Answers: Other Notes: cellulitis all that apply # of Emergency department Answers: 3-4 visits in the last 6 months Social determinants Answers: Mental health diagnosis (anxiety, depression, pers onality disorders, etc.) Score: 17 Date Signed: 03/08/2018 01:26 PM Electronically Signed By:Raven Mejia [facility] CM Progress Note CM Note CM Note Notes: 72yo male admitted to [facility] after his girlfriend noticed increasing confusion, and R hand and arm swelling. Patient has a Hx of hypomania-has been to [facility] x2-possibly Bipolar. Presently on the vent, hypotension, renal failure, R arm amputated, septic shock. 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 Very critical to go back to again today. CM to follow. Date Signed: 02/16/2018 11:38 AM Electronically Signed By:Ave Hernandez LCSW [facility] CM Progress Note CM Note CM Note Notes: CM met with pt and his girlfriend to provide education on family meeting. Pt's girlfriend said she was not interested at this time and said she is too overwhelmed at this time. CM provided support and will continue to follow. Plan: Acute Rehab Date Signed: 02/18/2018 01:56 PM Electronically Signed By:EFRAIN Mcelroy [facility] CM Progress Note CM Note CM Note Notes: PT/OT have recommended inpatient rehab. Inpatient rehab states their eval is in progress as they think patient may need SNF level of care. They are going to continue to assess and review again on Saturday. D/C plan TBD. CM will follow. Date Signed: 02/21/2018 04:34 PM Electronically Signed By:Sofia Villarreal LCSW [facility] Progress Note CM Note CM Note Notes: OT/PT/ST all recommending In-pt Rehab. Sounds as though he may be ready medically early next week. Has been needing wound vac changes 3x/wk. Date Signed: 02/23/2018 11:07 AM Electronically Signed By:Ave Hernandez LCSW [facility] Progress Note CM Note CM Note Notes: Spoke with Rox at [facility] - they have declined and are recommending SNF at this time. Met with patient to discuss above. At first, patient was agreeable to the idea of SNF but then became irritated at the options in [place]. Patient stated, "I would like my options written down on paper so I can think about it." CM provided a list of options and a Senior BB. He did express he wants to stay in [place] for rehab. Patient's partner was at the bedside, flat affect, did not engage in conversation. This could potentially be a difficult SNF placement d/t patient's Mental Health diagnosis. He was also recently admitted to our [facility]. Will hold off on SNF referrals at the moment until CM can revisit patient about his options. SW will work on PASRR and submit today. Rita and Leti with [facility] on site today and did meet with patient. Patient did decline their support/services at this time. Plan: SNF Date Signed: 02/25/2018 11:31 AM Electronically Signed By:Yris Almanzar RN [facility] CM Progress Note CM Note CM Note Notes: JANICE made an Adult Protection Report today. Patient's mental status is fragile given psych issues, cognitive awareness/decision making, inability to care for himself, and unwilliness to have others involved in his care/tx. In-pt Rehab unwilling to admit given above. Their recommendation is for SNF Rehab. He may refuse SNF. His Girlfriend has been staying at [facility] since his arrival. Has not gone home to clean up, change clothes or get rested. She will not be allowed to go with him to rehab. They both might need Guardianship and placement in LTC? Pasrr was completed and faxed to [facility] Coordinator. Date Signed: 02/25/2018 05:39 PM Electronically Signed By:Ave Hernandez LCSW [facility] CM Progress Note CM Note CM Note Notes: Pts case discussed w/ Dr. Marino and ANNE Pope. CM met w/ pt for dispo planning. Pt is agreeable to referrals being sent out for SNF placement. Pt would like to read about the facilities that accept him. Dr. Marino put in transfer of care for ivabx. CM spoke to Sal Wong, OBRA coordinator. Sal will not trigger a level 2 pasrr and will approve for 30 days. CM to follow. Plan: SNF Date Signed: 02/26/2018 11:16 AM Electronically Signed By:EFRAIN [place] [facility] Progress Note CM Note CM Note Notes: Several SNFs are interested. [facility] pt. CM informed pt of this. Pt is not interested in going to [facility]. CM to follow. Plan: [facility] Date Signed: 02/26/2018 11:45 AM Electronically Signed By:EFRAIN [place] [facility] CM Progress Note CM Note CM Note Notes: 02/27/2018 Case Management Note Pt met w/Jeimy from [facility]. Phone call to Ethan Wong inquiring about PASRR status. Sal provided elsie limited approval for placement. Jeimy accepted pt to [facility]. Case Management d/c poc: [facility] rehab Case Management to follow. Date Signed: 02/27/2018 04:28 PM Electronically Signed By:Mishel Obrien RN [facility] CM Progress Note CM Note CM Note Notes: 02/27/2018 Case Management Note Visit from Arsenio Torres with APS following up on report of self neglect. Cesar unable to proceed with any interventions unless pt is deemed non decisional. Cesar encourage placing a proxy before pursuing guardianship if pt were to require that level of supervision. Case Management d/c poc: [facility] rehab. Case Management to follow. Date Signed: 02/27/2018 05:20 PM Electronically Signed By:Mishel Obrien RN [facility] CM Progress Note CM Note CM Note Notes: Updates sent to [facility] did not know pt has wound vac. WOund notes and orders sent and Yein reports they can still accept. D/c plan of care: [facility] when medically stable Date Signed: 02/28/2018 12:34 PM Electronically Signed By:MARLY Toro [facility] CM Progress Note CM Note CM Note Notes: CM spoke to ANNE Escobar and Dr. Mendez regarding d/c POC. Updates sent to [facility]. It is uncertain if pt will go w/ wound vac. CM to follow. Plan: [facility] Date Signed: 03/04/2018 12:16 PM Electronically Signed By:EFRAIN [place]spana [facility] CM Progress Note CM Note CM Note Notes: CM spoke to ANNE Mendez and Dr. Haley regarding d/c POC. Surgery removed wound vac today. Surgery would like to observe pt for a few days with wound vac off. CM to follow. Plan: [facility] Date Signed: 03/05/2018 02:02 PM Electronically Signed By:EFRAIN [place] Case Management Discharge Plan Note Case Management Discharge Discharge Order Complete? Answers: Yes Patient to Obtain Answers: Other Notes: [facility] Transportation Arranged Answers: Other Notes: [facility] will Pick (Date 03/08/2018 02:45 PM & Time) Faxed Final Orders Answers: Yes Agency/Facility Transfer Answers: Yes Report Printed & Faxed to Receiving Agency Discharge Comments Notes: Pt to discharge to [facility], via wheelchair transport arranged by [facility]. Discharge orders and med list faxed to [facility] per their request as no one is there to check Allscripts today. Pt stated there was no family to notify. No further CM needs noted at this time. Date Signed: 03/08/2018 02:44 PM Electronically Signed By:Raven Mejia Intervention Information Intervention Type:*IM-Signed Date of Service:03/07/2018 03:04 PM Patient Type:Inpatient Staff Member:Nadia Sanchez Hours: Discipline: Severity: Comment:
--- NOTE | 2018-03-08 17:16 | PDDCSUM ---
Discharge Summary Discharge Summary: 72 yo male who was admitted with Sepsis and RUE necrotizing fasciitis/GAS toxic shock syndrome. He was admitted and treated with IV abx. He had multiorgan dysfunction which has resolved. He had RUE amputation by Dr. Piedra. At the time of discharge there is concern for RUE/Stump cellulitis and he has been started on Augmentin BID x 10 days. There is a pustule and it was cultured by ID and this is pending. The plan is for discharge today to [facility] with f/u next week with surgery. He has been afebrile and overall stable. Please see below for details per problem list. Discharge Diagnosis: # GAS toxic shock syndrome emanating from RUE necrotizing fasciitis s/p 14 days high dose IV antibiotics, mostly IV PCN. Multiorgan dysfunction has resolved. Skin graft 02/27/18 # Post op infection R arm: cellulitis distal R arm stump, pustule like area mid graft, cultured by me. WBC nl and AF goes against systemic illness --wound cx --start PO Augmentin 875mg PO BID x 10 days, f/u with surgery in next week #hyperkalemia: resolved #hematuria: resolved #Toxic encephalopathy: resolved. Due to Ativan/opioids. Caution with centrally- acting meds #ABLA: s/p PRBC transfusion. Resolved #EDDA: resolved #LE edema / volume overload: Resolved. no oxygen needs, diuresed 13 L #Hypocalcemia/hypomagnesium/hypokalemia: replaced per electrolyte protocol #Transaminitis: due to shock liver, resolved #Bipolar d/o: recently admitted to [facility]. cont psych meds #Atrial fib Exam: NAD AAOX3 RRR CTA B S/NT/ND LUE STUMP NO LE EDEMA MEDS: SEE MED REC F/U: PER ABOVE TOTAL TIME SPENT ON D/C IS 40 MINS
== END 2018-03-08 15:33 | DRG 853 ==
LOC: EDUNIT# → F2N 14:24 → F3N 02-24 16:18 → F3E 03-03 10:58
PROVIDERS: ADMIT Internal Medicine; ATTEND Internal Medicine
DX: A40.0 Sepsis due to streptococcus, group A (principal); R65.21 Severe sepsis with septic shock; M72.6 Necrotizing fasciitis; G92 Toxic encephalopathy; A48.3 Toxic shock syndrome; L03.115 Cellulitis of right lower limb; N17.9 Acute kidney failure, unspecified; T87.41 Infection of amputation stump, right upper extremity; D62 Acute posthemorrhagic anemia; G54.6 Phantom limb syndrome with pain; E86.9 Volume depletion, unspecified; E87.5 Hyperkalemia; R31.9 Hematuria, unspecified; E83.51 Hypocalcemia; E83.42 Hypomagnesemia; E87.6 Hypokalemia; F31.9 Bipolar disorder, unspecified; I48.91 Unspecified atrial fibrillation; D50.9 Iron deficiency anemia, unspecified; L89.150 Pressure ulcer of sacral region, unstageable; L89.310 Pressure ulcer of right buttock, unstageable; I10 Essential (primary) hypertension
CPT/HCPCS: 82435-PO; 82565-PO; 82784-90; 82947-PO; 83605-PO; 84132-PO; 84295-PO; 84520-PO; 85014-PO; 86704-90; 86705-90; 86708-90; 92507-GN; 92523-GN; 92526-GN; 92610-GN; 96365; 97116-GP; 97162-GP; 97166-GO; 97530-GO; 97530-GP; 97535-GO; C1751; G0472; G0515-GO; G8978-GP-CK; G8978-GP-CM; G8979-GP-CJ; G8979-GP-CL; G8987-GO-CK; G8988-GO-CJ; G8996-GN-CI; G8997-GN-CH; G9165-GN-CK; G9166-GN-CK; G9167-GN-CK; J0282; J0610; J1100; J1170; J1644; J1650; J1720; J1940; J2060; J2185; J2250; J2370; J2405; J2540; J2704; J2710; J2997; J3010; J3370; J3411; J3430; J3475; J3480; J3490; P9016; P9017; Q9967

== ENCOUNTER 2018-03-25 16:11 | Inpatient (IN) | payer OTHER ==
--- NOTE | 2018-03-25 16:20 | EDPHY ---
H & P Time Seen by Provider: 03/25/18 16:11 HPI/ROS: CHIEF COMPLAINT: Found down HISTORY OF PRESENT ILLNESS: 72-year-old male with bipolar disorder presents after being found down by a home healthcare nurse. He has a complex past medical history including a recent admission on 02/15/2018 for necrotizing fasciitis. He underwent a right upper extremity amputation and was discharged to [facility]. He was sent home from [facility] yesterday. He did not have keys to his home when he arrived home, so he elbowed a window, broke the glass and was able to enter his home. Since arrival home, he has been scooting around the floor because of generalized weakness and dizziness. He is unable to walk on his own. He sat on the floor last night and was trying to get up into a chair, but was unable. He was found this afternoon in his home by the home healthcare nurse on the floor with his legs up the wall, unable to get up. He denies fall, injury or any pain. His right upper extremity stump is healing well, without tenderness or drainage. No fever. REVIEW OF SYSTEMS: complete 10 point ROS reviewed and is negative except for the noted elements in the HPI - Medical/Surgical History Hx Asthma: No Hx Chronic Respiratory Disease: No Hx Diabetes: No Hx Cardiac Disease: No Hx Renal Disease: No Hx Cirrhosis: No Hx Alcoholism: No Hx HIV/AIDS: No Hx Splenectomy or Spleen Trauma: No Other PMH: none per pt - Social History Smoking Status: Never smoked Alcohol Use: Sober Drug Use: None Additional Social History: Lives in own home with girlfriend, girlfriend is out of town - Physical Exam Exam: General Appearance: Alert, pleasant Eyes: Pupils equal and round, no conjunctival pallor or injection ENT, Mouth: Mucous membranes dry, lips are chapped Neck: Normal inspection, no midline tenderness, range of motion without pain Respiratory: Lungs are clear to auscultation anteriorly Cardiovascular: Regular rate and rhythm Gastrointestinal: Abdomen is soft and nontender Back: Multiple areas of skin erythema, without skin breakdown on the thoracic and lumbar area Neurological: Alert, moves all extremities, nonfocal exam Skin: Warm and dry, no rash Extremities: Right upper extremity stump-slight erythema at the stump, without tenderness, warmth or drainage Psychiatric: Mood and affect normal Constitutional: Initial Vital Signs Temperature (C) 36.6 C 03/25/18 16:11 Heart Rate 80 03/25/18 16:11 Respiratory Rate 16 03/25/18 16:11 Blood Pressure 135/81 H 03/25/18 16:11 O2 Sat (%) 97 03/25/18 16:11 O2 Delivery Mode Room Air Allergies/Adverse Reactions: No Known Allergies Allergy (Unverified 01/31/18 02:05) Home Medications: Medication Instructions Recorded Divalproex ER [Depakote ER 500 MG 750 mg PO BID 02/15/18 (*)] PARoxetine HCL [Paxil 20mg (*)] 20 mg PO HS 02/15/18 Calcium Carbonate [Tums 500MG (*)] 500 mg PO TID PRN tab.chew 03/08/18 Gabapentin [Neurontin 300 MG (*)] 300 mg PO BID cap 03/08/18 Melatonin [Melatonin 3 MG (*)] 6 mg PO HS tab 03/08/18 Acetaminophen [Tylenol ES 500 mg 1,000 mg PO HS PRN 03/25/18 (*)] Lisinopril PO DAILY 03/25/18 Medical Decision Making ED Course/Re-evaluation: This patient presents with generalized weakness after recent prolonged hospitalization. No signs of injury or acute illness. Laboratory tests including CK are unremarkable, no evidence of rhabdomyolysis. He was previously accepted to a custodial facility, but he apparently refused. He will need to be admitted to the hospital for likely SNF placement. The hospitalist service was consulted for admission. Differential Diagnosis: Altered mental status including but not limited to hypoglycemia, infectious process, electrolyte abnormality, head injury, CVA, and intoxicants. - Data Points Laboratory Results: Laboratory Results 03/25/18 17:08 03/25/18 17:08 03/25/18 03/25/18 03/25/18 17:40 17:10 17:08 WBC RBC Hgb Hct MCV MCH MCHC RDW Plt Count MPV Neut % (Auto) Lymph % (Auto) [place]att % (Auto) Eos % (Auto) Baso % (Auto) Nucleat RBC Rel Count Absolute Neuts (auto) Absolute Lymphs (auto) Absolute Monos (auto) Absolute Eos (auto) Absolute Basos (auto) Absolute Nucleated RBC Immature Gran % Immature Gran # Sodium 132 mEq/L L mEq/L (135-145) Potassium 4.9 mEq/L mEq/L (3.5-5.2) Chloride 103 mEq/L mEq/L (97-110) Carbon Dioxide 24 mEq/l mEq/l (22-31) Anion Gap 5 mEq/L L mEq/L (6-14) BUN 15 mg/dL mg/dL (7-23) Creatinine 0.6 mg/dL L mg/dL (0.7-1.3) Estimated GFR > 60 Glucose 87 mg/dL mg/dL (70-100) Calcium 8.9 mg/dL mg/dL (8.5-10.4) Creatine Kinase 63 IU/L IU/L (0-224) POC Troponin I 0.02 ng/mL ng/mL (0.00-0.08) Urine Color YELLOW Urine Appearance HAZY Urine pH 7.0 (5.0-7.5) Ur Specific [place] 1.014 (1.002-1.030) Urine Protein NEGATIVE (NEGATIVE) Urine Ketones TRACE H (NEGATIVE) Urine Blood 1+ H (NEGATIVE) Urine Nitrate POSITIVE H (NEGATIVE) Urine Bilirubin NEGATIVE (NEGATIVE) Urine Urobilinogen 2.0 EU H EU (0.2-1.0) Ur Leukocyte Esterase 3+ H (NEGATIVE) Urine RBC 3-5 /hpf H /hpf (0-3) Urine WBC 50-182 /hpf H /hpf (0-3) Ur Epithelial Cells TRACE /lpf /lpf (NONE-1+) Urine Bacteria 2+ /hpf H /hpf (NONE SEEN) Urine Glucose NEGATIVE (NEGATIVE) 03/25/18 17:08 WBC 8.22 10^3/uL 10^3/uL (3.80-9.50) RBC 3.63 10^6/uL L 10^6/uL (4.40-6.38) Hgb 10.5 g/dL L g/dL (13.7-17.5) Hct 32.4 % L % (40.0-51.0) MCV 89.3 fL fL (81.5-99.8) MCH 28.9 pg pg (27.9-34.1) MCHC 32.4 g/dL g/dL (32.4-36.7) RDW 14.4 % % (11.5-15.2) Plt Count 385 10^3/uL 10^3/uL (150-400) MPV 7.8 fL L fL (8.7-11.7) Neut % (Auto) 73.1 % % (39.3-74.2) Lymph % (Auto) 14.6 % L % (15.0-45.0) Pratt % (Auto) 5.7 % % (4.5-13.0) Eos % (Auto) 5.0 % % (0.6-7.6) Baso % (Auto) 0.9 % % (0.3-1.7) Nucleat RBC Rel Count 0.0 % % (0.0-0.2) Absolute Neuts (auto) 6.01 10^3/uL 10^3/uL (1.70-6.50) Absolute Lymphs (auto) 1.20 10^3/uL 10^3/uL (1.00-3.00) Absolute Monos (auto) 0.47 10^3/uL 10^3/uL (0.30-0.80) Absolute Eos (auto) 0.41 10^3/uL H 10^3/uL (0.03-0.40) Absolute Basos (auto) 0.07 10^3/uL 10^3/uL (0.02-0.10) Absolute Nucleated RBC 0.00 10^3/uL 10^3/uL (0-0.01) Immature Gran % 0.7 % % (0.0-1.1) Immature Gran # 0.06 10^3/uL 10^3/uL (0.00-0.10) Sodium Potassium Chloride Carbon Dioxide Anion Gap BUN Creatinine Estimated GFR Glucose Calcium Creatine Kinase POC Troponin I Urine Color Urine Appearance Urine pH Ur Specific [place] Urine Protein Urine Ketones Urine Blood Urine Nitrate Urine Bilirubin Urine Urobilinogen Ur Leukocyte Esterase Urine RBC Urine WBC Ur Epithelial Cells Urine Bacteria Urine Glucose Medications Given: Ceftriaxone Sodium/Dextrose (Rocephin 1 Gm (Premix)) 50 mls @ 100 mls/hr IV HS EULOGIO PRN Reason: Protocol Stop: 04/24/18 20:59 Last Admin: 03/25/18 20:19 Dose: 50 mls Discontinued Medications Sodium Chloride (Ns) 500 mls @ 1,000 mls/hr IV EDNOW ONE PRN Reason: Protocol Stop: 03/25/18 17:04 Last Admin: 03/25/18 17:20 Dose: 500 mls Point of Care Test Results: Chemistry 03/25/18 17:10 POC Troponin I 0.02 ng/mL ng/mL (0.00-0.08) Departure - Departure Disposition: [facility] Inpatient Acute Clinical Impression: Generalized weakness Condition: Fair
[2018-03-25] MEDS ORDERED: NS 500 ML IV ONE (16:35)
--- NOTE | 2018-03-25 17:16 | CPEKG ---
Test Reason : OPEN Blood Pressure : / mmHG Vent. Rate : 074 BPM Atrial Rate : 074 BPM P-R Int : 198 ms QRS Dur : 103 ms QT Int : 444 ms P-R-T Axes : -46 -85 019 degrees QTc Int : 493 ms Sinus or ectopic atrial rhythm Inferior infarct, old Anterior infarct, old Confirmed by Enma Nogueira ([id number]) on 03/25/2018 5:16:19 PM Referred By: Confirmed By:Enma Nogueira
[2018-03-25 17:20] LABS: PLATELET COUNT 385 10^3/uL (150-400)
[2018-03-25 17:32] LABS: CREATINE KINASE 63 IU/L (0-224)
[2018-03-25] MEDS ORDERED: ONDANSETRON 4 MG/2 ML VIAL IVP PRN (17:46)
[2018-03-25] MEDS ORDERED: ONDANSETRON DISINTEGRATING 4 MG TAB PO PRN (17:46)
[2018-03-25] MEDS ORDERED: CALCIUM CARBONATE 500 MG CHEWABLE TAB PO PRN (19:24)
--- NOTE | 2018-03-25 19:24 | PDGENHP ---
History and Physical - Chief Complaint Weakness - History of Present Illness Daren Gomez is a 72 yo Male with a PMHx of recent Necrotizing Fasciitis s/p R arm amputation, BPH who presents to [facility] after being found down at home. Patient reports that he was discharged from [facility] yesterday and sent home via taxi without his keys. He reports having to break into his house through a window then not being able to ambulate around the house due to weakness. He reports that he was found by a home health nurse this morning. He denies any LOC, chest pain, SOB, edema, muscle cramps, abdominal pain, n/v, d/c. History Information - Allergies/Home Medication List Allergies/Adverse Reactions: No Known Allergies Allergy (Unverified 01/31/18 02:05) Home Medications: Divalproex ER [Depakote ER 500 MG (*)] 750 mg PO BID 02/15/18 [Last Taken 21:00] PARoxetine HCL [Paxil 20mg (*)] 20 mg PO HS 02/15/18 [Last Taken 02/14/18 21:00] Acetaminophen [Tylenol ES 500 mg (*)] 1,000 mg PO HS PRN 03/25/18 [Last Taken Unknown] Lisinopril PO DAILY 03/25/18 [Last Taken Unknown] I have personally reviewed and updated: family history, medical history, social history, surgical history - Past Medical History Additional medical history: acute psychosis/julienne, iron deficiency anemia, necrotizing fasciitis RUE - Surgical History Reports: no pertinent surgical hx Additional surgical history: R arm disarticulation - Family History Positive for: non-pertinent - Social History Smoking Status: Never smoked Alcohol Use: Sober Drug Use: None Additional social history: Lives independently. Apparently he is a hoarder. Review of Systems Review of Systems: ROS: 10pt was reviewed & negative except for what was stated in HPI & below Physical Exam Physical Exam: Temp Pulse Resp BP Pulse Ox 36.6 C 81 16 147/86 H 94 03/25/18 16:11 03/25/18 18:00 03/25/18 18:00 03/25/18 18:00 03/25/18 18:00 Constitutional: chronically ill appearing Eyes: PERRL Ears, Nose, Mouth, Throat: poor dentition Cardiovascular: regular rate and rhythym Respiratory: no respiratory distress Gastrointestinal: normoactive bowel sounds Skin: warm Neurologic: AAOx3 Psychiatric: interacting appropriately Lab Data & Imaging Review 03/25/18 17:08 03/25/18 17:08 WBC 8.22 10^3/uL (3.80-9.50) 03/25/18 17:08 RBC 3.63 10^6/uL (4.40-6.38) L 03/25/18 17:08 Hgb 10.5 g/dL (13.7-17.5) L 03/25/18 17:08 Hct 32.4 % (40.0-51.0) L 03/25/18 17:08 MCV 89.3 fL (81.5-99.8) 03/25/18 17:08 MCH 28.9 pg (27.9-34.1) 03/25/18 17:08 MCHC 32.4 g/dL (32.4-36.7) 03/25/18 17:08 RDW 14.4 % (11.5-15.2) 03/25/18 17:08 Plt Count 385 10^3/uL (150-400) 03/25/18 17:08 MPV 7.8 fL (8.7-11.7) L 03/25/18 17:08 Neut % (Auto) 73.1 % (39.3-74.2) 03/25/18 17:08 Lymph % (Auto) 14.6 % (15.0-45.0) L 03/25/18 17:08 [place] % (Auto) 5.7 % (4.5-13.0) 03/25/18 17:08 Eos % (Auto) 5.0 % (0.6-7.6) 03/25/18 17:08 Baso % (Auto) 0.9 % (0.3-1.7) 03/25/18 17:08 Nucleat RBC Rel Count 0.0 % (0.0-0.2) 03/25/18 17:08 Absolute Neuts (auto) 6.01 10^3/uL (1.70-6.50) 03/25/18 17:08 Absolute Lymphs (auto) 1.20 10^3/uL (1.00-3.00) 03/25/18 17:08 Absolute Monos (auto) 0.47 10^3/uL (0.30-0.80) 03/25/18 17:08 Absolute Eos (auto) 0.41 10^3/uL (0.03-0.40) H 03/25/18 17:08 Absolute Basos (auto) 0.07 10^3/uL (0.02-0.10) 03/25/18 17:08 Absolute Nucleated RBC 0.00 10^3/uL (0-0.01) 03/25/18 17:08 Immature Gran % 0.7 % (0.0-1.1) 03/25/18 17:08 Immature Gran # 0.06 10^3/uL (0.00-0.10) 03/25/18 17:08 Sodium 132 mEq/L (135-145) L 03/25/18 17:08 Potassium 4.9 mEq/L (3.5-5.2) 03/25/18 17:08 Chloride 103 mEq/L (97-110) 03/25/18 17:08 Carbon Dioxide 24 mEq/l (22-31) 03/25/18 17:08 Anion Gap 5 mEq/L (6-14) L 03/25/18 17:08 BUN 15 mg/dL (7-23) 03/25/18 17:08 Creatinine 0.6 mg/dL (0.7-1.3) L 03/25/18 17:08 Estimated GFR > 60 03/25/18 17:08 Glucose 87 mg/dL (70-100) 03/25/18 17:08 Calcium 8.9 mg/dL (8.5-10.4) 03/25/18 17:08 Creatine Kinase 63 IU/L (0-224) 03/25/18 17:08 POC Troponin I 0.02 ng/mL (0.00-0.08) 03/25/18 17:10 Urine Color YELLOW 03/25/18 17:40 Urine Appearance HAZY 03/25/18 17:40 Urine pH 7.0 (5.0-7.5) 03/25/18 17:40 Ur Specific [place] 1.014 (1.002-1.030) 03/25/18 17:40 Urine Protein NEGATIVE (NEGATIVE) 03/25/18 17:40 Urine Ketones TRACE (NEGATIVE) H 03/25/18 17:40 Urine Blood 1+ (NEGATIVE) H 03/25/18 17:40 Urine Nitrate POSITIVE (NEGATIVE) H 03/25/18 17:40 Urine Bilirubin NEGATIVE (NEGATIVE) 03/25/18 17:40 Urine Urobilinogen 2.0 EU (0.2-1.0) H 03/25/18 17:40 Ur Leukocyte Esterase 3+ (NEGATIVE) H 03/25/18 17:40 Urine RBC 3-5 /hpf (0-3) H 03/25/18 17:40 Urine WBC 50-182 /hpf (0-3) H 03/25/18 17:40 Ur Epithelial Cells TRACE /lpf (NONE-1+) 03/25/18 17:40 Urine Bacteria 2+ /hpf (NONE SEEN) H 03/25/18 17:40 Urine Glucose NEGATIVE (NEGATIVE) 03/25/18 17:40 Assessment & Plan Assessment: Failure to Thrive - Discharged from [facility] yesterday - Found down on floor this morning 2/2 to weakness - Tx of UTI as below - PT/OT ordered UTI - UA positive on admission - Patient reports some urinary frequency - Will treat with Ceftriaxone - Urine cx pending, f/u results Hyponatremia - Na 132 on admission - Likely in setting of decreased PO intake - Will give IVF overnight - Repeat BMP in the AM Hx of Necrotizing Fasciitis, s/p RUE amputation - Amputation site appears c/d/i Depression - Continue home medications pending med rec FEN: Regular, IVF Code: FULL Dispo: Admit to Observation
[2018-03-25] MEDS: DIVALPROEX ER 250 MG TAB PO SCH (21:45)
[2018-03-25] MEDS: PARoxetine HCL 20 MG TAB PO SCH (21:45)
[2018-03-25] MEDS: HEPARIN 5,000 UNIT/0.5 ML INJ SC SCH (21:45)
[2018-03-25] MEDS: MELATONIN 3 MG TAB PO SCH (21:45)
[2018-03-25] MEDS: GABAPENTIN 300 MG CAP PO SCH (21:45)
[2018-03-26] MEDS: NS 1,000 ML IV SCH ×2 (01:12→09:49)
[2018-03-26] MEDS: HEPARIN 5,000 UNIT/0.5 ML INJ SC SCH ×3 (05:55→21:15)
[2018-03-26] MEDS: GABAPENTIN 300 MG CAP PO SCH ×2 (07:57→21:15)
[2018-03-26] MEDS: ACETAMINOPHEN 325 MG TAB PO PRN ×4 (07:57→21:20)
[2018-03-26] MEDS: DIVALPROEX ER 250 MG TAB PO SCH ×2 (07:57→21:15)
--- NOTE | 2018-03-26 16:59 | HOSPPROG ---
Hospitalist Progress Note Assessment/Plan: 72 year old male with recent right arm amputation who was discharged from [place] and found on his floor with weakness and failure to thrive. Failure to Thrive- patient was discharged from [facility], went home with home health but was found down by home nurse. PT/OT trying to work with him but patient refusing to work with them. In reviewing his chart patient has a known hx of psychological issues that may make placement and rehab difficult. -cont PT/OT -CM to assist with placement UTI- patient asymptomatic but urine consistent with infection. treating with rocephin. Hyponatremia - Na 132 on admission, mildly better at 133. still appears hypovolemic. suspect hypovolemic hyponatremia. Getting saline IV, recheck Na in am Hx of Necrotizing Fasciitis, s/p RUE amputation - Amputation site appears c/d/i Depression - Continue home medications pending med rec FEN: Regular, IVF Code: FULL Dispo: patient is too weak to walk, will need PT/OT and placement. inpatient for weakness, UTI, placement Subjective: patient in good spirits. still very weak Objective: Vital Signs Temp Pulse Resp BP Pulse Ox 36.9 C 74 16 129/80 H 95 03/26/18 16:26 03/26/18 16:26 03/26/18 16:26 03/26/18 16:26 03/26/18 16:26 Laboratory Results 03/26/18 04:20 03/25/18 03/26/18 03/27/18 05:59 05:59 05:59 Intake Total 980 1952 Output Total 250 575 Balance 730 1377 - Physical Exam Constitutional: no apparent distress, appears nourished, not in pain Eyes: PERRL, anicteric sclera, EOMI Ears, Nose, Mouth, Throat: moist mucous membranes, hearing normal, ears appear normal, no oral mucosal ulcers Cardiovascular: regular rate and rhythym, no murmur, rub, or gallop Respiratory: no respiratory distress, no rales or rhonchi, clear to auscultation Gastrointestinal: normoactive bowel sounds, soft, non-tender abdomen, no palpable masses Genitourinary: no bladder fullness, no bladder tenderness, no renal bruits Skin: no rashes or abrasions, no fluctuance, no induration Musculoskeletal: full muscle strength, no muscle tenderness, normal joint ROM, other (right arm amputation site C/D/I) Neurologic: AAOx3, sensation intact bilaterally Psychiatric: interacting appropriately, not anxious, not encephalopathic, thought process linear Lymph, Heme, Immunologic: no cervical LAD, no supraclavicular LAD ICD10 Worksheet Patient Problems: Problems Problem Status Onset Generalized weakness Acute Acute kidney injury Acute Altered mental status Acute Anemia Acute DIC (disseminated intravascular coagulation) Acute Dehydration Acute Hypocalcemia Acute Hypoglycemia Acute Necrotizing fasciitis of hand Acute Psychosis Acute Septic shock Acute
--- NOTE | 2018-03-26 17:32 | ASMTCMCOM ---
CM Note CM Note Notes: 03/26/2018 Case Management Note Pt admitted for generalized weakness. Please see case management notes from previous admission in july and jan 2018. Pt lives with girlfriendof 14 years Shayy [phone]. Shayy is currently in [place] visiting family. Pt refused case management calling Shayy to clarify discharge plan. Pt plans to stay at [facility] until Shayy arrives "sometime after the new year". Pt refusing SNF rehab. Pt had a 30 day stay at [facility], was released, home for 2 days and admitted to [facility]. Pt refuses ULTC 100 or Medicaid screen at this time. Pt unable to recall name of home care agency. Requested Medicaid and longterm HCBS screening from [employer]. Discussed applying to [facility]. Pt agreeable. Discussed Palliative Care, pt agreeable. Case management d/c poc: to be determined. Case Management to follow. Date Signed: 03/26/2018 05:31 PM Electronically Signed By:Mishel Obrien RN
--- NOTE | 2018-03-26 18:03 | PDMN ---
Medical Necessity Medical necessity: MCG: M300 UTI: A-2 days: FTT, pt found down with severe weakness- pt recently dc from [place] unable to care for self. Pt. found to have UTI, hyponatremia, PMHx necrotizing fasciitis s/p RUE amputation, depression, status changed to INPT 03/26 for ongoing med nec. further tx needed. IV abx, IVF,, PT/OT
[2018-03-26] MEDS: MELATONIN 3 MG TAB PO SCH (21:15)
[2018-03-26] MEDS: PARoxetine HCL 20 MG TAB PO SCH (21:15)
[2018-03-27] MEDS: HEPARIN 5,000 UNIT/0.5 ML INJ SC SCH ×3 (05:57→23:03)
[2018-03-27] MEDS: DIVALPROEX ER 250 MG TAB PO SCH ×2 (08:31→23:02)
[2018-03-27] MEDS: GABAPENTIN 300 MG CAP PO SCH ×2 (08:31→23:02)
--- NOTE | 2018-03-27 09:39 | WOCRNPDOC ---
WOCRN Advanced Assessment Note - Skin Integrity Problem, Advanced Assess Upper Medial Back Blister Dressing Type: Allevyn Life Exudate Amount: Scant Exudate Characteristic(s): Serosanguinous Integumentary Issue Intervention: Visualized Under Dressing Site Measurement - Head-to-Toe Length X Width X Depth (cm): 2.2x1.3x0.1 Skin Integrity Problem Comment: Partial thickness wound. No sign of infection. No concerns. Wound care will not follow this wound. Right Ischial Tuberosity Pressure Injury Dressing Type: Open to Air Wound Bed Constitution: Granulation Tissue (50%), Red/[place] - Non Granular Tissue (30%), Adhered Slough (20%) Wound Edges: Epithelizing, Attached Site Measurement - Head-to-Toe Length X Width X Depth (cm): 1.2x1.7x0.1 Pressure Injury Stage: Stage 3 Pressure Injury Present on Admit: Yes Skin Integrity Problem Comment: Healing wound. Wound care to follow. Left ischial tuberosity scarred but healed full thickness wound that is also present on admission. Sacrum blanching and intact with scarring from previous pressure injuries. Wound care will follow. Please try and keep HOB below 30 degrees as much as medically possible.
[2018-03-27] MEDS: CEFEPIME HCL 1 GM in NS 50 ML IV SCH (12:10)
[2018-03-27 16:11] LABS: PLATELET COUNT 343 10^3/uL (150-400)
--- NOTE | 2018-03-27 16:36 | HOSPPROG ---
Hospitalist Progress Note Assessment/Plan: 72 year old male with recent right arm amputation who was discharged from [place] and found on his floor with weakness and failure to thrive. Failure to Thrive- patient was discharged from [facility], went home with home health but was found down by home nurse. PT/OT trying to work with him but patient refusing to work with them. In reviewing his chart patient has a known hx of psychological issues that may make placement and rehab difficult. Patient insists that his weakness is due to him needing 50mg iron tablets. He is not working with PT/OT very well. -cont PT/OT, -CM to assist with placement UTI- patient asymptomatic but urine consistent with infection. Urine culture grew out pseudomonas. I curbsided ID who recommended cefepime until better culture data available -Changed to cefepime -monitor culture data to guide therapy. Hyponatremia - likely hypovolemic hyponatremia from poor po intake. Was very mild. repeat Na in am. Anemia- normocytic anemia. Pending iron studies. Paitent insists he needs 50mg iron. Hx of Necrotizing Fasciitis, s/p RUE amputation - Amputation site appears c/d/i Depression - Continue home medications pending med rec FEN: Regular, IVF Code: FULL Dispo: patient is too weak to walk, will need PT/OT and placement. inpatient for weakness, UTI, placement Subjective: patient perseverative about "the old days". No pain, very weak. No other conmplaints. Objective: Vital Signs Temp Pulse Resp BP Pulse Ox 36.8 C 66 18 134/81 H 93 03/27/18 16:00 03/27/18 16:00 03/27/18 16:00 03/27/18 16:00 03/27/18 16:00 Laboratory Results 03/27/18 16:02 03/27/18 16:02 03/26/18 03/27/18 03/28/18 05:59 05:59 05:59 Intake Total 2411 550 Output Total 1850 1050 Balance 561 -500 - Physical Exam Constitutional: no apparent distress, appears nourished, not in pain Eyes: PERRL, anicteric sclera, EOMI Ears, Nose, Mouth, Throat: moist mucous membranes, hearing normal, ears appear normal, no oral mucosal ulcers Cardiovascular: regular rate and rhythym, no murmur, rub, or gallop Respiratory: no respiratory distress, no rales or rhonchi, clear to auscultation Gastrointestinal: normoactive bowel sounds, soft, non-tender abdomen, no palpable masses Genitourinary: no bladder fullness, no bladder tenderness, no renal bruits Skin: no rashes or abrasions, no fluctuance, no induration Musculoskeletal: full muscle strength, no muscle tenderness, normal joint ROM, other (right extremity above elbow amputation appears well healed. ) Neurologic: AAOx3, sensation intact bilaterally Psychiatric: interacting appropriately, not anxious, not encephalopathic, thought process linear Lymph, Heme, Immunologic: no cervical LAD, no supraclavicular LAD ICD10 Worksheet Patient Problems: Problems Problem Status Onset Generalized weakness Acute Acute kidney injury Acute Altered mental status Acute Anemia Acute DIC (disseminated intravascular coagulation) Acute Dehydration Acute Hypocalcemia Acute Hypoglycemia Acute Necrotizing fasciitis of hand Acute Psychosis Acute Septic shock Acute
--- NOTE | 2018-03-27 17:02 | ASMTCMCOM ---
CM Note CM Note Notes: 03/27/2018 Case Management Note Discussed pt in rounds. Encouraged pt to participate in Physical Therapy. Discussed with manager of care team. Pt is known to case management and continues to refuse ULTC 100 application and 30 day stay at SNF. However pt psych history will make placement challenging. Faxed referrals for home care. Pt continues to refuse case management contacting Shayy, making a discharge home alone likely. Case Management has a wheelchair to donate to pt to assist with a safe home discharge. Case Management d/c poc: Planning for home care and returning to home. Case Management to follow. Date Signed: 03/27/2018 05:01 PM Electronically Signed By:Mishel Obrien RN
[2018-03-27] MEDS: PARoxetine HCL 20 MG TAB PO SCH (23:02)
[2018-03-27] MEDS: ACETAMINOPHEN 325 MG TAB PO PRN (23:02)
[2018-03-27] MEDS: MELATONIN 3 MG TAB PO SCH (23:03)
[2018-03-28 04:08] LABS: PLATELET COUNT 327 10^3/uL (150-400)
[2018-03-28] MEDS: HEPARIN 5,000 UNIT/0.5 ML INJ SC SCH ×3 (08:03→21:00)
[2018-03-28] MEDS: GABAPENTIN 300 MG CAP PO SCH ×2 (08:03→20:59)
[2018-03-28] MEDS: DIVALPROEX ER 250 MG TAB PO SCH ×2 (08:03→20:59)
[2018-03-28] MEDS: CEFEPIME HCL 1 GM in NS 50 ML IV SCH (09:30)
--- NOTE | 2018-03-28 14:47 | HOSPPROG ---
Hospitalist Progress Note Assessment/Plan: 72 year old male with recent right arm amputation who was discharged from [place] and found on his floor with weakness and failure to thrive. Failure to Thrive- patient was discharged from [facility], went home with home health but was found down by home nurse. PT/OT trying to work with him but patient refusing to work with them. In reviewing his chart patient has a known hx of psychological issues that may make placement and rehab difficult. Patient insists that his weakness is due to him needing 50mg iron tablets. He is not working with PT/OT very well. -cont PT/OT, -CM to assist with placement UTI- patient asymptomatic but urine consistent with infection. Urine culture grew out pseudomonas. I curbsided ID who recommended cefepime until better culture data available -Changed to cefepime -monitor culture data to guide therapy. Hyponatremia - likely hypovolemic hyponatremia from poor po intake. Was very mild. repeat Na in am. Anemia- normocytic anemia. Pending iron studies. Paitent insists he needs 50mg iron. Hx of Necrotizing Fasciitis, s/p RUE amputation - Amputation site appears c/d/i Depression - Continue home medications pending med rec FEN: Regular, IVF Code: FULL Dispo: patient is too weak to walk, will need PT/OT and placement. inpatient for weakness, UTI, placement Subjective: Patient reports ongoing weakness Objective: Vital Signs Temp Pulse Resp BP Pulse Ox 36.3 C 70 18 132/68 H 93 03/28/18 12:00 03/28/18 12:00 03/28/18 12:00 03/28/18 12:00 03/28/18 12:00 Laboratory Results 03/28/18 03:54 03/28/18 03:54 03/27/18 03/28/18 03/29/18 05:59 05:59 05:59 Intake Total 2411 2225 930 Output Total 7480 3590 1025 Balance 561 -625 -95 - Physical Exam Constitutional: chronically ill appearing, unkempt Eyes: PERRL Ears, Nose, Mouth, Throat: moist mucous membranes Cardiovascular: regular rate and rhythym Respiratory: no respiratory distress Gastrointestinal: normoactive bowel sounds Genitourinary: no bladder tenderness Musculoskeletal: full muscle strength Neurologic: AAOx3 Psychiatric: interacting appropriately ICD10 Worksheet Patient Problems: Problems Problem Status Onset Generalized weakness Acute Acute kidney injury Acute Altered mental status Acute Anemia Acute DIC (disseminated intravascular coagulation) Acute Dehydration Acute Hypocalcemia Acute Hypoglycemia Acute Necrotizing fasciitis of hand Acute Psychosis Acute Septic shock Acute
--- NOTE | 2018-03-28 15:51 | ASMTCMCOM ---
CM Note CM Note Notes: [facility] in to meet with pt today. [facility] stated that mtg went well and asked to be notified when he is d/[place]. D/C Plan: Home with [facility] Date Signed: 03/28/2018 03:51 PM Electronically Signed By:Ghislaine Hicks
[2018-03-28] MEDS: MELATONIN 3 MG TAB PO SCH (20:59)
[2018-03-28] MEDS: PARoxetine HCL 20 MG TAB PO SCH (20:59)
[2018-03-28] MEDS: ACETAMINOPHEN 325 MG TAB PO PRN (20:59)
[2018-03-29] MEDS: HEPARIN 5,000 UNIT/0.5 ML INJ SC SCH ×3 (06:26→21:43)
[2018-03-29] MEDS: GABAPENTIN 300 MG CAP PO SCH ×2 (08:29→21:41)
[2018-03-29] MEDS: DIVALPROEX ER 250 MG TAB PO SCH ×2 (08:29→21:41)
--- NOTE | 2018-03-29 13:44 | HOSPPROG ---
Hospitalist Progress Note Assessment/Plan: 72 year old male with recent right arm amputation who was discharged from [place] and found on his floor with weakness and failure to thrive. First encounter, chart reviewed. *FTT -was dc from [place] to home, found down by home nurse -PT and OT *UTI -asymptomatic (had been on Cefepime but was dc) - urine cx grow out Pseudomonas, klebsiella pna, and staph epidermis *Hyponatremia - likely hypovolemic hyponatremia from poor po intake *iron deficiency Anemia -will add oral iron and vitamin c *Hx of Necrotizing Fasciitis, s/p RUE amputation - Amputation site appears c/d/i *Depression - Continue home medications Code: FULL Dispo: Daren only wants to go home. His girlfriend will be arriving here on . He says he will have home care help. I'm concerned he can't care for himself, (he used a food cover top today to have a bowel movement in while in bed and was unable to get to the bathroom). Further discussion once his girlfriend arrives. Subjective: Daren's main complaint is that he is right handed and now w the loss of his right arm it is difficult to do basic things. Objective: Vital Signs Temp Pulse Resp BP Pulse Ox 36.6 C 72 16 130/76 H 93 03/29/18 08:25 03/29/18 08:25 03/29/18 08:25 03/29/18 08:25 03/29/18 08:25 Laboratory Results 03/28/18 03:54 03/29/18 04:30 03/28/18 03/29/18 03/30/18 05:59 05:59 05:59 Intake Total 2225 1680 Output Total 2850 2350 950 Balance -904 -242 -204 - Physical Exam Constitutional: chronically ill appearing, other (thin) Eyes: PERRL Ears, Nose, Mouth, Throat: poor dentition Cardiovascular: regular rate and rhythym Respiratory: no respiratory distress Gastrointestinal: normoactive bowel sounds Skin: warm, other (right arm stump without any drainage, has a hardened scab area) Musculoskeletal: generalized weakness Neurologic: AAOx3 Psychiatric: interacting appropriately ICD10 Worksheet Patient Problems: Problems Problem Status Onset Generalized weakness Acute Acute kidney injury Acute Altered mental status Acute Anemia Acute DIC (disseminated intravascular coagulation) Acute Dehydration Acute Hypocalcemia Acute Hypoglycemia Acute Necrotizing fasciitis of hand Acute Psychosis Acute Septic shock Acute
[2018-03-29] MEDS: FERRO-SEQUELS 65 MG TAB.ER PO SCH ×2 (15:38→21:41)
[2018-03-29] MEDS: ASCORBIC ACID 500 MG TAB PO SCH (15:38)
[2018-03-29] MEDS: PARoxetine HCL 20 MG TAB PO SCH (21:41)
[2018-03-29] MEDS: MELATONIN 3 MG TAB PO SCH (21:41)
[2018-03-29] MEDS: ACETAMINOPHEN 325 MG TAB PO PRN (22:17)
[2018-03-30] MEDS: HEPARIN 5,000 UNIT/0.5 ML INJ SC SCH ×3 (05:49→21:43)
[2018-03-30] MEDS: GABAPENTIN 300 MG CAP PO SCH ×2 (09:10→21:43)
[2018-03-30] MEDS: DIVALPROEX ER 250 MG TAB PO SCH ×2 (09:10→21:42)
[2018-03-30] MEDS: ASCORBIC ACID 500 MG TAB PO SCH (09:10)
[2018-03-30] MEDS: FERRO-SEQUELS 65 MG TAB.ER PO SCH ×2 (09:10→21:43)
--- NOTE | 2018-03-30 09:26 | HOSPPROG ---
Hospitalist Progress Note Assessment/Plan: 72 year old male with recent right arm amputation who was discharged from [place] and found on his floor with weakness and failure to thrive. First encounter, chart reviewed. *FTT -was dc from [place] to home, found down by home nurse -PT and OT *UTI -asymptomatic (had been on Cefepime but was dc) - urine cx grow out Pseudomonas, klebsiella pna, and staph epidermis *Hyponatremia - likely hypovolemic hyponatremia from poor po intake - better *iron deficiency Anemia -oral iron and vitamin c *Hx of Necrotizing Fasciitis, s/p RUE amputation - Amputation site appears c/d/i *Depression - Continue home medications Code: FULL Dispo: -Daren only wants to go home. -refusing SNF -His girlfriend will be returning on rachid -He says he will have home care help -concerned he can't care for himself -poor insight -Further discussion once his girlfriend arrives. Subjective: Feeling well. No pain currently. Eating. No other issues. Objective: Vital Signs Temp Pulse Resp BP Pulse Ox 36.7 C 68 16 137/80 H 93 03/30/18 07:52 03/30/18 07:52 03/30/18 07:52 03/30/18 07:52 03/30/18 07:52 Laboratory Results 03/28/18 03:54 03/29/18 04:30 03/29/18 03/30/18 03/31/18 05:59 05:59 05:59 Intake Total 1680 Output Total 2350 1600 150 Balance -670 -1600 -150 - Physical Exam Constitutional: not in pain, chronically ill appearing, cachectic Eyes: PERRL, anicteric sclera, EOMI Ears, Nose, Mouth, Throat: moist mucous membranes, hearing normal, ears appear normal Cardiovascular: regular rate and rhythym, No JVD, No edema Respiratory: no respiratory distress, no rales or rhonchi, reduced air movement Gastrointestinal: normoactive bowel sounds, No tenderness, No ascites Skin: warm, normal color, No mottled Musculoskeletal: normal joint ROM, no joint effusions, generalized weakness Neurologic: AAOx3 Psychiatric: anxious, poor insight, poor judgement, poor memory ICD10 Worksheet Patient Problems: Problems Problem Status Onset Altered mental status Acute Anemia Acute Psychosis Acute Septic shock Acute Necrotizing fasciitis of hand Acute DIC (disseminated intravascular coagulation) Acute Hypoglycemia Acute Hypocalcemia Acute Dehydration Acute Acute kidney injury Acute Generalized weakness Acute
[2018-03-30] MEDS: ACETAMINOPHEN 325 MG TAB PO PRN (12:02)
[2018-03-30] MEDS: MELATONIN 3 MG TAB PO SCH (21:42)
[2018-03-30] MEDS: PARoxetine HCL 20 MG TAB PO SCH (21:43)
[2018-03-31] MEDS: HEPARIN 5,000 UNIT/0.5 ML INJ SC SCH ×3 (05:01→21:50)
[2018-03-31] MEDS: GABAPENTIN 300 MG CAP PO SCH ×2 (08:30→21:51)
[2018-03-31] MEDS: FERRO-SEQUELS 65 MG TAB.ER PO SCH ×2 (08:31→21:51)
[2018-03-31] MEDS: ASCORBIC ACID 500 MG TAB PO SCH (08:31)
[2018-03-31] MEDS: DIVALPROEX ER 250 MG TAB PO SCH ×2 (08:31→21:50)
--- NOTE | 2018-03-31 12:15 | ASMTCMCOM ---
CM Note CM Note Notes: CM spoke to Marissa Araiza NP regarding d/c POC. CM met w/ pt for dispo planning. Pt is interested in going to a SNF in [place] that is not [facility]. Pt was d/c'd from [facility] on 03/24. CM triggered the level 2 pasrr. Referrals sent to SNFs. Pt has been refusing SNF up until today. CM to follow. Plan: Possible SNF Date Signed: 03/31/2018 12:15 PM Electronically Signed By:EFRAIN Espana
--- NOTE | 2018-03-31 15:09 | HOSPPROG ---
Hospitalist Progress Note Assessment/Plan: 72 year old male with recent right arm amputation who was discharged from [place] and found on his floor with weakness and failure to thrive. *FTT -was dc from [place] to home, found down by home nurse -PT and OT -should go to SNF *UTI -asymptomatic (had been on Cefepime but was dc) - urine cx grow out Pseudomonas, klebsiella pna, and staph epidermis *Hyponatremia - likely hypovolemic hyponatremia from poor po intake - better *iron deficiency Anemia -oral iron and vitamin c *Hx of Necrotizing Fasciitis, s/p RUE amputation - Amputation site appears c/d/i *Depression - Continue home medications Code: FULL Dispo: -consider SNF -had been refusing SNF -His girlfriend will be returning on rachid, per patient report -He says he will have home care help -concerned he can't care for himself -poor insight -DC in am to home with HHC VS SNF -D/W CM Subjective: Tired today. No specific issues. Objective: Vital Signs Temp Pulse Resp BP Pulse Ox 36.7 C 69 16 140/80 H 95 03/31/18 07:15 03/31/18 07:15 03/31/18 07:15 03/31/18 07:15 03/31/18 07:15 Laboratory Results 03/28/18 03:54 03/29/18 04:30 03/30/18 03/31/18 04/01/18 05:59 05:59 05:59 Output Total 1600 448 400 Balance -7453 -984 -400 - Physical Exam Constitutional: appears nourished, chronically ill appearing Eyes: PERRL, anicteric sclera Ears, Nose, Mouth, Throat: moist mucous membranes, hearing normal Cardiovascular: No JVD, No edema Respiratory: no respiratory distress, reduced air movement Gastrointestinal: No tenderness, No ascites Skin: warm, normal color Musculoskeletal: no joint effusions, generalized weakness Psychiatric: poor insight, poor judgement, poor memory ICD10 Worksheet Patient Problems: Problems Problem Status Onset Altered mental status Acute Anemia Acute Psychosis Acute Septic shock Acute Necrotizing fasciitis of hand Acute DIC (disseminated intravascular coagulation) Acute Hypoglycemia Acute Hypocalcemia Acute Dehydration Acute Acute kidney injury Acute Generalized weakness Acute
[2018-03-31] MEDS: PARoxetine HCL 20 MG TAB PO SCH (21:51)
[2018-03-31] MEDS: MELATONIN 3 MG TAB PO SCH (21:51)
[2018-04-01] MEDS: HEPARIN 5,000 UNIT/0.5 ML INJ SC SCH ×3 (05:12→21:55)
[2018-04-01] MEDS: ASCORBIC ACID 500 MG TAB PO SCH (10:22)
[2018-04-01] MEDS: FERRO-SEQUELS 65 MG TAB.ER PO SCH ×2 (10:22→21:55)
[2018-04-01] MEDS: GABAPENTIN 300 MG CAP PO SCH ×2 (10:22→21:55)
[2018-04-01] MEDS: DIVALPROEX ER 250 MG TAB PO SCH ×2 (10:22→21:54)
--- NOTE | 2018-04-01 10:35 | ASMTCMCOM ---
CM Note CM Note Notes: [facility] him. Cecilio stopped by yesterday and met w/ pt. JANICE spoke to Sal and Sal has approved pt for 60 days. JANICE attached the level 2 pasrr into allscripts via fax attach. JANICE communicated this info w/ Marissa Araiza NP. [facility] [employer] [facility] CM to follow Plan: [facility] Date Signed: 04/01/2018 10:34 AM Electronically Signed By:EFRAIN Espana
--- NOTE | 2018-04-01 13:08 | HOSPPROG ---
Hospitalist Progress Note Assessment/Plan: 72 year old male with recent right arm amputation who was discharged from [place] and found on his floor with weakness and failure to thrive. *FTT -was dc from [place] to home, found down by home nurse -PT and OT -should go to SNF *UTI -asymptomatic (had been on Cefepime but was dc) - urine cx grow out Pseudomonas, klebsiella pna, and staph epidermis *Hyponatremia - likely hypovolemic hyponatremia from poor po intake - better *iron deficiency Anemia -oral iron and vitamin c *Hx of Necrotizing Fasciitis, s/p RUE amputation - Amputation site appears c/d/i *Depression - Continue home medications Code: FULL Dispo: -SNF -had been refusing SNF -concerned he can't care for himself -poor insight -DC in am to SNF -D/W CM Subjective: Feeling fine. No issues. Objective: Vital Signs Temp Pulse Resp BP Pulse Ox 36.9 C 76 16 114/80 95 04/01/18 07:57 04/01/18 07:57 04/01/18 07:57 04/01/18 07:57 04/01/18 07:57 Laboratory Results 03/28/18 03:54 03/29/18 04:30 03/31/18 04/01/18 04/02/18 05:59 05:59 05:59 Intake Total 500 Output Total 775 525 150 Balance -775 -25 -150 - Physical Exam Constitutional: appears nourished, chronically ill appearing Eyes: PERRL, anicteric sclera Ears, Nose, Mouth, Throat: moist mucous membranes, hearing normal Cardiovascular: No JVD, No edema Respiratory: no respiratory distress, reduced air movement Gastrointestinal: No tenderness, No ascites Skin: warm, normal color Musculoskeletal: no joint effusions, generalized weakness Psychiatric: not anxious, poor insight, poor judgement, poor memory ICD10 Worksheet Patient Problems: Problems Problem Status Onset Altered mental status Acute Anemia Acute Psychosis Acute Septic shock Acute Necrotizing fasciitis of hand Acute DIC (disseminated intravascular coagulation) Acute Hypoglycemia Acute Hypocalcemia Acute Dehydration Acute Acute kidney injury Acute Generalized weakness Acute
[2018-04-01] MEDS: MELATONIN 3 MG TAB PO SCH (21:55)
[2018-04-01] MEDS: PARoxetine HCL 20 MG TAB PO SCH (21:55)
[2018-04-02] MEDS: HEPARIN 5,000 UNIT/0.5 ML INJ SC SCH ×3 (05:48→21:44)
[2018-04-02] MEDS: FERRO-SEQUELS 65 MG TAB.ER PO SCH ×2 (08:46→21:41)
[2018-04-02] MEDS: ASCORBIC ACID 500 MG TAB PO SCH (08:46)
[2018-04-02] MEDS: ACETAMINOPHEN 325 MG TAB PO PRN ×3 (08:46→21:41)
[2018-04-02] MEDS: GABAPENTIN 300 MG CAP PO SCH ×2 (08:46→21:42)
[2018-04-02] MEDS: DIVALPROEX ER 250 MG TAB PO SCH ×2 (08:46→21:42)
--- NOTE | 2018-04-02 13:24 | HOSPPROG ---
Hospitalist Progress Note Assessment/Plan: 72 year old male with recent right arm amputation who was discharged from [place] and found on his floor with weakness and failure to thrive. *FTT -was dc from [place] to home, found down by home nurse -PT and OT -should go to SNF *UTI -asymptomatic (had been on Cefepime but was dc) - urine cx grow out Pseudomonas, klebsiella pna, and staph epidermis *Hyponatremia - likely hypovolemic hyponatremia from poor po intake - better *iron deficiency Anemia -oral iron and vitamin c *Hx of Necrotizing Fasciitis, s/p RUE amputation - Amputation site appears c/d/i *Depression - Continue home medications Code: FULL Dispo: -SNF -had been refusing SNF -concerned he can't care for himself -poor insight -DC in am to SNF -D/W CM Subjective: Feeling fine. No pain. Objective: Vital Signs Temp Pulse Resp BP Pulse Ox 36.8 C 72 16 118/73 92 04/02/18 07:30 04/02/18 07:30 04/02/18 07:30 04/02/18 07:30 04/02/18 07:30 Laboratory Results 03/28/18 03:54 03/29/18 04:30 04/01/18 04/02/18 04/03/18 05:59 05:59 05:59 Intake Total 500 975 Output Total 525 650 425 Balance -25 325 -425 - Physical Exam Constitutional: appears nourished, chronically ill appearing Eyes: PERRL, anicteric sclera Ears, Nose, Mouth, Throat: moist mucous membranes, hearing normal Cardiovascular: regular rate and rhythym, No JVD Respiratory: no respiratory distress, no rales or rhonchi Gastrointestinal: No tenderness, No ascites Skin: warm, normal color Musculoskeletal: no joint effusions, generalized weakness Neurologic: AAOx3 Psychiatric: not anxious, poor insight, poor judgement, poor memory ICD10 Worksheet Patient Problems: Problems Problem Status Onset Altered mental status Acute Anemia Acute Psychosis Acute Septic shock Acute Necrotizing fasciitis of hand Acute DIC (disseminated intravascular coagulation) Acute Hypoglycemia Acute Hypocalcemia Acute Dehydration Acute Acute kidney injury Acute Generalized weakness Acute
[2018-04-02] MEDS: PARoxetine HCL 20 MG TAB PO SCH (21:41)
[2018-04-02] MEDS: MELATONIN 3 MG TAB PO SCH (21:41)
[2018-04-03] MEDS: ACETAMINOPHEN 325 MG TAB PO PRN ×2 (05:35→10:17)
[2018-04-03] MEDS: HEPARIN 5,000 UNIT/0.5 ML INJ SC SCH ×2 (05:36→14:48)
[2018-04-03] MEDS: ASCORBIC ACID 500 MG TAB PO SCH (10:08)
[2018-04-03] MEDS: GABAPENTIN 300 MG CAP PO SCH (10:09)
[2018-04-03] MEDS: DIVALPROEX ER 250 MG TAB PO SCH (10:09)
[2018-04-03] MEDS: FERRO-SEQUELS 65 MG TAB.ER PO SCH (10:09)
--- NOTE | 2018-04-03 10:10 | WOCRNPDOC ---
WOCRN Advanced Assessment Note - Skin Integrity Problem, Advanced Assess Right Ischial Tuberosity Pressure Injury Dressing Type: Allevyn Life Dressing Description: Intact, Soiled (feces) Integumentary Issue Intervention: Dressing Changed Wound Bed Constitution: Granulation Tissue (60%), Red/Eminence - Non Granular Tissue (40%) Wound Edges: Epithelizing, Attached Site Measurement - Head-to-Toe Length X Width X Depth (cm): 1.2x1.4x0.1 Pressure Injury Stage: Stage 3 Pressure Injury Present on Admit: Yes Skin Integrity Problem Comment: Healing now mostly partial thickness. No concerns. Continue care plan. Wound care will follow. Upper Medial Back Blister Dressing Type: Allevyn Life Exudate Amount: None Integumentary Issue Intervention: Visualized Under Dressing Wound Bed Constitution: Healed
--- NOTE | 2018-04-03 13:59 | HOSPPROG ---
Hospitalist Progress Note Assessment/Plan: 72 year old male with recent right arm amputation who was discharged from [facility] and found on his floor with weakness and failure to thrive. *FTT -was dc from [facility] to home, found down by home nurse -PT and OT *UTI -asymptomatic (had been on Cefepime but was dc) - urine cx grow out Pseudomonas, klebsiella pna, and staph epidermis *Hyponatremia - likely hypovolemic hyponatremia from poor po intake *iron deficiency Anemia -will add oral iron and vitamin c *Hx of Necrotizing Fasciitis, s/p RUE amputation - Amputation site appears c/d/i *Depression - Continue home medications Code: FULL plan: dc to [facility] Subjective: Daren feels fine, ready for dc Objective: Vital Signs Temp Pulse Resp BP Pulse Ox 36.9 C 75 16 121/75 H 94 04/03/18 07:25 04/03/18 07:25 04/03/18 07:25 04/03/18 07:25 04/03/18 07:25 Laboratory Results 03/28/18 03:54 03/29/18 04:30 04/02/18 04/03/18 04/04/18 05:59 05:59 05:59 Intake Total 975 500 Output Total 650 700 125 Balance 325 -200 -125 - Physical Exam Constitutional: no apparent distress, chronically ill appearing, unkempt Eyes: PERRL Ears, Nose, Mouth, Throat: poor dentition Respiratory: no respiratory distress Skin: warm Musculoskeletal: generalized weakness Neurologic: AAOx3 Psychiatric: interacting appropriately ICD10 Worksheet Patient Problems: Problems Problem Status Onset Generalized weakness Acute Acute kidney injury Acute Altered mental status Acute Anemia Acute DIC (disseminated intravascular coagulation) Acute Dehydration Acute Hypocalcemia Acute Hypoglycemia Acute Necrotizing fasciitis of hand Acute Psychosis Acute Septic shock Acute
--- NOTE | 2018-04-03 14:33 | PDIAF ---
- Diagnosis Diagnosis: FTT Code Status: Full Code - Medication Management Discharge Medications: electronically signed and located in the Home Medication List. PICC Care - Routine: N/A - Orders Services needed: Physical Therapy, Occupational Therapy Diet Recommendation: no restrictions on diet Diet Texture: Regular Texture Diet Additional Instructions: Please follow up within 3- 4 weeks of discharge with [facility] You may reach them at [phone] for an appointment and continued management of your wounds. Please call them prashant to schedule your appointment as they fill up quickly. If before that time you have any issues, please follow up with your PCP. Change dressings to Right ischial tuberosity stage 3 pressure injury every 3 days and prn. 1. Clean with ns and gauze 2. Wound gel to wound bed 3. Cover with medium or Large foam border dressing. Esha VARNER. - Follow Up Care Current Providers and Referrals: Patient,NotPresent [Unknown] - As per Instructions
--- NOTE | 2018-04-03 15:04 | ASMTLACE ---
HUMPHREY Length of stay for Answers: 7-13 days current admission Acuity / Level of Answers: Yes Care: Did the patient have an inpatient admission? Comorbidities - select Answers: Other Notes: amputee all that apply # of Emergency department Answers: 3-4 visits in the last 6 months Social determinants Answers: Mental health diagnosis (anxiety, depression, pers onality disorders, etc.) Score: 15 Date Signed: 04/03/2018 03:03 PM Electronically Signed By:Sommer Milian RN
--- NOTE | 2018-04-03 15:07 | ASMTDCNOTE ---
Case Management Discharge Discharge Order Complete? Answers: Yes Patient to Obtain Answers: Other Notes: [facility] Medications Transportation Arranged Answers: Other Notes: [facility] will Pick (Date 04/03/2018 05:30 PM & Time) Case Management Transport Answers: Yes Form Complete Faxed Final Orders Answers: Yes Agency/Facility Transfer Answers: Yes Report Printed & Faxed to Receiving Agency Discharge Comments Notes: D/w COAT ROOM ATTENDANT, final orders faxed. Cecilio pacheco ravi, RN to call report. Date Signed: 04/03/2018 03:07 PM Electronically Signed By:Sommer Milian RN
--- NOTE | 2018-04-03 16:34 | GDS ---
DISCHARGE DIAGNOSES: 1. Failure to thrive. 2. Urinary tract infection. 3. Hyponatremia. 4. Iron-deficiency anemia. 5. History of necrotizing fasciitis, status post right upper extremity amputation. 6. Depression. HISTORY OF PRESENT ILLNESS: Briefly, the patient is a 72-year-old male with a past medical history o f recent necrotizing fasciitis, status post right arm amputation, BPH, who presented to [facility] after essence ng found down at home. He was discharged from [facility] and sent home via taxi without his keys. H e had to break into his house and then was unable to ambulate. The home care nurse found him on the floor, and he was admitted for further care. HOSPITAL COURSE: 1. Failure to thrive. He did not do well after being discharged from [facility]. Initially during his hospital stay, he declined to go to a rehab facility, but he has been having difficulty caring fo r himself. He will be discharged to [facility]. 2. Urinary tract infection. He was treated with cefepime. Overall, he was asymptomatic. 3. Hyponatremia, likely hypovolemic hyponatremia from poor p.o. intake. 4. Iron-deficiency anemia, iron and vitamin C added. 5. History of necrotizing fasciitis, status post right upper extremity amputation. Site looks stabl e. 6. Depression. Home medications continued. DISCHARGE CONDITION: Stable. Blood pressure is 121/75, respiratory rate 16, pulse 75, temperature 3 6.9 Celsius, O2 saturation on room air 94%. DISCHARGE MEDICATIONS: Please see the EMR. DISCHARGE INSTRUCTIONS: 1. The goal of his discharge is mainly to get him stronger to return home. 2. If he develops fever, chills, chest pain, or shortness of breath, return to the ER. 3. Greater than 30 minutes discharging and coordinating the patient's care. /[id number]/MODL
[2018-04-03 16:44] VITALS: BP 139/80
--- NOTE | 2018-04-07 16:18 | PQFORM ---
PHYSICIAN QUERY FORM Needs Your Response This query form is being sent to you to assure this patient record is coded properly. Please respond to the question below: ASSISTANT CONSTRUCTION SUPERINTENDENT QUESTION: Dear Shayy, The 03/27 Wound Care Assessment Note by Esha Boudreaux RN and cosigned by Dr. Eid states the patient had a right ischial tuberosity pressure injury that was present on admission. Based on your professional judgment and your clinical findings, can that diagnosis be added to the discharge summary?: ____x__ yes no other Thank you for clarifying, ADELA Sanches HIM Coding INSTRUCTIONS FOR RESPONSE: Answer question by clicking on the "Edit Document" button. Move cursor to area below the stars. When complete, hit "Save." Click on the "Sign" button, then click "Sign" again. Type in your PIN and hit "Enter." MTDD
--- NOTE | 2018-04-09 09:15 | ASDISCHSUM ---
Discharge Information Plan Status:SNF Medically Cleared to Leave:04/02/2018 Discharge Date:04/03/2018 06:43 PM CM D/C Disposition: ADT D/C Disposition:Group Home Facility Projected Discharge Date:03/27/2018 11:00 AM Transportation at D/C: Discharge Delay Reason: Follow-Up Date:03/27/2018 11:00 AM Discharge Slot: Final Diagnosis: Placement Information Referral Type:*Home Health Care Services Ref[facility] ID:[id number] Provider Name: Address 1: Phone Number: Address 2: Fax Number: City: Selection Factors: State: Referral Type:*Retirement/SNF Referral ID:[id number] Provider Name:[facility] Address 1:[address] [facility] Address 2: Fax Number: [facility]:[place] Selection Factors: State:[place] Patient Contact Information Contact Name:MIAH Relationship:Other Address:[address] [place] [address] Work Phone: City:[place] Alternate Phone: [facility]/Zip Code:[place] [address] Email: Financial Information Financial Class:Medicare Advantage Plans Primary Plan Desc:[facility] [employer] Primary Plan Number:[id number] Secondary Plan Desc:[employer] Secondary Plan Number:[id number] Assessment Information [facility] CM Progress Note CM Note CM Note Notes: 03/26/2018 Case Management Note Pt admitted for generalized weakness. Please see case management notes from previous admission in july and jan 2018. Pt lives with girlfriendof 14 years Shayy [phone]. Shayy is currently in [place] visiting [facility]. Pt refused case management calling Shayy to clarify discharge plan. Pt plans to stay at [facility] until Shayy arrives "sometime after the new year". Pt refusing SNF rehab. Pt had a 30 day stay at [facility], was released, home for 2 days and admitted to [facility]. Pt refuses ULTC 100 or Medicaid screen at this time. Pt unable to recall name of home care agency. Requested Medicaid and longterm HCBS screening from [employer]. Discussed applying to [facility]. Pt agreeable. Discussed Palliative Care, pt agreeable. Case management d/c poc: to be determined. Case Management to follow. Date Signed: 03/26/2018 05:31 PM Electronically Signed By:Mishel Obrien RN LACE LACE Length of stay for Answers: 7-13 days current admission Acuity / Level of Answers: Yes Care: Did the patient have an inpatient admission? Comorbidities - select Answers: Other Notes: amputee all that apply # of Emergency department Answers: 3-4 visits in the last 6 months Social determinants Answers: Mental health diagnosis (anxiety, depression, pers onality disorders, etc.) Score: 15 Date Signed: 04/03/2018 03:03 PM Electronically Signed By:Sommer Milian RN [facility] CM Progress Note CM Note CM Note Notes: 03/27/2018 Case Management Note Discussed pt in rounds. Encouraged pt to participate in Physical Therapy. Discussed with art framing manager team. Pt is known to case management and continues to refuse ULTC 100 application and 30 day stay at SNF. However pt psych history will make placement challenging. Faxed referrals for home care. Pt continues to refuse case management contacting Shayy, making a discharge home alone likely. Case Management has a wheelchair to donate to pt to assist with a safe home discharge. Case Management d/c poc: Planning for home care and returning to home. Case Management to follow. Date Signed: 03/27/2018 05:01 PM Electronically Signed By:Mishel Obrien RN [facility] CM Progress Note CM Note CM Note Notes: [facility] in to meet with pt today. [facility] stated that mtg went well and asked to be notified when he is d/[place]. D/C Plan: Home with [facility] Date Signed: 03/28/2018 03:51 PM Electronically Signed By:Ghislaine Hicks [facility] CM Progress Note CM Note CM Note Notes: CM spoke to Marissa Araiza NP regarding d/c POC. CM met w/ pt for dispo planning. Pt is interested in going to a SNF in [place] that is not [facility]. Pt was d/c'd from [facility] on 03/24. CM triggered the level 2 pasrr. Referrals sent to SNFs. Pt has been refusing SNF up until today. CM to follow. Plan: Possible SNF Date Signed: 03/31/2018 12:15 PM Electronically Signed By:EFRAIN Espana [facility] CM Progress Note CM Note CM Note Notes: CM spoke to Cecilio from [facility] this AM. [facility] has accepted him. Cecilio stopped by yesterday and met w/ pt. JANICE spoke to Sal and Sal has approved pt for 60 days. JANICE attached the level 2 pasrr into [employer] via fax attach. JANICE communicated this info w/ [facility] Araiza NP. [facility] [employer] [facility]. JANICE to follow Plan: [place] [facility] Date Signed: 04/01/2018 10:34 AM Electronically Signed By:EFRAIN Espana Case Management Discharge Plan Note Case Management Discharge Discharge Order Complete? Answers: Yes Patient to Obtain Answers: Other Notes: [facility] Medications Transportation Arranged Answers: Other Notes: [facility] will Pick (Date 04/03/2018 05:30 PM & Time) Case Management Transport Answers: Yes Form Complete Faxed Final Orders Answers: Yes Agency/Facility Transfer Answers: Yes Report Printed & Faxed to Receiving Agency Discharge Comments Notes: D/w FOOD INSPECTOR, final orders faxed. Cecilio at notified, RN to call report. Date Signed: 04/03/2018 03:07 PM Electronically Signed By:Sommer Milian RN Intervention Information Intervention Type:*IM-Signed Date of Service:04/03/2018 03:37 PM Patient Type:Inpatient Staff Member:Nadia Sanchez Hours: Discipline: Severity: Comment:
== END 2018-04-03 18:43 | DRG 640 ==
LOC: EDUNIT# → F2W 19:45 → OBSVTOIN 03-26 12:37 → F3E 03-28 23:02
PROVIDERS: ADMIT Internal Medicine; ATTEND Internal Medicine
DX: R62.7 Adult failure to thrive (principal); R53.1 Weakness; L89.313 Pressure ulcer of right buttock, stage 3; N39.0 Urinary tract infection, site not specified; B96.5 Pseudomonas (aeruginosa) (mallei) (pseudomallei) as the cause of diseases classified elsewhere; E87.1 Hypo-osmolality and hyponatremia; D50.9 Iron deficiency anemia, unspecified; F32.9 Major depressive disorder, single episode, unspecified; N40.0 Benign prostatic hyperplasia without lower urinary tract symptoms; E86.1 Hypovolemia; Z89.221 Acquired absence of right upper limb above elbow; Z23 Encounter for immunization
CPT/HCPCS: 84484-PO; 97110-GO; 97116-GP; 97162-GP; 97165-GO; 97530-GO; 97530-GP; 97535-GO; G0008; G0378; G8978-GP-CK; G8979-GP-CI; G8987-GO-CK; G8988-GO-CJ; J0692; J0696; J1644